=== PATIENT | male | born 1960 | race Caucasian/White ===

== ENCOUNTER → 2018-04-25 13:10 | Outpatient (CLI) | payer OTHER, SELFPAY ==
--- NOTE | 2018-04-25 13:13 | BI_ITS ---
MAMMOGRAPHY - BILATERAL DIAGNOSTIC REASON FOR EXAM: Male, 57 years old. 2 left breast lumps. PERTINENT HISTORY: Non-contributory. TECHNIQUE: Digital bilateral breast delia (3D mammographic acquisition) in the CC and MLO projections. 2-D mediolateral oblique (MLO) and craniocaudad (CC) views of both breasts were obtained. CAD: Full Field Digital Mammography with Computer Added Detection was performed. COMPARISON: None. Baseline examination. FINDINGS: Breast Composition: The breasts are almost entirely fatty. There are no dominant masses or suspicious calcifications. No other significant abnormalities are identified. BI/DIAG MAMM W/CAD, BILAT IMPRESSION: Negative diagnostic mammogram. With the patient's history of left breast lumps, correlation with ultrasound is recommended. ASSESSMENT CATEGORY: BIRADS Category 0: Incomplete. Need additional imaging evaluation. A letter regarding these results will be sent to the patient by the facility within 30 days. Approximately 10% of breast cancers are not detected by mammography. A normal mammogram should not delay biopsy of a clinically suspicious abnormality. Electronically Signed: Nic So MD at 15:41 EDT Tel [phone], Service support ,
--- NOTE | 2018-04-25 13:14 | US_ITS ---
STUDY: ULTRASOUND BREAST - LEFT REASON FOR EXAM: Male, 57 years old. Palpable lump left breast. TECHNIQUE: Axial and longitudinal images of the LEFT breast were performed with a high resolution ultrasound transducer. COMPARISON: Comparison is made with prior mammogram done earlier today. FINDINGS: LEFT Breast: There is a 1.4 cm x 1.8 cm x 0.8 cm slightly echogenic well-defined nodule at the 8:00 position in process of the sinus from the nipple. A similar-appearing nodule measuring 2.4 cm x 4.9 cm x 0.8 cm is seen at the 3:00 position breast at 4 cm from the nipple. These may represent lipomas although tissue diagnosis is recommended. US/Breast Limited Unilateral IMPRESSION: There are 2 slightly echogenic well-defined nodules as described. These may represent lipomas although tissue diagnosis is recommended. ASSESSMENT CATEGORY: BIRADS Category 4: Suspicious - Biopsy Should Be Considered. A letter regarding these results will be sent to the patient by the facility within 30 days. Electronically Signed: Nic So MD at 14:34 EDT Tel [phone], Service support ,
== END ==
PROVIDERS: Family Provider Family Medicine; PCP Family Medicine; Visit Provider Family Medicine
DX: N63.0 Unspecified lump in unspecified breast (principal)
CPT/HCPCS: 76642; 77062; 77066; G0279

== ENCOUNTER → 2018-07-03 12:22 | Outpatient (CLI) | payer OTHER, SELFPAY ==
[2018-05-03 12:56] VITALS: BMI 31.9
--- NOTE | 2018-07-03 12:25 | RAD_ITS ---
HISTORY: low back pain that goes down the back of the legs, some numbness occasionally COMPARISON: None FINDINGS: Lumbar spine 5 views: Mild anterior wedging of the T12 vertebral body and this may be developmental. Lumbar vertebra show normal height and alignment. No fracture or suspicious lesion. Diffuse narrowing of the lumbar disc spaces accompanied by anterolateral endplate spurring. Multilevel degenerative vacuum disc phenomenon. The posterior elements appear intact. No spondylolisthesis. The SI joints are preserved. RAD/L/S Spine Min 4 Views IMPRESSION: 1. No fracture or acute disease. 2. Lumbar spine degenerative disc disease and spondylosis throughout. at 0313 Reported and signed by: Fantasma Israel MD Electronically Signed: Fantasma Israel, at 3:11 EST Tel , Service support ,
[2018-07-03 14:04] LABS: Erythrocyte Sedimentation Rate 26 mm/hr (0-20)
[2018-07-03 14:08] LABS: Absolute Neutrophil Count 6.2 X10^3/uL (2.0-7.7); Basophil# 0.03 X10^3/uL; Basophil% 0.3 % (0-1); Eosinophil# 0.17 X10^3/uL; Eosinophils% 1.7 % (0-5); Hematocrit 47.1 % (40-54); Lymphocyte % 27.5 % (19-41); Mean Corpuscular Volume 88.4 fL (80-94); Mean Platelet Vol. 11.3 fl (6.2-12.0); Monocyte# 0.72 X10^3/uL; Monocyte% 7.3 % (0-10); Neutrophil # 6.19 X10^3/uL (2.7-7.7); Neutrophil % 63.1 % (47-70); POSITIVE COUNT NO; POSITIVE DIFFERENTIAL NO; POSITIVE MORPHOLOGY NO; Platelet Count 242 K/mm3 (150-450); RBC Distribution Width CV 13.6 % (11.6-14.6); RBC Distribution Width SD 44.1 fl (35.1-43.9); Red Blood Count 5.33 M/mm3 (4.6-6.2); White Blood Count 9.8 K/mm3 (4.4-11.0)
[2018-07-03 14:24] LABS: BUN 18 mg/dL (7-18); Creatinine, Serum 1.13 mg/dL (0.70-1.30); Glucose 113 mg/dL (74-106)
[2018-07-03 14:25] LABS: ALB/GLOB Ratio 1.1 RATIO (0.9-2.4); AST(SGOT) 18 U/L (15-37); Alanine Aminotransfer ALT/SGPT 29 U/L (16-61); Alkaline Phosphatase 69 U/L (45-117); Anion Gap 9 (5-15); BUN/Creat Ratio 15.9 RATIO (10-20); CRP < 2.90 mg/L (0.0-3.0); Calcium,Total 8.8 mg/dL (8.5-10.1); Chloride 108 mmol/L (98-107); EST Glomerular Filtration Rate 71 mL/min (>60); Est Glom Filt Rate - Afr Amer 86 mL/min (>60); Globulin 3.8 g/dL (2.2-4.2); PSA,Total - Annual Screen 0.92 ng/mL (0.00-4.00); Potassium 4.3 mmol/L (3.5-5.1); Protein, Total 7.8 g/dL (6.4-8.2); Sodium Level 140 mmol/L (136-145)
[2018-07-04 15:00] LABS: ANTINUCLEAR ANTIBODIES DIRECT Negative (Negative)
--- OUTSIDE RECORDS SUMMARY | 2018-08-28 21:30 | XMS RPT_ITS ---
:1960 Author Organization [employer] Address [address] [place] [phone] Phone Care Team Providers Name Role Phone Cesar Blank MD Reason for Visit Reason For Visit Description Start Date Follow-up by complaint Preliminary reason for visit data, not yet signed by the author as of right shoulder pain Preliminary reason for visit data, not yet signed by the author as of Chief Complaint Chief Complaint Description Start Date right shoulder pain Preliminary chief complaint data, not yet signed by the author as of Instructions Instruction Description Start Date CompletedPatient advised to follow-up with Primary Care Physician for BMI management. Plan of Care Type Date Detail Appointment 11:00 AM Cesar Blank MD, [address] [facility], [place], [address], Patient education \cps-sql1\CPS_PtEducation\qu itting_[id number], \cps-sql1\CPS_PtEducation\qu itting_[id number].pdf Medications Medication Instructions Start Stop Generic Name NDC Provider Date Date B-12 1000 MCG 1 capsule daily / CYANOCOBALAMIN 46062337089 Emely CAPS 20 Rutledge FURNACE LOADER VITAMIN B-6 50 1 tablet daily / PYRIDOXINE HCL 95821689616 Emely MG TABS 20 Rutledge FURNACE LOADER ADVIL 200 MG 2 tablets daily / IBUPROFEN 59863791877 Emely TABS 20 Rutledge FURNACE LOADER BIOFLEX TABS 1 tablet daily / BIOFLAVONOID 88828395758 Emely 20 PRODUCTS Rutledge FURNACE LOADER MULTIVITAMIN 1 tablet daily / MULTIPLE 22156543852 Emely MEN TABS 20 VITAMINS-MINERALS Rutledge FURNACE LOADER CIALIS 5 MG 1 tablet daily / TADALAFIL 70569077353 Emely TABS 20 Rutledge FURNACE LOADER PRILOSEC OTC 20 1 tablet daily / OMEPRAZOLE 06717935076 Emely MG TBEC 20 MAGNESIUM Rutledge FURNACE LOADER Conditions or Problems Problem Name Problem Onset Status Entry Provider Comment Standard Annotate Code Date Date Description Complete tear 821272313 Active Cesar Rogers Full TRAUMATIC of right (SNOMED CT) / Abhay LEO thickness rotator cuff rotator cuff tear Impingement 922063862 Active Cesar Rogers Impingement syndrome of (SNOMED CT) Abhay LEO syndrome of right shoulder shoulder region Tear of 008904702 Active Cesar S Tear of right biceps tendon (SNOMED CT) / Abhay LEO biceps brachii tendon Allergies, Adverse Reactions, Alerts Allergy Name Reaction Start Date Severity Status Provider Description SULFA Critical Active Emely Rutledge FURNACE LOADER Social History Concept Description Observation Name Observation Value Units Start Date Tobacco use and SMOK ADVICE Yes exposure Preliminary social history data, not yet signed by the author as of Vital Signs Date Name Value Unit Description BMI (Body Mass 31.74 kg/m2 Body Mass Index Index) [Ratio] Preliminary vital sign data, not yet signed by the author as of BP Diastolic 84 mm[Hg] blood pressure, diastolic Preliminary vital sign data, not yet signed by the author as of BP Systolic 137 mm[Hg] blood pressure, systolic Preliminary vital sign data, not yet signed by the author as of Heart Rate 86 /min pulse rate E&M Preliminary vital sign data, not yet signed by the author as of Height 68 [in_us] height E&M Preliminary vital sign data, not yet signed by the author as of Height 173 cm height in centimeters E&M Preliminary vital sign data, not yet signed by the author as of Weight Measured 208 [lb_av] weight E&M Preliminary vital sign data, not yet signed by the author as of Weight Measured 95 kg weight in kilograms E&M Preliminary vital sign data, not yet signed by the author as of Results Date Name Value Unit Range Flag Description Office Visit: Follow-up by complaint, Rm: 14 MEDS REVIEW Done Documentation of current medications (procedure) Preliminary observation data, not yet signed by the author as of SMOK ADVICE Yes Smoking cessation education (procedure) Preliminary observation data, not yet signed by the author as of Preliminary observation data, not yet signed by the author as of Clinical Summary: HMSPatientID OOP account number Procedures Code Procedure Name Date Entry Date G8730 Pain assessment documented as positive - follow-up documented G8427 Current medications documented 4004F Tobacco screening was positive - cessation counseling received G8417 BMI documented as above normal parameters - follow-up documented G8783 Blood pressure within normal parameters - no follow-up required [id number] Patient Encounter Medications Administered No information available. Immunizations No information available. Advance Directives There may be information available, but it has not been provided by the sender. Assessments There may be information available, but it has not been provided by the sender. Review of Systems There may be information available, but it has not been provided by the sender. Family History There may be information available, but it has not been provided by the sender. History of Past Illness There may be information available, but it has not been provided by the sender. History of Present Illness There may be information available, but it has not been provided by the sender.
--- OUTSIDE RECORDS SUMMARY | 2018-08-28 21:31 | XMS RPT_ITS ---
:1960 Author Organization [employer] Address [address] [place] [phone] Phone Care Team Providers Name Role Phone Cesar Blank MD Reason for Visit Reason For Visit Description Start Date New - 1st visit with practice Preliminary reason for visit data, not yet signed by the author as of right shoulder pain Preliminary reason for visit data, not yet signed by the author as of Chief Complaint Chief Complaint Description Start Date right shoulder pain Preliminary chief complaint data, not yet signed by the author as of Instructions Instruction Description Start Date CompletedPlease follow-up with Primary Care Physician or Lead Python Developer for treatment or adjustment of medication regarding elevated blood pressure. Plan of Care Type Date Detail Appointment 02:00 PM Cesar Blank MD, [address] [facility], [place], [address], Pending order XR SHOULDER 2 VWS-RT Pending order MRI right shoulder without contrast Patient education \cps-sql1\CPS_PtEducation\ht n.pdf Medications Medication Instructions Start Stop Generic Name NDC Provider Date Date B-12 1000 MCG 1 capsule daily / CYANOCOBALAMIN 42866560506 Emely CAPS 20 Rutledge CALL OR CONTACT CENTRE OPERATOR VITAMIN B-6 50 1 tablet daily / PYRIDOXINE HCL 59041394375 Emely MG TABS 20 Rutledge CALL OR CONTACT CENTRE OPERATOR ADVIL 200 MG 2 tablets daily / IBUPROFEN 12047311233 Emely TABS 20 Rutledge CALL OR CONTACT CENTRE OPERATOR BIOFLEX TABS 1 tablet daily / BIOFLAVONOID 71882794999 Emely 20 PRODUCTS Rutledge CALL OR CONTACT CENTRE OPERATOR MULTIVITAMIN 1 tablet daily / MULTIPLE 24929680998 Emely MEN TABS 20 VITAMINS-MINERALS Rutledge CALL OR CONTACT CENTRE OPERATOR CIALIS 5 MG 1 tablet daily / TADALAFIL 16257901677 Emely TABS 20 Rutledge CALL OR CONTACT CENTRE OPERATOR PRILOSEC OTC 20 1 tablet daily / OMEPRAZOLE 89621757943 Emely MG TBEC 20 MAGNESIUM Rutledge CALL OR CONTACT CENTRE OPERATOR Conditions or Problems Problem Name Problem Onset Status Entry Provider Comment Standard Annotate Code Date Date Description Complete tear 493824443 Active Cesar Rogers Full TRAUMATIC of right (SNOMED CT) / Abhay LEO thickness rotator cuff rotator cuff tear Impingement 716349739 Active Cesar Rogers Impingement syndrome of (SNOMED CT) / Abhay LEO syndrome of right shoulder shoulder region Tear of 963849637 Active Cesar S Tear of right biceps tendon (SNOMED CT) / Abhay LEO biceps brachii tendon Allergies, Adverse Reactions, Alerts Allergy Name Reaction Start Date Severity Status Provider Description SULFA Critical Active Emely Rutledge CALL OR CONTACT CENTRE OPERATOR Social History No information available. Vital Signs Date Name Value Unit Description BMI (Body Mass 32.81 kg/m2 Body Mass Index Index) [Ratio] Preliminary vital sign data, not yet signed by the author as of BP Diastolic 92 mm[Hg] blood pressure, diastolic Preliminary vital sign data, not yet signed by the author as of BP Diastolic 83 mm[Hg] blood pressure, diastolic, second observation Preliminary vital sign data, not yet signed by the author as of BP Systolic 152 mm[Hg] blood pressure, systolic Preliminary vital sign data, not yet signed by the author as of BP Systolic 150 mm[Hg] blood pressure, systolic, second observation Preliminary vital sign data, not yet signed by the author as of Heart Rate 62 /min pulse rate E&M Preliminary vital sign data, not yet signed by the author as of Height 68 [in_us] height E&M Preliminary vital sign data, not yet signed by the author as of Height 173 cm height in centimeters E&M Preliminary vital sign data, not yet signed by the author as of Weight Measured 215 [lb_av] weight E&M Preliminary vital sign data, not yet signed by the author as of Weight Measured 98 kg weight in kilograms E&M Preliminary vital sign data, not yet signed by the author as of Results Date Name Value Unit Range Flag Description Office Visit: New - 1st visit with practice, Rm: 14 MEDS REVIEW Done Documentation of current medications (procedure) Preliminary observation data, not yet signed by the author as of Preliminary observation data, not yet signed by the author as of Clinical Summary: Scanned ROS Summary ROS: Denies genitourinary review of systems, E&M ROS GI COM Heart Burn Gastrointestional review of systems, comment ROS: GI Complains ROS gastrointestinal E&M ROS ENDO Denies endocrine ROS ROS MSK COMM Muscle ROS Musculoskeletal Cramps,Muscle comments Weakness,Pain,J oint Pain ROS:MUSCSKEL Complains ROS musculoskeletal E&M ROS: PSYCH Denies ROS psychiatric E&M ROS HEME Denies ROS hematologic/lymphatic E&M ROS SKIN Denies ROS skin E&M ROS ENT Denies ROS ENT E&M ROS:GENERAL Denies ROS general E&M ROS: NEURO Denies ROS neurological E&M ROS:PULMON Denies ROS pulmonary E&M ROS: CARDIAC Denies ROS cardiovascular E&M Clinical Summary: HMSPatientID OOP account number Clinical Lists Update: Preload Extended SMOK STATUS current everyday Tobacco smoker smoking status NHIS Clinical Summary: Data Submitted by Patient in Portal Mylaf Exercise vein comment DEPEXER FREQ 3 days per week Data entered by patient exercise frequency DEP EXERTYP sports Data entered by patient exercise type DEP EXERCISE No data entered by patient, exercise history DEP DRUG USE No data entered by patient, drug (of abuse) use PREPRGETOH Occasional beer or alcohol, amount mixed drink used per day prior socially to DEP ETOH USE No data entered by patient, alcohol (ethanol or ETOH) use DEP CIGAR SM greater than 10 Data entered by cigars per week patient cigar smoking TOBUSEWHEN 40 tobacco use, when do you smoke? 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 EMPLOYER employed data entered by patient, Employer Name BROTHERS A/D My brother(s)' brother(s) of health history is patient alive or unknown SISTER A/D My sister(s)' sister of health history is patient(s) alive unknown or DEPFHPATUNKN My father's health data entered by history is unknown patient, paternal family history unknown DEATHCAU DAD Age cause of , father FATHER A/D father of patient is alive or DEP MOM PM Cancer data entered by patient, mother's medical history MOTHER A/D Alive mother of patient is alive or DEP SURGERY Carpal tunnel, Data entered by Trigger finger patient, history of past surgeries DEP [facility] GERD, Obesity data entered by patient, past medical history RLATNSHPINFR Self Relationship of informant to patient MEDICCOMMNTS Men's multivitamin medication Vitamin B12 - comments 1,000mcg DEP ALG LIST Sulfa Drugs,I Data entered by don't have any patient, allergy food allergies.,I list don't have any environmental allergies. DEP MED LIST Prilosec 20 mg Tab Data entered by Dr, 1 times per patient, day,Vitamin B6 50 medication list mg Tab, 1 times per day,Cialis 5 mg Tab, 1 times per day Clinical Lists Update: Preload Extended SMOK STATUS current everyday Tobacco smoker smoking status CTIS Procedures Code Procedure Name Date Entry Date G8730 Pain assessment documented as positive - follow-up documented G8427 Current medications documented [id number] Tobacco screening or cessation counseling not performed - unknown reason G8419 BMI outside of normal parameters - no follow-up plan/reason not given G8950 Blood pressure outside of normal parameters - follow-up documented [id number] Patient Encounter Medications Administered No information available. [...]
--- OUTSIDE RECORDS SUMMARY | 2018-08-28 21:31 | XMS RPT_ITS ---
:1960 Author Organization OHIP Care Team Providers Name Role Phone ELDA GUNDERSON Attending Unavailable CHARLES ARMENDARIZ Referring Unavailable Kimberly Cole Attending Unavailable Marcello Charles Referring Unavailable Alvarado Bowden Attending Unavailable Alvarado Bowden Referring Unavailable Marcello, Charles Primary Care Unavailable Edgar Dan Attending Unavailable Marcello, Charles Referring Unavailable Charles Armendariz Attending Unavailable Armendariz, Charles Referring Unavailable Armendariz, Charles Primary Care Unavailable PROBLEMS PROBLEMS DATE TYPE CONDITION / CODE ATTENDING STATUS SOURCE 05/03/2018 Unknown Z98.890 - Other Edgar Dan Debra specified [facility] / Repository Z98.890(ICD-10) 05/03/2018 Unknown M25.532 - Pain in Edgar Dan Active Debra left wrist / Community M25.532(ICD-10) Hospital Repository PROCEDURES PROCEDURES No Procedure Records FoundRESULTS RESULTS CNOV Observed: 07/15/2018 Status: COMPLETED Source: [place] 2:40 PM [facility] REPOSITORY Office Visit (FAREED) MATHEW PORTILLO ([id number]) 1960 M Date Time Provider Department 07/15/18 2:40 PM ELDA GUNDERSON During your visit today, we recorded the following information about you: Temperature Pulse Respiration Blood pressure 98.4 degrees 76/minute 18/minute 157/98 Weight Height 99.8 kg 1.702 m Elda Gunderson MD 07/15/2018 5:12 PM Signed New Patient Consult REASON FOR VISIT Mathew Portillo is a 57 year old male who is scheduled for a consult at the request of Charles Armendariz for Consult (Anal Pain). My final recommendations will be communicated back to the requesting physician by the way of the shared medical record, fax, or via US Mail History of Present Illness: 57 year old male with a history of a perianal abscess in 2017 that was IANDD'd. He believes over the next few months the fistula healed but he now has intermittent anal pain that occurs when sitting. The pain is worse with bowel movements and has 1-2 bowel movements per day. He reports having the pain when driving or sitting and describes it as a sharp shooting pain at the anus. He has a history of internal hemorrhoids several years ago and has had bleeding per rectum this week, mostly dripping into the toilet bowel. He is not on any blood thinners. His last colonoscopy was 1 year ago, which had 2 polyps (tubular adenomas). Smokes 5-7 cigarettes per day. FUNCTIONAL STATUS: Do heavy work around the house, such as scrubbing floors, lifting or moving heavy furniture (8.00 METs) PAST MEDICAL HISTORY Diagnosis Date - Anal abscess 2017 - Benign neoplasm of rectum and anal canal - Carpal tunnel syndrome - ED (erectile dysfunction) - External hemorrhoids without mention of complication - Former smoker - GERD (gastroesophageal reflux disease) - Headaches, cluster - Hemorrhage of gastrointestinal tract, unspecified - Hiatal hernia - Internal hemorrhoid, bleeding - Kidney stones - Snoring - STD (sexually transmitted disease) - Trigger finger PAST SURGICAL HISTORY Procedure Laterality Date - CARPAL TUNNEL - COLONOSCOP W/ OR W/O BRSH SPEC 09/18/2016 Colonoscopy - COLONOSCOPY W/BX 07/04/11 Repeat in - EGD 2008 normal - KNEE SCOPE,DIAGNOSTIC 1987 FAMILY HISTORY Problem Relation Age of Onset - Cancer Mother - other (nonhodgkins) Mother - None Father - None Sister - None Sister - Cancer Brother - None Maternal Grandmother - None Maternal Grandfather - Diabetes Daughter - Hypertension Son Social History Substance Use Topics - Smoking status: Current Every Day Smoker Types: Cigarettes, Cigars Last attempt to quit: 12/04/2008 - Smokeless tobacco: Never Used Comment: Smokes Cigars - 5 day - Alcohol use Yes Comment: rarely The patient has the following: Problem List Noted Noted By Resolved Resolved By Low libido 03/16/2015 Dixon Kramer No Impotence of organic origin 03/16/2015 Dixon Kramer No MEDICATIONS Current Outpatient Prescriptions: celecoxib (CELEBREX) 200 mg capsule Take 200 mg by mouth twice daily. Disp: Rfl: cyclobenzaprine (FLEXERIL) 10 mg tablet Take 10 mg by mouth daily at bedtime. Disp: Rfl: amoxicillin (AMOXIL) 875 mg tablet Take 875 mg by mouth twice daily. Disp: Rfl: Multivitamin capsule Take 1 capsule by mouth once daily. Disp: Rfl: Tadalafil (CIALIS) 10 mg tablet Take 10 mg by mouth once daily. Disp: Rfl: LACTOBACILLUS ACIDOPHILUS (PROBIOTIC ORAL) Take by mouth once daily. Disp: Rfl: Omeprazole Magnesium (PRILOSEC OTC) 20 mg ORAL tablet Take 1 tablet by mouth once daily. ON AN EMPTY STOMACH Disp: 90 tablet Rfl: 3 ibuprofen (ADVIL) 200 mg ORAL tablet Take 1-2 tablets by mouth every 2 hours as needed. for pain. Disp: Rfl: 0 sildenafil (VIAGRA) 100 mg ORAL tablet Take 1 tablet by mouth as needed. 30-60 minutes before sexual intercourse. 1/2 tablet Disp: Rfl: 0 No current facility-administered medications for this visit. CURRENT ALLERGIES ALLERGIES Allergen Reactions - Lisinopril Cough - Sulfa (Sulfonamide * Rash REVIEW OF SYSTEMS PAIN ASSESSMENT: General: No weight loss, malaise or fevers. Neuro: Neg Respiratory: No history of current cough or dyspnea, or pneumonia in the past 6 weeks. No history of respiratory/pulmonary symptoms or problems Cardiovascular: No history of HTN requiring medication, no history of angina, CHF, AK, cardiac surgery or stents. Denies rest pain, gangrene or revascularization/amputation for PVD. No history of cardiovascular symptoms or problems. GI: Positive for GERD, Heartburn, History of polyps : BPH METAL MINER: N/A : N/A Endocrine: No history of diabetes. Has not taken steroids within the past 30 days. No history of endocrinological symptoms or problems. Hematology: No history of bleeding or clotting disorder. Pt is not taking anti-coagulation or platelet medications. No history of hematological symptoms or problems. Oncology: No history of CA metastasis, chemo within 30 days, or radiotherapy within 90 days. Has not lost 10% of body wt in 6 months. No history of oncological symptoms or problems. Psych: No history of psychiatric symptoms or problems. Musculoskeletal: Back pain, Rt rotator cuff tear Skin: Negative for lesions, rash and itching. Anemia: No PHYSICAL EXAMINATION BP 157/98 Pulse 76 Temp (Src) 98.4 (Oral) Resp 18 Ht 5' 7 (1.70m) Wt 220 lb (99.8kg) SpO2 96% BMI 34.45 kg/(m2). General Appearance: Well appearing, alert, in no acute distress, well-hydrated, well nourished. Skin: Skin color, texture, turgor normal, no suspicious rashes or lesions Head: Normocephalic, no masses, lesions, tenderness or abnormalities Oropharynx: Lips, mucosa, and tongue normal, teeth and gums normal, oropharynx normal Neck: Supple, no adenopathy; thyroid symmetric, normal size, no bruits Lungs: Lungs clear to auscultation. No wheezing, rhonchi, rales Heart: RRR without murmur, gallop, or rubs. No ectopy Extremities: No deformities, edema, skin discoloration, clubbing or cyanosis. Good capillary refill. Neuro: Gait normal. Reflexes normal and symmetric. Sensation grossly intact. Abdomen: Normal abdominal exam, Negative CVA tenderness Anorectal: Normal tone and squeeze; tight sphincters, long canal; on the exterior anoderm anteriolaterally on the left there is irritation and inflammed what looks like a follicle. That are is not tender to the touch. There is no obvious fissure visible. On SAMINA, the point of tenderness is directly posteriorly. He does not tolerate the exam and anoscopy was not tried. Body And Frame Man present: Yes [facility] [place] NOTE OF PERSONAL INVOLVEMENT IN CARE I have reviewed the history and physical examination obtained and documented by the fellow and I personally participated in the fay components. I have discussed the case and management of the patient's care. The following comments revise or confirm relevant fay components of their note. Assessment ASSESSMENT 1. anal pain, suspected chronic fissue 2. prior anal abscess, treated by IANDD 3. obesity RECOMMENDATION 1. increase water and fiber in diet 2. colace 3. lidocaine jelly bid 4. trial of 0.2% NTG ointment 5. 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 OMEPRAZOLE MAGNESIUM 20 MG TA* Take 1 tablet by mouth once d* IBUPROFEN 200 MG TABLET Take 1-2 tablets by mouth mathieu* SILDENAFIL 100 MG TABLET Take 1 tablet by mouth as nee* NITROGLYCERIN 0.2% OINTMENT (* Apply 1 application to affect* LIDOCAINE 2 % MUCOSAL JELLY Apply as directed. Problem List As Of Date 07/15/2018 Noted Resolved Low libido [R68.82] INVALID FOR* Impotence of organic origin [N52.9] INVALID FOR* Prescriptions ordered this encounter Disp Refills Start End NITROGLYCERIN 0.2% OINTMENT ([facility]) 30 g 1 07/15/2018 Class: Print RX Route: TOPICAL Sig: Apply 1 application to affected area twice daily. LIDOCAINE 2 % MUCOSAL JELLY 1 Tu* 07/15/2018 Sig: Apply as directed. Encounter Status:Closed by ELDA GUNDERSON MD on 07/15/18 HISTORY PHYSICAL Observed: 07/15/2018 Status: COMPLETED Source: [place] 2:37 PM [facility] REPOSITORY O ID: [id number] Author: Elda Gunderson Service: (none) Author Type: Physician Type: HANDP Filed: 07/15/2018 5:12 PM Note Text: New Patient Consult REASON FOR VISIT Mathew Portillo is a 57 year old male who is scheduled for a consult at the request of Charles Armendariz for Consult (Anal Pain). My final recommendations will be communicated back to the requesting physician by the way of the shared medical record, fax, or via US Mail History of Present Illness: 57 year old male with a history of a perianal abscess in 2017 that was IANDD'd. He believes over the next few months the fistula healed but he now has intermittent anal pain that occurs when sitting. The pain is worse with bowel movements and has 1-2 bowel movements per day. He reports having the pain when driving or sitting and describes it as a sharp shooting pain at the anus. He has a history of internal hemorrhoids several years ago and has had bleeding per rectum this week, mostly dripping into the toilet bowel. He is not on any blood thinners. His last colonoscopy was 1 year ago, which had 2 polyps (tubular adenomas). Smokes 5-7 cigarettes per day. FUNCTIONAL STATUS: Do heavy work around the house, such as scrubbing floors, lifting or moving heavy furniture (8.00 METs) PAST MEDICAL HISTORY Diagnosis Date - Anal abscess 2016 - Benign neoplasm of rectum and anal canal - Carpal tunnel syndrome - ED (erectile dysfunction) - External hemorrhoids without mention of complication - Former smoker - GERD (gastroesophageal reflux disease) - Headaches, cluster - Hemorrhage of gastrointestinal tract, unspecified - Hiatal hernia - Internal hemorrhoid, bleeding - Kidney stones - Snoring - STD (sexually transmitted disease) - Trigger finger PAST SURGICAL HISTORY Procedure Laterality Date - CARPAL TUNNEL - COLONOSCOP W/ OR W/O BRSH SPEC 09/18/2016 Colonoscopy - COLONOSCOPY W/BX 07/04/11 Repeat in - EGD 2008 normal - KNEE SCOPE,DIAGNOSTIC 1987 FAMILY HISTORY Problem Relation Age of Onset - Cancer Mother - other (nonhodgkins) Mother - None Father - None Sister - None Sister - Cancer Brother - None Maternal Grandmother - None Maternal Grandfather - Diabetes Daughter - Hypertension Son Social History Substance Use Topics - Smoking status: Current Every Day Smoker Types: Cigarettes, Cigars Last attempt to quit: 12/04/2008 - Smokeless tobacco: Never Used Comment: Smokes Cigars - 5 day - Alcohol use Yes Comment: rarely The patient has the following: Problem List Noted Noted By Resolved Resolved By Low libido 03/16/2015 Dixon Kramer No Impotence of organic origin 03/16/2015 Dixon Kramer No MEDICATIONS Current Outpatient Prescriptions: celecoxib (CELEBREX) 200 mg capsule Take 200 mg by mouth twice daily. Disp: Rfl: cyclobenzaprine (FLEXERIL) 10 mg tablet Take 10 mg by mouth daily at bedtime. Disp: Rfl: amoxicillin (AMOXIL) 875 mg tablet Take 875 mg by mouth twice daily. Disp: Rfl: Multivitamin capsule Take 1 capsule by mouth once daily. Disp: Rfl: Tadalafil (CIALIS) 10 mg tablet Take 10 mg by mouth once daily. Disp: Rfl: LACTOBACILLUS ACIDOPHILUS (PROBIOTIC ORAL) Take by mouth once daily. Disp: Rfl: Omeprazole Magnesium (PRILOSEC OTC) 20 mg ORAL tablet Take 1 tablet by mouth once daily. ON AN EMPTY STOMACH Disp: 90 tablet Rfl: 3 ibuprofen (ADVIL) 200 mg ORAL tablet Take 1-2 tablets by mouth every 2 hours as needed. for pain. Disp: Rfl: 0 sildenafil (VIAGRA) 100 mg ORAL tablet Take 1 tablet by mouth as needed. 30-60 minutes before sexual intercourse. 1/2 tablet Disp: Rfl: 0 No current facility-administered medications for this visit. CURRENT ALLERGIES ALLERGIES Allergen Reactions - Lisinopril Cough - Sulfa (Sulfonamide * Rash REVIEW OF SYSTEMS PAIN ASSESSMENT: General: No weight loss, malaise or fevers. Neuro: Neg Respiratory: No history of current cough or dyspnea, or pneumonia in the past 6 weeks. No history of respiratory/pulmonary symptoms or problems Cardiovascular: No history of HTN requiring medication, no history of angina, CHF, AK, cardiac surgery or stents. Denies rest pain, gangrene or revascularization/amputation for PVD. No history of cardiovascular symptoms or problems. GI: Positive for GERD, Heartburn, History of polyps : BPH METAL MINER: N/A : N/A Endocrine: No history of diabetes. Has not taken steroids within the past 30 days. No history of endocrinological symptoms or problems. Hematology: No history of bleeding or clotting disorder. Pt is not taking anti-coagulation or platelet medications. No history of hematological symptoms or problems. Oncology: No history of CA metastasis, chemo within 30 days, or radiotherapy within 90 days. Has not lost 10% of body wt in 6 months. No history of oncological symptoms or problems. Psych: No history of psychiatric symptoms or problems. Musculoskeletal: Back pain, Rt rotator cuff tear Skin: Negative for lesions, rash and itching. Anemia: No PHYSICAL EXAMINATION BP 157/98 Pulse 76 Temp (Src) 98.4 (Oral) Resp 18 Ht 5' 7 (1.70m) Wt 220 lb (99.8kg) SpO2 96% BMI 34.45 kg/(m2). General Appearance: Well appearing, alert, in no acute distress, well-hydrated, well nourished. Skin: Skin color, texture, turgor normal, no suspicious rashes or lesions Head: Normocephalic, no masses, lesions, tenderness or abnormalities Oropharynx: Lips, mucosa, and tongue normal, teeth and gums normal, oropharynx normal Neck: Supple, no adenopathy; thyroid symmetric, normal size, no bruits Lungs: Lungs clear to auscultation. No wheezing, rhonchi, rales Heart: RRR without murmur, gallop, or rubs. No ectopy Extremities: No deformities, edema, skin discoloration, clubbing or cyanosis. Good capillary refill. Neuro: Gait normal. Reflexes normal and symmetric. Sensation grossly intact. Abdomen: Normal abdominal exam, Negative CVA tenderness Anorectal: Normal tone and squeeze; tight sphincters, long canal; on the exterior anoderm anteriolaterally on the left there is irritation and inflammed what looks like a follicle. That are is not tender to the touch. There is no obvious fissure visible. On SAMINA, the point of tenderness is directly posteriorly. He does not tolerate the exam and anoscopy was not tried. Body And Frame Man present: Yes [facility] [place] NOTE OF PERSONAL INVOLVEMENT IN CARE I have reviewed the history and physical examination obtained and documented by the fellow and I personally participated in the fay components. I have discussed the case and management of the patient's care. The following comments revise or confirm relevant fay components of their note. Assessment ASSESSMENT 1. anal pain, suspected chronic fissue 2. prior anal abscess, treated by IANDD 3. obesity RECOMMENDATION 1. increase water and fiber in diet 2. colace 3. lidocaine jelly bid 4. trial of 0.2% NTG ointment 5. if no improvement, EUA to r/o fissure or occult abscess Elda Gunderson MD DATE: 07/15/18 TIME: 2:37 PM ERYTHROCYTE SED RATE Collected: 07/03/2018 Status: F Source: [place] 12:27 PM [facility] REPOSITORY TYPE CODE TESTS RESULT OUT OF RANGE REFERENCE UNITS LAB L102.0000 0-20 mm/hr High SED RATE 26 Performed By: #### L101.9900, L100.0100 #### [facility] [address] [place], [address] CBC W/DIFF, AUTOMATED Collected: 07/03/2018 Status: F Source: [place] 12:27 PM [facility] REPOSITORY TYPE CODE TESTS RESULT OUT OF RANGE REFERENCE UNITS LAB L100.1000 4.4-11.0 K/mm3 Normal WBC 9.8 LAB L100.1200 4.6-6.2 M/mm3 Normal RBC 5.33 LAB L100.1300 13.0-16.5 g/dl Normal HGB 16.0 LAB L100.1400 40-54 % Normal HCT 47.1 LAB L100.1500 80-94 fL Normal MCV 88.4 LAB L100.1600 27.0-32.0 pg Normal MCH 30.0 LAB L100.1700 32-36 g/gl Normal MCHC 34.0 LAB L100.1810 11.6-14.6 % Normal RDW CV 13.6 LAB L100.1820 35.1-43.9 fl High RDW SD 44.1 LAB L100.1900 150-450 K/mm3 Normal PLT 242 LAB L100.2000 6.2-12.0 fl Normal MPV 11.3 LAB L100.2100 47-70 % Normal NEUT% 63.1 LAB L100.2200 19-41 % Normal LY% 27.5 LAB L100.2300 0-10 % Normal MONO% 7.3 LAB L100.2400 0-5 % Normal EO% 1.7 LAB L100.2500 0-1 % Normal BASO% 0.3 LAB L100.2550 0.0-0.9 % Normal IM GRAN % 0.100 Result Comment: IG% - Immature Granulocytes (promyelocytes, myelocytes and metamyelocytes) > 1% indicates that a LEFT SHIFT is Present. LAB L100.2620 2.0-7.7 X10 3/uL Normal Absolute Neut 6.2 LAB L100.2720 0.83-4.51 X10 3/ul Normal Absolute Lymph 2.70 Performed By: #### L101.9900, L100.0100 #### [facility] [address] [place], [place], [address] MICROALB:CREAT Collected: 07/03/2018 Status: F Source: [facility] 12:27 PM [facility] REPOSITORY TYPE CODE TESTS RESULT OUT OF RANGE REFERENCE UNITS LAB L501.1200 NO RANGE EST. mg/dL Normal UR CREAT 116.00 LAB L502.0500 NO RANGE EST. mg/L Normal 7.0 MICROALBUMIN ,UR LAB L502.0600 <30 mg/g CRE mg/g CRE Normal 6.0 MALB:CREAT Performed By: #### L502.0250 #### [facility] [address], [address] COMPREHENSIVE METABOLIC Collected: 07/03/2018 Status: F Source: [place] 12:27 PM [facility] REPOSITORY TYPE CODE TESTS RESULT OUT OF RANGE REFERENCE UNITS LAB L501.0100 74-106 mg/dL High GLU 113 Result Comment: Fasting Glucose result from 100 to 125 mg/dL suggests IMPAIRED HOMEOSTASIS per A.D.A. criteria. Please note revised GLUCOSE reference range effective 2017. LAB L501.1000 7-18 mg/dL Normal BUN 18 LAB L501.1100 0.70-1.30 mg/dL Normal CREAT,SERUM 1.13 Result Comment: The validity of the calculated GFR AND GFRAA in patients over 70 years has not been determined. Clinical correlation is essential. LAB L501.1110 >60 mL/min Normal EST GFR 71 Result Comment: Non- GFR Calc LAB L501.1115 >60 mL/min Normal EST GFR - AA 86 Result Comment: GFR Calc LAB L501.1300 10-20 RATIO Normal BUN/CRE 15.9 LAB L501.1500 6.4-8.2 g/dL T Normal PROT 7.8 LAB L501.1800 3.2-5.0 g/dL Normal ALB 4.0 LAB L501.1950 2.2-4.2 g/dL Normal GLOB 3.8 LAB L501.2000 0.9-2.4 RATIO Normal A/G 1.1 LAB L501.2200 8.5-10.1 mg/dL CA Normal 8.8 LAB L501.4100 15-37 U/L Normal AST 18 LAB L501.4305 45-117 U/L Normal ALK P 69 LAB L501.4405 16-61 U/L Normal ALT 29 LAB L501.4600 0.20-1.00 mg/dL T Normal BILI 0.20 LAB L501.5300 136-145 mmol/L NA Normal 140 LAB L501.5600 3.5-5.1 mmol/L K Normal 4.3 LAB L501.5900 98-107 mmol/L High CL 108 LAB L501.6100 21.0-32.0 mmol/L Normal CO2 23.0 LAB L501.6200 5-15 Normal GAP 9 Performed By: #### L500.4050, L501.6710, L501.9910 #### [facility] [address] [place], [place], [address] CRP Collected: 07/03/2018 Status: F Source: [place] 12:27 PM [facility] REPOSITORY TYPE CODE TESTS RESULT OUT OF RANGE REFERENCE UNITS LAB L501.6710 0.0-3.0 mg/L Normal < 2.90 C-REACTIVE PROT Result Comment: C-Reactive Protein (CRP) provides useful information for the diagnosis, therapy and monitoring of inflammatory processes and associated diseases. For the evaluation of Relative Risk for Cardiovascular Disease, a High Sensitivity CRP (HSCRP) should be ordered. Performed By: #### L500.4050, L501.6710, L501.9910 #### [facility] [address] [place], [place], [address] PSA,TOTAL - ANNUAL Collected: 07/03/2018 Status: F Source: [place] 12:27 PM [facility] REPOSITORY TYPE CODE TESTS RESULT OUT OF RANGE REFERENCE UNITS LAB L501.9910 0.00-4.00 ng/mL Normal PSA,TOT 0.92 SCREEN Result Comment: This test was performed using the TPSA assay method for the [employer] chemistry system. Values obtained with different assay methods cannot be used interchangably. When changing PSA assays in the course of monitoring a patient, additional sequential testing should be carried out to confirm baseline values. Performed By: #### L500.4050, L501.6710, L501.9910 #### [facility] [address] [place], [address] ANTINUCLEAR ANTIBODIES Collected: 07/03/2018 Status: F Source: [place] 12:27 PM [facility] REPOSITORY TYPE CODE TESTS RESULT OUT OF RANGE REFERENCE UNITS LAB L3100.5475 Negative Normal Negative ROLANDA-DIRECT Result Comment: Performed at: - [facility] [id number] Medical Auditor: Nicolas Andrews PhD, Phone: [phone] Performed By: #### L3100.5475 #### [facility] (refer to report for specific site) refer to report for address and phone number L/S SPINE MIN 4 Observed: 07/03/2018 Status: F Source: [place] 12:25 PM [facility] REPOSITORY [facility] Imaging Services [address] [place] [address] L/S Spine Min 4 Views MR#: [id number] Acct: [id number] Name: MATHEW PORTILLO Rep #: [id number] : 1960 M 57 From: Elda Israel MD PCP: Cahrles Armendariz MD Status: REG CLI Study: L/S Spine Min 4 Views Date of Exam: 07/03/18 Exam# [id number] Ordering Dr: Charles Armendariz MD HISTORY: low back pain that goes down the back of the legs, some numbness occasionally COMPARISON: None FINDINGS: Lumbar spine 5 views: Mild anterior wedging of the T12 vertebral body and this may be developmental. Lumbar vertebra show normal height and alignment. No fracture or suspicious lesion. Diffuse narrowing of the lumbar disc spaces accompanied by anterolateral endplate spurring. Multilevel degenerative vacuum disc phenomenon. The posterior elements appear intact. No spondylolisthesis. The SI joints are preserved. RAD/L/S Spine Min 4 Views IMPRESSION: 1. No fracture or acute disease. 2. Lumbar spine degenerative disc disease and spondylosis throughout. at 0313 Reported and signed by: Elda Israel MD Electronically Signed: Elda Israel, at 3:11 EST Tel , Service support , CC: Charles Armendariz MD Enrollment Eligibility Representative: Signed SURGERY VISIT REPORT Observed: 05/03/2018 Status: F Source: [place] 1:19 PM [facility] REPOSITORY [facility] [address] [place] [address] OFFICE VISIT Date of Service: 05/03/18 MR#: [id number] Acct: [id number] Name: MATHEW PORTILLO Rep #: [id number] : 1960 Provider: Edgar Dan MD Age/Sex: 57/M Location: [facility] Status: Signed Intake Vital Signs05/03/18 Height 5 ft 8 in 05/03/18 Weight: 210 lb Intake Visit Reasons: L Breast Lump/US AND Mammo 04/25 [facility] Chief Complaint: Maybe poison Marie [employer] Required: No Is patient in pain?: No (Left breast lump soreness) Allergies Sulfa (Sulfonamide Antibiotics) Allergy (Mild, Verified 05/03/18 12:57) RASH Medications multivitamin,os-dfsu-ukqhchug tablet 1 tab PO QDAY 02/03/18 [History Confirmed 05/03/18] naproxen sodium 220 mg capsule 220 mg PO BID PRN 05/03/18 [History Confirmed 05/03/18] pyridoxine (vitamin B6) 50 mg capsule 50 mg PO DAILY 05/03/18 [History Confirmed 05/03/18] tadalafil 5 mg tablet 5 mg PO DAILY 05/03/18 [History Confirmed 05/03/18] vit W-ubdpkac-fttptifom-rutin-pqei293 500 mg-50 mg-25 mg-40 mg tablet tab PO tab 05/03/18 [History Confirmed 05/03/18] FOR[facility]LY [facility] Medical History Hemorrhoids (Acute) Acid reflux (Acute) Arthritis (Acute) History of stroke (Acute) Surgical History History of incision and drainage (Acute) Hx of arthroscopic knee surgery (Acute) History of carpal tunnel surgery of right wrist (Acute) Family History Mother Non-Hodgkin lymphoma Father Heart disease Social History Smoking Status: Current every day smoker alcohol intake: never substance use type: does not use caffeine: Yes what type of physical activity do you participate in: other details: Golfing frequency: 3-4 times per week seatbelt use: always HPI HPI HPI: MATHEW PORTILLO, is a 57 M who presents to the office today for surgical consultation regarding left breast masses x2 and periumbilical mass and numbness and tingling of his left hand. The patient is referred by Dr. Alvarado Bowden and the patient's primary care physician is Dr. Charles Armendariz. Dr. Alvarado Bowden pursue patient for surgical consultation and a electronic copy will return to him. The patient is noted a rubbery mass medial left breast for 8 months. More recently is detected in outer mid left breast mass because it was tender. He was evaluated and on April 25 a mammogram was obtained. This was unremarkable. The breasts are almost entirely fatty. On April 25 a left breast ultrasound was obtained. At the 8 o'clock position there is a 1.4 x 1.8 x 0.8 cm nodule at the 3 o'clock position there is a 2.4 x 4.9 x 0.8 cm nodule findings were suspicious for lipomas. But the films were graded out as BI-RADS Category 4 The patient also comments that he has had right carpal tunnel surgery and trigger finger release performed by Dr. Alonso Anderson who is since retired. The patient complains of severe numbness of the left hand. 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 If he rests on his elbow he has problems with the left fifth and after the fourth digit. But his primary concern is his first 3 digits. If he keeps pressure off his elbow he has no additional problems with the left fourth and fifth digits ROS General General: No weight change, appetite, fatigue, colon cancer, breast cancer or weakness HEENT HEENT: No difficulty swallowing, eye injury, eye surgery, swollen glands or hoarseness Endo Endocrine: No thyroid disease, diabetes mellitus, thyroid cancer, Hair loss, heat intolerance or cold intolerance Skin Skin: No rash or changing moles Breast Breast: Yes left breast lump, breast pain, abnormal US and abnormal mammogram; no right breast lump, nipple discharge or breast enlargement Musc Musculoskeletal: Yes back problems and arthritis; no rheumatoid arthritis, gout or joint pain Cardio Cardiovascular: No murmur, pacemaker, heart disease, atrial fibrillation, high blood pressure, heart attack, heart stent, palpitations, shortness of breat with exertion or chest pain Psych Psychiatric: No depression, anxiety or hearing voices Resp Respiratory: No shortness of breath, No sleep apnea, No cough, No COPD, No asthma, No emphysema, No wheezing Gastro Gastrointestinal: Yes acid reflux, Yes hemorrhoids, No abdominal pain, No nausea or vomiting, No diarrhea, No constipation, No blood in stool, No ulcers, No gallbladder problem, No black,tarry stools Daniel Hematologic: No blood thinners, No blood disorders, No bleeding, No anemia, No blood clots Neuro Neurologic: No weakness, Yes tingling, Yes numbness Exam Chest Breast Palpation: No nipple discharge Other: Left breast: Medial left breast 8 o'clock position +5 cm rubbery nontender slightly mobile nodule. No distortion. Not fixed. Not firm Left breast: Outer left breast 3 o'clock position a more elongated 4 cm rubbery nodule. Slightly tender. No fixation. No left axillary or clavicular adenopathy. No nipple discharge Cardio Heart Sounds: no murmurs GI Other: To the right of the umbilicus and slightly inferior there is additional rubbery soft tissue mass. Approximately 2 cm in diameter. This is more deeply placed and vague Extrem Other: Left hand: Mild thenar atrophy, positive Tinel's, adequate radial artery pulse Assessment AND Plan Problems 1. Lipoma of breast D17.1 2. Lipoma of torso D17.1 3. Carpal tunnel syndrome of left wrist G56.02 Plan I have reviewed the patient's imaging and believe that the 2 findings in the left breast are consistent with lipomas. This would correlate well with physical exam. I do not believe that this correlates with a BI-RADS Category 4. I do not believe that tissue biopsy is mandatory. The mass at the 3 o'clock position is somewhat tender. I have offered the patient consideration for excision. I believe that this could be accomplished in an office setting under local anesthetic. It of course could also be accomplished in the operating room under monitored anesthesia care with local anesthetic. The patient has signs and symptoms very much consistent with left carpal tunnel syndrome. The patient states that he has had successful treatment of similar problems of the right wrist with good results. I recommend nerve conduction test for his left hand. The rubbery abdominal mass to the right of the umbilicus also was consistent with a lipoma. The patient has had this 1 for an extended period of time. I do not believe that treatment of this is required at this time. The patient has had an opportunity to ask and have questions answered. If the patient has nerve conduction test correlating with carpal tunnel syndrome and if we take him to the operating room to perform a left carpal tunnel release then it would be reasonable under monitored anesthesia care and local anesthetic to remove the tender mass suspected lipoma in the outer mid left breast at that setting as well. The patient will return to the office for follow-up subsequent to his nerve conduction test Very much appreciate opportunity of assisting with his surgical care Cc: Dr. Charles Armendariz and Dr. Alvarado Dan M.D., F.A.C.S. Orders Orders: Coding Level of Care Code Exp prob focused,strt fwd Diagnoses Lipoma of breast D17.1 Lipoma of torso D17.1 Lipoma location: trunk Carpal tunnel syndrome of left wrist G56.02 05/03/18 1319 <Electronically signed by Edgar Dan MD> Date Edgar Dan MD Cosigner Signature: Date (if applicable) CC: Charles Armendariz MD; Alvarado Bowden MD BREAST LIMITED Observed: 04/25/2018 Status: F Source: [place] UNILATERAL 1:14 PM [facility] REPOS[facility] Imaging Services [address] [place] [address] Breast Limited Unilateral MR#: [id number] Acct: [id number] Name: MATHEW PORTILLO Rep #: [id number] : 1960 M 57 From: Nic So MD PCP: Charles Armendariz MD Status: REG CLI Study: Breast Limited Unilateral Date of Exam: 04/25/18 Exam# [id number] Ordering Dr: Alvarado Bowden MD STUDY: ULTRASOUND BREAST - LEFT REASON FOR EXAM: Male, 57 years old. Palpable lump left breast. TECHNIQUE: Axial and longitudinal images of the LEFT breast were performed with a high resolution ultrasound transducer. COMPARISON: Comparison is made with prior mammogram done earlier today. FINDINGS: LEFT Breast: There is a 1.4 cm x 1.8 cm x 0.8 cm slightly echogenic well- defined nodule at the 8:00 position in process of the sinus from the nipple. A similar-appearing nodule measuring 2.4 cm x 4.9 cm x 0.8 cm is seen at the 3:00 position breast at 4 cm from the nipple. These may represent lipomas although tissue diagnosis is recommended. US/Breast Limited Unilateral IMPRESSION: There are 2 slightly echogenic well-defined nodules as described. These may represent lipomas although tissue diagnosis is recommended. ASSESSMENT CATEGORY: BIRADS Category 4: Suspicious - Biopsy Should Be Considered. A letter regarding these results will be sent to the patient by the facility within 30 days. Electronically Signed: Nic So MD at 14:34 EDT Tel [phone], Service support , CC: Charles Armendariz MD; Alvarado Bowden MD Enrollment Eligibility Representative: Signed DIAG MAMM W/CAD, Observed: 04/25/2018 Status: F Source: [place] BIL 1:13 PM [facility]POS[facility]ORY [facility] Imaging Services [address] [place] [address] DIAG MAMM W/CAD, BILAT MR#: [id number] Acct: [id number] Name: MATHEW PORTILLO Rep #: [id number] : 1960 M 57 From: Nic So MD PCP: Charles Armendariz MD Status: REG CLI Study: DIAG MAMM W/CAD, BILAT Date of Exam: 04/25/18 Exam# [id number] Ordering Dr: Alvarado Bowden MD MAMMOGRAPHY - BILATERAL DIAGNOSTIC REASON FOR EXAM: Male, 57 years old. 2 left breast lumps. PERTINENT HISTORY: Non-contributory. TECHNIQUE: Digital bilateral breast delia (3D mammographic acquisition) in the CC and MLO projections. 2-D mediolateral oblique (MLO) and craniocaudad (CC) views of both breasts were obtained. CAD: Full Field Digital Mammography with Computer Added Detection was performed. COMPARISON: None. Baseline examination. FINDINGS: Breast Composition: The breasts are almost entirely fatty. There are no dominant masses or suspicious calcifications. No other significant abnormalities are identified. BI/DIAG MAMM W/CAD, BILAT IMPRESSION: Negative diagnostic mammogram. With the patient's history of left breast lumps, correlation with ultrasound is recommended. ASSESSMENT CATEGORY: BIRADS Category 0: Incomplete. Need additional imaging evaluation. A letter regarding these results will be sent to the patient by the facility within 30 days. Approximately 10% of breast cancers are not detected by mammography. A normal mammogram should not delay biopsy of a clinically suspicious abnormality. Electronically Signed: Nic So MD at 15:41 EDT Tel [phone], Service support , CC: Charles Armendariz MD; Alvarado Bowden MD Enrollment Eligibility Representative: Signed URGENT CARE VISIT Observed: 02/03/2018 Status: F Source: [place] REPORT 2:08 PM [facility] [address] [place] [address] OFFICE VISIT Date of Service: 02/03/18 MR#: [id number] Acct: [id number] Name: MATHEW PORTILLO Rep #: [id number] : 1960 Provider: ANDERS Cole Age/Sex: 57/M Location: [facility] [place] Status: Signed Intake Vital Signs02/03/18 Height 5 ft 8 in 02/03/18 Weight: 220 lb 02/03/18 Body Mass Index (BMI) 33.4 02/03/18 Blood Pressure 130/82 Intake Visit Reasons: POISON MARIE Chief Complaint: Maybe poison Marie [employer] Required: No Is patient in pain?: No Allergies Sulfa (Sulfonamide Antibiotics) Allergy (Mild, Verified 02/03/18 11:34) RASH Medications multivitamin,wi-isur-eiooujzw tablet 1 tab PO QDAY 02/03/18 [History Confirmed 02/03/18] omeprazole magnesium 2.5 mg oral suspension,delayed release 40 mg PO QDAY 02/03/18 [History Confirmed 02/03/18] FOR[facility]LY [facility] Medical History History of stroke (Acute) Family History Mother Cancer Father Heart disease Social History alcohol intake: never HPI HPI Chief Complaint: Maybe poison Marie Details: MATHEW PORTILLO, is a 57 M who presents to the office today for 2 day history of bilateral upper eyelids itchy and a little swollen, and an itchy rash both testicles. He was golfing and there was alot of poison marie on the course which states he is very allergic to it so he thought it might be that. No fever, chills, or other areas of rash. There is not itching in the actual eyes, just the upper eyelids. ROS Const Constitutional: No body ache, chills, fever(s), night sweats, weakness, frequent falls or headache(s) Eyes Eyes: No visual disturbances, light sensitivity, eye pain or change in vision ENT ENT: No ear pain, ear discharge, hearing loss, dizziness/vertigo, nasal discharge, difficulty swallowing, sore throat, neck pain or headache(s) Resp Respiratory: No cough, chest congestion, hemoptysis, shortness of breath or wheezing Cardio Cardiology: No shortness of breath, irregular heart rhythm, lightheadedness, chest pain at rest, chest pain with exertion, generalized swelling, orthopnea or palpitations Gastro GI: No difficulty swallowing, abdominal pain, bloating, change in bowel habits, diarrhea, nausea/dyspepsia or vomiting Genitourinary Male: No painful urination, urinary frequency, difficulty urinating or blood in urine Musc Musculoskeletal: No joint pain, back pain, numbness, tingling or neck pain Skin Skin: Positive for lesions, itching (jsut eyelids) and rash (talat HPI) Neuro Neurology: No visual disturbances, numbness, tingling, abnormal speech, unsteady gait/balance, dizziness, weakness, frequent falls, loss of vision or headache(s) Aller/Imm Allergy/Immunologic: Positive for itchy eyes (jsut eyelids); no wheezing, food intolerance, seasonal allergy symptoms or hives Daniel/Lymp Hematologic/Lymphatic: No easy bruising Exam Const General: cooperative, no acute distress Orientation: alert, oriented x3 [facility] Head: normal to inspection, normocephalic Ears: hearing grossly normal bilaterally Face and sinus: normal facial exam, sinuses nontender Mouth: oral mucosae normal, oropharynx normal, tongue normal Eyes Visual Ivey: normal visual ivey by confrontation Eyelids: eyelid abnormality (bilateral upper eyelids are mildly eryth with some tiny papules near ridge ) right upper eyelid and left upper eyelid Conjunctivae: conjunctivae normal Sclera: sclerae normal Pupils: PERRL, normal by confrontation, accommodation normal EOM: EOM intact bilaterally Direct ophthalmoscopy: normal light reflex, no papilledema, no photophobia, fundi normal bilaterally Neck Neck: normal visual inspection, full ROM, supple, no lymphadenopathy Lymphatic: no lymphadenopathy noted Chest Chest palpation AND inspection: normal inspection of the chest Resp Effort AND Inspection: normal respiratory effort, able to speak in complete sentences, symmetric chest movement, no audible wheezes, no cough, not labored, no respiratory distress Auscultation: Bilateral: Clear to Auscultation Cardio Rate: regular rate Rhythm: regular rhythm Heart Sounds: S1 normal, S2 normal External: other (Bilateral scrotal erythem rash, itchy, papular) Penis: normal penis Scrotum: other (rash- erythematous, papular), erythematous Skin Rashes: rashes noted (upper eyelids and bilateral genitalia as described below) Other: erythematous rash bilateral eyelids (blepharitis) and bilateral genitalia (scrotal). Small papules on erythematous bas, pruritic. Recent exposure to poison marie. Neuro General: alert, oriented x3, moves all extremities Speech: speech normal Gait: normal gait Motor: muscle tone normal throughout Extrem General: normal to inspection Psych Appearance: grossly normal, well kempt Mental Status: mental status grossly normal Affect: normal affect Speech and Movement: speech and movement normal Attitude: cooperative Thought Process: normal Thought Content: normal Judgment: judgment good Assessment AND Plan Problems 1. Contact dermatitis and eczema due to plant L24.7 2. Blepharitis of upper and lower eyelids of both eyes, unspecified type H01.001; H01.002; H01.004; H01.005 Plan Medrol dose pack Lamisil AT OTC (ordered Lotrisone, then cancelled it-prefer Lamisil AT, OTC)to apply to genitalia Lid scrubs with Johnsons No more Tears for Blepharitis. F/u with PCP 3-4 days if symptoms persist. Coding Level of Care Code Off vis,new,level 3 Diagnoses Contact dermatitis and eczema due to plant L24.7 Blepharitis of upper and lower eyelids of both eyes, unspecified type H01.001; H01.002; H01.004; H01.005 Blepharitis type: unspecified type Eyelid: both upper and lower 02/03/18 1408 <Electronically signed by Kimberly MCNAMARA> Date Kimberly MCNAMARA Cosigner Signature: Date (if applicable) CC: ALLERGIES ALLERGIES DATE TYPE / CODE NAME / CODE REACTION SEVERITY SOURCE 05/03/2018 Drug Sulfa Rash [place] Allergy/416 (Sulfonamide [facility] 707898(SNOM Antibiotics)/F001 [facility] ED CT) 893621(RXNORM) Repository 07/24/2011 DRUG LISINOPRIL COUGH [facility] INGREDI/[address] 652247(SNOM Repository ED CT) 04/11/2011 Drug SULFA RASH [facility] Class/25234 (SULFONAMIDE [address] [place] [address]3(SNOMED ANTIBIOTICS) Repository CT) ENCOUNTERS ENCOUNTERS ADMIT/DISCHARGE ACCOUNT ADMITTING ENCOUNTER LOCATION SOURCE NUMBER CLASS 07/15/2018/07/16/20 [id number] Ambulatory [address] Repository 07/03/2018 [id number] [facility] ing:MTLAB Repository 05/03/2018/05/03/20 [id number] Ambulatory BMSBuilding:Lynda Richardson [address] [place] Repository 04/25/2018 [id number] [place] [facility] ing:OPUS Repository 02/03/2018/02/04/20 [id number] Ambulatory BMSBuilding:Lynda Richardson [address] [place] Repository PAYERS PAYERS ENCOUNTER GUARANTOR PAYER SUBSCRIBER SOURCE 07/03/2018 MATHEW D [id number] Primary MATHEW D Debra ROYCE Insurance:MEDICAL DUTTONDOB: [facility] [id number] [address]Phj: [phone]) Number: Repository [phone] () [id number] Date:2567-26-15NL [address] [place], [place] [address]WP: 07/03/2018 Secondary NOT GIVENUNK [place] Insurance:SELF PAY [facility] Number: Effective Repository Date:2018-07-03 05/03/2018 MATHEW D [id number] Primary MATHEW D Debra ROYCE Insurance:MEDICAL DUTTONDOB: [facility] [id number] [id number]: [phone]) Number: Repository [phone] () [id number] Date:5829-71-89[place] [id number]: 05/03/2018 Secondary NOT GIVENUNK [place] Insurance:SELF PAY [facility] Number: Effective Repository Date:2018-04-26 04/25/2018 MATHEW D [id number] Primary MATHEW D [place] ROYEC Insurance:MEDICAL DUTTONDOB: [facility] [id number] Hospital [address]Fvf: [phone]) Number: Repository [phone] () [id number] Date:[id number] [place] [id number]: 04/25/2018 Secondary NOT GIVENUNK [place] Insurance:SELF PAY [facility] Number: Effective Repository Date:2018-04-24 02/03/2018 MATHEW [id number] Primary MATHEW DUTTONDOB: Debra ROYCE Insurance:MEDICAL [id number] [facility] [address]Nrv: (330) Number: Repository [phone] (HP) [id number] Date:4482-07-45[address] [address]PE: 02/03/2018 Secondary NOT GIVENUNK [place] Insurance:SELF PAY [facility] Number: Effective Repository Date:2018-02-03
--- OUTSIDE RECORDS SUMMARY | 2018-08-28 21:31 | XMS RPT_ITS ---
:1960 Author Organization [facility] Address [address] [place] [address] Phone Care Team Providers Name Role Phone Cesar Blank MD Reason for Visit Reason For Visit Description Start Date Test Result Preliminary reason for visit data, not yet [...] Plan of Care Type Date Detail Appointment 09:20 AM Cesar Blank MD, [address] [facility], [address], [place], [address], Appointment 11:00 AM Cesar Blank MD, [address] [facility], [address], [place], [address], Patient education \cps-[email or web address]\CPS_PtEducation\ht n.pdf Medications Medication Instructions Start Stop Generic Name NDC Provider Date Date MEDROL 4 MG Take by mouth METHYLPREDNISOLONE 19010505241 Cesar Rogers TBPK daily Abhay LEO directed B-12 1000 MCG 1 capsule CYANOCOBALAMIN 36938891102 Emely CAPS daily /20 [employer] 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 VITAMIN B-6 50 1 tablet daily PYRIDOXINE HCL 62148053485 Emely MG TABS /20 [employer] 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 ADVIL 200 MG 2 tablets IBUPROFEN 26850745287 Emely TABS daily /20 [employer] 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 BIOFLEX TABS 1 tablet daily BIOFLAVONOID 62991384856 Emely /20 PRODUCTS Rut[employer] 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 MULTIVITAMIN 1 tablet daily MULTIPLE 36944519724 Emely MEN TABS /20 VITAMINS-MINERALS [employer] 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 CIALIS 5 MG 1 tablet daily TADALAFIL 82860375544 Emely TABS /20 [employer] 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 PRILOSEC OTC 20 1 tablet daily OMEPRAZOLE MAGNESIUM 85425055670 Emely MG TBEC /20 [employer] 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 Conditions or Problems Problem Name Problem Onset Status Entry Provider Comment Standard Annotate Code Date Date Description Complete tear 992910227 Active Cesar Rogers Full TRAUMATIC of right (SNOMED CT) / Abhay LEO thickness rotator cuff rotator cuff tear Impingement 374669724 Active Cesar Rogers Impingement syndrome of (SNOMED CT) Abhay LEO syndrome of right shoulder shoulder region Tear of 716892134 Active Cesar S Tear of right biceps tendon (SNOMED CT) Abhay LEO biceps brachii tendon Allergies, Adverse Reactions, Alerts Allergy Name Reaction Start Date Severity Status Provider Description SULFA Critical Active Emely Rutledge 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 Social History No information available. Vital Signs Date Name Value Unit Description BMI (Body Mass 32.81 kg/m2 Body Mass Index Index) [Ratio] Preliminary vital sign data, not yet signed by the author as of BP Diastolic 91 mm[Hg] blood pressure, diastolic Preliminary vital sign data, not yet signed by the author as of BP Diastolic 91 mm[Hg] blood pressure, diastolic, second observation Preliminary vital sign data, not yet signed by the author as of BP Systolic 136 mm[Hg] blood pressure, systolic Preliminary vital sign data, not yet signed by the author as of BP Systolic 131 mm[Hg] blood pressure, systolic, second observation Preliminary vital sign data, not yet signed by the author as of Heart Rate 81 /min pulse rate E&M Preliminary vital sign [...] Value Unit Range Flag Description Office Visit: Test Result, Rm: 14 MEDS REVIEW Done Documentation of current medications (procedure) Preliminary observation data, not yet signed by the author as of MRI HX of the shoulder on MRI (magnetic 03/26/2018 at [facility] imaging) history Joycelyn, Preliminary observation data, not yet signed by the author as of Preliminary observation data, not yet signed by the author as of Clinical Summary: HMSPatientID OOP account number Procedures Code Procedure Name Date Entry Date G8730 Pain assessment documented as positive - follow-up documented G8427 Current medications documented 4004F-8P Tobacco screening or cessation counseling not performed - unknown reason G8417 BMI documented as above normal parameters - follow-up documented G8952 Blood pressure outside of normal parameters - follow-up not documented [facility]-[id number] Patient Encounter Medications Administered No information available. [...]
== END ==
PROVIDERS: Family Provider Family Medicine; PCP Family Medicine; Referring Provider Family Medicine; Visit Provider Family Medicine
DX: M54.10 Radiculopathy, site unspecified (principal)
CPT/HCPCS: 36415; 72110; 80053; 82043; 82570; 84153; 85025; 85652; 86038; 86140; G0103

== ENCOUNTER → 2018-08-07 13:13 | Outpatient (CLI) | payer OTHER, SELFPAY ==
[2018-05-03 12:56] VITALS: BMI 31.9
--- NOTE | 2018-08-07 14:20 | NEURO ---
NCS and/or EMG Patient Report Ordering Doctor: Rasheed Dan Jr. DATE OF SERVICE: 08/07/18 Mathew Ambriz is a 57-year-old male presents for electrodiagnostic testing of the left upper limb. He has complaints of numbness and tingling in the left hand, which has been progressively worsening. Electrodiagnostic findings: The left median motor nerve demonstrates prolonged distal latency with normal amplitude and reduced conduction velocity. Normal left ulnar motor response, including conduction across the elbow. Borderline prolonged left median F wave. Prolonged left median sensory latency with reduced conduction velocity. Prolonged left palmar latency. Normal left ulnar and radial sensory responses. Needle EMG testing demonstrates fibrillations in the left first dorsal interosseus. Electrodiagnostic impression: This is an abnormal study in the left upper limb 1. Electrodiagnostic findings demonstrate left-sided median mononeuropathy. This is consistent with an advanced left carpal tunnel syndrome. If there are any further questions, please do not hesitate to contact me.
== END ==
PROVIDERS: Family Provider Family Medicine; PCP Family Medicine; Referring Provider Surgery; Visit Provider Surgery
DX: M25.532 Pain in left wrist (principal); Z98.890 Other specified postprocedural states
CPT/HCPCS: 95886; 95909; 95910

== ENCOUNTER → 2018-08-10 09:44 | Outpatient (CLI) | payer OTHER, SELFPAY ==
[2018-08-10 09:14] VITALS: BMI 32.7
--- NOTE | 2018-08-10 09:47 | RAD_ITS ---
STUDY: X-RAY - LEFT HAND REASON FOR EXAM: Male, 57 years old. Unable to bend fifth digit TECHNIQUE: 3 view(s) of the hand. COMPARISON: None. FINDINGS: Normal radiocarpal articulation. 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 Normal visualized carpal bones. Widening of the scapholunate articulation but normal position of the capitate. There is degenerative arthrosis of the carpometacarpal articulation of the thumb with lateral subluxation of the first metacarpus. Normal second through fifth carpometacarpal joints. Normal metacarpi. Normal metacarpophalangeal joint of the thumb. Normal interphalangeal joint of the thumb. Normal proximal and distal phalanges of the thumb. Normal metacarpophalangeal joints of the second through fifth fingers. Normal proximal and distal interphalangeal joints of the second through fifth fingers. Normal phalanges of the second through fifth fingers. The soft tissue structures are unremarkable. RAD/Hand Min 3 Views IMPRESSION: 1. No fracture, dislocation or erosive process. Degenerative changes, as above. 2. Widening of the scapholunate articulation suggestive of ligamental insufficiency/injury. Electronically Signed: Ad Cooper MD at 20:22 EST , Service support ,
== END ==
PROVIDERS: Family Provider Family Medicine; PCP Family Medicine; Referring Provider Surgery; Visit Provider Surgery
DX: M21.949 Unspecified acquired deformity of hand, unspecified hand (principal)
CPT/HCPCS: 73130

== ENCOUNTER 2018-09-17 05:57 | Day surgery (SDC) | payer OTHER, SELFPAY ==
[2018-08-10 09:14] VITALS: BMI 32.7
--- NOTE | 2018-09-17 06:45 | PCM.HP.STD ---
Problem List (1) Trigger finger of left hand Status: Acute Qualifiers: (2) Carpal tunnel syndrome of left wrist Status: Acute History of Present Illness Date of Admission: 09/17/18 Chief Complaint: Left carpal tunnel syndrome and left fifth digit trigger finger The patient is a 57 year old M who presents for an update history and physical. Patient denies recent hospitalizations or illnesses. Patient denies changes in his health and medications. Patient denies previous complications with anesthesia. Patient has had right carpal tunnel release several years ago. Patient does not take any blood thinners. Patient's previous history per Dr. Dan: CEE AMBRIZ, is a 57 M who presents to the office today for surgical consultation regarding left breast masses x2 and periumbilical mass and numbness and tingling of his left hand. The patient is referred by Dr. Alvarado Bowden and the patient's primary care physician is Dr. Bruce Armendariz. Dr. Alvarado Bowden pursue patient for surgical consultation and a electronic copy will return to him. The patient is noted a rubbery mass medial left breast for 8 months. More recently is detected in outer mid left breast mass because it was tender. He was evaluated and on April 25 a mammogram was obtained. This was unremarkable. The breasts are almost entirely fatty. On April 25 a left breast ultrasound was obtained. At the 8 o'clock position there is a 1.4 x 1.8 x 0.8 cm nodule at the 3 o'clock position there is a 2.4 x 4.9 x 0.8 cm nodule findings were suspicious for lipomas. But the films were graded out as BI-RADS Category 4 The patient also comments that he has had right carpal tunnel surgery and trigger finger release performed by Dr. Alonso Anderson who is since retired. The patient complains of severe numbness of the left hand. 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 If he rests on his elbow he has problems with the left fifth and after the fourth digit. But his primary concern is his first 3 digits. If he keeps pressure off his elbow he has no additional problems with the left fourth and fifth digit. CEE AMBRIZ, is a 57 M who presents to the office today for discussion of left CTS and lipoma. My previous notes reflect the bellow and he had NCTs. The patient does not want to address the lipoma. He does want to address the symptoms of left carpal tunnel syndrome. He also has had new onset problems with lack of full flexion of his left hand fifth digit. He notes that remotely he had had a previous right carpal tunnel release with release simultaneously of a right third digit trigger finger. His left fifth digit has not been snapping so he is not correlated that with a trigger finger [facility] Pulmonary Services/Neurology [address] [place] [address] MR#: [id number] Name: CEE AMBRIZ [facility] #:[id number] : 1960 57From: Rosalinda Rojas MD Referring Dr: Sy LEO,Brigidtus: REG CLI Ordering Dr: Date: Location:PSNSex: NCS and/or EMG Patient Report Ordering Doctor: Rasheed Dan Jr. DATE OF SERVICE: 08/07/18 Cee Ambriz is a 57-year-old male presents for electrodiagnostic testing of the left upper limb. He has complaints of numbness and tingling in the left hand, which has been progressively worsening. Electrodiagnostic findings: The left median motor nerve demonstrates prolonged distal latency with normal amplitude and reduced conduction velocity. Normal left ulnar motor response, including conduction across the elbow. Borderline prolonged left median F wave. Prolonged left median sensory latency with reduced conduction velocity. Prolonged left palmar latency. Normal left ulnar and radial sensory responses. Needle EMG testing demonstrates fibrillations in the left first dorsal interosseus. Electrodiagnostic impression: This is an abnormal study in the left upper limb 1. Electrodiagnostic findings demonstrate left-sided median mononeuropathy. This is consistent with an advanced left carpal tunnel syndrome. If there are any further questions, please do not hesitate to contact me. 08/07/18 1424<Electronically signed by Rosalinda Rojas MD> Date Rosalinda Rojas MD CC: Rosalinda Rojas MD; Bruce Armendariz MD; Edgar Dan MD ~ Date Dictated:08/07/18 142 Date Transcribed: 08/07/181419 Fish Inspector:DRAGAN MR#:[id number] Name: CEE AMBRIZ [facility] #:[id number] : 1960 Provider:Edgar Dan MD Age/Sex: 57/M Location:[facility] Status:Signed Past Medical History Medical History: Medical History (Last Reviewed 09/17/18 @ 06:50 by Cecile Oseguera PA-C) Trigger finger of left hand (Acute) M65.30 Carpal tunnel syndrome of left wrist (Acute) G56.02 Lipoma (Acute) D17.9 Lipoma of breast (Acute) D17.1 Hemorrhoids (Acute) K64.9 Acid reflux (Acute) K21.9 Arthritis (Acute) M19.90 History of stroke (Acute) Z86.73 Allergies Sulfa (Sulfonamide Antibiotics) Allergy (Mild, Verified 09/03/18 10:04) RASH lisinopril Adverse Reaction (Verified 09/03/18 10:04) COUGH Home Medications: Ambulatory Orders Medication Instructions Recorded multivitamin,qo-vcij-oalpiynp 1 tab PO QDAY 02/03/18 tablet naproxen sodium 220 mg capsule 220 mg PO BID PRN 05/03/18 pyridoxine (vitamin B6) 50 mg 50 mg PO DAILY 05/03/18 capsule tadalafil 5 mg tablet 5 mg PO DAILY 05/03/18 vit 1 tab PO DAILY tab 05/03/18 T-wwmatnm-pjxknwopn-rutin-mnrc320 500 mg-50 mg-25 mg-40 mg tablet Celecoxib [Celebrex] 200 mg PO BID 09/03/18 Cyanocobalamin [Vitamin B12] 500 mcg PO DAILY@0800 09/03/18 Omeprazole Magnesium [Prilosec Otc] 20 mg PO DAILY 09/03/18 Surgical History: Surgical History (Last Reviewed 09/17/18 @ 06:51 by Cecile Oseguera PA-C) History of incision and drainage (Acute) Z98.890 Anal Abscess Hx of arthroscopic knee surgery (Acute) Z98.890 Right History of carpal tunnel surgery of right wrist (Acute) Z98.890 Smoking Status: Current every day smoker Tobacco Use: Cigars - *Family History Maternal Family History: Family History (Last Reviewed 09/17/18 @ 06:51 by Cecile Oseguera, PA-C) Mother Non-Hodgkin lymphoma Father Heart disease Paternal Family History: Family History (Last Reviewed 09/17/18 @ 06:51 by Cecile Oseguera PA-C) Mother Non-Hodgkin lymphoma Father Heart disease Review of Systems Constitutional: Denies: Chills, Fever, Weight Change HEENT: Denies: Head Aches, Sinus Congestion, Sinus Drainage Cardiovascular: Denies: Chest Pain, Palpitations Respiratory: Denies: Cough, Shortness of breath at rest, Sputum production Gastrointestinal: Reports: Dyspepsia, Hematochezia - occasional with hemorrhoids. Denies: Abdominal Pain, Nausea, Vomiting Genitourinary: Denies: Dysuria Musculoskeletal: Reports: Back Pain Skin: Denies: Rash, Wounds Neurological: Denies: Numbness, Tingling, Focal weakness Psychiatric: Denies: Anxiety, Depression, Homicidal Ideations, Suicidal Ideations Hematologic/ Lymphatic: Denies: Easy Bruising, Easy Bleeding VTE Information - Inpt Only VTE Present on Admission: Yes VTE Mechan Device Prophylaxis: SCD's - Physical Exam General: Alert, Oriented x3, Cooperative HEENT: Atraumatic, PERRLA, EOMI, Normocephalic Neck: Supple, No JVD, Negative Carotid Bruits Lungs: Clear to auscultation, Normal air movement Cardiovascular: Regular rate, No murmurs Abdomen: Bowel Sounds Present, Soft, Non Tender Extremities: - - Positive tinel's sign left upper extremity. Diminished performance improvement analyst strength. Forced snapping of the fifth digit. Skin: No rashes, No breakdown Musculoskeletal: No Tenderness to Palpation of Joints or Extremities Neurological: Neuro grossly intact Psych/Mental Status: Normal Affect, Appropriate Body Mass Index (BMI) 32.7 Assessment/Plan All Active Problems (Last Reviewed 08/10/18 @ 09:15 by Summer Tavares) Trigger finger of left hand (Acute) Carpal tunnel syndrome of left wrist (Acute) Lipoma (Acute) Lipoma of breast (Acute) History of incision and drainage (Acute) Hx of arthroscopic knee surgery (Acute) History of carpal tunnel surgery of right wrist (Acute) Hemorrhoids (Acute) Acid reflux (Acute) Arthritis (Acute) History of stroke (Acute) Impression: Carpal tunnel syndrome of the left wrist. Trigger finger of left fifth digit. Plan: Dr. Dan will plan to perform a left carpal tunnel release with left fifth digit trigger finger release. Procedure details, risks and benefits have been reviewed with the patient and his spouse. Patient has had the opportunity to ask and have questions answered. Patient verbally understands and agrees with the plan. Patient desires to proceed with the proposed procedure. Code Visit Inpatient E&M: 44398 Subs Hosp L1 - Update H&P; NO CHARGE
--- NOTE | 2018-09-17 06:50 | HP.PCM_ITS ---
Problem List (1) Trigger finger of left hand Status: Acute Qualifiers: (2) Carpal tunnel syndrome of left wrist Status: Acute History of Present Illness Date of Admission: 09/17/18 Chief Complaint: Left carpal tunnel syndrome and left fifth digit trigger finger The patient is a 57 year old M who presents for an update history and physical. Patient denies recent hospitalizations or illnesses. Patient denies changes in his health and medications. Patient denies previous complications with anesthesia. Patient has had right carpal tunnel release several years ago. Patient does not take any blood thinners. Patient's previous history per Dr. Dan: CEE AMBRIZ, is a 57 M who presents to the office today for surgical consultation regarding left breast masses x2 and periumbilical mass and numbness and tingling of his left hand. The patient is referred by Dr. Alvarado Bowden and the patient's primary care physician is Dr. Bruce Armendariz. Dr. Alvarado Bowden pursue patient for surgical consultation and a electronic copy will return to him. The patient is noted a rubbery mass medial left breast for 8 months. More recently is detected in outer mid left breast mass because it was tender. He was evaluated and on April 25 a mammogram was obtained. This was unremarkable. The breasts are almost entirely fatty. On April 25 a left breast ultrasound was obtained. At the 8 o'clock position there is a 1.4 x 1.8 x 0.8 cm nodule at the 3 o'clock position there is a 2.4 x 4.9 x 0.8 cm nodule findings were suspicious for lipomas. But the films were graded out as BI-RADS Category 4 The patient also comments that he has had right carpal tunnel surgery and trigger finger release performed by Dr. Alonso Anderson who is since retired. The patient complains of severe numbness of the left hand. 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 If he rests on his elbow he has problems with the left fifth and after the fourth digit. But his primary concern is his first 3 digits. If he keeps pressure off his elbow he has no additional problems with the left fourth and fifth digit. CEE AMBRIZ, is a 57 M who presents to the office today for discussion of left CTS and lipoma. My previous notes reflect the bellow and he had NCTs. The patient does not want to address the lipoma. He does want to address the symptoms of left carpal tunnel syndrome. He also has had new onset problems with lack of full flexion of his left hand fifth digit. He notes that remotely he had had a previous right carpal tunnel release with release simultaneously of a right third digit trigger finger. His left fifth digit has not been snapping so he is not correlated that with a trigger finger [facility] Pulmonary Services/Neurology [address] [place] [address] MR#: [id number] Name: CEE AMBRIZ [facility] #:[id number] : 1960 57From: Rosalinda Rojas MD Referring Dr: Sy LEO,Brigidtus: REG CLI Ordering Dr: Date: Location:PSNSex: NCS and/or EMG Patient Report Ordering Doctor: Rasheed Dan Jr. DATE OF SERVICE: 08/07/18 Cee Ambriz is a 57-year-old male presents for electrodiagnostic testing of the left upper limb. He has complaints of numbness and tingling in the left hand, which has been progressively worsening. Electrodiagnostic findings: The left median motor nerve demonstrates prolonged distal latency with normal amplitude and reduced conduction velocity. Normal left ulnar motor response, including conduction across the elbow. Borderline prolonged left median F wave. Prolonged left median sensory latency with reduced conduction velocity. Prolonged left palmar latency. Normal left ulnar and radial sensory responses. Needle EMG testing demonstrates fibrillations in the left first dorsal interosseus. Electrodiagnostic impression: This is an abnormal study in the left upper limb 1. Electrodiagnostic findings demonstrate left-sided median mononeuropathy. This is consistent with an advanced left carpal tunnel syndrome. If there are any further questions, please do not hesitate to contact me. 08/07/18 1424<Electronically signed by Rosalinda Rojas MD> Date Rosalinda Rojas MD CC: Rosalinda Rojas MD; Bruce Armendariz MD; Edgar Dan MD ~ Date Dictated:08/07/18 142 Date Transcribed: 08/07/181419 Project Coach:DRAGAN MR#:[id number] Name: CEE AMBRIZ [facility] #:[id number] : 1960 Provider:Edgar Dan MD Age/Sex: 57/M Location:[facility] Status:Signed Past Medical History Medical History: Medical History (Last Reviewed 09/17/18 @ 06:50 by Cecile Oseguera PA-C) Trigger finger of left hand (Acute) M65.30 Carpal tunnel syndrome of left wrist (Acute) G56.02 Lipoma (Acute) D17.9 Lipoma of breast (Acute) D17.1 Hemorrhoids (Acute) K64.9 Acid reflux (Acute) K21.9 Arthritis (Acute) M19.90 History of stroke (Acute) Z86.73 Allergies Sulfa (Sulfonamide Antibiotics) Allergy (Mild, Verified 09/03/18 10:04) RASH lisinopril Adverse Reaction (Verified 09/03/18 10:04) COUGH Home Medications: Ambulatory Orders Medication Instructions Recorded multivitamin,ds-mqxq-xdlylilz 1 tab PO QDAY 02/03/18 tablet naproxen sodium 220 mg capsule 220 mg PO BID PRN 05/03/18 pyridoxine (vitamin B6) 50 mg 50 mg PO DAILY 05/03/18 capsule tadalafil 5 mg tablet 5 mg PO DAILY 05/03/18 vit 1 tab PO DAILY tab 05/03/18 O-auxtwor-zajgroywx-rutin-kbmo808 500 mg-50 mg-25 mg-40 mg tablet Celecoxib [Celebrex] 200 mg PO BID 09/03/18 Cyanocobalamin [Vitamin B12] 500 mcg PO DAILY@0800 09/03/18 Omeprazole Magnesium [Prilosec Otc] 20 mg PO DAILY 09/03/18 Surgical History: Surgical History (Last Reviewed 09/17/18 @ 06:51 by Cecile Oseguera PA-C) History of incision and drainage (Acute) Z98.890 Anal Abscess Hx of arthroscopic knee surgery (Acute) Z98.890 Right History of carpal tunnel surgery of right wrist (Acute) Z98.890 Smoking Status: Current every day smoker Tobacco Use: Cigars - *Family History Maternal Family History: Family History (Last Reviewed 09/17/18 @ 06:51 by Cecile Oseguera, PA-C) Mother Non-Hodgkin lymphoma Father Heart disease Paternal Family History: Family History (Last Reviewed 09/17/18 @ 06:51 by Cecile Oseguera PA-C) Mother Non-Hodgkin lymphoma Father Heart disease Review of Systems Constitutional: Denies: Chills, Fever, Weight Change HEENT: Denies: Head Aches, Sinus Congestion, Sinus Drainage Cardiovascular: Denies: Chest Pain, Palpitations Respiratory: Denies: Cough, Shortness of breath at rest, Sputum production Gastrointestinal: Reports: Dyspepsia, Hematochezia - occasional with hemorrhoids. Denies: Abdominal Pain, Nausea, Vomiting Genitourinary: Denies: Dysuria Musculoskeletal: Reports: Back Pain Skin: Denies: Rash, Wounds Neurological: Denies: Numbness, Tingling, Focal weakness Psychiatric: Denies: Anxiety, Depression, Homicidal Ideations, Suicidal Ideations Hematologic/ Lymphatic: Denies: Easy Bruising, Easy Bleeding VTE Information - Inpt Only VTE Present on Admission: Yes VTE Mechan Device Prophylaxis: SCD's - Physical Exam General: Alert, Oriented x3, Cooperative HEENT: Atraumatic, PERRLA, EOMI, Normocephalic Neck: Supple, No JVD, Negative Carotid Bruits Lungs: Clear to auscultation, Normal air movement Cardiovascular: Regular rate, No murmurs Abdomen: Bowel Sounds Present, Soft, Non Tender Extremities: - - Positive tinel's sign left upper extremity. 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 Forced snapping of the fifth digit. Skin: No rashes, No breakdown Musculoskeletal: No Tenderness to Palpation of Joints or Extremities Neurological: Neuro grossly intact Psych/Mental Status: Normal Affect, Appropriate Body Mass Index (BMI) 32.7 Assessment/Plan All Active Problems (Last Reviewed 08/10/18 @ 09:15 by Summer Tavares) Trigger finger of left hand (Acute) Carpal tunnel syndrome of left wrist (Acute) Lipoma (Acute) Lipoma of breast (Acute) History of incision and drainage (Acute) Hx of arthroscopic knee surgery (Acute) History of carpal tunnel surgery of right wrist (Acute) Hemorrhoids (Acute) Acid reflux (Acute) Arthritis (Acute) History of stroke (Acute) Impression: Carpal tunnel syndrome of the left wrist. Trigger finger of left fifth digit. Plan: Dr. Dan will plan to perform a left carpal tunnel release with left fifth digit trigger finger release. Procedure details, risks and benefits have been reviewed with the patient and his spouse. Patient has had the opportunity to ask and have questions answered. Patient verbally understands and agrees with the plan. Patient desires to proceed with the proposed procedure. Code Visit Inpatient E&M: 41960 Subs Hosp L1 - Update H&P; NO CHARGE
[2018-09-17 07:11] VITALS: BP 125/74; PULSE 82; RESP 18; TEMP 36.4; O2SAT 95; BMI 35.6
--- NOTE | 2018-09-17 08:00 | SYN_PTH ---
PATIENT: CEE PORTILLO [place] [facility] U#:[id number] AGE/SX: 57/M ROOM: RE09/17/[address]: Dr. Edgar Dan MD : 1960 BED: DIS: 09/17/2018 SPEC #: [id number] RECD: 09/17/18 09:44 STATUS: MAN ASIA #: [id number] ELIAS: 09/17/18 08:[address]: Edgar Dan DEPT: SURGICAL PATHOLOGY RECD BY: Ector Copeland ENTERED: 09/17/18 10:29 SP TYPE: SYNOVIUM OTHR DR: Dr. Bruce Armendariz MD Tissues: Synovial tissue of joint, NOS Procedures: Surgery Specimen Level III HEADER OPERATION: Left carpal tunnel release; left fifth digit trigger finger PRE-OP DIAGNOSIS: Carpal tunnel syndrome of left wrist; trigger finger of left fifth digit TISSUE SUBMITTED: Tenosynovium MICROSCOPIC DIAGNOSIS Tenosynovium: A piece of dense fibroconnective tissue with reactive changes, clinically carpal tunnel syndrome. CON:pablo 09/18/18 MICROSCOPIC DESCRIPTION Slides are reviewed. GROSS DESCRIPTION Received in fixative is one container labeled with the patient's name and designated tenosynovium. The specimen consists of a fragment of vazquez soft tissue measuring 0.5 x 0.1 x 0.1 cm. The specimen is totally submitted in one cassette. / CON:pablo 09/17/18 TC:5 CPT: 00425
--- NOTE | 2018-09-17 08:19 | DCINST_ITS ---
Discharge Diet: Light diet - advance as tolerated - if you have questions about your diet instructions, please talk to you doctor. Discharge Activity: May Not Drive - for 1 week or while taking narcotic pain medicine. May shower in (days): 1 - Placed your hand and dressing in a plastic bag Lifting Restrictions: 10 pounds Call your doctor if your incision/area has: Continuous Slow Oozing, Sudden Increased Bleeding, Increased Pain/ Swelling, Increased Redness, Foul Smelling Discharge Call your doctor if you observe: Fever of 101 or Higher Suture Line Care: Avoid Pulling/Pushing, Avoid Pinching/Bending Additional Dressing/Incision Instructions:: Change or remove dressing in 4 days. Leave steri-strips in place for 1 week. Allergies/Adverse Reactions: Allergies Sulfa (Sulfonamide Antibiotics) Allergy (Mild, Verified 09/17/18 07:22) RASH lisinopril Adverse Reaction (Verified 09/17/18 07:22) COUGH Medications to take at Discharge multivitamin,sc-jlmc-neozvokm tablet 1 tab PO QDAY 02/03/18 naproxen sodium 220 mg capsule 220 mg PO BID PRN 05/03/18 pyridoxine (vitamin B6) 50 mg capsule 50 mg PO DAILY 05/03/18 tadalafil 5 mg tablet 5 mg PO DAILY 05/03/18 vit E-rblwvxp-aupmlfhhg-rutin-potj053 500 mg-50 mg-25 mg-40 mg tablet 1 tab PO DAILY tab 05/03/18 Celecoxib [Celebrex] 200 mg PO BID 09/03/18 Cyanocobalamin [Vitamin B12] 500 mcg PO DAILY@0800 09/03/18 Omeprazole Magnesium [Prilosec Otc] 20 mg PO DAILY 09/03/18 Hydrocodone Bitart/Apap 5-325 [[place] 5MG-325MG] 1 tablet PO Q4H PRN PRN 3 Days #8 tablet 09/17/18 The following prescriptions were given: Hydrocodone Bitart/Apap 5-325 [[place] 5MG-325MG] 1 tablet PO Q4H PRN PRN 3 Days #8 tablet PRN Reason: Pain Primary Care Physician: Bruce Armendariz MD [Primary Care Provider] - Test Results: Test results from this visit will be discussed in further detail at your follow- up appointment, if applicable. Please Follow Up With: Edgar Dan MD - [phone] When: Call to make an appointment to be seen in about 6 days. 09/23/18
[2018-09-17] MEDS: Bupivacaine Mpf 0.5% 30 ML VIAL (08:40)
[2018-09-17] MEDS: Bacitracin 500 UNITS/GM PACKET (08:45)
--- NOTE | 2018-09-17 09:00 | PCM.OPRPT ---
Problem List (1) Trigger finger of left hand Status: Acute Qualifiers: (2) Carpal tunnel syndrome of left wrist Status: Acute Report of Operation Date of Procedure: 09/17/18 Pre-Operative Diagnosis: Left carpal tunnel syndrome, left fifth digit trigger finger Post-Operative Diagnosis: Same Surgery/Procedure Performed:: Left carpal tunnel release. Left fifth digit tenosynovectomy Description of Surgical Findings:: Timeout and informed consent was obtained. 57-year-old gent was taken the operating room. He was placed on the table. Karina block was performed. 250 mmHg pressure for 37 minutes. An additional 0.5% Marcaine 5.5 cc was used locally in the tissue. A curvilinear incision made in the base of the left palm. Sharp dissection carried down through the substance tissue. The palmar fascia was identified and incised. It was then incised to the palmar crease along the fourth ray. Good release was achieved. The median nerve completely intact. This subdermal tissues proximal interrupted 4-0 chromic. Skin edges proximal and simple sutures of 4-0 nylon. Transverse incision was made at the base of the left MCP joint. Sharp dissection carried down through the substance tissue. The hypertrophic tenosynovium was identified. It was carried carefully longitudinally incised. There was excellent movement of the flexor mechanism. Good release was achieved. The wound was similarly closed with a dermal 4-0 chromic and the skin simple sutures of 4-0 nylon. A tiny bit of antibiotic ointment Telfa soft roll Cricket wrap applied. Sponge and instrument and needle counts reported the surgeon be correct. Specimen includes a small amount of tenosynovium from the trigger finger. Drains none. Blood loss minimal. Edgar Dan M.D., F.A.C.S. Type of Anesthesia:: Karina Ferris Anesthesiologist: Jerod Abraham
[2018-09-17 09:07] VITALS: BP 120/86; BP 125/74; PULSE 73; RESP 16; TEMP 36.2; O2SAT 93
[2018-09-17 09:15] VITALS: BP 122/84; BP 125/74; PULSE 71; RESP 16; O2SAT 92
[2018-09-17 09:20] VITALS: BP 118/89; BP 125/74; PULSE 63; RESP 16; O2SAT 92
[2018-09-17 09:25] VITALS: BP 119/77; BP 125/74; PULSE 65; RESP 16; TEMP 36.2; O2SAT 92
[2018-09-17 10:19] VITALS: BP 125/74
== END 2018-09-17 10:25 | disposition home or self-care (01) ==
LOC: SDC 05:57 → AC 05:58
PROVIDERS: Family Provider Family Medicine; PCP Family Medicine; Referring Provider Surgery; Visit Provider Surgery
PROC: (CPT 26055; principal; 2018-09-17 07:45)
DX: G56.02 Carpal tunnel syndrome, left upper limb (principal); M65.352 Trigger finger, left little finger; K21.9 Gastro-esophageal reflux disease without esophagitis; M19.90 Unspecified osteoarthritis, unspecified site; F17.290 Nicotine dependence, other tobacco product, uncomplicated; Z86.73 Personal history of transient ischemic attack (TIA), and cerebral infarction without residual deficits; Z79.899 Other long term (current) drug therapy
CPT/HCPCS: 26145; 64721; 88304; 88305; J7120; J2405

== ENCOUNTER → 2018-12-17 13:38 | Outpatient (CLI) | payer OTHER, SELFPAY ==
--- NOTE | 2018-12-17 13:41 | RAD_ITS ---
STUDY: X-RAY CHEST REASON FOR EXAM: Male, 58 years old. Acute bronchitis TECHNIQUE: PA and lateral views of the chest COMPARISON: X-ray chest March 31, 2016 FINDINGS: The lungs are clear. There are no pleural effusions. There is no pneumothorax. The heart is normal in size. The visualized osseous structures are within normal limits. RAD/Chest PA and Lateral IMPRESSION: No acute thoracic pathology. Electronically Signed: Cesar Lloyd, at 18:24 EDT Tel , Service support ,
== END ==
PROVIDERS: Family Provider Family Medicine; PCP Family Medicine; Referring Provider Family Medicine; Visit Provider Family Medicine
DX: J20.9 Acute bronchitis, unspecified (principal)
CPT/HCPCS: 71046

== ENCOUNTER → 2019-07-29 10:13 | Outpatient (CLI) | payer OTHER, SELFPAY ==
[2019-01-27 13:32] VITALS: BMI 35.6
--- NOTE | 2019-07-29 10:16 | US_ITS ---
STUDY: ABDOMINAL ULTRASOUND - RIGHT UPPER QUADRANT REASON FOR VISIT: Male, 58 years old RUQ PAIN TECHNIQUE: Ultrasound evaluation of the right upper quadrant was performed with real-time and static sanderson-scale imaging. TECHNICAL QUALITY: Adequate. COMPARISON: None. FINDINGS: Liver: The liver measures 13.3 cm. There is increased echogenicity consistent with fatty infiltration. The bile ducts are within normal limits. There is hepatic color flow. The direction of portal flow is hepatopetal. There is no demonstrated mass lesion. Probable cyst in the right lobe inferiorly measuring 9 x 7 x 6 mm. Gallbladder: Normal distended gallbladder. The gallbladder wall measures less than 3 mm. There is a positive sonographic Stroud''s sign. There is no pericholecystic fluid. There are no gallstones. Common Bile Duct (C.B.D.): The common bile duct measures 2.8 mm. Pancreas: There is nonvisualization of the pancreas, due to overlying bowel gas Right Kidney: Normal size of the right kidney. The right kidney measures 11.3 x 7.4 x 4.2 cm. Normal renal cortex. The right cortex measures 1.2 cm. There is no demonstrated renal mass or cyst. There is no right hydronephrosis. US/Abdomen Limited IMPRESSION: Probable benign cyst in the right lobe of liver inferiorly measuring 9 x 7 x 6 mm. Suboptimal assessment of the pancreas due to overlying bowel gas. Normal sonogram of the right kidney, and normal caliber of the CBD. Patient demonstrates positive sonographic Stroud''s sign, with no definite sonographic evidence of acute cholecystitis. Correlation with patient''s symptoms and history is recommended. Electronically Signed: Tim Pineda MD at 16:15 EST Tel [phone], Service support ,
== END ==
PROVIDERS: Family Provider Family Medicine; PCP Family Medicine; Referring Provider Family Medicine; Visit Provider Family Medicine
DX: R10.11 Right upper quadrant pain (principal)
CPT/HCPCS: 76705

== ENCOUNTER 2019-08-05 14:07 | Inpatient (IN) | payer OTHER, SELFPAY ==
[2019-01-27 13:32] VITALS: BMI 35.6
[2019-08-05 14:08] VITALS: BP 125/75; PULSE 99; RESP 14; TEMP 36.7; O2SAT 97; BMI 36.8
--- NOTE | 2019-08-05 15:07 | CT_ITS ---
STUDY: CT ABDOMEN AND PELVIS WITH CONTRAST REASON FOR EXAM: Male, 58 years old. ACUTE ABDOM PAIN POST LUMBAR SURGERY X 5 DAYS AGO RADIATION DOSAGE (If Supplied By Facility): CTDIvol = ( 18.35 ) mGy, DLP = ( 1222.66 ) mGycm TECHNIQUE: Transaxial images were obtained from the dome of the diaphragm to the symphysis pubis without oral contrast. Oral and amp; IV Gastrografin and amp; 100mL Isovue-300 was administered. Sagittal and coronal images were reconstructed. Individualized dose optimization techniques were used for this CT. COMPARISON: None. FINDINGS: The visualized lung bases are unremarkable. The visualized portions of the heart are within normal limits. Normal liver. Normal gallbladder and extrahepatic biliary system. Normal spleen. 15 mm splenic cyst. Normal pancreas. Normal bilateral adrenal glands. Normal right kidney. Normal left kidney. Normal visualized stomach. Oral contrast noted within the small bowel. The colon is somewhat distended with gas. Multiple air-fluid levels are noted. Cecum measures 10 cm in diameter and is filled with stool. Appendix normal. Normal abdominal aorta. Normal inferior vena cava. Normal retroperitoneum. Normal urinary bladder. Bilateral fat-containing inguinal hernias. There is a small umbilical hernia containing fat. Laminectomies L3-S1. Subcutaneous gas and skin azael noted. IMPRESSION: Colonic ileus. Recent laminectomies. L3-S1. Electronically Signed: Jt Anthony MD at 17:32 EST , Service support , CT/Abdomen/Pelvis WITH Contrast
--- NOTE | 2019-08-05 15:10 | ED.DCSUM_ITS ---
- ER Visit Summary Date of Service: 08/05/19 Chief Complaint: Abdominal pain and constipation History of Present Illness: The patient is a 58 M who presents with abdominal pain and constipation that is been getting worse over the past 5 days. Patient states he had back surgery at the [facility] by Dr. Raymond Fountian 5 days ago. Patient states his last good bowel movement was prior to surgery. Patient states that yesterday he had a very small and hard bowel movement. Patient states he has diffuse pain across his abdomen. Patient states his abdomen feels bloated. Patient describes his pain as sharp. Patient admits to some nausea and vomiting. Patient denies any hematemesis or coffee-ground emesis. Patient admits to a fever of 101.1 yesterday. Physical Examination: Vital signs are stable. Patient is afebrile. Patient is in no acute distress. Oral mucosa is pink and moist. Neck is supple. Trachea is midline. There is no JVD. Heart was regular rate and rhythm. Lungs are clear and equal bilaterally. Abdomen is soft but distended. Bowel sounds are hypoactive. There is diffuse tenderness. There is no rebound or guarding noted. Cranial nerves II through XII are intact. There are no focal motor or sensory deficits noted. Skin is warm and dry. There is some urticaria around the incision over the lumbar spine where the tape was from his dressing. The incision is clean and dry. There is no erythema along the incision. There is no discharge or drainage. Test Results: CBC shows a leukocytosis of 15.6. Comprehensive metabolic profile was essentially within normal limits. Urinalysis was ordered and is pending. CT scan of the abdomen and pelvis was obtained. There is a colonic ileus. There is no obstruction. Emergency Department Course and Treatment: Patient was given IV fluids, morphine, and Zofran here. Patient was given a repeat dose of morphine. Case was discussed with the hospitalist. Patient will be given a soapsuds enema here. Patient will be admitted for observation. Patient and family understood and were agreeable with the plan. All questions were answered. Disposition: Admit for observation Impression: Colonic ileus This note was generated with Zollo dictation software. It may contain incorrect words, spelling, and punctuation that were not noted in review of the chart prior to signing ED Disposition - Plan for ED Patient: Disposition: Acute Care [facility] Diagnosis: Ileus Referrals: Bruce Armendariz MD [Primary Care Provider] -
[2019-08-05] MEDS: Ondansetron 4 MG/2 ML Vial IV ×2 (15:20→20:18)
[2019-08-05] MEDS: Morphine 4 MG/ML Syringe IV ×2 (15:21→18:06)
[2019-08-05] MEDS: 0.9% Normal Saline 1,000 ML 1000 ML IV (15:21)
[2019-08-05 15:23] LABS: Absolute Lymphocyte Count 1.13 X10^3/uL (0.83-4.51); Absolute Neutrophil Count 13.5 X10^3/uL (2.0-7.7); Basophil# 0.03 X10^3/uL; Basophil% 0.2 % (0-1); Eosinophil# 0.02 X10^3/uL; Eosinophils% 0.1 % (0-5); Hematocrit 42.5 % (40-54); Hemoglobin 14.3 g/dL (13.0-16.5); Lymphocyte # 1.13 X10^3/ul (4.0); Lymphocyte % 7.3 % (19-41); Mean Corp Hgb Conc 33.6 g/dL (32-36); Mean Corpuscular Hgb 29.3 pg (27.0-32.0); Mean Corpuscular Volume 87.1 fL (80-94); Mean Platelet Vol. 10.6 fl (6.2-12.0); Monocyte# 0.85 X10^3/uL; Monocyte% 5.5 % (0-10); NRBC Flagged by Analyzer 0 % (0-5); Neutrophil # 13.45 X10^3/uL (2.7-7.7); Neutrophil % 86.4 % (47-70); Platelet Count 257 K/mm3 (150-450); RBC Distribution Width CV 12.3 % (11.6-14.6); RBC Distribution Width SD 39.2 fl (35.1-43.9); Red Blood Count 4.88 M/mm3 (4.6-6.2); White Blood Count 15.6 K/mm3 (4.4-11.0)
[2019-08-05 15:40] LABS: ALB/GLOB Ratio 0.6 RATIO (0.9-2.4); AST(SGOT) 16 U/L (15-37); Alanine Aminotransfer ALT/SGPT 26 U/L (16-61); Albumin, Serum 3.3 g/dL (3.2-5.0); Alkaline Phosphatase 87 U/L (45-117); Anion Gap 8 (5-15); BUN 19 mg/dL (7-18); BUN/Creat Ratio 16.2 RATIO (10-20); Calcium,Total 8.9 mg/dL (8.5-10.1); Chloride 98 mmol/L (98-107); Creatinine, Serum 1.17 mg/dL (0.70-1.30); EST Glomerular Filtration Rate 68 mL/min (>60); Est Glom Filt Rate - Afr Amer 82 mL/min (>60); Estimated Creatinine Clearance 63.56 ml/min; Globulin 5.1 g/dL (2.2-4.2); Glucose 155 mg/dL (74-106); Lipase 113 U/L (73-393); Potassium 3.8 mmol/L (3.5-5.1); Protein, Total 8.4 g/dL (6.4-8.2); Sodium Level 134 mmol/L (136-145)
[2019-08-05 16:33] VITALS: BP 139/91; PULSE 87; RESP 17; O2SAT 95
[2019-08-05 17:53] LABS: Bacteria 0 SEEN /hpf (None Seen); Mucous, Urine 0 SEEN /hpf (<or=2+); White Blood Cells 0 SEEN /hpf (0-5)
[2019-08-05 17:58] LABS: Color, Urine Yellow (Yellow); Glucose, Dipstick Normal (Normal); Ketone-Dipstick Negative (Negative); Leukocyte Esterase-Dipstick Negative /ul (Negative); Nitrite-Dipstick Negative (Negative); Occult Blood-Urine 10 /ul (Negative); Protein-Dipstick 15 mg/dl (Negative); Urine Bilirubin Dipstick Negative (Negative); Urine Clarity Clear (Clear); Urine Urobilinogen Normal (Normal)
--- NOTE | 2019-08-05 18:21 | HP.PCM_ITS ---
Problem List (1) Ileus Status: Acute (2) Constipation Status: Acute Qualifiers: Constipation type: unspecified constipation type Qualified Code(s): K59.00 - Constipation, unspecified (3) RLS (restless legs syndrome) Status: Chronic (4) Chronic back pain Status: Chronic Qualifiers: Back pain location: low back pain Back pain laterality: unspecified Sciatica presence: with sciatica Sciatica laterality: sciatica laterality unspecified Qualified Code(s): M54.40 - Lumbago with sciatica, unspecified side; G89.29 - Other chronic pain (5) Tobacco use Status: Chronic (6) BPH (benign prostatic hyperplasia) Status: Chronic Qualifiers: Lower urinary tract symptom presence: unspecified whether lower urinary tract symptoms present Qualified Code(s): N40.0 - Benign prostatic hyperplasia without lower urinary tract symptoms (7) Acid reflux Status: Chronic Qualifiers: Esophagitis presence: esophagitis presence not specified Qualified Code(s): K21.9 - Gastro-esophageal reflux disease without esophagitis History of Present Illness Date of Admission: 08/05/19 Chief Complaint: Severe constipation The patient is a 58 y/o M w/ PMHx: Obesity, OA, Chronic back pain w/ hx Lumbar spinal stenosis s/p recent [facility] laminectomies L3-S1 who presents to the [facility] ED on 08/05/19 with history of recent surgery by Raymond Fountain 5 days prior with last BM the AM of surgery, small firm BM the day prior with severe cramping abdominal pain, abdominal distention with nausea with emesis with well appearing incision but noted elevated T at home the day prior. He denies any recent drainage from the incision. Notes some irritation from the tape only. He has tried mag citrate and miralax at home without BM onset at home. Work-up in the ED included T 98, heart rate 99, BP 125/75, respiratory rate 14, 97% on room air, CBC with WBC 15.6, hemoglobin 14.3, platelet 257 with left shift, CMP with sodium 134, BUN/creatinine 19/1.17, glucose 155, hepatic profile not marked appearing, lipase 113, urinalysis with specific gravity 1.010, protein 15, occult blood 10, nitrite negative, leukocyte esterase negative, pending RBC, WBC, squamous epithelial cells, urine bacteria upon requested evaluation of patient, CT of the abdomen pelvis with evidence of colonic ileus and evidence of recent laminectomies of the L3-S1 region no obvious evidence of infection. In the ED patient ministered normal saline, morphine 4mg x 2, Zofran. Past Medical History Past Medical History (Chronic Problems): Chronic Problems (Last Reviewed 01/27/19 @ 11:51 by Jyoti Noriega) RLS (restless legs syndrome) (Chronic) Chronic back pain (Chronic) Tobacco use (Chronic) BPH (benign prostatic hyperplasia) (Chronic) Acid reflux (Chronic) Medical History: Medical History (Last Reviewed 01/27/19 @ 11:51 by Jyoti Noriega) Trigger finger of left hand (Acute) M65.30 Carpal tunnel syndrome of left wrist (Acute) G56.02 Lipoma (Acute) D17.9 Lipoma of breast (Acute) D17.1 Hemorrhoids (Acute) K64.9 Acid reflux (Acute) K21.9 Arthritis (Acute) M19.90 History of stroke (Acute) Z86.73 Allergies Sulfa (Sulfonamide Antibiotics) Allergy (Mild, Verified 08/05/19 14:11) RASH lisinopril Adverse Reaction (Verified 08/05/19 14:11) COUGH Home Medications: Ambulatory Orders Medication Instructions Recorded tadalafil 5 mg tablet 5 mg PO DAILY 05/03/18 Calcium Carbonate [Calcium] 1,500 mg PO DAILY 08/05/19 Docusate Sodium [Colace] 100 mg PO BID 08/05/19 Esomeprazole Mag Trihydrate 40 mg PO DAILY 08/05/19 [Nexium] Oxycodone HCl/Acetaminophen 0.5 tab PO Q6H PRN PRN 08/05/19 [Percocet 10-325 mg Tablet] Ropinirole HCl [Requip] 1 mg PO DAILY 08/05/19 Varenicline [Chantix] 1 mg PO BID 08/05/19 cycloBENZAPRine HCl [Flexeril] 10 mg PO DAILY 08/05/19 Surgical History: Surgical History (Last Reviewed 01/27/19 @ 11:51 by Jyoti Noriega) History of incision and drainage (Acute) Z98.890 Anal Abscess Hx of arthroscopic knee surgery (Acute) Z98.890 Right History of carpal tunnel surgery of right wrist (Acute) Z98.890 S/P carpal tunnel release Z98.890 left Surgical History: - - Recent lumbar back surgery as noted, bilateral carpal tunnel surgery, bilateral hand trigger finger intervention, rectal fissure intervention. Psychiatric History: No pertinent psych hx Lives: Spouse/ Significant Other Smoking Status: Former smoker - Patient is quitting cigarette tobacco usage this most recent Sunday prior to current presentation, prior to this was smoking 4-5 cigarillos a day since he was a teenager. Tobacco Use: Cigars Alcohol: Occasional Drugs: None - *Family History Maternal Family History: Family History (Last Reviewed 01/27/19 @ 11:51 by Jyoti Noriega) Mother Non-Hodgkin lymphoma Father Heart disease History Items: Cancer - Mother with history of non-Hodgkin's lymphoma. Paternal Family History: Family History (Last Reviewed 01/27/19 @ 11:51 by Jyoti Noriega) Mother Non-Hodgkin lymphoma Father Heart disease History Items: Heart Disease Review of Systems Constitutional: Reports: Anorexia, Fever, Malaise, Weakness, Fatigue. Denies: Chills, Weight Change HEENT: Denies: Head Aches, Sinus Congestion, Sinus Drainage Cardiovascular: Denies: Chest Pain, Palpitations Respiratory: Denies: Cough, Shortness of breath at rest, Sputum production Gastrointestinal: Reports: Abdominal Pain, Constipation, Dyspepsia, Nausea, Vomiting Genitourinary: Denies: Dysuria Musculoskeletal: Reports: Back Pain, Joint Pain. Denies: Joint Tenderness Skin: Reports: Skin Changes. Denies: Rash, Wounds Neurological: Denies: Numbness, Tingling, Focal weakness Psychiatric: Denies: Anxiety, Depression, Homicidal Ideations, Suicidal Ideations Hematologic/ Lymphatic: Denies: Easy Bruising, Easy Bleeding VTE Information - Inpt Only VTE Present on Admission: No VTE Mechan Device Prophylaxis: SCD's VTE Pharm Prophylaxis ordered?: No Reason prophylaxis not ordered:: Medical Contraindication Patient Problems: Active and Suspected Problems (Last Reviewed 01/27/19 @ 11:51 by Jyoti Noriega) Ileus (Acute) Constipation (Acute) Subjective: Seated upright, uncomfortable appearing, recent enema. Objective: Physical Examination: General: awake, alert, oriented x 3 and cooperative, seated upright on the bedside commode in the ED, uncomfortable appearing. Skin: normal color, turgor, no icterus, cyanosis, posterior lumbar incision status post recent back surgery well-appearing, azael in place, no erythema, no drainage. HEENT: AT/NC, EOMI, PERRLA, audibly dry MM, no carotid bruits or JVD noted. Lungs: CTA bilaterally, moderate effort, moderate decrease BL bases, no rales, ronchi or wheezing. Heart: Regular rate and rhythm; no gallop, rub audible. Abdomen: Abdomen tense, generalized discomfort with palpation, notably decreased bowel sounds, distended, difficult assessment of HSM given current acute habitus Tatian. Extremities: no cyanosis, clubbing, or edema. Neurological: patient awake, alert, oriented x 3; cognitive function intact; pupils equally reactive to light and accomodation; cranial nerves II-XII grossly normal, moving all 4 extremities, no focal deficits, strength severely global decrease secondary to recent intervention and acute presentation. Psychiatric: affect appears uncomfortable, no acute evidence of depressive or anxiety feelings. - Physical Exam Vitals/I&O's: Vital Signs Temp Pulse Resp BP Pulse Ox 98.0 F 87 17 139/91 H 95 08/05/19 14:08 08/05/19 16:33 08/05/19 16:33 08/05/19 16:33 08/05/19 16:33 Oxygen Delivery Method Room Air Weight: 235 lb Body Mass Index (BMI) 36.8 Intake and Output for Last 24 Hours 08/03/19 08/04/19 08/05/19 23:59 23:59 23:59 Intake Total 1000 / 1000 Balance 1000 / 1000 Laboratory Results 08/05/19 15:00: WBC 15.6 H, RBC 4.88, Hgb 14.3, Hct 42.5, MCV 87.1, MCH 29.3, MCHC 33.6, RDW Std Deviation 39.2, RDW Coeff of Bere 12.3, Plt Count 257, MPV 10.6, Immature Gran % (Auto) 0.500, Neut % (Auto) 86.4 H, Lymph % (Auto) 7.3 L, Gillespie % (Auto) 5.5, Eos % (Auto) 0.1, Baso % (Auto) 0.2, Absolute Neuts (auto) 13.5 H, Absolute Lymphs (auto) 1.13, Nucleated RBC % 0 08/05/19 15:00: Sodium 134 L, Potassium 3.8, Chloride 98, Carbon Dioxide 28.0, Anion Gap 8, BUN 19 H, Creatinine 1.17, Estim Creat Clear Calc 63.56, Est GFR (MDRD) Af Amer 82, Est GFR (MDRD) Non-Af 68, BUN/Creatinine Ratio 16.2, Glucose 155 H, Calcium 8.9, Total Bilirubin 0.60, AST 16, ALT 26, Alkaline Phosphatase 87, Total Protein 8.4 H, Albumin 3.3, Globulin 5.1 H, Albumin/Globulin Ratio 0.6 L, Lipase 113 08/05/19 17:48: Urine Color Yellow, Urine Clarity Clear, Urine pH 7.0, Ur Specific Hennessey 1.010, Urine Protein 15 H, Urine Glucose (UA) Normal, Urine Ketones Negative, Urine Occult Blood 10 H, Urine Nitrite Negative, Urine Bilirubin Negative, Urine Urobilinogen Normal, Ur Leukocyte Esterase Negative, Urine RBC Pending, Urine WBC Pending, Ur Squamous Epith Cells Pending, Urine Bacteria Pending, Urine Mucus Pending Assessment/Plan All Active Problems (Last Reviewed 01/27/19 @ 11:51 by Jyoti Noriega) Ileus (Acute) Constipation (Acute) Bronchitis (Acute) Laceration of right index finger (Acute) Trigger finger of left hand (Acute) Carpal tunnel syndrome of left wrist (Acute) Lipoma (Acute) Lipoma of breast (Acute) History of incision and drainage (Acute) Hx of arthroscopic knee surgery (Acute) History of carpal tunnel surgery of right wrist (Acute) Hemorrhoids (Acute) Arthritis (Acute) History of stroke (Acute) The patient is a 58 y/o M w/ PMHx: Obesity, OA, Chronic back pain w/ hx Lumbar spinal stenosis s/p recent [facility] laminectomies L3-S1 who presents to the [facility] ED on 08/05/19 with history of recent surgery by Raymond Fountain 5 days prior with last BM the AM of surgery, small firm BM the day prior with severe cramping abdominal pain, abdominal distention with nausea with emesis with well appearing incision but noted elevated T at home the day prior. 1. Acute intractable abdominal pain secondary to severe constipation with colonic ileus: We will admit to the medical surgical floor, n.p.o. status except sips water with medications given nausea and emesis with abdominal discomfort, PRN IV and oral pain regimen, aggressive bowel regimen initiation with enema given in the ED with now planned attempt for GoLYTELY administration, PRN antiemetics. Nutrition consultation for education regarding high-fiber diet. 2. Recent lumbar back surgery secondary to history of spinal stenosis with c hronic pain: We will continue patient home Flexeril Percocet regimen. Encourage following resolution of acute constipation aggressive bowel regimen if ongoing narcotic usage. We will continue routine incisional dressing care. PT/OT consultations to assure no postoperative de-escalation. 3. Hyperglycemia: Admission glucose 155, hemoglobin A1c requested, likely stress response and recent operative intervention. 4. Tobacco use: We will continue patient home Chantix regimen, encourage continued tobacco cessation. 5. GERD: Continue patient home PPI. 6. Obesity: Weight loss and lifestyle changes encouraged, nutrition consulted. 7. DVT prophylaxis: SCDs, defer chemoprophylaxis given recent spinal surgery. Code Visit OBSV E&M: [id number] Initial observation care L3
[2019-08-05 18:30] LABS: Squamous Epithelial Cells - UA 0-5 SEEN /hpf (0-5)
[2019-08-05 18:32] LABS: Red Blood Cells-Urine 0-5 SEEN /hpf (0-5)
[2019-08-05 19:25] VITALS: BP 151/91; PULSE 84; RESP 20; TEMP 36.9; O2SAT 95; BMI 36.1
[2019-08-05 19:29] VITALS: BMI 36.2
[2019-08-05] MEDS: 0.9% Normal Saline 1,000 ML 125 ML IV (19:47)
[2019-08-05] MEDS: Electrolyte Solution/Peg's 4000 ML 2000 ML PO (20:30)
[2019-08-05 20:59] LABS: Hemoglobin A1c 5.9 % (4.2-6.3)
[2019-08-05] MEDS: CLARIFY ORDER NOTE (21:31)
[2019-08-05] MEDS: Varenicline 1 MG Tablet PO (22:09)
[2019-08-05] MEDS: Morphine 2 MG/ML Syringe IV (22:10)
[2019-08-05] MEDS: proCHLORPERazine 10 MG/2 ML Vial 5 MG IV (22:10)
[2019-08-05 23:24] VITALS: O2SAT 91
[2019-08-06] VITALS (7 sets, daily range): BP systolic 133–162; BP diastolic 82–92; PULSE 77–88; RESP 18–20; TEMP 36.5–37; O2SAT 92–97
[2019-08-06] MEDS: Morphine 2 MG/ML Syringe IV (01:42)
[2019-08-06] MEDS: 0.9% Normal Saline 1,000 ML 125 ML IV ×3 (03:47→21:07)
[2019-08-06] MEDS: oxyCODONE 5 MG Tablet PO ×4 (04:08→18:58)
[2019-08-06] MEDS: 0.9% Saline Lock 10 ML Syringe IV ×2 (04:44→09:48)
[2019-08-06] MEDS: Ondansetron 4 MG/2 ML Vial IV (04:44)
[2019-08-06 05:29] LABS: Absolute Lymphocyte Count 1.94 X10^3/uL (0.83-4.51); Absolute Neutrophil Count 12.2 X10^3/uL (2.0-7.7); Basophil# 0.04 X10^3/uL; Basophil% 0.3 % (0-1); Eosinophil# 0.12 X10^3/uL; Eosinophils% 0.8 % (0-5); Hematocrit 41.1 % (40-54); Hemoglobin 13.5 g/dL (13.0-16.5); Lymphocyte # 1.94 X10^3/ul (4.0); Lymphocyte % 12.4 % (19-41); Mean Corp Hgb Conc 32.8 g/dL (32-36); Mean Corpuscular Hgb 29.1 pg (27.0-32.0); Mean Corpuscular Volume 88.6 fL (80-94); Mean Platelet Vol. 10.4 fl (6.2-12.0); Monocyte% 7.7 % (0-10); NRBC Flagged by Analyzer 0 % (0-5); Neutrophil # 12.22 X10^3/uL (2.7-7.7); Neutrophil % 78.3 % (47-70); Platelet Count 274 K/mm3 (150-450); RBC Distribution Width CV 12.3 % (11.6-14.6); RBC Distribution Width SD 39.6 fl (35.1-43.9); Red Blood Count 4.64 M/mm3 (4.6-6.2); White Blood Count 15.6 K/mm3 (4.4-11.0)
[2019-08-06 05:44] LABS: Anion Gap 8 (5-15); BUN 16 mg/dL (7-18); BUN/Creat Ratio 16.7 RATIO (10-20); Calcium,Total 7.5 mg/dL (8.5-10.1); Chloride 105 mmol/L (98-107); Creatinine, Serum 0.96 mg/dL (0.70-1.30); EST Glomerular Filtration Rate 85 mL/min (>60); Est Glom Filt Rate - Afr Amer 103 mL/min (>60); Estimated Creatinine Clearance 77.46 ml/min; Glucose 126 mg/dL (74-106); Potassium 3.6 mmol/L (3.5-5.1); Sodium Level 138 mmol/L (136-145)
--- NOTE | 2019-08-06 09:14 | NURSING ---
TEXT TO DR WIN REGARDING PT CONTINUED C/O ABD PAIN, NO BM, UNABLE TO TOLERATE ANYMORE GOLYTELY. AWAITING RESPONSE FROM .
[2019-08-06] MEDS: hydrALAZINE 20 MG/ML Vial 10 MG IV (09:48)
[2019-08-06] MEDS: proCHLORPERazine 10 MG/2 ML Vial 5 MG IV (09:48)
[2019-08-06] MEDS: cycloBENZAPRine HCl 10 MG Tablet PO (09:55)
[2019-08-06] MEDS: Pantoprazole Sodium 40 MG Tablet PO (09:55)
[2019-08-06] MEDS: Varenicline 1 MG Tablet PO ×2 (09:55→21:10)
[2019-08-06] MEDS: Pramipexole Di-HCl 0.5 MG Tablet PO (09:55)
[2019-08-06] MEDS: Magnesium Citrate 300 ML PO (10:31)
--- NOTE | 2019-08-06 10:35 | PCM.PN.HOSP ---
Patient Problems: Active and Suspected Problems (Last Reviewed 01/27/19 @ 11:51 by Jyoti Noriega) Ileus (Acute) Constipation (Acute) Reason for Visit: ABD PAIN Subjective: Pt with minimal improvement overnight in abd pain. remains diffuse -03/15. Ongoing nausea vomiting and abd distention. No fever/chills. Pt is ambulating in ace. No dizziness/LH. Watery BM this AM. Vitals/I&O's: Vital Signs Temp Pulse Resp BP Pulse Ox 97.8 F 84 20 H 162/92 H 94 08/06/19 08:54 08/06/19 09:48 08/06/19 08:54 08/06/19 09:48 08/06/19 08:54 Oxygen Delivery Method Room Air Weight: 231 lb 1.6 oz Body Mass Index (BMI) 36.1 Intake and Output for Last 24 Hours 08/04/19 08/05/19 08/06/19 23:59 23:59 23:59 Intake Total 1522.92 / 1722.92 877.08 / 877.08 Balance 1522.92 / 1722.92 877.08 / 877.08 General: Alert, Oriented x3, Cooperative HEENT: Atraumatic, PERRLA, EOMI, Normocephalic Neck: Supple, No JVD, Negative Carotid Bruits Lungs: Clear to auscultation, Normal air movement Cardiovascular: Regular rate, No murmurs Abdomen: Bowel Sounds Present - high pitched BS RUQ, Hypoactive Bowel Sounds, Distended, Tender Extremities: No edema, Capillary Refill Less than 3 Seconds Skin: No rashes, No breakdown Musculoskeletal: No Tenderness to Palpation of Joints or Extremities Neurological: Cranial nerves II-XII grossly intact Psych/Mental Status: Normal Affect, Appropriate, Alert and oriented to time, place, person, mood and affect Laboratory Results 08/05/19 15:00: WBC 15.6 H, RBC 4.88, Hgb 14.3, Hct 42.5, MCV 87.1, MCH 29.3, MCHC 33.6, RDW Std Deviation 39.2, RDW Coeff of Bere 12.3, Plt Count 257, MPV 10.6, Immature Gran % (Auto) 0.500, Neut % (Auto) 86.4 H, Lymph % (Auto) 7.3 L, [place] % (Auto) 5.5, Eos % (Auto) 0.1, Baso % (Auto) 0.2, Absolute Neuts (auto) 13.5 H, Absolute Lymphs (auto) 1.13, Nucleated RBC % 0 08/05/19 15:00: Sodium 134 L, Potassium 3.8, Chloride 98, Carbon Dioxide 28.0, Anion Gap 8, BUN 19 H, Creatinine 1.17, Estim Creat Clear Calc 63.56, Est GFR (MDRD) Af Amer 82, Est GFR (MDRD) Non-Af 68, BUN/Creatinine Ratio 16.2, Glucose 155 H, Calcium 8.9, Total Bilirubin 0.60, AST 16, ALT 26, Alkaline Phosphatase 87, Total Protein 8.4 H, Albumin 3.3, Globulin 5.1 H, Albumin/Globulin Ratio 0.6 L, Lipase 113 08/05/19 15:00: Hemoglobin A1c 5.9 08/05/19 17:48: Urine Color Yellow, Urine Clarity Clear, Urine pH 7.0, Ur Specific [place] 1.010, Urine Protein 15 H, Urine Glucose (UA) Normal, Urine Ketones Negative, Urine Occult Blood 10 H, Urine Nitrite Negative, Urine Bilirubin Negative, Urine Urobilinogen Normal, Ur Leukocyte Esterase Negative, Urine RBC 0-5 SEEN, Urine WBC 0 SEEN, Ur Squamous Epith Cells 0-5 SEEN, Urine Bacteria 0 SEEN, Urine Mucus 0 SEEN 08/06/19 04:50: Sodium 138, Potassium 3.6, Chloride 105, Carbon Dioxide 25.0, Anion Gap 8, BUN 16, Creatinine 0.96, Estim Creat Clear Calc 77.46, Est GFR (MDRD) Af Amer 103, Est GFR (MDRD) Non-Af 85, BUN/Creatinine Ratio 16.7, Glucose 126 H, Calcium 7.5 L 08/06/19 04:50: WBC 15.6 H, RBC 4.64, Hgb 13.5, Hct 41.1, MCV 88.6, MCH 29.1, MCHC 32.8, RDW Std Deviation 39.6, RDW Coeff of Bere 12.3, Plt Count 274, MPV 10.4, Immature Gran % (Auto) 0.500, Neut % (Auto) 78.3 H, Lymph % (Auto) 12.4 L, [place] % (Auto) 7.7, Eos % (Auto) 0.8, Baso % (Auto) 0.3, Absolute Neuts (auto) 12.2 H, Absolute Lymphs (auto) 1.94, Nucleated RBC % 0 Current Medications Acetaminophen (Tylenol) 650 mg PO Q6H PRN PRN PRN Reason: Non-cardiac pain (4-1010) Al Hydroxide/Mg Hydroxide (Mylanta Ii) 15 - 30 ml PO Q4H PRN PRN PRN Reason: INDIGESTION Albuterol Sulfate (Ventolin Aerosols) 2.5 mg INHALATION Q2H PRN PRN PRN Reason: dyspnea, wheezing Cyclobenzaprine HCl (Flexeril) 10 mg PO DAILY [facility] Last Admin: 08/06/19 09:55 Dose: 10 mg Documented by: Glucagon () 1 mg IM .X1 PRN PRN Reason: Hypoglycemia Guaifenesin (Robitussin) 20 ml PO Q4H PRN PRN PRN Reason: COUGH Hydralazine HCl (Apresoline Iv) 10 mg IV Q4H PRN PRN PRN Reason: SBP > 160 Last Admin: 08/06/19 09:48 Dose: 10 mg Documented by: Sodium Chloride () 1,000 mls @ 125 mls/hr IV .Q8H [facility] Last Admin: 08/06/19 03:47 Dose: 125 mls/hr Documented by: Dextrose (Dextrose 10%-Water) 250 mls @ 999 mls/hr IV .Q16M PRN; Protocol PRN Reason: HYPOGLYCEMIA Magnesium Hydroxide (Milk Of Magnesia) 30 ml PO DAILY PRN PRN Reason: Constipation Morphine Sulfate () 1 - 2 mg IV Q4H PRN PRN PRN Reason: Pain Score 1-1010 Last Admin: 08/06/19 01:42 Dose: 1 mg Documented by: Non-Formulary Medication (Tadalafil [Cialis]) 5 mg PO DAILY [facility] Nutritional Formula (Lactose Free) (Ensure Enlive) 120 ml PO 4X/DAY [facility] Last Admin: 08/06/19 09:13 Dose: Not Given Documented by: Ondansetron HCl (Zofran) 4 mg IV Q6H PRN PRN PRN Reason: NAUSEA/VOMITING Last Admin: 08/06/19 04:44 Dose: 4 mg Documented by: Oxycodone HCl (Oxyir) 5 mg PO Q4H PRN PRN PRN Reason: Pain Score 1-10/10 Last Admin: 08/06/19 08:50 Dose: 5 mg Documented by: Pantoprazole Sodium (Protonix) 40 mg PO DAILY [facility] Last Admin: 08/06/19 09:55 Dose: 40 mg Documented by: Pramipexole Dihydrochloride (Mirapex) 0.5 mg PO DAILY [facility] Last Admin: 08/06/19 09:55 Dose: 0.5 mg Documented by: Prochlorperazine Edisylate (Compazine Iv) 5 mg IV Q6H PRN PRN PRN Reason: NAUSEA/VOMITING Last Admin: 08/06/19 09:48 Dose: 5 mg Documented by: Sodium Chloride () 10 - 40 ml IV UD PRN PRN Reason: SALINE FLUSH Last Admin: 08/06/19 09:48 Dose: 10 ml Documented by: Temazepam (Restoril) 15 mg PO QHS PRN PRN PRN Reason: INSOMNIA Throat Lozenges (Cepacol Sore Throat Lozenge) 1 lozenge MUCOUS MEM Q2H PRN PRN PRN Reason: Sore throat or cough Varenicline (Chantix) 1 mg PO BID [facility] Last Admin: 08/06/19 09:55 Dose: 1 mg Documented by: STROKE Vital Signs/Narrative: Vital Signs Temp Pulse Resp BP Pulse Ox 08/06/19 09:48 84 162/92 H 08/06/19 08:54 97.8 F 84 20 H 162/92 H 94 08/06/19 06:41 92 Medical Necessity - Tobacco Use Smoking Status: Former smoker Tobacco Use: Cigars Assessment/Plan All Active Problems (Last Reviewed 01/27/19 @ 11:51 by Jyoti Noriega) Ileus (Acute) Constipation (Acute) Bronchitis (Acute) Laceration of right index finger (Acute) Trigger finger of left hand (Acute) Carpal tunnel syndrome of left wrist (Acute) Lipoma (Acute) Lipoma of breast (Acute) History of incision and drainage (Acute) Hx of arthroscopic knee surgery (Acute) History of carpal tunnel surgery of right wrist (Acute) Hemorrhoids (Acute) Arthritis (Acute) History of stroke (Acute) 1. Ileus - minimal improvement. continue aggressive bowel regimen, if no further improvement consider NG tube and surgical consult. 2. Spinal stenosis s/p laminectomy L3-S1 08/01/2019 ([facility]) - back pain controlled. has been on PO percocet post op likely leading to #1 3. Nicotine abuse - patch if desired. 4. GERD - ppi 5. Obesity - nutrition consult when appropriate DVT ppx: SCDs This patient was seen by Tim Clayton PA-C under the supervision of Dr. Nowak.
--- NOTE | 2019-08-06 12:34 | NURSING ---
PT RESTING QUIETLY IN CHAIR @ BS, EYES CLOSED, RESP EASY
[2019-08-06] MEDS: Acetaminophen 325 MG Tablet 650 MG PO (13:46)
[2019-08-06] MEDS: Magnesium Hydroxide 30 ML UDC PO (21:14)
[2019-08-07] VITALS (9 sets, daily range): BP systolic 134–171; BP diastolic 79–100; PULSE 80–83; RESP 16–20; TEMP 36.1–37.1; O2SAT 94–97
[2019-08-07] MEDS: oxyCODONE 5 MG Tablet PO (01:00)
[2019-08-07] MEDS: Ondansetron 4 MG/2 ML Vial IV ×2 (04:19→10:07)
[2019-08-07] MEDS: 0.9% Normal Saline 1,000 ML 125 ML IV ×3 (04:22→21:16)
[2019-08-07 05:39] LABS: Absolute Lymphocyte Count 2.17 X10^3/uL (0.83-4.51); Absolute Neutrophil Count 7.5 X10^3/uL (2.0-7.7); Basophil# 0.05 X10^3/uL; Basophil% 0.5 % (0-1); Eosinophil# 0.32 X10^3/uL; Eosinophils% 2.9 % (0-5); Hemoglobin 11.7 g/dL (13.0-16.5); Lymphocyte # 2.17 X10^3/ul (4.0); Lymphocyte % 19.7 % (19-41); Mean Corp Hgb Conc 32.5 g/dL (32-36); Mean Corpuscular Volume 89.3 fL (80-94); Mean Platelet Vol. 10.6 fl (6.2-12.0); Monocyte# 0.92 X10^3/uL; Monocyte% 8.3 % (0-10); NRBC Flagged by Analyzer 0 % (0-5); Neutrophil # 7.54 X10^3/uL (2.7-7.7); Neutrophil % 68.2 % (47-70); Platelet Count 246 K/mm3 (150-450); RBC Distribution Width CV 12.6 % (11.6-14.6); RBC Distribution Width SD 41.3 fl (35.1-43.9); Red Blood Count 4.03 M/mm3 (4.6-6.2)
[2019-08-07 05:54] LABS: Anion Gap 7 (5-15); BUN 13 mg/dL (7-18); BUN/Creat Ratio 14.2 RATIO (10-20); Calcium,Total 7.5 mg/dL (8.5-10.1); Chloride 107 mmol/L (98-107); Creatinine, Serum 0.92 mg/dL (0.70-1.30); EST Glomerular Filtration Rate 90 mL/min (>60); Est Glom Filt Rate - Afr Amer 108 mL/min (>60); Estimated Creatinine Clearance 80.83 ml/min; Glucose 105 mg/dL (74-106); Potassium 3.5 mmol/L (3.5-5.1); Sodium Level 139 mmol/L (136-145)
--- NOTE | 2019-08-07 08:46 | RAD_ITS ---
STUDY: X-RAY - ABDOMEN/PELVIS REASON FOR EXAM: Male, 58 years old. COLONIC DISTENTION, PLEASE COMMENT ON NG PLACEMENT TECHNIQUE: AP supine and upright views of the abdomen and pelvis. COMPARISON: None. FINDINGS: Nasogastric tube with the tip in the midline likely in the antrum of the stomach. Skin azael midline consistent with recent abdominal surgery. Moderate colonic distention. There is no demonstrated free abdominal air. The visualized liver, spleen and kidneys are grossly normal in size and morphology. Normal soft tissue structures. Normal visualized osseous structures. RAD/Abd Decub and/or Erect(Portabl IMPRESSION: 1. Nasogastric tube with the tip in the midline likely in the antrum the stomach. 2. Recent abdominal surgery. 3. Colonic dilatation worrisome for obstruction or ileus. Electronically Signed: Neil Rivera MD at 11:53 EST Tel , Service support ,
--- NOTE | 2019-08-07 08:49 | PCM.CONS.GEN ---
Problem List (1) Ileus Status: Acute Reason for Consult Date of Consultation: 08/07/19 History of Present Illness: The patient is a 58 year old M been asked to see subsequent to abdominal distention. I been asked to see this patient with Dr. Dashawn Cabrera and a written copy of my surgical consult will be done in the chart. The patient had L3-S1 lumbar back surgery performed by Dr. Raymond Fountain at [facility]. Subsequent to that he developed significant abdominal distention nausea dry heaves lack of passing stool. He was admitted to the [facility] late on August 05, [address] scan demonstrated colonic ileus. No signs of any small bowel obstruction. The patient has not had any abdominal surgery. Because he remains distended today with nausea and dry heaves surgical consult is being requested. The patient's primary surgeon has not yet been contacted. Patient has been receiving both morphine and oxycodone. Past Medical History Past Medical History (Chronic Problems): Chronic Problems (Last Reviewed 01/27/19 @ 11:51 by Jyoti Noriega) RLS (restless legs syndrome) (Chronic) Chronic back pain (Chronic) Tobacco use (Chronic) BPH (benign prostatic hyperplasia) (Chronic) Acid reflux (Chronic) Medical History: Medical History (Last Reviewed 01/27/19 @ 11:51 by Jyoti Noriega) Trigger finger of left hand (Acute) M65.30 Carpal tunnel syndrome of left wrist (Acute) G56.02 Lipoma (Acute) D17.9 Lipoma of breast (Acute) D17.1 Hemorrhoids (Acute) K64.9 Acid reflux (Chronic) K21.9 Arthritis (Acute) M19.90 History of stroke (Acute) Z86.73 Allergies Sulfa (Sulfonamide Antibiotics) Allergy (Mild, Verified 08/05/19 14:11) RASH lisinopril Adverse Reaction (Verified 08/05/19 14:11) COUGH Home Medications: Ambulatory Orders Medication Instructions Recorded tadalafil 5 mg tablet 5 mg PO DAILY 05/03/18 Calcium Carbonate [Calcium] 1,500 mg PO DAILY 08/05/19 Docusate Sodium [Colace] 100 mg PO BID 08/05/19 Esomeprazole Mag Trihydrate 40 mg PO DAILY 08/05/19 [Nexium] Oxycodone HCl/Acetaminophen 0.5 tab PO Q6H PRN PRN 08/05/19 [Percocet 10-325 mg Tablet] Ropinirole HCl [Requip] 1 mg PO DAILY 08/05/19 Varenicline [Chantix] 1 mg PO BID 08/05/19 cycloBENZAPRine HCl [Flexeril] 10 mg PO DAILY 08/05/19 Surgical History: Surgical History (Last Reviewed 01/27/19 @ 11:51 by Jyoti Noriega) History of incision and drainage (Acute) Z98.890 Anal Abscess Hx of arthroscopic knee surgery (Acute) Z98.890 Right History of carpal tunnel surgery of right wrist (Acute) Z98.890 S/P carpal tunnel release Z98.890 left Surgical History: - - Recent lumbar back surgery as noted, bilateral carpal tunnel surgery, bilateral hand trigger finger intervention, rectal fissure intervention. Psychiatric History: No pertinent psych hx Lives: Spouse/ Significant Other Smoking Status: Former smoker Tobacco Use: Cigars Alcohol: Occasional Drugs: None - *Family History Maternal Family History: Family History (Last Reviewed 01/27/19 @ 11:51 by Jyoti Noriega) Mother Non-Hodgkin lymphoma Father Heart disease History Items: Cancer - Mother with history of non-Hodgkin's lymphoma. Paternal Family History: Family History (Last Reviewed 01/27/19 @ 11:51 by Jyoti Noriega) Mother Non-Hodgkin lymphoma Father Heart disease History Items: Heart Disease Review of Systems Constitutional: Denies: Chills, Fever HEENT: Denies: Difficulty Swallowing Cardiovascular: Denies: Chest Pain Gastrointestinal: Reports: Abdominal Pain, Vomiting Patient Problems: Active and Suspected Problems (Last Reviewed 01/27/19 @ 11:51 by Jyoti Noriega) Ileus (Acute) Constipation (Acute) - Physical Exam Vitals/I&O's: Vital Signs Temp Pulse Resp BP Pulse Ox 98.2 F 80 18 145/80 H 96 08/07/19 04:25 08/07/19 04:25 08/07/19 04:25 08/07/19 04:25 08/07/19 08:00 Oxygen Delivery Method Room Air Weight: 231 lb 1.593 oz Body Mass Index (BMI) 36.1 Intake and Output for Last 24 Hours 08/05/19 08/06/19 08/07/19 23:59 23:59 23:59 Intake Total 1522.92 / 1722.92 3537.08 / 3537.08 1006.25 / 1006.25 Balance 1522.92 / 1722.92 3537.08 / 3537.08 1006.25 / 1006.25 General: Alert, Oriented x3, Cooperative, No apparent distress Oral: Moist Mucosa Neck: Supple Lungs: Clear to auscultation, - - Diminished respiratory excursion Cardiovascular: Regular rate, Regular Rhythm Abdomen: Hypoactive Bowel Sounds, Distended, - - Minimal tenderness right mid abdomen no mass rebound or guarding Psych/Mental Status: Appropriate Laboratory Results 08/07/19 04:46: WBC 11.0, RBC 4.03 L, Hgb 11.7 L, Hct 36.0 L, MCV 89.3, MCH 29.0, MCHC 32.5, RDW Std Deviation 41.3, RDW Coeff of Bere 12.6, Plt Count 246, MPV 10.6, Immature Gran % (Auto) 0.400, Neut % (Auto) 68.2, Lymph % (Auto) 19.7, [place] % (Auto) 8.3, Eos % (Auto) 2.9, Baso % (Auto) 0.5, Absolute Neuts (auto) 7.5, Absolute Lymphs (auto) 2.17, Nucleated RBC % 0 08/07/19 04:46: Sodium 139, Potassium 3.5, Chloride 107, Carbon Dioxide 25.0, Anion Gap 7, BUN 13, Creatinine 0.92, Estim Creat Clear Calc 80.83, Est GFR (MDRD) Af Amer 108, Est GFR (MDRD) Non-Af 90, BUN/Creatinine Ratio 14.2, Glucose 105, Calcium 7.5 L Current Medications Acetaminophen (Tylenol) 650 mg PO Q6H PRN PRN PRN Reason: Non-cardiac pain (-05/15) Last Admin: 08/06/19 13:46 Dose: 650 mg Documented by: Albuterol Sulfate (Ventolin Aerosols) 2.5 mg INHALATION Q2H PRN PRN PRN Reason: dyspnea, wheezing Cyclobenzaprine HCl (Flexeril) 10 mg PO DAILY [facility] Last Admin: 08/06/19 09:55 Dose: 10 mg Documented by: Sodium Chloride () 1,000 mls @ 125 mls/hr IV .Q8H [facility] Last Admin: 08/07/19 04:22 Dose: 125 mls/hr Documented by: Ondansetron HCl (Zofran) 4 mg IV Q6H PRN PRN PRN Reason: NAUSEA/VOMITING Last Admin: 08/07/19 04:19 Dose: 4 mg Documented by: Pantoprazole Sodium (Protonix) 40 mg PO DAILY [facility] Last Admin: 08/06/19 09:55 Dose: 40 mg Documented by: Pramipexole Dihydrochloride (Mirapex) 0.5 mg PO DAILY [facility] Last Admin: 08/06/19 09:55 Dose: 0.5 mg Documented by: Sodium Chloride () 10 - 40 ml IV UD PRN PRN Reason: SALINE FLUSH Last Admin: 08/06/19 09:48 Dose: 10 ml Documented by: Temazepam (Restoril) 15 mg PO QHS PRN PRN PRN Reason: INSOMNIA Throat Lozenges (Cepacol Sore Throat Lozenge) 1 lozenge MUCOUS MEM Q2H PRN PRN PRN Reason: Sore throat or cough Varenicline (Chantix) 1 mg PO BID [facility] Last Admin: 08/06/19 21:10 Dose: 1 mg Documented by: Assessment/Plan All Active Problems (Last Reviewed 01/27/19 @ 11:51 by Jyoti Noriega) Ileus (Acute) Constipation (Acute) Bronchitis (Acute) Laceration of right index finger (Acute) Trigger finger of left hand (Acute) Carpal tunnel syndrome of left wrist (Acute) Lipoma (Acute) Lipoma of breast (Acute) History of incision and drainage (Acute) Hx of arthroscopic knee surgery (Acute) History of carpal tunnel surgery of right wrist (Acute) Hemorrhoids (Acute) Arthritis (Acute) History of stroke (Acute) 58-year-old gentleman with post operative abdominal complications. 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 There are no signs for small bowel obstruction. Patient does not at the moment appear to have an acute surgical abdomen. First off I recommend notifying the patient's responsible surgeon for notification of the complication and advised whether he wants the patient to continue to be treated locally or whether he wants to assume control of his postoperative complication Place an NG tube to limit aerophagia Stop all narcotics Obtain abdominal x-rays to assess the degree of cecal distention The patient might be a candidate for decompressive colonoscopy but I have asked tried to the patient and that this becomes a much higher risk endoscopic procedure if the colon is already over-distended. I have encouraged the patient to ambulate. We will allow him to use a heating pad. He has been passing some liquidy stool. I do not propose a rectal tube at this time. His CT on admission showed abundant stool within the cecum and did not suggest a sigmoid/rectal fecal impaction. Patient is so distended this time that I would not propose oral laxatives. He has had an opportunity to ask and have questions answered. Edgar Dan M.D., F.A.C.S.
[2019-08-07] MEDS: 0.9% Saline Lock 10 ML Syringe IV ×3 (10:06→21:16)
[2019-08-07] MEDS: BENZOCAINE/MENTHOL 1 LOZENGE MUCOUS MEM ×3 (11:01→20:11)
[2019-08-07 11:40] LABS: Bedside Glucose 114 mg/dL (70-110)
--- NOTE | 2019-08-07 12:25 | NURSING ---
ng clamped, pt will walk in ace.
--- NOTE | 2019-08-07 15:20 | CASEMGMT ---
RN AMARI LOAN CONSULTANT CM to room to meet with patient for initial transition planning/care coordination assessment. RN AMARI introduced self and role at [facility]. Pt voices understanding and consents to assessment at this time. Pt sitting up in recliner chair, sleeping. , Swati @ bedside and answered the following questions. Care providers, pharmacy, and demographics verified at this time. PCP: Dr Bruce Armendariz Specialists: Dr aRymond Fountain @ [facility] in [place]. Surgeon who did laminectomy. Has a f/u appt with himi on 08/12/19. Preferred Pharmacy: [facility] Insurance: [facility] Prescription Benefit: Yes Living Will/HPOA: states pt does not have LW or HCPOA . She is interested in more information and would like for SW to provide further information and assist w/completing paperwork if he would like to. ARSENIO Milton, made aware. Living Arrangements: Lives with in 2-story home. Was independent with all ADL's prior to laminectomy on 08/01. states she has been assisting w/ADL's, bathing/dressing lower extremities and household mgmt tasks since the surgery. Transportation: No transportation concerns. DME: Has the following DME: Has hand held shower, walk-in shower w/bench to use if he needs, walker, back brace. Does not wear home O2 . states no need for further DME at this time. HHC/SNF: No history of either. denies needs. No needs identified. states that plan is for pt to do OP therapy once his surgeon clears him and plans to get the script from him once he has been cleared. states pt wishes to return home and states has no concerns with going home at time of discharge. CM to follow for any discharge planning/needs. voices no concerns/needs at this time. Advised her to ask for CM if any questions/concerns/needs arise. She voices understanding. PLAN: Home w/spousal support and discharge plans in place. Uri DELUCA RN, CM
[2019-08-07] MEDS: Bisacodyl 10 MG Suppository RECTAL ×2 (16:18→20:07)
--- NOTE | 2019-08-07 17:35 | NURSING ---
Dr. Dan, called and wanted nurse to inform pt of the possibility of a colonscopy on the morning. and pt informed.
--- NOTE | 2019-08-07 18:50 | PN_ITS ---
Patient Problems: Active and Suspected Problems (Last Reviewed 01/27/19 @ 11:51 by Jyoti Noriega) Ileus (Acute) Constipation (Acute) Subjective: Patient was seen and examined today, he still he is having abdominal distention, he has had a few liquid stools. I had general surgery see him today, they recommended placement of an NG tube, at the time of this dictation, very little drainage is coming out of the NG tube. - Physical Exam Vitals/I&O's: Vital Signs Temp Pulse Resp BP Pulse Ox 98.7 F 83 18 134/90 H 96 08/07/19 17:31 08/07/19 17:31 08/07/19 17:31 08/07/19 17:31 08/07/19 17:31 Oxygen Delivery Method Room Air Weight: 104.825 kg Body Mass Index (BMI) 36.1 Intake and Output for Last 24 Hours 08/05/19 08/06/19 08/07/19 23:59 23:59 23:59 Intake Total 1522.92 / 1722.92 3537.08 / 3537.08 2086.25 / 2086.25 Output Total 150 / 150 Balance 1522.92 / 1722.92 3537.08 / 3537.08 1936.25 / 1936.25 General: Alert, Oriented x3, Cooperative, No apparent distress, Well nourished HEENT: Atraumatic, PERRLA, EOMI, Normocephalic Oral: Moist Mucosa Neck: Supple, Trachea Midline, Thyroid Normal Size and Texture Lungs: Clear to auscultation, Normal air movement, No rhonchi, No wheeze Cardiovascular: Regular rate, Regular Rhythm, Normal S1, Normal S2, No murmurs, PMI Normal Abdomen: Bowel Sounds Present, Soft, Non Tender, Tender Extremities: No clubbing, No cyanosis, No edema, Capillary Refill Less than 3 Seconds Skin: No rashes, No breakdown Musculoskeletal: No Tenderness to Palpation of Joints or Extremities Neurological: Cranial nerves II-XII grossly intact, Neuro grossly intact, Sensor y exam intact to light touch and pain, Coordination normal Psych/Mental Status: Normal Affect, Appropriate, Alert and oriented to time, place, person, mood and affect Laboratory Results 08/07/19 04:46: WBC 11.0, RBC 4.03 L, Hgb 11.7 L, Hct 36.0 L, MCV 89.3, MCH 29.0, MCHC 32.5, RDW Std Deviation 41.3, RDW Coeff of Bere 12.6, Plt Count 246, MPV 10.6, Immature Gran % (Auto) 0.400, Neut % (Auto) 68.2, Lymph % (Auto) 19.7, [place] % (Auto) 8.3, Eos % (Auto) 2.9, Baso % (Auto) 0.5, Absolute Neuts (auto) 7.5, Absolute Lymphs (auto) 2.17, Nucleated RBC % 0 08/07/19 04:46: Sodium 139, Potassium 3.5, Chloride 107, Carbon Dioxide 25.0, Anion Gap 7, BUN 13, Creatinine 0.92, Estim Creat Clear Calc 80.83, Est GFR (MDRD) Af Amer 108, Est GFR (MDRD) Non-Af 90, BUN/Creatinine Ratio 14.2, Glucose 105, Calcium 7.5 L 08/07/19 11:32: POC Glucose 114 H Current Medications Bisacodyl (Dulcolax) 10 mg RECTAL X1 ONE Stop: 08/07/19 20:01 Sodium Chloride () 1,000 mls @ 125 mls/hr IV .Q8H [facility] Last Admin: 08/07/19 13:55 Dose: 125 mls/hr Documented by: Famotidine 20 mg/ Sodium (Chloride) 10 mls @ 300 mls/hr IV Q12 [facility] Ketorolac Tromethamine (Toradol) 15 mg IV Q6H PRN PRN PRN Reason: Pain Score 1-10/10 Stop: 08/12/19 14:36 Ondansetron HCl (Zofran) 4 mg IV Q6H PRN PRN PRN Reason: NAUSEA/VOMITING Last Admin: 08/07/19 10:07 Dose: 4 mg Documented by: Sodium Chloride () 10 - 40 ml IV UD PRN PRN Reason: SALINE FLUSH Last Admin: 08/07/19 10:06 Dose: 10 ml Documented by: Throat Lozenges (Cepacol Sore Throat Lozenge) 1 lozenge MUCOUS MEM Q2H PRN PRN PRN Reason: Sore throat or cough Last Admin: 08/07/19 14:09 Dose: 1 lozenge Documented by: Medical Necessity - Tobacco Use Smoking Status: Former smoker Tobacco Use: Cigars Assessment/Plan All Active Problems (Last Reviewed 01/27/19 @ 11:51 by Jyoti Noriega) Ileus (Acute) Constipation (Acute) Bronchitis (Acute) Laceration of right index finger (Acute) Trigger finger of left hand (Acute) Carpal tunnel syndrome of left wrist (Acute) Lipoma (Acute) Lipoma of breast (Acute) History of incision and drainage (Acute) Hx of arthroscopic knee surgery (Acute) History of carpal tunnel surgery of right wrist (Acute) Hemorrhoids (Acute) Arthritis (Acute) History of stroke (Acute) #1 ileus-continue NG tube drainage, IV fluid #2 degenerative disc disease lumbar spine #3 GERD Code Visit Inpatient E&M: 84843 Init Hosp L3
[2019-08-07] MEDS: Ketorolac 15 MG/ML Vial IV (20:11)
[2019-08-07] MEDS: Famotidine 200 MG/20 ML MDV 20 MG in 0.9% Normal Saline (Pres. free 8 ML 300 MG IV (21:16)
--- NOTE | 2019-08-07 23:25 | NURSING ---
ambulated 4 complete laps around the unit with his walker after having xlarge liquid bm
[2019-08-08] VITALS (9 sets, daily range): BP systolic 102–181; BP diastolic 60–101; PULSE 73–100; RESP 15–19; TEMP 36.7–37; O2SAT 92–96
[2019-08-08] MEDS: BENZOCAINE/MENTHOL 1 LOZENGE MUCOUS MEM ×4 (04:18→22:45)
[2019-08-08] MEDS: 0.9% Saline Lock 10 ML Syringe IV ×4 (04:40→16:10)
[2019-08-08] MEDS: Ketorolac 15 MG/ML Vial IV ×2 (04:44→16:09)
--- NOTE | 2019-08-08 04:45 | RAD_ITS ---
STUDY: X-RAY - ABDOMEN/PELVIS REASON FOR EXAM: Male, 58 years old. abd distention -- lumbar spine surgery one week ago TECHNIQUE: AP supine and upright views of the abdomen and pelvis. COMPARISON: 08/07/2019 FINDINGS: Normal visualized lung bases. Nasogastric tube in the midline likely in the stomach. Skin azael in the midline consistent with recent lumbar spine surgery. Moderate dilatation of the colon but improved when compared with the prior study consistent with improved adynamic ileus. There is no demonstrated free abdominal air. The visualized liver, spleen and kidneys are grossly normal in size and morphology. Normal soft tissue structures. Normal visualized osseous structures. RAD/Abd Inc Decub and/or Erect IMPRESSION: Improved adynamic ileus. Electronically Signed: Neil Rivera MD at 13:41 EST Tel , Service support ,
--- NOTE | 2019-08-08 04:59 | NURSING ---
walking in ace gait steady
[2019-08-08] MEDS: 0.9% Normal Saline 1,000 ML 125 ML IV ×2 (05:31→15:19)
--- NOTE | 2019-08-08 05:56 | PCM.PN.SRG ---
Patient Problems: Active and Suspected Problems (Last Reviewed 01/27/19 @ 11:51 by Jyoti Noriega) Ileus (Acute) Constipation (Acute) Subjective: Patient has had some further liquid stool and has had some flatus. He is more comfortable and thinks he is less tightly distended. He recognizes that he remains distended. Has been able to ambulate. - Physical Exam Vitals/I&O's: Vital Signs Temp Pulse Resp BP Pulse Ox 98.2 F 75 16 156/91 H 95 08/08/19 02:28 08/08/19 02:28 08/08/19 02:28 08/08/19 02:28 08/08/19 02:28 Oxygen Delivery Method Room Air Weight: 231 lb 1.593 oz Body Mass Index (BMI) 36.1 Intake and Output for Last 24 Hours 08/06/19 08/07/19 08/08/19 23:59 23:59 23:59 Intake Total 3537.08 / 3537.08 3045.00 / 3045.00 1003.75 / 1003.75 Output Total 450 / 450 200 / 200 Balance 3537.08 / 3537.08 2595.00 / 2595.00 803.75 / 803.75 Abdomen: Non Tender, Distended, - - Occasional tinkles Laboratory Results 08/07/19 11:32: POC Glucose 114 H Current Medications Sodium Chloride () 1,000 mls @ 125 mls/hr IV .Q8H [facility] Last Admin: 08/08/19 05:31 Dose: 125 mls/hr Documented by: Famotidine 20 mg/ Sodium (Chloride) 10 mls @ 300 mls/hr IV Q12 [facility] Last Infusion: 08/07/19 21:18 Dose: Infused Documented by: Ketorolac Tromethamine (Toradol) 15 mg IV Q6H PRN PRN PRN Reason: Pain Score 1-10/10 Stop: 08/12/19 14:36 Last Admin: 08/08/19 04:44 Dose: 15 mg Documented by: Ondansetron HCl (Zofran) 4 mg IV Q6H PRN PRN PRN Reason: NAUSEA/VOMITING Last Admin: 08/07/19 10:07 Dose: 4 mg Documented by: Sodium Chloride () 10 - 40 ml IV UD PRN PRN Reason: SALINE FLUSH Last Admin: 08/08/19 04:40 Dose: 10 ml Documented by: Throat Lozenges (Cepacol Sore Throat Lozenge) 1 lozenge MUCOUS MEM Q2H PRN PRN PRN Reason: Sore throat or cough Last Admin: 08/08/19 04:18 Dose: 1 lozenge Documented by: Medical Necessity - Tobacco Use Smoking Status: Former smoker Tobacco Use: Cigars Assessment/Plan All Active Problems (Last Reviewed 01/27/19 @ 11:51 by Jyoti Noriega) Ileus (Acute) Constipation (Acute) Bronchitis (Acute) Laceration of right index finger (Acute) Trigger finger of left hand (Acute) Carpal tunnel syndrome of left wrist (Acute) Lipoma (Acute) Lipoma of breast (Acute) History of incision and drainage (Acute) Hx of arthroscopic knee surgery (Acute) History of carpal tunnel surgery of right wrist (Acute) Hemorrhoids (Acute) Arthritis (Acute) History of stroke (Acute) Abdominal x-ray remains with significant right-sided and transverse colonic distention Patient notes some diminished tightness in his abdomen and the ability to pass some flatus in addition to liquid stool We will hold off on current thoughts of decompressive colonoscopy. While the NG tube is in place I will initiate some GoLYTELY per the tube. We will continue to reassess for the resolution of his post orthopedic surgical complication of ileus Edgar Dan M.D., F.A.C.S.
[2019-08-08] MEDS: Ondansetron 4 MG/2 ML Vial IV (06:18)
[2019-08-08] MEDS: Electrolyte Solution/Peg's 4000 ML 2000 ML PO (06:19)
[2019-08-08] MEDS: Famotidine 200 MG/20 ML MDV 20 MG in 0.9% Normal Saline (Pres. free 8 ML 300 MG IV ×2 (10:38→22:42)
--- NOTE | 2019-08-08 10:51 | CASEMGMT ---
Per RN CM patient would like to do Healthcare POA and Healthcare LW. SW spoke with patient and his and he does not want to complete documents, but he will take copies of them. Marisela FLOOD MSW
--- NOTE | 2019-08-08 12:33 | PCM.PN.BLA ---
Progress Note Whereas earlier today the patient did pass some stool and flatus that has stopped. He is not tolerating GoLYTELY for his NG tube. He has increased abdominal distention and pain. At this point I am recommending an attempt at a colonoscopic decompression of his colon. With the patient's present I have discussed the technique, benefit, risks, alternatives. The degree of his colonic pseudoobstruction is impressive. We will try to decompress the bowel in hopes of resolution. Edgar Dan M.D., F.A.C.S.
--- NOTE | 2019-08-08 12:53 | NURSING ---
pt off unit to AC
--- NOTE | 2019-08-08 14:21 | OP.COLON_ITS ---
Patient Name: Mathew Ambriz Procedure Date: 08/08/2019 1:40 PM Date of : 1960 Age: 58 Procedure: Colonoscopy Indications: Suspected [place]'s syndrome Providers: Edgar Dan MD Medicines: See the Anesthesia note for documentation of the administered medications Patient Profile: Last Colonoscopy: within the past 3 years. Complications: No immediate complications. Procedure: Pre-Anesthesia Assessment: - Prior to the procedure, a History and Physical was performed, and patient medications and allergies were reviewed. The patient's tolerance of previous anesthesia was also reviewed. The risks and benefits of the procedure and the sedation options and risks were discussed with the patient. All questions were answered, and informed consent was obtained. Prior Anticoagulants: The patient has taken no previous anticoagulant or antiplatelet agents. ASA Grade Assessment: III - A patient with severe systemic disease. After reviewing the risks and benefits, the patient was deemed in satisfactory condition to undergo the procedure. After I obtained informed consent, the scope was passed under direct vision. Throughout the procedure, the patient's blood pressure, pulse, and oxygen saturations were monitored continuously. The adult colonoscope was introduced through the anus and advanced to the hepatic flexure for evaluation. This was the intended extent. The colonoscopy was performed without difficulty. The patient tolerated the procedure well. The quality of the bowel preparation was inadequate. Scope In: 1:54:02 PM Scope Out: 2:05:13 PM Total Procedure Duration Time 0 hours 11 minutes 11 seconds Findings: Hemorrhoids were found on perianal exam. A large amount of stool was found in the entire colon, precluding visualization. Fluid aspiration was performed. The procedure was performed to provide decompression from pseudo- obstruction. Bowel prepping was not possible. Impression: - Preparation of the colon was inadequate. - Hemorrhoids found on perianal exam. - Stool in the entire examined colon. Fluid and air aspiration performed. Recommendation: - Return [facility] to [facility] for [facility] care. - NPO. - Continue present medications. - Repeat colonoscopy in 10 years for screening purposes. Procedure Code(s): --- Professional --- 06497, 53, Colonoscopy, flexible; diagnostic, including collection of specimen(s) by brushing or washing, when performed (separate procedure) Diagnosis Code(s): --- Professional --- K64.9, Unspecified hemorrhoids CPT copyright 2017 [employer]. All rights reserved. The codes documented in this report are preliminary and upon certified coder review may be revised to meet current compliance requirements. Edgar Dan MD 08/08/2019 2:21:12 PM This report has been signed electronically. Number of Addenda: 0 Note Initiated On: 08/08/2019 1:40 PM
[2019-08-08] MEDS: Bisacodyl 10 MG Suppository RECTAL ×2 (15:19→21:22)
--- NOTE | 2019-08-08 16:26 | PN_ITS ---
Patient Problems: Active and Suspected Problems (Last Reviewed 01/27/19 @ 11:51 by Jyoti Noriega) Ileus (Acute) Constipation (Acute) Subjective: Patient was seen and examined today, I saw him earlier today before he underwent a colonic decompression via colonoscope late today. At this time, patient's abdomen appears to be less distended, I talked with the patient and his both-his is in the room today. Patient still has an NG tube in. - Physical Exam Vitals/I&O's: Vital Signs Temp Pulse Resp BP Pulse Ox 98.6 F 89 18 145/73 H 96 08/08/19 15:23 08/08/19 15:23 08/08/19 15:23 08/08/19 15:23 08/08/19 15:23 Oxygen Delivery Method Room Air Weight: 104.825 kg Body Mass Index (BMI) 36.1 Intake and Output for Last 24 Hours 08/06/19 08/07/19 08/08/19 23:59 23:59 23:59 Intake Total 3537.08 / 3537.08 3045.00 / 3045.00 3093.75 / 3093.75 Output Total 450 / 450 1000 / 1000 Balance 3537.08 / 3537.08 2595.00 / 2595.00 2093.75 / 2093.75 General: Alert, Oriented x3, Cooperative, No apparent distress, Well developed, Well nourished HEENT: Atraumatic, PERRLA, EOMI, Normocephalic Oral: Moist Mucosa Neck: Supple, Trachea Midline, Thyroid Normal Size and Texture Lungs: Clear to auscultation, Normal air movement, No rhonchi, No wheeze, No rales Cardiovascular: Regular rate, Regular Rhythm, Normal S1, Normal S2, No murmurs, PMI Normal, No rub noted Abdomen: Bowel Sounds Present, Soft, Non Tender, Hypoactive Bowel Sounds, Distended - There is mild abdominal distention noted Extremities: No clubbing, No cyanosis, No edema, Capillary Refill Less than 3 Seconds Skin: No rashes, No breakdown Musculoskeletal: No Tenderness to Palpation of Joints or Extremities Neurological: Cranial nerves II-XII grossly intact, Neuro grossly intact, Sensory exam intact to light touch and pain Psych/Mental Status: Normal Affect, Appropriate, Alert and oriented to time, place, person, mood and affect Current Medications Bisacodyl (Dulcolax) 10 mg RECTAL Q6H [facility] Last Admin: 08/08/19 15:19 Dose: 10 mg Documented by: Sodium Chloride () 1,000 mls @ 125 mls/hr IV .Q8H [facility] Last Admin: 08/08/19 15:19 Dose: 125 mls/hr Documented by: Famotidine 20 mg/ Sodium (Chloride) 10 mls @ 300 mls/hr IV Q12 [facility] Last Infusion: 08/08/19 10:40 Dose: Infused Documented by: Ketorolac Tromethamine (Toradol) 15 mg IV Q6H PRN PRN PRN Reason: Pain Score 1-10/10 Stop: 08/12/19 14:36 Last Admin: 08/08/19 16:09 Dose: 15 mg Documented by: Ondansetron HCl (Zofran) 4 mg IV Q6H PRN PRN PRN Reason: NAUSEA/VOMITING Last Admin: 08/08/19 06:18 Dose: 4 mg Documented by: Sodium Chloride () 10 - 40 ml IV UD PRN PRN Reason: SALINE FLUSH Last Admin: 08/08/19 16:10 Dose: 10 ml Documented by: Throat Lozenges (Cepacol Sore Throat Lozenge) 1 lozenge MUCOUS MEM Q2H PRN PRN PRN Reason: Sore throat or cough Last Admin: 08/08/19 15:19 Dose: 1 lozenge Documented by: Medical Necessity - Tobacco Use Smoking Status: Former smoker Tobacco Use: Cigars Assessment/Plan All Active Problems (Last Reviewed 01/27/19 @ 11:51 by Jyoti Noriega) Ileus (Acute) Constipation (Acute) Bronchitis (Acute) Laceration of right index finger (Acute) Trigger finger of left hand (Acute) Carpal tunnel syndrome of left wrist (Acute) Lipoma (Acute) Lipoma of breast (Acute) History of incision and drainage (Acute) Hx of arthroscopic knee surgery (Acute) History of carpal tunnel surgery of right wrist (Acute) Hemorrhoids (Acute) Arthritis (Acute) History of stroke (Acute) #1 ileus-General surgery continues to participate in his care, further orders per general surgery #2 degenerative disc disease lumbar spine #3 GERD Code Visit Inpatient E&M: 16365 Subs Hosp L2
[2019-08-09] MEDS: 0.9% Normal Saline 1,000 ML 125 ML IV ×4 (00:05→21:18)
[2019-08-09] MEDS: Bisacodyl 10 MG Suppository RECTAL ×4 (02:51→21:19)
[2019-08-09 02:54] VITALS: BP 138/73; PULSE 74; RESP 15; TEMP 36.3; O2SAT 95
[2019-08-09] MEDS: Ketorolac 15 MG/ML Vial IV ×3 (03:05→18:15)
[2019-08-09 03:45] VITALS: RESP 15
[2019-08-09 05:34] VITALS: BP 144/86; PULSE 81; RESP 15; TEMP 36.8; O2SAT 94
--- NOTE | 2019-08-09 07:14 | PCM.PN.SRG ---
Patient Problems: Active and Suspected Problems (Last Reviewed 01/27/19 @ 11:51 by Jyoti Noriega) Ileus (Acute) Constipation (Acute) Subjective: Feels bloated but not as tight as his worst No flatus or stool except with first post colonoscopy suppository Large volume 1200cc NGT outpt.. Pt on famotidine but also prescribed ketorolac--will need to be cautious here--ngt output is light brown Ambulating well - Physical Exam Vitals/I&O's: Vital Signs Temp Pulse Resp BP Pulse Ox 98.3 F 81 15 144/86 H 94 08/09/19 05:34 08/09/19 05:34 08/09/19 05:34 08/09/19 05:34 08/09/19 05:34 Oxygen Delivery Method Room Air Weight: 231 lb 1.593 oz Body Mass Index (BMI) 36.1 Intake and Output for Last 24 Hours 08/07/19 08/08/19 08/09/19 23:59 23:59 23:59 Intake Total 3045.00 / 3045.00 3153.75 / 4213.75 2090 / 2090 Output Total 450 / 450 1600 / 2000 1400 / 1400 Balance 2595.00 / 2595.00 1553.75 / 2213.75 690 / 690 Abdomen: Non Tender, Bowel Sounds Not Present, Distended Current Medications Bisacodyl (Dulcolax) 10 mg RECTAL Q6H [facility] Last Admin: 08/09/19 02:51 Dose: 10 mg Documented by: Sodium Chloride () 1,000 mls @ 125 mls/hr IV .Q8H [facility] Last Admin: 08/09/19 07:02 Dose: 125 mls/hr Documented by: Famotidine 20 mg/ Sodium (Chloride) 10 mls @ 300 mls/hr IV Q12 [facility] Last Infusion: 08/08/19 23:00 Dose: Infused Documented by: Ketorolac Tromethamine (Toradol) 15 mg IV Q6H PRN PRN PRN Reason: Pain Score 1-10/10 Stop: 08/12/19 14:36 Last Admin: 08/09/19 03:05 Dose: 15 mg Documented by: Ondansetron HCl (Zofran) 4 mg IV Q6H PRN PRN PRN Reason: NAUSEA/VOMITING Last Admin: 08/08/19 06:18 Dose: 4 mg Documented by: Sodium Chloride () 10 - 40 ml IV UD PRN PRN Reason: SALINE FLUSH Last Admin: 08/08/19 16:10 Dose: 10 ml Documented by: Throat Lozenges (Cepacol Sore Throat Lozenge) 1 lozenge MUCOUS MEM Q2H PRN PRN PRN Reason: Sore throat or cough Last Admin: 08/08/19 22:45 Dose: 1 lozenge Documented by: Medical Necessity - Tobacco Use Smoking Status: Former smoker Tobacco Use: Cigars Assessment/Plan All Active Problems (Last Reviewed 01/27/19 @ 11:51 by Jyoti Noriega) Ileus (Acute) Constipation (Acute) Bronchitis (Acute) Laceration of right index finger (Acute) Trigger finger of left hand (Acute) Carpal tunnel syndrome of left wrist (Acute) Lipoma (Acute) Lipoma of breast (Acute) History of incision and drainage (Acute) Hx of arthroscopic knee surgery (Acute) History of carpal tunnel surgery of right wrist (Acute) Hemorrhoids (Acute) Arthritis (Acute) History of stroke (Acute) Dense ileus Continue ngt and ambulation and suppositories for now If does not resolve by next week then consider contacting back surgeon re: possible autonomic injury
[2019-08-09 08:28] VITALS: BP 154/79; PULSE 85; RESP 18; TEMP 36.8; O2SAT 96
[2019-08-09] MEDS: BENZOCAINE/MENTHOL 1 LOZENGE MUCOUS MEM ×4 (08:48→23:53)
[2019-08-09] MEDS: Famotidine 200 MG/20 ML MDV 20 MG in 0.9% Normal Saline (Pres. free 8 ML 300 MG IV ×2 (09:01→21:17)
[2019-08-09 14:02] VITALS: BP 146/85; PULSE 83; RESP 16; TEMP 36.8; O2SAT 96
[2019-08-09] MEDS: Phenol/Sodium Phenolate 180ML 3 SPRAY MM ×2 (16:41→21:24)
--- NOTE | 2019-08-09 18:38 | PCM.PROGNOTE ---
Patient Problems: Active and Suspected Problems (Last Reviewed 01/27/19 @ 11:51 by Jyoti Noriega) Ileus (Acute) Constipation (Acute) Subjective: Patient was seen and examined today, his abdomen is less distended today. Patient still has an NG tube in place. Patient has no complaints of any abdominal pain at this time - Physical Exam Vitals/I&O's: Vital Signs Temp Pulse Resp BP Pulse Ox 98.3 F 83 16 146/85 H 96 08/09/19 14:02 08/09/19 14:02 08/09/19 14:02 08/09/19 14:02 08/09/19 14:02 Oxygen Delivery Method Room Air Weight: 104.825 kg Body Mass Index (BMI) 36.1 Intake and Output for Last 24 Hours 08/07/19 08/08/19 08/09/19 23:59 23:59 23:59 Intake Total 3045.00 / 3045.00 3153.75 / 4213.75 3144.58 / 3144.58 Output Total 450 / 450 1600 / 2000 2600 / 2600 Balance 2595.00 / 2595.00 1553.75 / 2213.75 544.58 / 544.58 General: Alert, Oriented x3, Cooperative, No apparent distress, Well developed HEENT: Atraumatic, PERRLA, EOMI, Normocephalic Oral: Moist Mucosa Neck: Supple, No JVD, Trachea Midline Lungs: Clear to auscultation, Normal air movement, No rhonchi, No wheeze, No rales Cardiovascular: Regular rate, Regular Rhythm, Normal S1, Normal S2, No murmurs, PMI Normal, No rub noted Abdomen: Bowel Sounds Present, Soft, Non Tender, Distended - Mild abdominal distention is noted Extremities: No clubbing, No cyanosis, No edema, Capillary Refill Less than 3 Seconds Skin: No rashes, No breakdown Musculoskeletal: No Tenderness to Palpation of Joints or Extremities Neurological: Cranial nerves II-XII grossly intact, Neuro grossly intact, Sensory exam intact to light touch and pain, Coordination normal Psych/Mental Status: Normal Affect, Appropriate, Alert and oriented to time, place, person, mood and affect Current Medications Bisacodyl (Dulcolax) 10 mg RECTAL Q6H [facility] Last Admin: 08/09/19 13:58 Dose: 10 mg Documented by: Sodium Chloride () 1,000 mls @ 125 mls/hr IV .Q8H [facility] Last Admin: 08/09/19 13:57 Dose: 125 mls/hr Documented by: Famotidine 20 mg/ Sodium (Chloride) 10 mls @ 300 mls/hr IV Q12 [facility] Last Infusion: 08/09/19 09:10 Dose: Infused Documented by: Ketorolac Tromethamine (Toradol) 15 mg IV Q6H PRN PRN PRN Reason: Pain Score 1-10/10 Stop: 08/12/19 14:36 Last Admin: 08/09/19 18:15 Dose: 15 mg Documented by: Ondansetron HCl (Zofran) 4 mg IV Q6H PRN PRN PRN Reason: NAUSEA/VOMITING Last Admin: 08/08/19 06:18 Dose: 4 mg Documented by: Phenol/Menthol (Chloraseptic (Bkc)) 3 spray MM Q2H PRN PRN PRN Reason: SORE THROAT Last Admin: 08/09/19 16:41 Dose: 3 spray Documented by: Sodium Chloride () 10 - 40 ml IV UD PRN PRN Reason: SALINE FLUSH Last Admin: 08/08/19 16:10 Dose: 10 ml Documented by: Throat Lozenges (Cepacol Sore Throat Lozenge) 1 lozenge MUCOUS MEM Q2H PRN PRN PRN Reason: Sore throat or cough Last Admin: 08/09/19 13:02 Dose: 1 lozenge Documented by: Medical Necessity - Tobacco Use Smoking Status: Former smoker Tobacco Use: Cigars Assessment/Plan All Active Problems (Last Reviewed 01/27/19 @ 11:51 by Jyoti Noriega) Ileus (Acute) Constipation (Acute) Bronchitis (Acute) Laceration of right index finger (Acute) Trigger finger of left hand (Acute) Carpal tunnel syndrome of left wrist (Acute) Lipoma (Acute) Lipoma of breast (Acute) History of incision and drainage (Acute) Hx of arthroscopic knee surgery (Acute) History of carpal tunnel surgery of right wrist (Acute) Hemorrhoids (Acute) Arthritis (Acute) History of stroke (Acute) #1 ileus-continue care per general surgery #2 degenerative disc disease lumbar spine #3 GERD Code Visit Inpatient E&M: 31347 Subs Hosp L2
[2019-08-09 20:45] VITALS: BP 167/92; PULSE 75; RESP 18; TEMP 36.6; O2SAT 97
[2019-08-09] MEDS: 0.9% Saline Lock 10 ML Syringe IV (23:54)
[2019-08-09] MEDS: LORazepam 2 MG/ML Syringe 0.5 MG IV (23:54)
[2019-08-10] VITALS (9 sets, daily range): BP systolic 156–167; BP diastolic 75–89; PULSE 74–99; RESP 16–20; TEMP 36.6–36.8; O2SAT 94–100
[2019-08-10] MEDS: Bisacodyl 10 MG Suppository RECTAL ×2 (02:05→08:14)
[2019-08-10] MEDS: Phenol/Sodium Phenolate 180ML 3 SPRAY MM (02:08)
--- NOTE | 2019-08-10 02:56 | PN_ITS ---
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 Patient was examined at bedside on 2 different occasions. Patient with no stridor. Lungs are clear to auscultate. Uvula is slightly deviated to the le ft. Patient has been receiving Cepacol spray and throat lozenges. Ativan IV 0.5 mg x 1 was given to decrease anxiety and for sleep. However because symptoms persisted it was discussed with patient that we will try Flonase nasal route to see whether it would give him any benefit.
--- NOTE | 2019-08-10 03:00 | NURSING ---
Pt walked in hallway for approx 15 minutes then c/o feeling like he couldn't breathe again. Assisted pt back to room, pulse ox 96% on RA, lungs CTA. Made comfortably in recliner and administered nasal spray. Unclamped ng tube and re-attached to LIS. Pt symptoms improving.
[2019-08-10] MEDS: Fluticasone 0.05% 1 SPRAY NASAL.SRY NASAL ×3 (03:46→22:39)
[2019-08-10] MEDS: BENZOCAINE/MENTHOL 1 LOZENGE MUCOUS MEM (05:05)
[2019-08-10] MEDS: 0.9% Normal Saline 1,000 ML 125 ML IV ×3 (05:06→22:41)
--- NOTE | 2019-08-10 07:54 | PN.SURG_ITS ---
Patient Problems: Active and Suspected Problems (Last Reviewed 01/27/19 @ 11:51 by Jyoti Noriega) Ileus (Acute) Constipation (Acute) Subjective: Patient complaining of shortness of breath overnight - Physical Exam Vitals/I&O's: Vital Signs Temp Pulse Resp BP Pulse Ox 98.3 F 78 18 156/84 H 96 08/10/19 02:45 08/10/19 02:45 08/10/19 02:45 08/10/19 02:45 08/10/19 02:45 Oxygen Delivery Method Room Air Weight: 231 lb 1.593 oz Body Mass Index (BMI) 36.1 Intake and Output for Last 24 Hours 08/08/19 08/09/19 08/10/19 23:59 23:59 23:59 Intake Total 3153.75 / 4213.75 4133.33 / 4133.33 1005 / 1005 Output Total 1600 / 1999 3400 / 3400 750 / 750 Balance 1553.75 / 2213.75 733.33 / 733.33 255 / 255 General: Alert, Oriented x3, Cooperative Lungs: Wheezes - Audible Abdomen: Soft, Non Tender, Distended - Mild Current Medications Albuterol/Ipratropium (Duoneb) 3 ml INHALATION X1 ONE Stop: 08/10/19 07:46 Bisacodyl (Dulcolax) 10 mg RECTAL [facility]H [facility] Last Admin: 08/10/19 02:05 Dose: 10 mg Documented by: Fluticasone Propionate (Flonase Nasal [place]) 1 spray NASAL BID [facility] Last Admin: 08/10/19 03:46 Dose: 1 spray Documented by: Sodium Chloride () 1,000 mls @ 125 mls/hr IV .Q8H [facility] Last Admin: 08/10/19 05:06 Dose: 125 mls/hr Documented by: Famotidine 20 mg/ Sodium (Chloride) 10 mls @ 300 mls/hr IV Q12 [facility] Last Infusion: 08/09/19 21:19 Dose: Infused Documented by: Ketorolac Tromethamine (Toradol) 15 mg IV Q6H PRN PRN PRN Reason: Pain Score 1-10/10 Stop: 08/12/19 14:36 Last Admin: 08/09/19 18:15 Dose: 15 mg Documented by: Ondansetron HCl (Zofran) 4 mg IV Q6H PRN PRN PRN Reason: NAUSEA/VOMITING Last Admin: 08/08/19 06:18 Dose: 4 mg Documented by: Phenol/Menthol (Chloraseptic (Bkc)) 3 spray MM Q2H PRN PRN PRN Reason: SORE THROAT Last Admin: 08/10/19 02:08 Dose: 3 spray Documented by: Sodium Chloride () 10 - 40 ml IV UD PRN PRN Reason: SALINE FLUSH Last Admin: 08/09/19 23:54 Dose: 10 ml Documented by: Throat Lozenges (Cepacol Sore Throat Lozenge) 1 lozenge MUCOUS MEM Q2H PRN PRN PRN Reason: Sore throat or cough Last Admin: 08/10/19 05:05 Dose: 1 lozenge Documented by: Medical Necessity - Tobacco Use Smoking Status: Former smoker Tobacco Use: Cigars Assessment/Plan All Active Problems (Last Reviewed 01/27/19 @ 11:51 by Jyoti Noriega) Ileus (Acute) Constipation (Acute) Bronchitis (Acute) Laceration of right index finger (Acute) Trigger finger of left hand (Acute) Carpal tunnel syndrome of left wrist (Acute) Lipoma (Acute) Lipoma of breast (Acute) History of incision and drainage (Acute) Hx of arthroscopic knee surgery (Acute) History of carpal tunnel surgery of right wrist (Acute) Hemorrhoids (Acute) Arthritis (Acute) History of stroke (Acute) Did order patient a DuoNeb treatment as he was having audible wheezing. Patient's NG put out 750 overnight--addendum since 6 AM patient's NG put on additional 350. Patient is having some liquid bowel movements with the suppositories as well as flatus yesterday. We will plan to try enemas to see if her more results. Ginny Jordan M.D. Pager: [phone] [facility] [address] [place] [address], Outpatient [facility] [place], [address] [place] [address] Office: [phone] Code Visit Inpatient E&M: 28726 [facility] Hosp L1
[2019-08-10] MEDS: Ipratropium/Albuterol Sulfate 3 ML AMPUL.NEB INHALATION ×3 (08:06→19:05)
[2019-08-10] MEDS: Ketorolac 15 MG/ML Vial IV (08:13)
[2019-08-10] MEDS: 0.9% Saline Lock 10 ML Syringe IV (08:13)
[2019-08-10] MEDS: Famotidine 200 MG/20 ML MDV 20 MG in 0.9% Normal Saline (Pres. free 8 ML 300 MG IV ×2 (10:47→22:49)
[2019-08-10] MEDS: Albuterol 2.5 MG/3 ML VIAL.NEB. INHALATION (10:54)
--- NOTE | 2019-08-10 11:54 | PN_ITS ---
Patient Problems: Active and Suspected Problems (Last Reviewed 01/27/19 @ 11:51 by Jyoti Noriega) Ileus (Acute) Constipation (Acute) Subjective: Patient was seen and examined today, he is still having quite a bit of output from his NG tube, patient had some complaints of shortness of breath earlier this morning, general surgery saw the patient and ordered an aerosol treatment which she stated helped. Patient has no diagnosis of COPD but he is smoked for 40 years. On examination today, there is scattered expiratory wheezes b ilaterally. - Physical Exam Vitals/I&O's: Vital Signs Temp Pulse Resp BP Pulse Ox 98.3 F 96 20 H 158/88 H 95 08/10/19 08:25 08/10/19 10:54 08/10/19 10:54 08/10/19 08:25 08/10/19 08:25 Oxygen Delivery Method Room Air Weight: 104.825 kg Body Mass Index (BMI) 36.1 Intake and Output for Last 24 Hours 08/08/19 08/09/19 08/10/19 23:59 23:59 23:59 Intake Total 3153.75 / 4213.75 4133.33 / 4133.33 1045 / 1045 Output Total 1600 / 2000 3400 / 3400 750 / 750 Balance 1553.75 / 2213.75 733.33 / 733.33 295 / 295 General: Alert, Oriented x3, Cooperative, No apparent distress, Well developed HEENT: Atraumatic, PERRLA, EOMI, Normocephalic Oral: Dry Mucosa Neck: Supple, No JVD, Negative Carotid Bruits Lungs: Normal air movement, Wheezes - Scattered expiratory wheezes were noted bilaterally Cardiovascular: Regular rate, Regular Rhythm, Normal S1, Normal S2, No murmurs, PMI Normal, No rub noted Abdomen: Bowel Sounds Present, Soft, Non Tender, Distended - Mild abdominal dis tention is noted Extremities: No clubbing, No cyanosis, No edema, Capillary Refill Less than 3 Seconds Skin: No rashes, No breakdown Musculoskeletal: No Tenderness to Palpation of Joints or Extremities, No Muscle Wasting Neurological: Cranial nerves II-XII grossly intact, Motor Exam 5/5 strength thr oughout, Sensory exam intact to light touch and pain Psych/Mental Status: Normal Affect, Appropriate, Alert and oriented to time, place, person, mood and affect Current Medications Albuterol Sulfate (Ventolin Aerosols) 2.5 mg INHALATION Q2H PRN PRN PRN Reason: SOB &/OR WHEEZING Last Admin: 08/10/19 10:54 Dose: 2.5 mg Documented by: Albuterol/Ipratropium (Duoneb) 3 ml INHALATION Q6H.RT [facility] Bisacodyl (Dulcolax) 10 mg RECTAL Q6H [facility] Last Admin: 08/10/19 08:14 Dose: 10 mg Documented by: Fluticasone Propionate (Flonase Nasal [place]) 1 spray NASAL BID [facility] Last Admin: 08/10/19 10:48 Dose: 1 spray Documented by: Sodium Chloride () 1,000 mls @ 125 mls/hr IV .Q8H [facility] Last Admin: 08/10/19 05:06 Dose: 125 mls/hr Documented by: Famotidine 20 mg/ Sodium (Chloride) 10 mls @ 300 mls/hr IV Q12 [facility] Last Infusion: 08/10/19 10:51 Dose: Infused Documented by: Ketorolac Tromethamine (Toradol) 15 mg IV Q6H PRN PRN PRN Reason: Pain Score 1-10/10 Stop: 08/12/19 14:36 Last Admin: 08/10/19 08:13 Dose: 15 mg Documented by: Ondansetron HCl (Zofran) 4 mg IV Q6H PRN PRN PRN Reason: NAUSEA/VOMITING Last Admin: 08/08/19 06:18 Dose: 4 mg Documented by: Phenol/Menthol (Chloraseptic (Bkc)) 3 spray MM Q2H PRN PRN PRN Reason: SORE THROAT Last Admin: 08/10/19 02:08 Dose: 3 spray Documented by: Sodium Chloride () 10 - 40 ml IV UD PRN PRN Reason: SALINE FLUSH Last Admin: 08/10/19 08:13 Dose: 10 ml Documented by: Throat Lozenges (Cepacol Sore Throat Lozenge) 1 lozenge MUCOUS MEM Q2H PRN PRN PRN Reason: Sore throat or cough Last Admin: 08/10/19 05:05 Dose: 1 lozenge Documented by: Medical Necessity - Tobacco Use Smoking Status: Former smoker Tobacco Use: Cigars Assessment/Plan All Active Problems (Last Reviewed 01/27/19 @ 11:51 by Jyoti Noriega) Ileus (Acute) Constipation (Acute) Bronchitis (Acute) Laceration of right index finger (Acute) Trigger finger of left hand (Acute) Carpal tunnel syndrome of left wrist (Acute) Lipoma (Acute) Lipoma of breast (Acute) History of incision and drainage (Acute) Hx of arthroscopic knee surgery (Acute) History of carpal tunnel surgery of right wrist (Acute) Hemorrhoids (Acute) Arthritis (Acute) History of stroke (Acute) #1 ileus-continue care per general surgery, patient is still having quite a bit of NG tube drainage, he is passing liquid stool #2 degenerative disc disease lumbar spine #3 GERD #4 expiratory wheezing-probably secondary to bronchospasm, patient will be placed on DuoNeb aerosols and albuterol as needed Code Visit Inpatient E&M: 04013 Subs Hosp L2
[2019-08-10] MEDS: BMX LIQUID 180 ML 15 ML PO ×3 (15:37→22:44)
[2019-08-10] MEDS: DiphenhydrAMINE 50 MG/ML Syringe 25 MG IV (23:15)
[2019-08-11 01:28] VITALS: PULSE 96; RESP 18
[2019-08-11] MEDS: Ipratropium/Albuterol Sulfate 3 ML AMPUL.NEB INHALATION ×2 (01:28→06:52)
[2019-08-11] MEDS: Ketorolac 15 MG/ML Vial IV ×2 (01:46→07:30)
[2019-08-11 02:36] VITALS: BP 157/87; PULSE 95; RESP 16; TEMP 36.9; O2SAT 96
--- NOTE | 2019-08-11 02:58 | NURSING ---
SOAP SUDS ENEMA PERFORMED; PT ABLE TO HOLD FOR 7 MINUTES; PASSING FLATUS, NO BM RESULTS
--- NOTE | 2019-08-11 06:09 | PN.SURG_ITS ---
Patient Problems: Active and Suspected Problems (Last Reviewed 01/27/19 @ 11:51 by Jyoti Noriega) Ileus (Acute) Constipation (Acute) Subjective: No abdominal pain Pt senses some gurgling No particular results with soap suds Still large volume ngt output No nausea Pt states SOB still not completely resolved from Sunday - Physical Exam Vitals/I&O's: Vital Signs Temp Pulse Resp BP Pulse Ox 98.4 F 95 16 157/87 H 96 08/11/19 02:36 08/11/19 02:36 08/11/19 02:36 08/11/19 02:36 08/11/19 02:36 Oxygen Delivery Method Room Air Weight: 231 lb 1.593 oz Body Mass Index (BMI) 36.1 Intake and Output for Last 24 Hours 08/09/19 08/10/19 08/11/19 23:59 23:59 23:59 Intake Total 4133.33 / 4133.33 3295 / 3295 180 / 180 Output Total 3400 / 3400 1680 / 1680 250 / 250 Balance 733.33 / 733.33 1615 / 1615 -70 / -70 Abdomen: Soft, Non Tender, Hypoactive Bowel Sounds, Distended Current Medications Albuterol Sulfate (Ventolin Aerosols) 2.5 mg INHALATION Q2H PRN PRN PRN Reason: SOB &/OR WHEEZING Last Admin: 08/10/19 10:54 Dose: 2.5 mg Documented by: Albuterol/Ipratropium (Duoneb) 3 ml INHALATION Q6H.RT [facility] Last Admin: 08/11/19 01:28 Dose: 3 ml Documented by: Bisacodyl (Dulcolax) 10 mg RECTAL Q6H [facility] Last Admin: 08/11/19 03:01 Dose: Not Given Documented by: Diphenhydramine HCl (Benadryl) 25 mg IV Q8H PRN PRN PRN Reason: ITCHING Last Admin: 08/10/19 23:15 Dose: 25 mg Documented by: Fluticasone Propionate (Flonase Nasal [place]) 1 spray NASAL BID [facility] Last Admin: 08/10/19 22:39 Dose: 1 spray Documented by: Sodium Chloride () 1,000 mls @ 125 mls/hr IV .Q8H [facility] Last Admin: 08/10/19 22:41 Dose: 125 mls/hr Documented by: Famotidine 20 mg/ Sodium (Chloride) 10 mls @ 300 mls/hr IV Q12 [facility] Last Infusion: 08/10/19 23:15 Dose: Infused Documented by: Ketorolac Tromethamine (Toradol) 15 mg IV Q6H PRN PRN PRN Reason: Pain Score 1-10/10 Stop: 08/12/19 14:36 Last Admin: 08/11/19 01:46 Dose: 15 mg Documented by: Lidocaine/Diphenhydr/Alum/Mg/Simeth () 15 ml PO Q3H PRN PRN PRN Reason: pain Last Admin: 08/10/19 22:44 Dose: 15 ml Documented by: Ondansetron HCl (Zofran) 4 mg IV Q6H PRN PRN PRN Reason: NAUSEA/VOMITING Last Admin: 08/08/19 06:18 Dose: 4 mg Documented by: Phenol/Menthol (Chloraseptic (Bkc)) 3 spray MM Q2H PRN PRN PRN Reason: SORE THROAT Last Admin: 08/10/19 02:08 Dose: 3 spray Documented by: Sodium Chloride () 10 - 40 ml IV UD PRN PRN Reason: SALINE FLUSH Last Admin: 08/10/19 08:13 Dose: 10 ml Documented by: Throat Lozenges (Cepacol Sore Throat Lozenge) 1 lozenge MUCOUS MEM Q2H PRN PRN PRN Reason: Sore throat or cough Last Admin: 08/10/19 05:05 Dose: 1 lozenge Documented by: Medical Necessity - Tobacco Use Smoking Status: Former smoker Tobacco Use: Cigars Assessment/Plan All Active Problems (Last Reviewed 01/27/19 @ 11:51 by Jyoti Noriega) Ileus (Acute) Constipation (Acute) Bronchitis (Acute) Laceration of right index finger (Acute) Trigger finger of left hand (Acute) Carpal tunnel syndrome of left wrist (Acute) Lipoma (Acute) Lipoma of breast (Acute) History of incision and drainage (Acute) Hx of arthroscopic knee surgery (Acute) History of carpal tunnel surgery of right wrist (Acute) Hemorrhoids (Acute) Arthritis (Acute) History of stroke (Acute) Will DC ngt as trial and to improve respiratory status Start clears pending progress after ngt out [facility] as he is Pulmonary as per hospitalist
[2019-08-11] MEDS: 0.9% Normal Saline 1,000 ML 125 ML IV (06:47)
[2019-08-11 06:52] VITALS: PULSE 80; RESP 20
[2019-08-11] MEDS: Fluticasone 0.05% 1 SPRAY NASAL.SRY NASAL (08:33)
[2019-08-11 08:35] VITALS: BP 156/90; PULSE 85; RESP 16; TEMP 36.9; O2SAT 96
[2019-08-11] MEDS: Famotidine 200 MG/20 ML MDV 20 MG in 0.9% Normal Saline (Pres. free 8 ML 300 MG IV (08:39)
--- NOTE | 2019-08-11 13:25 | DCINST_ITS ---
- Discharge Diagnoses Current Active Problems: Current Active and Chronic Problems (Last Reviewed 01/27/19 @ 11:51 by Jyoti Noriega) Ileus (Acute) Constipation (Acute) RLS (restless legs syndrome) (Chronic) Chronic back pain (Chronic) Tobacco use (Chronic) BPH (benign prostatic hyperplasia) (Chronic) You will use the following diet at home:: Full liquid, Other - advancve as tolerated. Discharge Activity: Return to Normal Activity Weight Bearing Status: Weight bearing as tolerated Call your doctor if you observe: Fever of 101 or Higher, Shortness of breath, Dizziness, Fainting spells, Increased palpitations (irregular heartbeat), Uncont rolled pain Instructions: Ileus Allergies/Adverse Reactions: Allergies Sulfa (Sulfonamide Antibiotics) Allergy (Mild, Verified 08/05/19 14:11) RASH lisinopril Adverse Reaction (Verified 08/05/19 14:11) COUGH Medications to take at Discharge tadalafil 5 mg tablet 5 mg PO DAILY 05/03/18 Calcium Carbonate [Calcium] 1,500 mg PO DAILY 08/05/19 Docusate Sodium [Colace] 100 mg PO BID 08/05/19 Esomeprazole Mag Trihydrate [Nexium] 40 mg PO DAILY 08/05/19 Oxycodone HCl/Acetaminophen [Percocet 10-325 mg Tablet] 0.5 tab PO Q6H PRN PRN 08/05/19 Ropinirole HCl [Requip] 1 mg PO DAILY 08/05/19 Varenicline [Chantix] 1 mg PO BID 08/05/19 cycloBENZAPRine HCl [Flexeril] 10 mg PO DAILY 08/05/19 Primary Care Physician: Bruce Armendariz MD [Primary Care Provider] - Please follow up with your Primary Care Physician in: 1-2 weeks. Test Results: Test results from this visit will be discussed in further detail at your follow- up appointment, if applicable.
--- NOTE | 2019-08-11 13:25 | PCM.PROGNOTE ---
Patient Problems: Active and Suspected Problems (Last Reviewed 01/27/19 @ 11:51 by Jyoti Noriega) Ileus (Acute) Constipation (Acute) Subjective: Chief complaint: Follow-up after admission for ileus and constipation. Patient seen and examined. No acute events overnight. NG tube was taken out this morning. He denied any more abdominal pain. Denied nausea vomiting. Has been passing flatus, having loose bowel movements which is mainly watery. His vital signs are stable. - Physical Exam Vitals/I&O's: Vital Signs Temp Pulse Resp BP Pulse Ox 98.4 F 85 16 156/90 H 96 08/11/19 08:35 08/11/19 08:35 08/11/19 08:35 08/11/19 08:35 08/11/19 08:35 Oxygen Delivery Method Room Air Weight: 231 lb 1.593 oz Body Mass Index (BMI) 36.1 Intake and Output for Last 24 Hours 08/09/19 08/10/19 08/11/19 23:59 23:59 23:59 Intake Total 4133.33 / 4133.33 3295 / 3295 1190 / 1190 Output Total 3400 / 3400 1680 / 1680 250 / 250 Balance 733.33 / 733.33 1615 / 1615 940 / 940 General: Alert, Oriented x3, Cooperative, No apparent distress HEENT: Atraumatic, PERRLA, EOMI, Normocephalic Oral: Moist Mucosa, No Gingival or Mucosal Lesions/ Ulcerations Neck: Supple, No JVD, Negative Carotid Bruits, Trachea Midline, Thyroid Normal Size and Texture Lungs: Clear to auscultation, Normal air movement, No rhonchi, No wheeze, No rales Cardiovascular: Regular rate, Regular Rhythm, Normal S1, Normal S2, PMI Normal Abdomen: Bowel Sounds Present, Soft, Non Tender, Non-Distended, No Hepato-splenomegaly, Hyperactive Bowel Sounds Extremities: No clubbing, No cyanosis, No edema Skin: No rashes Lymphatic: No Cervical, Supraclavicular, or Inguinal Adenopathy Neurological: Cranial nerves II-XII grossly intact, Neuro grossly intact Psych/Mental Status: Normal Affect, Appropriate, Alert and oriented to time, place, person, mood and affect Clinical Impression(s) from Imaging Studies Abdomen X-Ray 08/08/19 04:45 IMPRESSION: Improved adynamic ileus. Electronically Signed: Neil Rivera MD at 13:41 EST Tel , Service support , Current Medications Albuterol Sulfate (Ventolin Aerosols) 2.5 mg INHALATION Q2H PRN PRN PRN Reason: SOB &/OR WHEEZING Last Admin: 08/10/19 10:54 Dose: 2.5 mg Documented by: Albuterol/Ipratropium (Duoneb) 3 ml INHALATION Q6H.RT [facility] Last Admin: 08/11/19 06:52 Dose: 3 ml Documented by: Bisacodyl (Dulcolax) 10 mg RECTAL Q6H [facility] Last Admin: 08/11/19 08:36 Dose: Not Given Documented by: Diphenhydramine HCl (Benadryl) 25 mg IV Q8H PRN PRN PRN Reason: ITCHING Last Admin: 08/10/19 23:15 Dose: 25 mg Documented by: Fluticasone Propionate (Flonase Nasal [place]) 1 spray NASAL BID [facility] Last Admin: 08/11/19 08:33 Dose: 1 spray Documented by: Sodium Chloride () 1,000 mls @ 125 mls/hr IV .Q8H [facility] Last Admin: 08/11/19 06:47 Dose: 125 mls/hr Documented by: Famotidine 20 mg/ Sodium (Chloride) 10 mls @ 300 mls/hr IV Q12 [facility] Last Infusion: 08/11/19 08:41 Dose: Infused Documented by: Ketorolac Tromethamine (Toradol) 15 mg IV Q6H PRN PRN PRN Reason: Pain Score 1-10/10 Stop: 08/12/19 14:36 Last Admin: 08/11/19 07:30 Dose: 15 mg Documented by: Lidocaine/Diphenhydr/Alum/Mg/Simeth () 15 ml PO Q3H PRN PRN PRN Reason: pain Last Admin: 08/10/19 22:44 Dose: 15 ml Documented by: Ondansetron HCl (Zofran) 4 mg IV Q6H PRN PRN PRN Reason: NAUSEA/VOMITING Last Admin: 08/08/19 06:18 Dose: 4 mg Documented by: Phenol/Menthol (Chloraseptic (Bkc)) 3 spray MM Q2H PRN PRN PRN Reason: SORE THROAT Last Admin: 08/10/19 02:08 Dose: 3 spray Documented by: Sodium Chloride () 10 - 40 ml IV UD PRN PRN Reason: SALINE FLUSH Last Admin: 08/10/19 08:13 Dose: 10 ml Documented by: Throat Lozenges (Cepacol Sore Throat Lozenge) 1 lozenge MUCOUS MEM Q2H PRN PRN PRN Reason: Sore throat or cough Last Admin: 08/10/19 05:05 Dose: 1 lozenge Documented by: Medical Necessity - Tobacco Use Smoking Status: Former smoker Assessment/Plan All Active Problems (Last Reviewed 01/27/19 @ 11:51 by Jyoti Noriega) Ileus (Acute) Constipation (Acute) Bronchitis (Acute) Laceration of right index finger (Acute) Trigger finger of left hand (Acute) Carpal tunnel syndrome of left wrist (Acute) Lipoma (Acute) Lipoma of breast (Acute) History of incision and drainage (Acute) Hx of arthroscopic knee surgery (Acute) History of carpal tunnel surgery of right wrist (Acute) Hemorrhoids (Acute) Arthritis (Acute) History of stroke (Acute)
--- NOTE | 2019-08-11 13:27 | DS.PCM_ITS ---
Discharge Date and Diagnosis Date of Admission: 08/05/19 Date of Discharge: 08/11/19 - Primary Discharge Diagnosis Active and Suspected Problems (Last Reviewed 01/27/19 @ 11:51 by Jyoti Noriega) #1 colonic ileus. #2 severe constipation. #3 recent history of L3 S1 laminectomy for spinal stenosis on August 01, 2019. - Secondary Discharge Diagnosis Chronic Problems (Last Reviewed 01/27/19 @ 11:51 by Jyoti Noriega) RLS (restless legs syndrome) (Chronic) Chronic back pain (Chronic) Tobacco use (Chronic) BPH (benign prostatic hyperplasia) (Chronic) Acid reflux (Chronic) Hospital Course and Treatment Imaging Results: Clinical Impression(s) from Imaging Studies Abdomen/Pelvis CT 08/05/19 15:07 Abdomen X-Ray 08/07/19 08:46 IMPRESSION: 1. Nasogastric tube with the tip in the midline likely in the antrum the stomach. 2. Recent abdominal surgery. 3. Colonic dilatation worrisome for obstruction or ileus. Electronically Signed: Neil Rivera MD at 11:53 EST Tel , Service support , ADDENDUM: 08/07/19 1216 Abdomen X-Ray 08/08/19 04:45 IMPRESSION: Improved adynamic ileus. Electronically Signed: Neil Rivera MD at 13:41 EST Tel , Service support , Dr. Dan, general surgery. Operations: None Procedures: - - Insertion of NG tube. Summary of Care Provided: Patient seen and examined on the day of discharge. NG tube taken out and he was started on clear liquids. Diet advanced to full liquid diet later and patient remained without abdominal pain, nausea or vomiting. He passed gas and he has been having watery bowel movements. His vital signs are stable. The patient is a 58 year old M male presented to the emergency room because of abdominal pain and constipation 3 days after he had back surgery with L3 S1 laminectomy for spinal stenosis and he was found to have findings consistent with colonic ileus on CT scan abdomen. There was no evidence of small bowel obstruction. His routine blood work was unremarkable except for leukocytosis which was attributed to stress and acute illness. Serum electrolytes were normal. Patient was treated conservatively with NG tube insertion and suction, IV fluids, kept on n.p.o. with IV pain medications and IV antiemetics. General surgery consulted and recommended to continue conservative treatment. Serial abdomen x-rays performed and patient condition improved very slowly. Patient continued to be monitored for 6 days with NG tube suction. On the day of discharge, NG tube taken out and patient was started on clear liquids. He had no more abdominal pain and he started passing flatus and bowel movements. Diet advanced to full liquid diet and he did okay and has no more abdominal pain, no nausea or vomiting. General surgery evaluated the patient on the day of discharge and agreed upon discharge home today. Patient discharged home in a stable and good condition, recommended to stay on full liquid diet and go back to regular diet slowly as tolerated, continued on his home previous medications without any changes, recommended follow-up with general surgery as scheduled and follow-up with PCP in 1 to 2 weeks. - Physical Exam Vitals/I&O's: Vital Signs Temp Pulse Resp BP Pulse Ox 98.4 F 85 16 156/90 H 96 08/11/19 08:35 08/11/19 08:35 08/11/19 08:35 08/11/19 08:35 08/11/19 08:35 Oxygen Delivery Method Room Air Weight: 231 lb 1.593 oz Body Mass Index (BMI) 36.1 Intake and Output for Last 24 Hours 08/09/19 08/10/19 08/11/19 23:59 23:59 23:59 Intake Total 4133.33 / 4133.33 3295 / 3295 1190 / 1190 Output Total 3400 / 3400 1680 / 1680 250 / 250 Balance 733.33 / 733.33 1615 / 1615 940 / 940 General: Alert, Oriented x3, Cooperative, No apparent distress HEENT: Atraumatic, PERRLA, EOMI, Normocephalic Oral: Moist Mucosa, No Gingival or Mucosal Lesions/ Ulcerations Neck: Supple, No JVD, Negative Carotid Bruits, Trachea Midline, Thyroid Normal Size and Texture Lungs: Clear to auscultation, Normal air movement, No rhonchi, No wheeze, No rales, Diminished Cardiovascular: Regular rate, Regular Rhythm, Normal S1, Normal S2 Abdomen: Bowel Sounds Present, Soft, Non Tender, No Hepato-splenomegaly, Distended Extremities: No clubbing, No cyanosis, No edema Skin: No rashes, No breakdown Lymphatic: No Cervical, Supraclavicular, or Inguinal Adenopathy Neurological: Cranial nerves II-XII grossly intact, Motor Exam 5/5 strength throughout Psych/Mental Status: Normal Affect, Appropriate, Alert and oriented to time, place, person, mood and affect Current Medications Albuterol Sulfate (Ventolin Aerosols) 2.5 mg INHALATION Q2H PRN PRN PRN Reason: SOB &/OR WHEEZING Last Admin: 08/10/19 10:54 Dose: 2.5 mg Documented by: Albuterol/Ipratropium (Duoneb) 3 ml INHALATION Q6H.RT [facility] Last Admin: 08/11/19 06:52 Dose: 3 ml Documented by: Bisacodyl (Dulcolax) 10 mg RECTAL Q6H [facility] Last Admin: 08/11/19 08:36 Dose: Not Given Documented by: Diphenhydramine HCl (Benadryl) 25 mg IV Q8H PRN PRN PRN Reason: ITCHING Last Admin: 08/10/19 23:15 Dose: 25 mg Documented by: Fluticasone Propionate (Flonase Nasal [place]) 1 spray NASAL BID [facility] Last Admin: 08/11/19 08:33 Dose: 1 spray Documented by: Sodium Chloride () 1,000 mls @ 125 mls/hr IV .Q8H [facility] Last Admin: 08/11/19 06:47 Dose: 125 mls/hr Documented by: Famotidine 20 mg/ Sodium (Chloride) 10 mls @ 300 mls/hr IV Q12 [facility] Last Infusion: 08/11/19 08:41 Dose: Infused Documented by: Ketorolac Tromethamine (Toradol) 15 mg IV Q6H PRN PRN PRN Reason: Pain Score 1-10/10 Stop: 08/12/19 14:36 Last Admin: 08/11/19 07:30 Dose: 15 mg Documented by: Lidocaine/Diphenhydr/Alum/Mg/Simeth () 15 ml PO Q3H PRN PRN PRN Reason: pain Last Admin: 08/10/19 22:44 Dose: 15 ml Documented by: Ondansetron HCl (Zofran) 4 mg IV Q6H PRN PRN PRN Reason: NAUSEA/VOMITING Last Admin: 08/08/19 06:18 Dose: 4 mg Documented by: Phenol/Menthol (Chloraseptic (Bkc)) 3 spray MM Q2H PRN PRN PRN Reason: SORE THROAT Last Admin: 08/10/19 02:08 Dose: 3 spray Documented by: Sodium Chloride () 10 - 40 ml IV UD PRN PRN Reason: SALINE FLUSH Last Admin: 08/10/19 08:13 Dose: 10 ml Documented by: Throat Lozenges (Cepacol Sore Throat Lozenge) 1 lozenge MUCOUS MEM Q2H PRN PRN PRN Reason: Sore throat or cough Last Admin: 08/10/19 05:05 Dose: 1 lozenge Documented by: Discharge Activity: Return to Normal Activity Weight Bearing Status: Weight bearing as tolerated Call your doctor if you observe: Fever of 101 or Higher, Shortness of breath, Dizziness, Fainting spells, Increased palpitations (irregular heartbeat), Uncontrolled pain Home Medications: Medications to take at Discharge tadalafil 5 mg tablet 5 mg PO DAILY 05/03/18 Calcium Carbonate [Calcium] 1,500 mg PO DAILY 08/05/19 Docusate Sodium [Colace] 100 mg PO BID 08/05/19 Esomeprazole Mag Trihydrate [Nexium] 40 mg PO DAILY 08/05/19 Oxycodone HCl/Acetaminophen [Percocet 10-325 mg Tablet] 0.5 tab PO Q6H PRN PRN 08/05/19 Ropinirole HCl [Requip] 1 mg PO DAILY 08/05/19 Varenicline [Chantix] 1 mg PO BID 08/05/19 cycloBENZAPRine HCl [Flexeril] 10 mg PO DAILY 08/05/19 Primary Care Physician: Bruce Armendariz MD [Primary Care Provider] - Please follow up with your Primary Care Physician in: 1-2 weeks. Patient Instructions: Ileus Disposition: Home Minutes spent on discharge:: 32 Patient Condition:: Stable Medical Necessity - Tobacco Use Smoking Status: Former smoker Tobacco Use: Cigars Meaningful Use Info Meaningful Use Diagnoses (Choose all that apply): None applicable Code Visit Inpatient E&M: 26349 Disch Hosp
--- NOTE | 2019-08-11 13:53 | PHA.DC.MR ---
Pharmacy Service has performed discharge medication reconciliation for this patient. Home Medications tadalafil 5 mg tablet 5 mg PO DAILY 05/03/18 Calcium Carbonate [Calcium] 1,500 mg PO DAILY 08/05/19 Docusate Sodium [Colace] 100 mg PO BID 08/05/19 Esomeprazole Mag Trihydrate [Nexium] 40 mg PO DAILY 08/05/19 Oxycodone HCl/Acetaminophen [Percocet 10-325 mg Tablet] 0.5 tab PO Q6H PRN PRN 08/05/19 Ropinirole HCl [Requip] 1 mg PO DAILY 08/05/19 Varenicline [Chantix] 1 mg PO BID 08/05/19 cycloBENZAPRine HCl [Flexeril] 10 mg PO DAILY 08/05/19 The patient's discharge medication list was reviewed for discrepancies and discrepancies were resolved.
[2019-08-11 14:10] VITALS: BP 150/82; PULSE 94; RESP 16; TEMP 36.8; O2SAT 93
--- NOTE | 2019-08-11 17:23 | PCM.PN.BLA ---
Progress Note Excellent progress, passing stool and flatus, tolerating a full liquid diet, denies any abdominal pain Abdomen remains mildly distended but with hypoactive bowel sounds Concur with discharge with [facility] back surgery follow-up scheduled for tomorrow [facility] Vital Signs/Narrative: Vital Signs Temp Pulse Resp BP Pulse Ox 08/11/19 14:10 98.3 F 94 16 150/82 H 93
--- NOTE | 2019-08-12 15:21 | CASEMGMT ---
Case Management DC F/u Call: DC Date: 08/11/19 DC Diagnosis: #1 colonic ileus. #2 severe constipation. #3 recent history of L3 S1 laminectomy for spinal stenosis on August 01, 2019. DC Disposition: Home Lace/Strata: 04/08 Called patient listed cell on demographics, no answer, VM verified [facility] Cell, left a VM with primary RNCM contact number if has any questions, issues or concerns with [facility], medications or f/u. S. VANE Lopez
== END 2019-08-11 17:38 | disposition home or self-care (01) | DRG 345 ==
LOC: ED 18:05 → PCU 18:37
PROVIDERS: Internal Medicine; Physician Assistant; Surgery; Admitting Provider Family Medicine; Emergency Provider Emergency Medicine; Family Provider Family Medicine; PCP Family Medicine; Visit Provider Hospitalist
PROC: 0DJD8ZZ Inspection of Lower Intestinal Tract, Via Natural or Artificial Opening Endoscopic (ICD-10-PCS; CPT 45378; principal; 2019-08-08 13:15)
DX: K91.89 Other postprocedural complications and disorders of digestive system (principal); K56.7 Ileus, unspecified; Y83.8 Other surgical procedures as the cause of abnormal reaction of the patient, or of later complication, without mention of misadventure at the time of the procedure; K64.9 Unspecified hemorrhoids; K59.00 Constipation, unspecified; K21.9 Gastro-esophageal reflux disease without esophagitis; N40.0 Benign prostatic hyperplasia without lower urinary tract symptoms; F17.290 Nicotine dependence, other tobacco product, uncomplicated; E66.9 Obesity, unspecified; G25.81 Restless legs syndrome; Z68.36 Body mass index [BMI] 36.0-36.9, adult
CPT/HCPCS: 36415; 74019; 74177; 80048; 80053; 81001; 82962; 83036; 83690; 85025; 94640; 97161; 97165; 97802; 99251; 99283; 99406; J7030; Q9967; A4216; G0463; J2405; J3490

== ENCOUNTER → 2019-08-15 08:52 | Outpatient (CLI) | payer OTHER, SELFPAY ==
[2019-08-05 19:25] VITALS: BMI 36.1
--- NOTE | 2019-08-15 08:56 | VDLE_ITS ---
Reason For Study: RLE swelling RIGHT LEFT GSV is normal. CFV is compressible, spontaneous, phasic, CFV is compressible, spontaneous, phasic, competent, and demonstrates normal competent and demonstrates normal augmentation. augmentation. FV is compressible, spontaneous, phasic, competent and demonstrates normal augmentation. RT PerV is compressible. RT POP V prox and mid segment are partially compressible and dilated while T/P trunk, PTV are dilated and non-compressible. Procedure Exam performed in department. The exam was diagnostic. A preliminary report was called and/or faxed to [facility] @ Dr. Fleming's office. Office will call patient with instructions. Interpretation Summary Acute deep vein thrombosis is noted in the right popliteal vein. Acute deep vein thrombosis is noted in the right tibio-peroneal trunk. Acute deep vein thrombosis is noted in the right posterior tibial vein. The remainder of the right lower extremity deep venous system is patent and compressible. The right common femoral vein and femoral vein are competent. The right great saphenous vein appears patent and compressible segmentally. Ordering Physician: Tian Fleming Referring Physician: Tian Fleming Performed By: Dorita Catherine, MANUEL, RVT
== END ==
PROVIDERS: Family Provider Family Medicine; PCP Family Medicine; Referring Provider Family Medicine; Visit Provider Family Medicine
DX: M79.89 Other specified soft tissue disorders (principal)
CPT/HCPCS: 93971

== ENCOUNTER → 2019-08-26 16:17 | Outpatient (CLI) | payer OTHER, SELFPAY ==
[2019-08-05 19:25] VITALS: BMI 36.1
[2019-08-26 17:53] LABS: Absolute Lymphocyte Count 2.56 X10^3/uL (0.83-4.51); Absolute Neutrophil Count 7.4 X10^3/uL (2.0-7.7); Basophil# 0.08 X10^3/uL; Basophil% 0.7 % (0-1); Eosinophil# 0.43 X10^3/uL; Eosinophils% 3.7 % (0-5); Hematocrit 42.5 % (40-54); Hemoglobin 13.8 g/dL (13.0-16.5); Lymphocyte # 2.56 X10^3/ul (4.0); Lymphocyte % 22.3 % (19-41); Mean Corp Hgb Conc 32.5 g/dL (32-36); Mean Corpuscular Hgb 28.1 pg (27.0-32.0); Mean Corpuscular Volume 86.6 fL (80-94); Mean Platelet Vol. 10.4 fl (6.2-12.0); Monocyte# 0.97 X10^3/uL; Monocyte% 8.4 % (0-10); NRBC Flagged by Analyzer 0 % (0-5); Neutrophil # 7.41 X10^3/uL (2.7-7.7); Neutrophil % 64.6 % (47-70); Platelet Count 333 K/mm3 (150-450); RBC Distribution Width CV 12.9 % (11.6-14.6); RBC Distribution Width SD 40.4 fl (35.1-43.9); Red Blood Count 4.91 M/mm3 (4.6-6.2); White Blood Count 11.5 K/mm3 (4.4-11.0)
[2019-08-26 18:16] LABS: Vitamin B12 1154 pg/mL (211-911)
[2019-08-26 18:44] LABS: ALB/GLOB Ratio 0.8 RATIO (0.9-2.4); AST(SGOT) 15 U/L (15-37); Alanine Aminotransfer ALT/SGPT 32 U/L (16-61); Albumin, Serum 3.5 g/dL (3.2-5.0); Alkaline Phosphatase 90 U/L (45-117); Anion Gap 5 (5-15); BUN 14 mg/dL (7-18); Calcium,Total 9.1 mg/dL (8.5-10.1); Chloride 105 mmol/L (98-107); Creatinine, Serum 1.27 mg/dL (0.70-1.30); EST Glomerular Filtration Rate 62 mL/min (>60); Est Glom Filt Rate - Afr Amer 75 mL/min (>60); Globulin 4.5 g/dL (2.2-4.2); Glucose 110 mg/dL (74-106); Potassium 4.2 mmol/L (3.5-5.1); Sodium Level 137 mmol/L (136-145)
[2019-08-28 17:07] LABS: ANTINUCLEAR ANTIBODIES DIRECT Negative (Negative)
== END ==
PROVIDERS: PCP Family Medicine; Referring Provider Family Medicine; Visit Provider Family Medicine
DX: R21 Rash and other nonspecific skin eruption (principal)
CPT/HCPCS: 36415; 80053; 82607; 82746; 85025; 86038

== ENCOUNTER → 2019-11-19 13:10 | Outpatient (CLI) | payer OTHER, SELFPAY ==
[2019-11-19 15:26] LABS: Absolute Lymphocyte Count 2.77 X10^3/uL (0.83-4.51); Basophil# 0.07 X10^3/uL; Basophil% 0.6 % (0-1); Eosinophil# 0.07 X10^3/uL; Eosinophils% 0.6 % (0-5); Lymphocyte # 2.77 X10^3/ul (4.0); Lymphocyte % 23.5 % (19-41); Mean Corp Hgb Conc 31.8 g/dL (32-36); Mean Corpuscular Hgb 26.9 pg (27.0-32.0); Mean Corpuscular Volume 84.6 fL (80-94); Mean Platelet Vol. 11.1 fl (6.2-12.0); Monocyte# 0.88 X10^3/uL; Monocyte% 7.5 % (0-10); NRBC Flagged by Analyzer 0 % (0-5); Neutrophil # 7.96 X10^3/uL (2.7-7.7); Neutrophil % 67.4 % (47-70); Platelet Count 292 K/mm3 (150-450); RBC Distribution Width CV 13.8 % (11.6-14.6); RBC Distribution Width SD 42.5 fl (35.1-43.9); White Blood Count 11.8 K/mm3 (4.4-11.0)
[2019-11-19 15:41] LABS: Vitamin D,25 Hydroxy 24.4 ng/mL
[2019-11-19 15:45] LABS: Hemoglobin A1c 6.2 % (4.2-6.3)
[2019-11-19 15:51] LABS: ALB/GLOB Ratio 0.9 RATIO (0.9-2.4); AST(SGOT) 18 U/L (15-37); Alanine Aminotransfer ALT/SGPT 31 U/L (16-61); Albumin, Serum 3.9 g/dL (3.2-5.0); Alkaline Phosphatase 72 U/L (45-117); Anion Gap 10 (5-15); BUN 14 mg/dL (7-18); BUN/Creat Ratio 12.3 RATIO (10-20); Calcium,Total 8.4 mg/dL (8.5-10.1); Chloride 105 mmol/L (98-107); Creatinine, Serum 1.14 mg/dL (0.70-1.30); EST Glomerular Filtration Rate 70 mL/min (>60); Est Glom Filt Rate - Afr Amer 84 mL/min (>60); Globulin 4.3 g/dL (2.2-4.2); Glucose 108 mg/dL (74-106); Potassium 3.9 mmol/L (3.5-5.1); Protein, Total 8.2 g/dL (6.4-8.2); Sodium Level 139 mmol/L (136-145); Thyroid Stim Hormone (TSH) 2.05 uIU/mL (0.358-3.74)
== END ==
PROVIDERS: PCP Family Medicine; Referring Provider Family Medicine; Visit Provider Family Medicine
DX: D75.1 Secondary polycythemia (principal); E88.81 Metabolic syndrome and other insulin resistance; M25.50 Pain in unspecified joint
CPT/HCPCS: 36415; 80053; 82306; 83036; 84443; 85025

== ENCOUNTER → 2020-01-06 | Outpatient (CLI) | payer OTHER, SELFPAY ==
[2020-01-06 17:53] LABS: Absolute Lymphocyte Count 2.36 X10^3/uL (0.83-4.51); Absolute Neutrophil Count 4.6 X10^3/uL (2.0-7.7); Basophil# 0.05 X10^3/uL; Basophil% 0.6 % (0-1); Eosinophil# 0.31 X10^3/uL; Eosinophils% 3.8 % (0-5); Lymphocyte # 2.36 X10^3/ul (4.0); Mean Corp Hgb Conc 31.7 g/dL (32-36); Mean Corpuscular Hgb 26.8 pg (27.0-32.0); Mean Corpuscular Volume 84.5 fL (80-94); Monocyte# 0.79 X10^3/uL; Monocyte% 9.7 % (0-10); NRBC Flagged by Analyzer 0 % (0-5); Neutrophil % 56.5 % (47-70); Platelet Count 292 K/mm3 (150-450); RBC Distribution Width CV 13.7 % (11.6-14.6); RBC Distribution Width SD 42.3 fl (35.1-43.9); Red Blood Count 4.85 M/mm3 (4.6-6.2); White Blood Count 8.1 K/mm3 (4.4-11.0)
[2020-01-06 17:59] LABS: D-Dimer Quantitative (DVT/PE) 0.46 FEU/ug/m (0.27-0.49)
[2020-01-06 18:07] LABS: BNP,B-Type NATRIURETIC PEPTIDE 30.8 pg/mL (0-100)
[2020-01-06 18:25] LABS: Microalbumin,Random Urine 7.3 mg/L (NO RANGE EST.); Microalbumin:Creatinine Ratio 4.7 mg/g CRE (<30 mg/g CRE)
[2020-01-06 18:30] LABS: ALB/GLOB Ratio 0.9 RATIO (0.9-2.4); AST(SGOT) 31 U/L (15-37); Alanine Aminotransfer ALT/SGPT 42 U/L (16-61); Albumin, Serum 3.9 g/dL (3.2-5.0); Alkaline Phosphatase 67 U/L (45-117); Anion Gap 8 (5-15); BUN 14 mg/dL (7-18); BUN/Creat Ratio 12.1 RATIO (10-20); Calcium,Total 9.1 mg/dL (8.5-10.1); Chloride 105 mmol/L (98-107); Creatinine, Serum 1.16 mg/dL (0.70-1.30); EST Glomerular Filtration Rate 68 mL/min (>60); Est Glom Filt Rate - Afr Amer 83 mL/min (>60); Globulin 4.2 g/dL (2.2-4.2); Glucose 102 mg/dL (74-106); Potassium 4.2 mmol/L (3.5-5.1); Protein, Total 8.1 g/dL (6.4-8.2); Sodium Level 140 mmol/L (136-145); Thyroid Stim Hormone (TSH) 2.27 uIU/mL (0.358-3.74)
== END | disposition home or self-care (01) ==
LOC: MTLAB 16:02
PROVIDERS: PCP Family Medicine; Referring Provider Family Medicine; Visit Provider Family Medicine
DX: I50.30 Unspecified diastolic (congestive) heart failure (principal); R60.0 Localized edema
CPT/HCPCS: 36415; 80053; 82043; 82570; 83880; 84443; 85025; 85379

== ENCOUNTER → 2020-01-14 | Outpatient (CLI) | payer OTHER, SELFPAY ==
[2020-01-14 18:03] LABS: Absolute Lymphocyte Count 3.31 X10^3/uL (0.83-4.51); Absolute Neutrophil Count 5.4 X10^3/uL (2.0-7.7); Eosinophil# 0.28 X10^3/uL; Eosinophils% 2.8 % (0-5); Hematocrit 43.3 % (40-54); Hemoglobin 13.8 g/dL (13.0-16.5); Lymphocyte # 3.31 X10^3/ul (4.0); Lymphocyte % 32.9 % (19-41); Mean Corp Hgb Conc 31.9 g/dL (32-36); Mean Corpuscular Hgb 27.4 pg (27.0-32.0); Mean Corpuscular Volume 85.9 fL (80-94); Mean Platelet Vol. 10.6 fl (6.2-12.0); Monocyte# 0.94 X10^3/uL; Monocyte% 9.4 % (0-10); NRBC Flagged by Analyzer 0 % (0-5); Neutrophil # 5.39 X10^3/uL (2.7-7.7); Neutrophil % 53.6 % (47-70); Platelet Count 292 K/mm3 (150-450); RBC Distribution Width CV 13.9 % (11.6-14.6); RBC Distribution Width SD 42.8 fl (35.1-43.9); Red Blood Count 5.04 M/mm3 (4.6-6.2); White Blood Count 10.1 K/mm3 (4.4-11.0)
[2020-01-14 18:53] LABS: AST(SGOT) 19 U/L (15-37); Alanine Aminotransfer ALT/SGPT 32 U/L (16-61); Alkaline Phosphatase 72 U/L (45-117); Anion Gap 10 (5-15); BUN 20 mg/dL (7-18); BUN/Creat Ratio 16.8 RATIO (10-20); Calcium,Total 8.9 mg/dL (8.5-10.1); Chloride 101 mmol/L (98-107); Creatinine, Serum 1.19 mg/dL (0.70-1.30); EST Glomerular Filtration Rate 66 mL/min (>60); Est Glom Filt Rate - Afr Amer 80 mL/min (>60); Globulin 4.2 g/dL (2.2-4.2); Glucose 87 mg/dL (74-106); Potassium 3.7 mmol/L (3.5-5.1); Protein, Total 8.2 g/dL (6.4-8.2); Sodium Level 137 mmol/L (136-145)
== END | disposition home or self-care (01) ==
LOC: MTLAB 16:47
PROVIDERS: PCP Family Medicine; Referring Provider Family Medicine; Visit Provider Family Medicine
DX: D75.1 Secondary polycythemia (principal); R60.9 Edema, unspecified
CPT/HCPCS: 80053; 85025

== ENCOUNTER → 2020-01-21 | Outpatient (CLI) | payer OTHER, SELFPAY ==
--- NOTE | 2020-01-21 11:09 | ECHOD_ITS ---
Reason For Study: CHF Procedure This was a 2D Doppler, Color Flow transthoracic echocardiogram. The study was technically difficult. Contrast injection was performed. Exam performed in department. Left Ventricle Normal LV size. The estimated ejection fraction is 55 %. No evidence for diastolic dysfunction. No regional wall motion abnormalities noted. Right Ventricle Normal RV size. Normal systolic function. Atria Normal left atrium. Normal right atrium. No doppler evidence for ASD. Mitral Valve There is no mitral valve stenosis. No mitral valve insufficiency. Tricuspid Valve There is no tricuspid stenosis. Unable to estimate RV systolic pressure due to inadequate jet, pulmonary artery pressure probably normal. No tricuspid valve insufficiency. Aortic Valve Trisinus/trileaflet aortic valve. There is no aortic stenosis. No aortic valve insufficiency. Pulmonic Valve There is no pulmonic valvular stenosis. No pulmonic valve insufficiency. Great Vessels Normal aortic root. Pericardium/Pleural No pericardial effusion. Medication 22 gauge I.V. with prn adaptor inserted into right arm. Diluted definity 2ml given slow IV push to enhance endocardial definition. MMode/2D Measurements & Calculations LVIDd: 3.6 cm IVSd: 1.3 cm Ao root diam: 3.4 cm LVIDs: 1.7 cm LVPWd: 1.4 cm LA dimension: 3.1 cm RVDd: 3.4 cm FS: 51.1 % LAV(MOD-bp): 46.1 ml LA A4 area: 17.9 cm2 RA A4 area: 12.9 cm2 LAV(MOD-bp) Indexed: 20.8 ml/m2 LAV(MOD-sp2): 41.8 ml LAV(MOD-sp4): 50.6 ml Time Measurements MV dec time: 0.22 sec Doppler Measurements & Calculations MV E max devan: 74.2 cm/sec Lat Peak E' Devan: 10.3 cm/sec Med Peak E' Devan: 7.2 cm/sec MV A max devan: 87.5 cm/sec E/E' lat: 7.2 E/E' med: 10.4 MV E/A: 0.85 MV V2 max: 108.0 cm/sec MV P1/2t max devan: 86.8 cm/sec Ao V2 max: 146.1 cm/sec MV max P.7 mmHg MV P1/2t: 94.0 msec Ao max P.5 mmHg MV V2 mean: 62.3 cm/sec MV dec slope: 270.6 cm/sec2 MV mean P.8 mmHg MV V2 VTI: 26.8 cm MVA(P1/2t): 2.3 cm2 LV V1 max: 108.3 cm/sec PA V2 max: 117.5 cm/sec LV V1 max P.7 mmHg Interpretation Summary The estimated ejection fraction is 55 %. No evidence for diastolic dysfunction. Ordering Physician: Bruce Armendariz Referring Physician: Bruce Armendariz Performed By: Markus Navarrete RCS
== END | disposition home or self-care (01) ==
LOC: CVS 11:07
PROVIDERS: PCP Family Medicine; Referring Provider Family Medicine; Visit Provider Family Medicine
DX: I50.30 Unspecified diastolic (congestive) heart failure (principal)
CPT/HCPCS: 93306; Q9957; A4216; C8929

== ENCOUNTER → 2020-01-28 | Outpatient (CLI) | payer OTHER, SELFPAY ==
[2020-01-28 17:43] LABS: Absolute Lymphocyte Count 2.62 X10^3/uL (0.83-4.51); Absolute Neutrophil Count 5.5 X10^3/uL (2.0-7.7); Basophil# 0.07 X10^3/uL; Basophil% 0.7 % (0-1); Eosinophil# 0.42 X10^3/uL; Eosinophils% 4.5 % (0-5); Hematocrit 39.8 % (40-54); Hemoglobin 12.5 g/dL (13.0-16.5); Lymphocyte # 2.62 X10^3/ul (4.0); Mean Corp Hgb Conc 31.4 g/dL (32-36); Mean Corpuscular Hgb 27.7 pg (27.0-32.0); Mean Corpuscular Volume 88.1 fL (80-94); Mean Platelet Vol. 10.8 fl (6.2-12.0); Monocyte# 0.73 X10^3/uL; Monocyte% 7.8 % (0-10); NRBC Flagged by Analyzer 0 % (0-5); Neutrophil # 5.49 X10^3/uL (2.7-7.7); Neutrophil % 58.6 % (47-70); Platelet Count 273 K/mm3 (150-450); RBC Distribution Width CV 13.8 % (11.6-14.6); RBC Distribution Width SD 44.3 fl (35.1-43.9); Red Blood Count 4.52 M/mm3 (4.6-6.2); White Blood Count 9.4 K/mm3 (4.4-11.0)
[2020-01-28 18:06] LABS: ALB/GLOB Ratio 0.9 RATIO (0.9-2.4); AST(SGOT) 15 U/L (15-37); Alanine Aminotransfer ALT/SGPT 31 U/L (16-61); Albumin, Serum 3.5 g/dL (3.2-5.0); Alkaline Phosphatase 66 U/L (45-117); Anion Gap 8 (5-15); BUN 20 mg/dL (7-18); CRP 4.25 mg/L (0.0-3.0); Calcium,Total 8.4 mg/dL (8.5-10.1); Chloride 105 mmol/L (98-107); Creatinine, Serum 1.33 mg/dL (0.70-1.30); EST Glomerular Filtration Rate 58 mL/min (>60); Est Glom Filt Rate - Afr Amer 71 mL/min (>60); Glucose 122 mg/dL (74-106); Lipase 206 U/L (73-393); Potassium 3.9 mmol/L (3.5-5.1); Protein, Total 7.5 g/dL (6.4-8.2); Sodium Level 140 mmol/L (136-145)
[2020-01-28 18:24] LABS: Microalbumin,Random Urine < 5.0 mg/L (NO RANGE EST.)
[2020-01-28 18:49] LABS: Erythrocyte Sedimentation Rate 23 mm/hr (0-20)
[2020-01-29 10:35] LABS: Hepatitis C Antibody Non-Reactive (Nonreactive)
== END | disposition home or self-care (01) ==
LOC: MTLAB 15:35
PROVIDERS: PCP Family Medicine; Referring Provider Family Medicine; Visit Provider Family Medicine
DX: R10.811 Right upper quadrant abdominal tenderness (principal)
CPT/HCPCS: 36415; 80053; 82043; 82570; 83690; 85025; 85652; 86140; 86803

== ENCOUNTER → 2020-01-29 | Outpatient (CLI) | payer OTHER, SELFPAY ==
--- NOTE | 2020-01-29 09:23 | CT_ITS ---
STUDY: CT ABDOMEN AND PELVIS WITH CONTRAST REASON FOR EXAM: Male, 59 years old. BLOATING, RT UPPER ABDOMINAL TENDERNESS RADIATION DOSAGE (If Supplied By Facility): CTDIvol = ( 18.46 ) mGy, DLP = ( 1189.69 ) mGycm TECHNIQUE: Transaxial images were obtained from the dome of the diaphragm to the symphysis pubis without oral contrast. IV 100mL Isovue-300 was administered. Sagittal and coronal images were reconstructed. Individualized dose optimization techniques were used for this CT. COMPARISON: 08/05/2019 FINDINGS: The visualized lung bases are unremarkable. The visualized portions of the heart are within normal limits. Normal liver. Normal gallbladder and extrahepatic biliary system. Normal spleen. Normal pancreas. Normal bilateral adrenal glands. Normal right kidney. Normal left kidney. Normal visualized stomach. Normal small intestine. Normal colon. The appendix is visualized and appears normal. Appendix best seen on coronal recon images 74 through 78 Normal abdominal aorta. Normal inferior vena cava. Normal retroperitoneum. Normal urinary bladder. Small bilateral fat-containing inguinal hernias. Stable induration of the soft tissues posterior to the lumbar spine from previous surgery There are diffuse degenerative changes of the visualized lumbar spine, and pelvis. CT/Abdomen/Pelvis WITH Contrast IMPRESSION: No suspicious solid organ abnormality No CT evidence of an acute inflammatory process, normal appendix visualized No free intraperitoneal fluid, air, or suspicious adenopathy Electronically Signed: Chirag Beck MD at 10:07 EDT , Service support ,
== END | disposition home or self-care (01) ==
PROVIDERS: PCP Family Medicine; Referring Provider Family Medicine; Visit Provider Family Medicine
DX: R10.811 Right upper quadrant abdominal tenderness (principal)
CPT/HCPCS: 74177; Q9967

== ENCOUNTER → 2020-02-09 | Outpatient (CLI) | payer OTHER, SELFPAY ==
--- NOTE | 2020-02-09 09:43 | US_ITS ---
STUDY: ABDOMINAL ULTRASOUND - RIGHT UPPER QUADRANT REASON FOR VISIT: Male, 59 years old ruq pain and bloating x 1 year TECHNIQUE: Ultrasound evaluation of the right upper quadrant was performed with real-time and static sanderson-scale imaging. TECHNICAL QUALITY: Limited. Examination limited by bowel gas. COMPARISON: Comparison is made with prior sonogram dated July 29, 2019. FINDINGS: Liver: The liver is slightly enlarged and measures 18.9 cm. There is increased echogenicity consistent with fatty infiltration. The bile ducts are within normal limits. There is hepatic color flow. The direction of portal flow is hepatopetal. There is a 9 mm x 7 mm x 7 mm cyst along the inferior margin of the right lobe of the liver. Gallbladder: Normal distended gallbladder. The gallbladder wall measures 2.8 mm. There is a negative sonographic Stroud''s sign. There is no pericholecystic fluid. There are no gallstones. Common Bile Duct (C.B.D.): The common bile duct measures 4.8 mm. Pancreas: There is nonvisualization of the pancreas due to overlying bowel gas. Right Kidney: Normal size of the right kidney. The right kidney measures 10.8 cm x 4.9 cm x 4.9 cm. Normal renal cortex. The right cortex measures 1.8 cm. There is no demonstrated renal mass or cyst. There is no right hydronephrosis. US/Abdomen Limited IMPRESSION: Mild hepatomegaly with fatty infiltration of the liver. Electronically Signed: Nic So, at 13:22 EDT , Service support ,
== END | disposition home or self-care (01) ==
LOC: US 09:41
PROVIDERS: PCP Family Medicine; Referring Provider Family Medicine; Visit Provider Family Medicine
DX: R10.11 Right upper quadrant pain (principal)
CPT/HCPCS: 76705

== ENCOUNTER → 2020-02-16 | Outpatient (CLI) | payer OTHER, SELFPAY ==
[2020-02-11 06:19] VITALS: BMI 36.1
--- NOTE | 2020-02-16 10:00 | NM_ITS ---
CLINICAL: 59-year-old male with reported history of postprandial abdominal pain and bloating. RADIONUCLIDE HEPATOBILIARY SCINTIGRAPHY COMPARISON: Abdominal ultrasound report 02/09/2020, CT of the abdomen-pelvis report 01/29/2020 FINDINGS: Following the intravenous administration of 5.8 mCi of 99m Tc Mebrofenin, hepatobiliary images reveal: 1. Relatively prompt and homogeneous radiopharmaceutical concentration is noted by a normal sized liver. No parenchymal defects are identified. 2. Gallbladder activity is identified at 10 minutes post radiopharmaceutical administration. 3. Small intestinal tract is observed at 30 minutes following tracer injection. 4. Washout of the radiopharmaceutical by the hepatic parenchyma appears qualitatively normal. Cholecystokinin (0.02 ug/kg) was administered intravenously over a 30-minute period. The post CCK gallbladder ejection fraction calculated at 21 minutes following Cholecystokinin administration was noted to be 51.0 % (normal greater than 35%). During 30 minutes of post CCK imaging, there is no scintigraphic evidence of reflux of the radiotracer into the common hepatic duct or refilling of the gallbladder. NM/Hepatobilliary Img w/Pharm Int IMPRESSION: 1. NORMAL 99m Tc Mebrofenin hepatobiliary imaging examination with Cholecystokinin. A. A gallbladder ejection fraction calculated to be greater than 35% following the administration of Cholecystokinin makes the probability of functional hepatobiliary disease (gallbladder and/or sphincter of Oddi dyskinesia) and/or organic hepatobiliary disease (chronic acalculous cholecystitis and/or cystic duct syndrome) to be low. (Rufino Miramontes et al, Journal of Nuclear Medicine 32:1695, 1990). Electronically Signed: Neil Haas DO at 22:26 EDT Tel , Service support ,
== END | disposition home or self-care (01) ==
LOC: NM 10:00
PROVIDERS: PCP Family Medicine; Referring Provider Surgery; Visit Provider Surgery
DX: R10.11 Right upper quadrant pain (principal); R14.0 Abdominal distension (gaseous)
CPT/HCPCS: 78227; A9537; J2805

== ENCOUNTER → 2020-03-15 11:12 | Outpatient (CLI) | payer OTHER, SELFPAY ==
[2020-03-15 11:12] VITALS: BMI 38.0
[2020-03-17 03:17] LABS: CCP IgG Antibodies 6 units (0-19)
== END ==
PROVIDERS: PCP Family Medicine; Referring Provider Family Medicine; Visit Provider Family Medicine
DX: M19.039 Primary osteoarthritis, unspecified wrist (principal)
CPT/HCPCS: 36415; 86200; 86431

== ENCOUNTER → 2020-05-06 | Outpatient (CLI) | payer OTHER, SELFPAY ==
[2020-05-04 15:59] VITALS: BMI 40.2
[2020-05-11 12:07] LABS: Testosterone, Free 4.93 ng/dL (5.00-21.00)
[2020-05-11 17:13] LABS: Testosterone, % Free 2.02 % (1.50-4.20); Testosterone, Total 244 ng/dL (264-916)
== END | disposition home or self-care (01) ==
LOC: MTLAB 13:41
PROVIDERS: PCP Internal Medicine; Referring Provider Internal Medicine; Visit Provider Internal Medicine
DX: R79.89 Other specified abnormal findings of blood chemistry (principal)
CPT/HCPCS: 36415; 84402; 84403

== ENCOUNTER → 2020-05-17 | Outpatient (CLI) | payer OTHER, SELFPAY ==
[2020-05-04 15:59] VITALS: BMI 40.2
--- NOTE | 2020-05-17 17:31 | STRESSREP_ITS ---
Stress Test Report Date: 05/17/2020 Procedure: Exercise tolerance test Indications: Dyspnea on exertion Consent: Per the patient Procedure: The patient exercised on a Amarjit protocol for 5 minutes achieving a peak heart rate of 151 bpm (94% predicted maximal heart rate) with a peak blood pressure 220/86 mmHg and a peak MET capacity of approximately 7 MET's. The baseline ECG demonstrated normal sinus rhythm. The peak exercise ECG demonstrated no significant ischemic ST-T changes. There were occasional PVCs with occasional 3 beat runs. The functional capacity was considered decreased for age. The patient had no complaint of chest discomfort during exercise or recovery. The examination was discontinued secondary to dyspnea. Impression: 1. Technically adequate (percent predicted maximal heart rate greater than 85%) exercise tolerance test 2. Stress test is negative for exercise-induced chest pain. 3. Stress test test is negative for exercise-induced EKG changes of ischemia. 4. Functional capacity is decreased for age This note was generated with [employer] software. It may contain incorrect words, spelling, and punctuation that were not noted in checking the note before signing.
== END | disposition home or self-care (01) ==
LOC: CVS 11:49
PROVIDERS: PCP Internal Medicine; Referring Provider Internal Medicine; Visit Provider Internal Medicine
DX: R06.00 Dyspnea, unspecified (principal)
CPT/HCPCS: 93017

== ENCOUNTER → 2020-06-04 | Outpatient (CLI) | payer OTHER, SELFPAY ==
[2020-06-04 12:38] VITALS: BMI 39.9
[2020-06-04 15:30] LABS: Hematocrit 43.1 % (40-54); Hemoglobin 13.8 g/dL (13.0-16.5)
[2020-06-04 16:23] LABS: Follicle Stimulating Hormone 3.5 mIU/mL; Luteinizing Hormone 1.6 mIU/mL
[2020-06-09 09:07] LABS: Testosterone, % Free 3.41 % (1.50-4.20)
[2020-06-09 09:24] LABS: Testosterone, Total 176 ng/dL (264-916)
[2020-06-09 09:25] LABS: PSA, Total 0.6 ng/mL (0.0-4.0)
== END | disposition home or self-care (01) ==
LOC: BIMLAB 13:39
PROVIDERS: PCP Internal Medicine; Referring Provider Internal Medicine; Visit Provider Internal Medicine
DX: E29.1 Testicular hypofunction (principal); R79.89 Other specified abnormal findings of blood chemistry
CPT/HCPCS: 36415; 83001; 83002; 84153; 84402; 84403; 85014; 85018

== ENCOUNTER → 2020-06-22 13:34 | Outpatient (CLI) | payer OTHER, SELFPAY ==
[2020-06-16 13:23] VITALS: BMI 41.0
--- NOTE | 2020-06-22 13:36 | RAD_ITS ---
STUDY: X-RAY CHEST REASON FOR EXAM: Male, 59 years old. Dyspnea on exertion -- edema TECHNIQUE: PA and lateral views of the chest. COMPARISON: 12/17/2018 FINDINGS: Stable flattening of the hemidiaphragms. There are areas of hyperinflation. There is no demonstrated pleural abnormality. Normal size heart. Normal mediastinum and rafa. Normal visualized pulmonary arteries. Normal visualized aortic arch and descending thoracic aorta. There are diffuse degenerative changes of the visualized thoracic spine. Stable loss of anterior vertebral body height of the mid thoracic spine. Normal visualized ribs, clavicles, and shoulders. There is no demonstrated abnormality of the visualized soft tissue structures of the upper abdomen. RAD/Chest PA and Lateral IMPRESSION: Component of COPD. No pulmonary edema, congestive heart failure or confluent pneumonia. Other nonacute findings as outlined above. Electronically Signed: Renetta Haskins MD at 3:56 EST , Service support ,
== END ==
PROVIDERS: PCP Internal Medicine; Referring Provider Specialist; Visit Provider Specialist
DX: R06.00 Dyspnea, unspecified (principal); R60.0 Localized edema
CPT/HCPCS: 71046

== ENCOUNTER → 2020-07-19 12:57 | Outpatient (CLI) | payer OTHER, SELFPAY ==
[2020-06-16 13:23] VITALS: BMI 41.0
[2020-07-23 12:07] LABS: Testosterone, Free 25.18 ng/dL (5.00-21.00)
[2020-07-23 12:55] LABS: Testosterone, % Free 3.06 % (1.50-4.20); Testosterone, Total 823 ng/dL (264-916)
== END ==
PROVIDERS: PCP Internal Medicine; Referring Provider Internal Medicine; Visit Provider Internal Medicine
DX: R79.89 Other specified abnormal findings of blood chemistry (principal)
CPT/HCPCS: 36415; 84402; 84403

== ENCOUNTER 2020-08-02 14:17 | Emergency (ER) | payer OTHER, SELFPAY ==
[2020-06-16 13:23] VITALS: BMI 41.0
[2020-08-02 14:18] VITALS: BP 153/106; PULSE 82; RESP 22; TEMP 35.8; O2SAT 94; BMI 41.5
--- NOTE | 2020-08-02 14:34 | RAD_ITS ---
STUDY: X-RAY CHEST REASON FOR EXAM: Male, 59 years old. INCREASING SOB ALONG WITH NAUSEA, HEADACHE, AND SWELLING IN LEGS TECHNIQUE: Single AP portable view of the chest. COMPARISON: None. FINDINGS: The lungs are clear and expanded. There is no demonstrated pleural abnormality. Normal size heart. Normal mediastinum and rafa. Normal visualized pulmonary arteries. Normal visualized aortic arch and descending thoracic aorta. Normal visualized thoracic spine. There is degenerative osteoarthritis of the bilateral shoulders. There is no demonstrated abnormality of the visualized soft tissue structures of the upper abdomen. RAD/Chest 1 View (Portable) IMPRESSION: Degenerative changes, as described above. No demonstrated acute cardiopulmonary process. Electronically Signed: Gennaro Bautista, at 15:37 EST Tel , Service support ,
--- NOTE | 2020-08-02 14:35 | EKG12_ITS ---
Test Reason : SOB Blood Pressure : / mmHG Vent. Rate : 074 BPM Atrial Rate : 074 BPM P-R Int : 192 ms QRS Dur : 090 ms QT Int : 376 ms P-R-T Axes : 033 016 014 degrees QTc Int : 417 ms Normal sinus rhythm Normal ECG Confirmed by ANDRÉS LEO, GENARO ([id number]), editorial cartoonist FATOUMATA PULLIAM ([id number]) on 08/09/2020 9:13:26 AM Referred By: JULIUS Confirmed By:KYUNG BOWEN MD
--- NOTE | 2020-08-02 14:37 | ED.VIS.GEN ---
History of Present Illness Chief Complaint: Shortness of Breath Detail of Chief Complaint: Shortness of breath and concern for Covid Informant: Patient Onset: Days - Upper respiratory symptoms past 3 days, Weeks - Swelling of the lower extremities with edema greater than 1 week Context: Sudden Onset Timing: Continuous - Edema, Intermittent - Respiratory symptoms Quality: Rhinorrhea, congestion, cough and edema lower extremities Location: Upper respiratory and lower extremities Current Severity: Mild Maximum Severity: Moderate Worsened by: Dyspnea on exertion, denies orthopnea and denies any activity Relieved by: Nothing Associated Symptoms: Hypotension due to blood pressure medications, which he discontinued. Narrative: Patient is a 59-year-old male who presents because of upper respiratory symptoms and concern for Covid. He reports cough that started approximately 3 days ago. Cough is nonproductive. He reports fever this morning. He also reports rhinorrhea, congestion that started past 24 hours. He reports muscle aches and joint aches that started 1 to 2 days ago. He denies rash or discoloration of his digits. He denies orthopnea or PND. He states he is wheezing. Patient was asked if he has sleep apnea. He informed he had a test and BiPAP was recommended. He has not complied in obtaining the machine. He states he was started on blood pressure medicine because his blood pressure was elevated. He discontinued the blood pressure medicine 1 week ago because of readings varying between 70-90 systolic. He was symptomatic when the pressure was low. He does report 18 pound intentional weight loss. He was informed by superintendent track he should lose weight. He went on a strict carb diet. He denies headache. He denies double vision, blurred vision loss of vision. Denies photophobia. He denies neck pain or neck stiffness. He denies chest pain or exertional chest pain. He denies nausea, vomiting or diarrhea. He states he has had loose and more frequent stools the past 3 to 5 days. He denies blood or mucus in his stool. He denies black or maroon-colored stool. He denies dysuria, frequency, urgency or hematuria. He does report swelling of his lower extremities that started 1 week ago. He denies history of VTE. He denies leg pain or discoloration. He denies pleuritic chest pain. Prior similar symptoms: Yes Recent Illness/Hospitalization: Yes - Past Medical History (1) Obstructive sleep apnea Status: Acute (2) Dyspnea on exertion Status: Acute (3) Acid reflux Status: Chronic (4) Arthritis Status: Chronic (5) BPH (benign prostatic hyperplasia) Status: Chronic (6) Bilateral lower extremity edema Status: Chronic (7) Chronic back pain Status: Chronic (8) RLS (restless legs syndrome) Status: Chronic (9) Tobacco use Status: Chronic Past Medical History - Allergies and Home Meds Allergies/Adverse Reactions: Allergies Sulfa (Sulfonamide Antibiotics) Allergy (Mild, Verified 08/02/20 14:18) RASH lisinopril Adverse Reaction (Verified 08/02/20 14:18) COUGH Primary Care Physician: Leandra Mejia MD [Primary Care Provider] - Prior records reviewed: Yes Surgical History: noncontributory, - - Recent lumbar back surgery as noted, bilateral carpal tunnel surgery, bilateral hand trigger finger intervention, rectal fissure intervention. Lives: Spouse/ Significant Other Smoking Status: Former smoker Alcohol: None Drugs: None - Family History Maternal Family History: Family History (Last Reviewed 06/16/20 @ 14:[address] Olga Lidia Kenyon MD) Mother Non-Hodgkin lymphoma Father Heart disease Family History: Reports: Cancer - Mother with history of non-Hodgkin's lymphoma. Paternal Family History: Family History (Last Reviewed 06/16/20 @ 14:[address] Olga Lidia Kenyon MD) Mother Non-Hodgkin lymphoma Father Heart disease Family History: Reports: Heart Disease Review of Systems General: Reports: Fever, Malaise, Weight loss - Weight loss is intentional.. Denies: Chills, Subjective, Sweats Eyes: Denies: Visual changes - bilaterally, Blurred Vision - bilaterally, Diplopia ENT: Reports: Rhinorrhea, Sore throat. Denies: Bilateral ear pain Cardiovascular: Reports: Chest pain. Denies: Palpitations, Heart racing Respiratory: Reports: Dyspnea, Cough, Dyspnea on exertion. Denies: Sputum, Orthopnea, Paroxysmal nocturnal dyspnea Gastrointestinal: Reports: Abdominal pain, Diarrhea. Denies: Nausea, Vomiting, Constipation, Melena, Hematochezia Genitourinary: Denies: Dysuria, Hematuria, Frequency Musculoskeletal: Reports: Myalgias, Arthralgias, Back pain - Back pain is chronic., Swelling. Denies: Neck pain, Extremity Pain Skin: Denies: Rash, Wounds Neurological: Reports: Weakness. Denies: Headache, Parasthesia Endocrine: Denies: Polyuria, Polydipsia Hematologic: Denies: Easy bruising Allergy: Denies: Uticaria, Swelling of the mouth, Swelling of the tongue Physical Exam Vital Signs/Narrative: Vital Signs Temp Pulse Resp BP Pulse Ox 08/02/20 14:18 96.5 F L 82 22 H 153/106 H 94 Inital Vital Signs reviewed: Yes General: Well nourished, Well developed, Obese, No Acute Distress Head: Normocephalic, Atraumatic Eyes: Perrl, EOMI. Negative for: Pale conjunctiva, Scleral icterus ENT: Moist mucous membranes. Negative for: No rhinorrhea Neck: Supple, Nontender, No lymphadenopathy, No JVD, - - Trachea is midline. He has expiratory stridor. There is no wheezing. Cardiovascular: Regular rate, Regular rhythm, No murmurs, Normal S1, Normal S2 Respiratory: No distress, CTA bilaterally, Chest nontender Abdomen: Soft, Nontender, Nondistended, Normal bowel sounds, No masses. Negative for: Hypoactive bowel sounds, Hepatomegaly, Pulsatile mass, Inguinal hernia Rectal: Deferred Back: Nontender Extremities: Nontender, Edema - Pitting 6 mm bilaterally. Negative for: No edema Skin: Normal color, No rash, No Trauma. Negative for: Cyanosis, Diaphoresis, Jaundice Neurological: Alert, Oriented x3, Cranial nerves II-XII grossly intact, Normal Strength, Normal Sensation Psychological: Normal affect Diagnostic/Tx/Re-eval Chest X-Ray - ED: 1 View, Read by ED Physician, Unchanged, Heart, Mediastinum, Bony Structures, No Acute Disease, Chronic Changes, - - Single view portable chest x-ray was interpreted by me at 1533. The chest x-ray is unchanged from June 22, 2020. There is slight difference in projection. 08/02/20 14:34 Chest 1 View (Portable) [RAD] Stat Laboratory Results 08/02/20 08/02/20 08/02/20 15:00 15:00 15:01 WBC 9.4 RBC 4.55 L Hgb 12.2 L Hct 38.9 L MCV 85.5 MCH 26.8 L MCHC 31.4 L RDW Std Deviation 43.8 RDW Coeff of Bere 14.0 Plt Count 253 MPV 10.3 Immature Gran % (Auto) 0.400 Neut % (Auto) 59.8 Lymph % (Auto) 27.0 [place] % (Auto) 8.4 Eos % (Auto) 3.5 Baso % (Auto) 0.9 Absolute Neuts (auto) 5.6 Absolute Lymphs (auto) 2.53 Nucleated RBC % 0 Sodium 142 Potassium 3.6 Chloride 108 H Carbon Dioxide 27.0 Anion Gap 7 BUN 11 Creatinine 1.20 Estim Creat Clear Calc 61.20 Est GFR (MDRD) Af Amer 79 Est GFR (MDRD) Non-Af 66 BUN/Creatinine Ratio 9.2 L Glucose 95 Calcium 7.5 L Total Bilirubin 0.20 AST 15 ALT 25 Alkaline Phosphatase 59 Troponin I < 0.015 Total Protein 7.0 Albumin 3.3 Globulin 3.7 Albumin/Globulin Ratio 0.9 POC Glucose 96 BNP was normal. Suspect patient's bilateral lymphedema is due to right heart failure from noncompliance with treatment for obstructive sleep apnea. Patient was informed his Covid test was negative. He does have mild anemia. His anemia would not explain his symptoms. - EKG Initial EKG Interpretation: Sinus Rhythm - Normal sinus rhythm with a ventricular rate of 74. [place] interval 192 ms. QRS duration 90 ms. QT duration 376 ms. Rhine is normal. EKG is normal. - Medical Decision Making Patient has upper respiratory symptoms. This may represent rhinovirus or enterovirus infection as well as Covid. Patient's bilateral pedal edema may be due to right-sided heart failure due to untreated obstructive sleep apnea. Chest x-ray is obtained to evaluate for infiltrate and other causes of dyspnea. EKG was obtained to rule out cardiac ischemia. ED Disposition - Plan for ED Patient: Disposition: Home or Assisted Living Diagnosis: Viral upper respiratory tract infection with cough, Bilateral lower extremity edema, Hypertension, Anemia, unspecified Instructions: ED Lymphedema, ED Hypertension, Established, ED URI, Viral, No Abx (Adult) Referrals: Leandra Mejia MD [Primary Care Provider] - 5-7 Days Additional Instructions: 1. It is important for you to get and use your BiPAP/CPAP machine 2. You have an upper respiratory infection due to a viral illness that is not Covid. 3. Your edema is related to your obstructive sleep apnea
--- NOTE | 2020-08-02 14:40 | NURSING ---
NO OLD EKGS
[2020-08-02 15:07] VITALS: O2SAT 97
[2020-08-02 15:10] LABS: Absolute Lymphocyte Count 2.53 X10^3/uL (0.83-4.51); Absolute Neutrophil Count 5.6 X10^3/uL (2.0-7.7); Basophil# 0.08 X10^3/uL; Basophil% 0.9 % (0-1); Eosinophil# 0.33 X10^3/uL; Eosinophils% 3.5 % (0-5); Hematocrit 38.9 % (40-54); Hemoglobin 12.2 g/dL (13.0-16.5); Lymphocyte # 2.53 X10^3/ul (4.0); Mean Corp Hgb Conc 31.4 g/dL (32-36); Mean Corpuscular Hgb 26.8 pg (27.0-32.0); Mean Corpuscular Volume 85.5 fL (80-94); Mean Platelet Vol. 10.3 fl (6.2-12.0); Monocyte# 0.79 X10^3/uL; Monocyte% 8.4 % (0-10); NRBC Flagged by Analyzer 0 % (0-5); Neutrophil % 59.8 % (47-70); Platelet Count 253 K/mm3 (150-450); RBC Distribution Width SD 43.8 fl (35.1-43.9); Red Blood Count 4.55 M/mm3 (4.6-6.2); White Blood Count 9.4 K/mm3 (4.4-11.0)
[2020-08-02 15:11] LABS: Bedside Glucose 96 mg/dL (70-110)
[2020-08-02 15:31] LABS: ALB/GLOB Ratio 0.9 RATIO (0.9-2.4); AST(SGOT) 15 U/L (15-37); Alanine Aminotransfer ALT/SGPT 25 U/L (16-61); Albumin, Serum 3.3 g/dL (3.2-5.0); Alkaline Phosphatase 59 U/L (45-117); Anion Gap 7 (5-15); BUN 11 mg/dL (7-18); BUN/Creat Ratio 9.2 RATIO (10-20); Calcium,Total 7.5 mg/dL (8.5-10.1); Chloride 108 mmol/L (98-107); EST Glomerular Filtration Rate 66 mL/min (>60); Est Glom Filt Rate - Afr Amer 79 mL/min (>60); Globulin 3.7 g/dL (2.2-4.2); Glucose 95 mg/dL (74-106); Potassium 3.6 mmol/L (3.5-5.1); Sodium Level 142 mmol/L (136-145)
[2020-08-02 16:04] LABS: BNP,B-Type NATRIURETIC PEPTIDE 66.7 pg/mL (0-100)
[2020-08-02 16:18] VITALS: BP 150/84; PULSE 69; RESP 17; O2SAT 96
== END 2020-08-02 17:01 | disposition home or self-care (01) ==
PROVIDERS: Emergency Provider Emergency Medicine; PCP Internal Medicine
DX: J06.9 Acute upper respiratory infection, unspecified (principal); D64.9 Anemia, unspecified; R60.0 Localized edema; I10 Essential (primary) hypertension; K21.9 Gastro-esophageal reflux disease without esophagitis; M19.90 Unspecified osteoarthritis, unspecified site; E66.9 Obesity, unspecified; Z87.891 Personal history of nicotine dependence
CPT/HCPCS: 71045; 80053; 82962; 83880; 84484; 85025; 87426; 93005; 99284; A4216

== ENCOUNTER → 2020-08-20 09:26 | Outpatient (CLI) | payer OTHER, SELFPAY ==
[2020-08-09 14:45] VITALS: BMI 39.9
--- NOTE | 2020-08-20 14:34 | PFT ---
INTRODUCTION: The patient is a 59-year-old male that presents for pulmonary function studies secondary to a diagnosis of dyspnea. Respiratory therapy reports good patient effort. Bronchodilators were used during testing. INTERPRETATION: Forced expiration spirometry demonstrates no evidence of a large airways obstructive ventilatory defect. There was no significant response to aerosolized bronchodilators, based upon strict ATS criteria. Spirograms are of good quality and plateau normally. Body plethysmography was performed and reveals lung volumes to be within normal limits. Diffusing capacity by single breath CO is also within normal limits. IMPRESSION: Grossly normal pulmonary function studies.
== END ==
PROVIDERS: PCP Internal Medicine; Referring Provider Internal Medicine; Visit Provider Internal Medicine
DX: R06.00 Dyspnea, unspecified (principal)
CPT/HCPCS: 94060; 94726; 94729

== ENCOUNTER 2020-10-01 08:59 | Day surgery (SDC) | payer OTHER, SELFPAY ==
[2020-09-28 14:00] VITALS: BMI 40.1
[2020-09-28 16:22] LABS: Absolute Lymphocyte Count 3.04 X10^3/uL (0.83-4.51); Absolute Neutrophil Count 6.5 X10^3/uL (2.0-7.7); Basophil# 0.07 X10^3/uL; Basophil% 0.6 % (0-1); Eosinophil# 0.13 X10^3/uL; Eosinophils% 1.2 % (0-5); Hematocrit 44.4 % (40-54); Hemoglobin 13.7 g/dL (13.0-16.5); Lymphocyte # 3.04 X10^3/ul (4.0); Lymphocyte % 28.2 % (19-41); Mean Corp Hgb Conc 30.9 g/dL (32-36); Mean Corpuscular Hgb 25.6 pg (27.0-32.0); Mean Platelet Vol. 10.8 fl (6.2-12.0); Monocyte# 1.02 X10^3/uL; Monocyte% 9.5 % (0-10); NRBC Flagged by Analyzer 0 % (0-5); Neutrophil # 6.48 X10^3/uL (2.7-7.7); Platelet Count 360 K/mm3 (150-450); RBC Distribution Width CV 14.6 % (11.6-14.6); RBC Distribution Width SD 43.9 fl (35.1-43.9); Red Blood Count 5.35 M/mm3 (4.6-6.2); White Blood Count 10.8 K/mm3 (4.4-11.0)
[2020-09-28 16:32] LABS: Partial Thromboplast Time 26.4 Seconds (24.1-36.2)
[2020-09-28 16:46] LABS: Anion Gap 8 (5-15); BUN 16 mg/dL (7-18); BUN/Creat Ratio 12.7 RATIO (10-20); Calcium,Total 9.1 mg/dL (8.5-10.1); Chloride 104 mmol/L (98-107); Creatinine, Serum 1.26 mg/dL (0.70-1.30); EST Glomerular Filtration Rate 62 mL/min (>60); Est Glom Filt Rate - Afr Amer 75 mL/min (>60); Glucose 95 mg/dL (74-106); Potassium 4.2 mmol/L (3.5-5.1); Sodium Level 138 mmol/L (136-145)
[2020-09-30 08:41] VITALS: BMI 40.1
--- NOTE | 2020-10-01 09:21 | HP_ITS ---
HPI HPI History of Present Illness Details: This is a 59-year-old gentleman that presents here today for a cardiovascular follow-up. He recently established with us for concerns over shortness of breath. He did have an echocardiogram and January 2016 which demonstrated ejection fraction of 55% with no evidence of diastolic dysfunction. He did have a stress test in May 2020 in which she was able to walk on a Amarjit protocol for 5 minutes. He did not have any chest pain. Stress test was negative for ischemia. It was felt that his functional capacity was decreased for his age. BNP was normal. He has been discussing this with his primary care doctor. He did undergo a pulmonary function test which was essentially normal. He was referred to pulmonary for further evaluation. With our office visit we had attempted to do a CT of the chest to further evaluate his shortness of breath however this was denied. Pt did have an episode of chest pain 2 weeks ago that was concerning for angina to him. A few weeks ago he felt that he was doing better but now he feels SOB. His energy level has been low. Over his BP have been okay, his diastolics have still been high. He has not had any lightheadedness/dizziness. He does not have any edema. Intake Vital Signs 09/28/20 Height 5 ft 7 in 09/28/20 Weight: 256 lb 09/28/20 BMI 40.1 09/28/20 BP 131/83 H 09/28/20 Blood Pressure Location Lt brachial 09/28/20 Position Sitting 09/28/20 Respiration 18 09/28/20 Pulse Source Monitor 09/28/20 Pulse Oximetry (%) 97 Intake Visit Reasons: 1 M [employer] Required: No Accompanied by: None Is patient in pain?: No Allergies Sulfa (Sulfonamide Antibiotics) Allergy (Mild, Verified 09/28/20 13:58) RASH lisinopril Adverse Reaction (Verified 09/28/20 13:58) COUGH Medications tadalafil 5 mg tablet 5 mg PO DAILY 05/03/18 [History Confirmed 09/28/20] Ropinirole HCl [Requip] 1 mg PO DAILY 08/05/19 [History Confirmed 09/28/20] esomeprazole magnesium 40 mg capsule,delayed release 20 mg PO DAILY cap 02/11/20 [History Confirmed 09/28/20] furosemide 40 mg tablet 40 mg PO DAILY 02/11/20 [History Confirmed 09/28/20] indapamide 1.25 mg tablet 1.25 mg PO QAM 02/11/20 [History Confirmed 09/28/20] docusate sodium 100 mg capsule 100 mg PO DAILY 05/04/20 [History Confirmed 09/28/20] glucosamine sulfate 500 mg tablet 500 mg PO BID 05/04/20 [History Confirmed 09/28/20] potassium citrate 5 mEq (540 mg) tablet,extended release 5 meq PO QPM tab 06/11/20 [History Confirmed 09/28/20] albuterol sulfate 90 mcg/actuation aerosol inhaler 1 inh INHALATION ONCE PRN 06/16/20 [History Confirmed 09/28/20] cholecalciferol (vitamin D3) 50 mcg (2,000 unit) tablet ea PO 06/16/20 [History Confirmed 09/28/20] cyclobenzaprine 10 mg tablet 10 mg PO HS PRN 06/16/20 [History Confirmed 09/28/20] magnesium oxide 400 mg (241.3 mg magnesium) tablet 400 mg PO DAILY 06/16/20 [History Confirmed 09/28/20] naproxen sodium 220 mg tablet 440 mg PO BID PRN tab 06/16/20 [History Confirmed 09/28/20] testosterone 1 packet TRANSDERMAL DAILY #225 g 07/29/20 [Rx Confirmed 09/28/20] irbesartan 300 mg tablet 300 mg PO DAILY #90 tab 09/20/20 [Rx Confirmed 09/28/20] [facility] Medical History HTN (hypertension) (Chronic) Bilateral lower extremity edema (Chronic) Dyspnea on exertion (Acute) Biliary dyskinesia (Chronic) Abdominal pain (Chronic) Ileus (Resolved) Constipation (Chronic) RLS (restless legs syndrome) (Chronic) Chronic back pain (Chronic) Tobacco use (Chronic) BPH (benign prostatic hyperplasia) (Chronic) Lipoma (Chronic) Lipoma of breast (Chronic) Hemorrhoids (Chronic) Acid reflux (Chronic) Arthritis (Chronic) Bronchitis (Resolved) Carpal tunnel syndrome of left wrist (Resolved) DVT (deep venous thrombosis) (Resolved) Laceration of right index finger (Resolved) Surgical History Trigger finger of left hand (Resolved) History of carpal tunnel surgery of right wrist (Resolved) History of incision and drainage (Resolved) Hx of arthroscopic knee surgery (Resolved) Previous back surgery (Resolved) S/P carpal tunnel release (Resolved) Family History Mother Non-Hodgkin lymphoma Father Heart disease Social History (Updated 09/29/20 @ 08:31 by Harmony MCNAMARA, PA) Smoking Status: Former smoker how long ago did patient quit smoking: August 01, 2019 alcohol intake: never substance use type: does not use caffeine: Yes what type of physical activity do you participate in: other details: Golfing frequency: 3-4 times per week seatbelt use: always ROS Const Const: Positive for fatigue; negative for weakness, fever(s) or headache(s) Eyes Eyes: Negative for blind spots, loss of peripheral vision or transient loss of vision ENT ENT: Negative for headache(s), dizziness, tinnitus or Nosebleed/epistaxis Cardio Chest Pain: Yes Palpitations: No Edema: Bilateral Muscle aches with walking: None Resp Respiratory: Positive for SOB with activity; negative for SOB at rest, SOB orthopnea\SOB lying down or Cough GI GI: Negative nausea, vomiting, heartburn or vomiting blood/hematemesis : Negative for hematuria Musc Musc: Negative for muscle aches/ myalgia Neuro Neuro: Negative for dizziness, lightheadedness, near syncope, syncope, orthostatic symptoms, headache(s) or weakness Daniel Hematologic/Lymphatic: Negative for easy bleeding Endo Endo: Positive for fatigue Cardiology Exam Const Appearance: cooperative, no acute distress and well developed Orientation: alert, awake and oriented x3 Head Head: normocephalic and atraumatic Mouth: moist mucous membranes Eyes General: appearance normal, both eyes and all related structures Conjunctivae: conjunctivae normal Pupils: PERRL EOM: EOM intact bilaterally Neck Neck: normal visual inspection, no lymphadenopathy and no JVD Carotids: Negative bruit Neck Mass: Negative Neck mass Chest Chest inspection: normal inspection of the chest and symmetric chest movement Auscultation: Bilateral: Clear to Auscultation Cardio Palpation: normal PMI Rate: regular rate Rhythm: regular rhythm Heart sounds: S1 normal and S2 normal; negative rub, gallop or murmur GI GI: normal to inspection, soft, no hepatosplenomegaly and bowel sounds present; negative tender Neuro General: alert, awake, oriented x3, CN's II-XI intact bilaterally and moves all extremities Extremities Pulses: Normal: Right Posterior Tibial Pulse, Left Posterior Tibial Pulse, Right Radial Pulse, Left Radial Pulse Lower Extremity Edema: None: Bilateral Psych Psychological: normal affect Assessment & Plan Problems 1. HTN (hypertension) I10 2. JEFFERSON (dyspnea on exertion) R06.00 3. Chest pain on exertion R07.9 Plan With patient's chest discomfort concerned that this could be angina related. He does have shortness of breath with exertion which has been newer for him. The chest discomfort was also a decrease in newer. Stress test was not negative but he did have functional capacity. Reviewed with Dr. Kenyon, would like to proceed with a diagnostic heart catheterization to further assess. 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, if you have a stent you will spend the night In of take with a small sip of water: nexium, indapamide, irbesartan, mag ox Start a baby ASA Orders Orders: 12 Lead EKG performed by BMS 09/28/20 R07.9 Left Heart Cath/COR/LV Percut 09/28/20 I10, R06.00, R07.9 Basic Metabolic Profile (BMP) 09/28/20 I10, R06.00, R07.9 Partial Thromboplast Time 09/28/20 I10, R06.00, R07.9 Prothrombin Time w/INR 09/28/20 I10, R06.00, R07.9 CBC W/Diff, Automated 09/28/20 I10, R06.00, R07.9 Coding Level of Care Code Off vis,est,level 4 Diagnoses HTN (hypertension) I10 JEFFERSON (dyspnea on exertion) R06.00 Chest pain on exertion R07.9 Coding Level of Care Code Off vis,est,level 4 Diagnoses HTN (hypertension) I10 JEFFERSON (dyspnea on exertion) R06.00 Chest pain on exertion R07.9 Supplemental Info Supplemental Information Stress Test Report Date: 05/17/2020 Procedure: Exercise tolerance test Indications: Dyspnea on exertion Consent: Per the patient Procedure: The patient exercised on a Amarjit protocol for 5 minutes achieving a peak heart rate of 151 bpm (94% predicted maximal heart rate) with a peak blood pressure 220/86 mmHg and a peak MET capacity of approximately 7 MET's. The baseline ECG demonstrated normal sinus rhythm. The peak exercise ECG demonstrated no significant ischemic ST-T changes. There were occasional PVCs with occasional 3 beat runs. The functional capacity was considered decreased for age. The patient had no complaint of chest discomfort during exercise or recovery. The examination was discontinued secondary to dyspnea. Impression: 1. Technically adequate (percent predicted maximal heart rate greater than 85%) exercise tolerance test 2. Stress test is negative for exercise-induced chest pain. 3. Stress test test is negative for exercise-induced EKG changes of ischemia. 4. Functional capacity is decreased for age Diagnostics Electrocardiogram 09/28/20 Chest X-Ray 08/02/20 Pulmonary Pulmonary Function Test 08/20/20
--- NOTE | 2020-10-01 15:25 | CL.D_ITS ---
Patient Name: CEE PORTILLO Study Date: 10/01/2020 Performing: Rick Kenyon MD Ht: 67 inches 170 cm : 1960 Wt: 256.1 lbs 116 kg Age: 59 Gender: male BSA: 2.24 PROCEDURE(S) PERFORMED AG36-ITT/COR/LV CLINICAL PROFILE AND INDICATIONS Indications: Worsening Angina Heart Failure: None CAD Presentations: Unstable angina. CONCLUSIONS No significant CAD. Preserved EF. No significant or MR RECOMMENDATIONS DESCRIPTION OF PROCEDURE The patient arrived to the procedure lab. The risks and benefits of the procedure as well as a full d escription of our services here and current unavailability of surgical backup were fully explained to the patient and/or their significant other prior to the catheterization. The Timeout was completed, verifying the correct patient and procedure. The patient's procedural site was prepped and draped in the usual fashion. Local anesthetic was given subcutaneously to right radial region with Lidocaine 2% . Using a modified Seldinger technique, arterial access was obtained via the right radial artery, a 6 Fr sheath was inserted. Left Coronary Artery selective angiography was performed in multiple views u sing a 5 Fr. JL3.5 catheter. Left Ventriculography was performed in BUNCH projection using a 5 Fr. JR 4 .0. LV to AO pullback pressures were then recorded. Right Coronary Artery selective angiography was t hen performed in multiple views using a 5 Fr. JR 4 catheter.The arterial sheath was pulled and a TR Band was applied for hemostasis 14cc air CORONARY ANGIOGRAPHY DOMINANCE: Right Dominant LEFT HEART ASSESSMENT Left Ventricular Ejection Fraction: by LV Gram 60 % LEFT MAIN: Mild luminal irregularities LEFT ANTERIOR DESCENDING ARTERY: Mild luminal irregularities CIRCUMFLEX ARTERY: Mild luminal irregularities RIGHT CORONARY ARTERY: Mild luminal irregularities VALVE FINDINGS: No Aortic Valve Stenosis No Mitral Insufficency COMPLICATIONS No Complications PROCEDURE MEDICATIONS Fentanyl 50 mcg IV Versed 1 mg IV Oxygen: 2 L/min via nasal cannula SUMMARY OF HEMODYNAMIC DATA Time AIR REST ECG 09:24:01 AO 130/80 (101) SA 10:44:40 LV 142/-6, 14 10:50:16 LV 148/-6, 16 10:50:22 LV 141/-7, 12 10:51:16 LV 144/-6, 14 10:51:22 LVp 133/-3, 17 10:51:40 AOp 128/72 (95) 10:51:46 Signed By Rick Kenyon MD On 10/01/2020 15:24:54 Rick Kenyon MD
== END 2020-10-01 13:00 | disposition home or self-care (01) ==
LOC: CLSP 09:01
PROVIDERS: Physician Assistant Medical; PCP Internal Medicine; Referring Provider Specialist; Visit Provider Specialist
DX: R06.09 Other forms of dyspnea (principal); R07.9 Chest pain, unspecified; I10 Essential (primary) hypertension; K21.9 Gastro-esophageal reflux disease without esophagitis; M19.90 Unspecified osteoarthritis, unspecified site; Z79.899 Other long term (current) drug therapy; Z87.891 Personal history of nicotine dependence
CPT/HCPCS: 36415; 80048; 85025; 85610; 85730; 93458; 99152; 99153; J7040; Q9967; C1769; C1894

== ENCOUNTER → 2020-10-19 12:30 | Outpatient (CLI) | payer OTHER, SELFPAY ==
[2020-09-30 08:41] VITALS: BMI 40.1
[2020-10-26 15:32] LABS: Testosterone, % Free 3.63 % (1.50-4.20); Testosterone, Total 358 ng/dL (264-916)
== END ==
PROVIDERS: PCP Internal Medicine; Referring Provider Internal Medicine; Visit Provider Internal Medicine
DX: R79.89 Other specified abnormal findings of blood chemistry (principal)
CPT/HCPCS: 36415; 84402; 84403

== ENCOUNTER 2020-10-22 14:20 | Outpatient (RCR) | payer OTHER, SELFPAY ==
[2020-09-30 08:41] VITALS: BMI 40.1
[2020-10-22] MEDS: COVID-19 VACC, MRNA(PFIZER)/PF 30 MCG/0.3 ML SYRINGE IM (13:11)
[2020-11-12] MEDS: COVID-19 VACC, MRNA(PFIZER)/PF 30 MCG/0.3 ML SYRINGE IM (13:01)
== END 2020-10-22 23:59 ==
LOC: IMMUN 14:20
PROVIDERS: PCP Internal Medicine; Visit Provider Family Medicine
DX: Z23 Encounter for immunization (principal)
CPT/HCPCS: 0001A; 0002A; 91300

== ENCOUNTER → 2021-03-09 15:33 | Outpatient (CLI) | payer OTHER, SELFPAY ==
[2020-09-30 08:41] VITALS: BMI 40.1
[2021-03-09 20:47] LABS: Amphetamine Urine VISTA NEGATIVE (<1000 ng/mL); Barbiturate Urine VISTA NEGATIVE (< 200 ng/mL); Benzodiazepine Urine VISTA NEGATIVE (< 200 ng/mL); Cocaine Urine VISTA NEGATIVE (< 300 ng/mL); Ecstacy Urine VISTA NEGATIVE (< 500 ng/mL); Methadone Urine VISTA NEGATIVE (< 300 ng/mL); PCP Urine VISTA NEGATIVE (< 25 ng/mL); THC Urine VISTA NEGATIVE (< 50 ng/mL); Vista UDS pH Range 5
== END ==
LOC: LABSPEC 15:34 → LAB 03-10 06:13
PROVIDERS: PCP Internal Medicine; Referring Provider Anesthesiology Pain Medicine; Visit Provider Anesthesiology Pain Medicine
DX: F11.20 Opioid dependence, uncomplicated (principal)
CPT/HCPCS: 80307

== ENCOUNTER → 2021-03-14 10:33 | Outpatient (CLI) | payer OTHER, SELFPAY ==
[2021-03-14 09:15] VITALS: BMI 40.1
[2021-03-14 12:05] LABS: Absolute Lymphocyte Count 1.96 X10^3/uL (0.83-4.51); Absolute Neutrophil Count 6.4 X10^3/uL (2.0-7.7); Basophil# 0.07 X10^3/uL; Basophil% 0.8 % (0-1); Eosinophil# 0.14 X10^3/uL; Eosinophils% 1.5 % (0-5); Hematocrit 44.7 % (40-54); Hemoglobin 13.3 g/dL (13.0-16.5); Lymphocyte # 1.96 X10^3/ul (0.83-4.51); Lymphocyte % 21.1 % (19-41); Mean Corp Hgb Conc 29.8 g/dL (32-36); Mean Corpuscular Hgb 23.5 pg (27.0-32.0); Mean Corpuscular Volume 79.1 fL (80-94); Mean Platelet Vol. 10.2 fl (6.2-12.0); Monocyte# 0.73 X10^3/uL; Monocyte% 7.9 % (0-10); NRBC Flagged by Analyzer 0 % (0-5); Neutrophil # 6.35 X10^3/uL (2.7-7.7); Neutrophil % 68.3 % (47-70); Platelet Count 342 K/mm3 (150-450); RBC Distribution Width CV 16.8 % (11.6-14.6); RBC Distribution Width SD 46.9 fl (35.1-43.9); Red Blood Count 5.65 M/mm3 (4.6-6.2); White Blood Count 9.3 K/mm3 (4.4-11.0)
[2021-03-14 12:26] LABS: ALB/GLOB Ratio 0.9 RATIO (0.9-2.4); AST(SGOT) 21 U/L (15-37); Alanine Aminotransfer ALT/SGPT 30 U/L (16-61); Albumin, Serum 3.9 g/dL (3.2-5.0); Alkaline Phosphatase 77 U/L (45-117); Anion Gap 6 (5-15); BUN 15 mg/dL (7-18); BUN/Creat Ratio 13.5 RATIO (10-20); Calcium,Total 8.8 mg/dL (8.5-10.1); Chloride 104 mmol/L (98-107); Cholesterol 197 mg/dL (200); Creatinine, Serum 1.11 mg/dL (0.70-1.30); EST Glomerular Filtration Rate 72 mL/min (>60); Est Glom Filt Rate - Afr Amer 87 mL/min (>60); Globulin 4.5 g/dL (2.2-4.2); Glucose 108 mg/dL (74-106); High Density Lipoprotein 32 mg/dL; Iron 56 ug/dL (65-175); Iron Binding Capacity,Total 430 ug/dL (250-450); Magnesium 2.2 mg/dL (1.6-2.6); PSA,Total - Annual Screen 1.25 ng/mL (0.00-4.00); Potassium 4.3 mmol/L (3.5-5.1); Protein, Total 8.4 g/dL (6.4-8.2); Sodium Level 136 mmol/L (136-145); Thyroid Stim Hormone (TSH) 1.87 uIU/mL (0.358-3.74); Triglycerides 238 mg/dL; Very Low Density Lipoprotein 48 mg/dL (5-40); Vitamin D,25 Hydroxy 51.6 ng/mL
[2021-03-14 12:34] LABS: Hemoglobin A1c 6.2 % (3.8-5.6)
[2021-03-17 12:08] LABS: Testosterone, Free 4.09 ng/dL (5.00-21.00)
[2021-03-17 13:20] LABS: Testosterone, % Free 3.53 % (1.50-4.20); Testosterone, Total 116 ng/dL (264-916)
== END ==
PROVIDERS: PCP Internal Medicine; Referring Provider Internal Medicine; Visit Provider Internal Medicine
DX: G25.81 Restless legs syndrome (principal); I10 Essential (primary) hypertension; M19.90 Unspecified osteoarthritis, unspecified site; N40.0 Benign prostatic hyperplasia without lower urinary tract symptoms; D64.9 Anemia, unspecified; R06.00 Dyspnea, unspecified
CPT/HCPCS: 36415; 80053; 80061; 82306; 83036; 83540; 83550; 83735; 84153; 84402; 84403; 84443; 85025; G0103

== ENCOUNTER → 2021-03-26 | Outpatient (CLI) | payer OTHER, SELFPAY | END | disposition home or self-care (01) | LOC: LABSPEC 04-14 13:38 | PROVIDERS: PCP Internal Medicine; Visit Provider Nurse Practitioner Family | DX: U07.1 COVID-19 (principal) | CPT/HCPCS: 87635; U0005; U0003 ==

== ENCOUNTER 2021-03-30 15:17 | Outpatient (CLI) | payer OTHER, SELFPAY ==
[2021-03-30] MEDS: 0.9% Saline Lock 10 ML Syringe IV (15:37)
[2021-03-30 15:49] VITALS: BP 155/93; PULSE 96; RESP 20; TEMP 36.9; O2SAT 95; BMI 40.7
[2021-03-30 16:18] VITALS: BP 121/79; PULSE 94; RESP 16; TEMP 36.8; O2SAT 98
[2021-03-30 17:18] VITALS: BP 118/84; PULSE 94; RESP 16; TEMP 37; O2SAT 96
== END 2021-03-30 17:30 | disposition home or self-care (01) ==
LOC: ICUOUT 15:17 → MS2 15:18
PROVIDERS: PCP Internal Medicine; Referring Provider Nurse Practitioner Acute Care; Visit Provider Nurse Practitioner Acute Care
DX: Z23 Encounter for immunization (principal); U07.1 COVID-19
CPT/HCPCS: J7050; M0243; A4216; Q0244

== ENCOUNTER → 2021-05-03 15:39 | Outpatient (CLI) | payer OTHER, SELFPAY ==
--- NOTE | 2021-05-03 15:40 | RAD_ITS ---
STUDY: X-RAY - RIGHT KNEE REASON FOR EXAM: Male, 60 years old. Right knee strain after falling 2 weeks ago TECHNIQUE: 5 view(s) of the knee. COMPARISON: None. FINDINGS: Normal visualized distal femur. Normal visualized proximal tibia and fibula. Normal proximal tibiofibular articulation. There is no demonstrated fracture. Mild narrowing of the medial femorotibial compartment. Normal lateral femorotibial compartment. There is mild degenerative arthrosis of the patellofemoral articulation. There is a soft tissue prominence in the suprapatellar region suggesting a small volume joint effusion. The soft tissue structures are unremarkable. RAD/Knee 4 or More Views IMPRESSION: Small joint effusion. Electronically Signed: Ad Cooper MD (Brooks) at 16:10 EDT , Service support ,
== END ==
PROVIDERS: PCP Internal Medicine; Referring Provider Physician Assistant Surgical; Visit Provider Physician Assistant Surgical
DX: S86.911A Strain of unspecified muscle(s) and tendon(s) at lower leg level, right leg, initial encounter (principal)
CPT/HCPCS: 73564

== ENCOUNTER → 2021-07-12 11:16 | Outpatient (CLI) | payer OTHER, SELFPAY ==
[2021-07-12 13:24] LABS: BNP,B-Type NATRIURETIC PEPTIDE 14.1 pg/mL (0-100)
== END ==
PROVIDERS: PCP Internal Medicine; Referring Provider Internal Medicine Pulmonary Disease; Visit Provider Internal Medicine Pulmonary Disease
DX: I50.30 Unspecified diastolic (congestive) heart failure (principal)
CPT/HCPCS: 36415; 83880

== ENCOUNTER → 2021-07-19 07:15 | Outpatient (CLI) | payer OTHER, SELFPAY ==
--- NOTE | 2021-07-19 07:17 | CT_ITS ---
EXAM: CT CHEST, LUNG CANCER SCREENING WITHOUT INTRAVENOUS CONTRAST : 1960 CLINICAL INDICATION: TOBACCO ABUSE TECHNIQUE: Helically acquired images were obtained of the chest without intravenous contrast using low dose (LDCT) lung cancer screening protocol. This CT exam was performed using one or more of the following dose reduction techniques: automated exposure control, adjustment of the mA and/or kV according to patient size, and/or use of iterative reconstruction technique. This report was created using [employer] report generation technology. COMPARISON: None. FINDINGS: LUNGS AND PLEURAL SPACES: Unremarkable. No mass. No consolidation or edema. No pleural effusion or thickening. No pneumothorax. HEART: Unremarkable. Heart size is normal. No pericardial effusion. MEDIASTINUM: Unremarkable. No mediastinal or hilar adenopathy. Esophagus is unremarkable. No hiatal hernia. THYROID: Unremarkable. No thyroid lesions. BONES/JOINTS: Unremarkable. No suspicious lytic or blastic abnormality. SOFT TISSUES: Small fat-containing right Bochdalek hernias noted. VASCULATURE: Unremarkable. Thoracic aorta is non-dilated. LYMPH NODES: Unremarkable. No enlarged lymph nodes. CT/Low Dose CT Lung Screening IMPRESSION: 1. No evidence of lung mass or pulmonary nodule. 2. ACR Lung CT Screening Reporting T Data System (Lung-RADS) score: 1 - Recommend continued annual screening with low-dose CT (LDCT) in 12 months. Individualized dose optimization techniques were used for this CT. at 0815 Reported and signed by: Juvencio Saeed MD Electronically Signed: Juvencio Saeed MD at 8:14 EST Tel , Service support ,
== END ==
PROVIDERS: PCP Internal Medicine; Referring Provider Internal Medicine Pulmonary Disease; Visit Provider Internal Medicine Pulmonary Disease
DX: Z12.2 Encounter for screening for malignant neoplasm of respiratory organs (principal); F17.210 Nicotine dependence, cigarettes, uncomplicated
CPT/HCPCS: 71271

== ENCOUNTER 2021-09-07 10:47 | Outpatient (CLI) | payer BC, SELFPAY ==
[2021-09-07 12:13] LABS: Absolute Lymphocyte Count 1.86 X10^3/uL (0.83-4.51); Basophil# 0.06 X10^3/uL; Basophil% 0.7 % (0-1); Eosinophil# 0.08 X10^3/uL; Eosinophils% 0.9 % (0-5); Lymphocyte # 1.86 X10^3/ul (0.83-4.51); Lymphocyte % 20.7 % (19-41); Mean Corp Hgb Conc 33.3 g/dL (32-36); Mean Corpuscular Hgb 28.8 pg (27.0-32.0); Mean Corpuscular Volume 86.5 fL (80-94); Mean Platelet Vol. 10.4 fl (6.2-12.0); Monocyte# 0.94 X10^3/uL; Monocyte% 10.5 % (0-10); NRBC Flagged by Analyzer 0 % (0-5); Neutrophil # 5.99 X10^3/uL (2.7-7.7); Neutrophil % 66.8 % (47-70); Platelet Count 311 K/mm3 (150-450); RBC Distribution Width CV 14.1 % (11.6-14.6); RBC Distribution Width SD 44.6 fl (35.1-43.9)
[2021-09-07 12:29] LABS: AST(SGOT) 15 U/L (15-37); Alanine Aminotransfer ALT/SGPT 30 U/L (16-61); Albumin, Serum 3.9 g/dL (3.2-5.0); Alkaline Phosphatase 64 U/L (45-117); Anion Gap 8 (5-15); BUN 23 mg/dL (7-18); BUN/Creat Ratio 18.7 RATIO (10-20); Calcium,Total 8.3 mg/dL (8.5-10.1); Chloride 100 mmol/L (98-107); Cholesterol 182 mg/dL (200); Creatinine, Serum 1.23 mg/dL (0.70-1.30); EST Glomerular Filtration Rate 63 mL/min (>60); Est Glom Filt Rate - Afr Amer 77 mL/min (>60); Globulin 3.9 g/dL (2.2-4.2); Glucose 105 mg/dL (74-106); High Density Lipoprotein 33 mg/dL; Potassium 3.9 mmol/L (3.5-5.1); Protein, Total 7.8 g/dL (6.4-8.2); Sodium Level 134 mmol/L (136-145); Triglycerides 183 mg/dL; Very Low Density Lipoprotein 37 mg/dL (5-40)
[2021-09-07 12:31] LABS: Vitamin D,25 Hydroxy 39.8 ng/mL
[2021-09-10 18:07] LABS: Testosterone, Free 5.54 ng/dL (5.00-21.00)
[2021-09-10 22:43] LABS: Testosterone, % Free 2.06 % (1.50-4.20); Testosterone, Total 269 ng/dL (264-916)
== END 2021-09-07 23:59 | disposition short-term general hospital (02) ==
LOC: BIMLAB 10:49
PROVIDERS: PCP Internal Medicine; Referring Provider Internal Medicine; Visit Provider Internal Medicine
DX: I10 Essential (primary) hypertension (principal); E29.1 Testicular hypofunction; N40.0 Benign prostatic hyperplasia without lower urinary tract symptoms; K21.9 Gastro-esophageal reflux disease without esophagitis
CPT/HCPCS: 36415; 80053; 80061; 82306; 84402; 84403; 85025

== ENCOUNTER → 2022-04-25 | Outpatient (CLI) | payer BC, SELFPAY ==
[2022-04-25 16:52] LABS: Amphetamine Urine VISTA NEGATIVE (<1000 ng/mL); Barbiturate Urine VISTA NEGATIVE (< 200 ng/mL); Benzodiazepine Urine VISTA NEGATIVE (< 200 ng/mL); Cocaine Urine VISTA NEGATIVE (< 300 ng/mL); Ecstacy Urine VISTA NEGATIVE (< 500 ng/mL); Methadone Urine VISTA NEGATIVE (< 300 ng/mL); PCP Urine VISTA NEGATIVE (< 25 ng/mL); THC Urine VISTA NEGATIVE (< 50 ng/mL); Vista UDS pH Range 4
== END | disposition home or self-care (01) ==
PROVIDERS: PCP Internal Medicine; Referring Provider Anesthesiology Pain Medicine; Visit Provider Anesthesiology Pain Medicine
DX: F11.20 Opioid dependence, uncomplicated (principal)
CPT/HCPCS: 80307

== ENCOUNTER 2022-05-04 10:53 | Emergency (ER) | payer OTHER, SELFPAY ==
[2022-05-04 10:53] VITALS: BP 155/101; PULSE 71; RESP 16; TEMP 36.6; O2SAT 100; BMI 36.8
[2022-05-04 10:58] VITALS: BMI 36.8
--- NOTE | 2022-05-04 11:12 | CT_ITS ---
STUDY: CT BRAIN WITHOUT CONTRAST REASON FOR EXAM: Male, 61 years old. Left facial droop RADIATION DOSAGE (If Supplied By Facility): CTDIvol = ( 44.99 ) mGy, DLP = ( 812.98 ) mGycm TECHNIQUE: Transaxial CT imaging of the brain was performed without administration of intravenous contrast material. Individualized dose optimization techniques were used for this CT. COMPARISON: No relevant priors. FINDINGS: Normal soft tissue structures. Normal calvarium. Normal size ventricles and extra-axial spaces for the patient''s age. Normal white matter tracts of the cerebral hemispheres. Normal basal ganglia and thalami. Normal brainstem. Normal cerebellum. There is no intracranial hemorrhage. There are no findings of an acute ischemic infarction. Mucosal thickening at the base of the right maxillary sinus. CT/Brain/Head without Contrast IMPRESSION: Normal unenhanced CT scan of the brain. Electronically Signed: Nic So MD at 11:39 EDT ,
--- NOTE | 2022-05-04 11:12 | CT_ITS ---
STUDY: CT CERVICAL SPINE WITHOUT CONTRAST REASON FOR EXAM: Male, 61 years old. Left neck pain RADIATION DOSAGE (If Supplied By Facility): CTDIvol = ( 29.69 ) mGy, DLP = ( 699.91 ) mGycm TECHNIQUE: High resolution transaxial imaging was performed without contrast material. Sagittal and coronal images were reconstructed. Individualized dose optimization techniques were used for this CT. COMPARISON: None FINDINGS: Normal craniovertebral junction. Normal anterior atlantoaxial articulation. Normal odontoid process. Normal cervical lordosis. Normal vertebral bodies and posterior osseous elements. C2-3: Normal endplates. Normal disc height and morphology. Normal central canal and intervertebral neuroforamina. C3-4: Facet joint osteoarthritis and hypertrophy more prominent on the left side. No significant stenosis seen. C4-5: Mild degree of disc space narrowing. Facet joint osteoarthritis and hypertrophy on the left side. No significant stenosis seen. C5-6: Marked degree of disc space narrowing with spondylosis. Uncovertebral arthrosis. Left-sided facet joint hypertrophy. Moderate degree of bilateral neural foraminal stenosis. C6-7: Marked degree of disc space narrowing and spondylosis. Uncovertebral arthrosis. Moderate degree of bilateral neural foraminal stenosis. C7-T1: Normal endplates. Normal disc height and morphology. Normal central canal and intervertebral neuroforamina. Normal visualized soft tissue structures. CT/Spine Cervical without Contras IMPRESSION: Multilevel degenerative changes, as described above. Electronically Signed: Nic So MD at 11:41 EDT ,
[2022-05-04] MEDS: predniSONE 20 MG Tablet 60 MG PO (11:17)
--- NOTE | 2022-05-04 12:37 | EX.ED.DYSGE1 ---
HPI History of Present Illness Chief Complaint: Neuro S/Sx Informant: patient and spouse/S.O. Narrative Narrative: Presents with increasing left-sided facial weakness since 5 PM yesterday. He reported left ear pain first yesterday. Denies recent illness. No fevers. No congestion. Been dealing with left-sided neck pain for last 3 weeks. No radicular symptoms. He sees pain management for his back. Denies any neck injuries. Denies paresthesias.Is borderline diabetic with well diet controlled. Prior similar symptoms: No PFSH PFSH Medical History Abdominal pain Acid reflux Arthritis Bilateral lower extremity edema Biliary dyskinesia Borderline diabetes BPH (benign prostatic hyperplasia) Bronchitis Carpal tunnel syndrome of left wrist Chronic back pain Constipation DVT (deep venous thrombosis) Dyspnea on exertion Essential hypertension Hemorrhoids Ileus Laceration of right index finger Left facial numbness Lipoma Lipoma of breast RLS (restless legs syndrome) Tobacco use Uncontrolled hypertension Weakness of left side of body Home Medications glucosamine sulfate 500 mg tablet (Glucosamine) 500 mg PO DAILY 05/04/20 [History Last Taken Unknown] albuterol sulfate 90 mcg/actuation aerosol inhaler (ProAir HFA) 1 inh inhalation ONCE PRN Sob &/Or Wheezing 06/16/20 [History Last Taken Unknown] cholecalciferol (vitamin D3) 50 mcg (2,000 unit) tablet 1 ea PO DAILY 06/16/20 [History Last Taken Unknown] naproxen sodium 220 mg tablet 440 mg PO BID PRN Pain 1-10 Or Fever 06/16/20 [History Last Taken Unknown] aspirin 81 mg chewable tablet 81 mg PO DAILY@0800 10/01/20 [History Last Taken 10/01/20] magnesium oxide 400 mg (241.3 mg magnesium) tablet 400 mg PO DAILY #90 tabs 03/14/21 [Rx Last Taken Unknown] budesonide 160 mcg-glycopyr 9 mcg-formot 4.8 mcg/actuation HFA inhaler (Breztri Aerosphere) 2 inh inhalation BID 09/19/21 [History Last Taken Unknown] fluticasone propionate 50 mcg/actuation nasal spray,suspension 1 spray intranasal DAILY 09/19/21 [History Last Taken Unknown] ipratropium bromide 42 mcg (0.06 %) nasal spray 2 spray intranasal BID 09/19/21 [History Last Taken Unknown] multivitamin 1 tab PO DAILY 09/19/21 [History Last Taken Unknown] furosemide 40 mg tablet 40 mg PO DAILY #90 tabs 09/21/21 [Rx Last Taken Unknown] indapamide 1.25 mg tablet 1.25 mg PO QAM #90 tabs 09/21/21 [Rx Last Taken Unknown] potassium citrate 5 mEq (540 mg) tablet,extended release 5 meq PO QPM #90 tabs 02/14/22 [Rx Last Taken Unknown] terazosin 5 mg capsule 5 mg PO DAILY #90 caps 02/15/22 [Rx Last Taken Unknown] testosterone 1 % (25 mg/2.5 gram) transdermal gel packet 1 packet transdermal DAILY #225 grams 02/15/22 [Rx Last Taken Unknown] omeprazole 40 mg capsule,delayed release 40 mg PO DAILY #90 caps 03/13/22 [Rx Last Taken Unknown] ferrous sulfate 325 mg (65 mg iron) tablet (Feosol) 325 mg PO DAILY 03/21/22 [History Last Taken Unknown] meloxicam 7.5 mg tablet 7.5 mg PO DAILY 03/21/22 [History Last Taken Unknown] tramadol 50 mg tablet 50 mg PO BID PRN 03/21/22 [History Last Taken Unknown] sildenafil 100 mg tablet 100 mg PO DAILY PRN sexual activity #90 tabs 04/18/22 [Rx Last Taken Unknown] prednisone 20 mg tablet 60 mg PO DAILY #18 tabs 05/04/22 [Rx Last Taken Unknown] valacyclovir 1 gram tablet 1,000 mg PO TID #21 tabs 05/04/22 [Rx Last Taken Unknown] Allergy/AdvReac Type Severity Reaction Status Date / Time Sulfa (Sulfonamide Allergy Mild RASH Verified 03/21/22 11:08 Antibiotics) adhesive tape Allergy Unknown unknown Verified 03/21/22 11:08 lisinopril AdvReac COUGH Verified 03/21/22 11:08 Family History Mother Non-Hodgkin lymphoma Father Heart disease Surgical History History of carpal tunnel surgery of right wrist History of incision and drainage History of left heart catheterization (~10/01/20) Hx of arthroscopic knee surgery Previous back surgery S/P carpal tunnel release Trigger finger of left hand Social History Smoking Status: Former smoker how long ago did patient quit smoking: August 01, 2019 alcohol intake: never substance use type: does not use caffeine: Yes what type of physical activity do you participate in: other details: Golfing frequency: 3-4 times per week seatbelt use: always ROS ROS ED Constitutional Constitutional ED: Denies chills, fever(s) or sweats Eyes Eyes: Denies change in vision ENT ENT ED: Denies dysphagia or sore throat Cardiovascular Cardiovascular: Denies chest pain, leg edema, palpitations or racing heartbeat Respiratory/Chest Respiratory/Chest: Denies cough, dyspnea or dyspnea on exertion Gastrointestinal Gastrointestinal: Denies abdominal pain, diarrhea, nausea or vomiting Genitourinary Genitourinary ED: Denies dysuria, hematuria or urinary frequency Musculoskeletal Musculoskeletal: Reports neck pain; Denies back pain or extremity pain Integumentary Denies rash or wounds Neurologic Neurologic: Reports weakness; Denies headache(s) or paresthesias EXAM Physical Exam Const Vital Signs: 05/04/22 10:53 05/04/22 12:46 Temperature 97.8 F Temperature Source Temporal Pulse Rate 71 88 Respiratory Rate 16 16 Blood Pressure 155/101 H 153/96 H Blood Pressure Mean 119 Pulse Ox 100 98 Oxygen Delivery Method Room Air Positive well nourished and well developed General Appearance ED: well developed and NAD HEENT Reports moist mucous membranes HEENT Narrative: Slight lip droop on the left there is weakness to closure of the left eye and there was mild weakness of the left forehead area. Sensation is all intact and symmetric bilaterally. TMs are clear no lesions in the external canal. No facial lesions. normocephalic and atraumatic Eyes PERRL, EOMs intact bilaterally and conjunctivae normal General Eye ED: Yes normal appearance of both eyes Neck no lymphadenopathy and supple Neck Narrative: Spurling's test negative bilaterally. General: Negative for tenderness Chest Wall Chest: Negative for tenderness Resp normal respiratory effort and normal air movement Effort and Inspection: symmetric chest movement; Negative for respiratory distress Cardio regular rate, regular rhythm and no murmurs Peripheral Pulses: pulses 2+ throughout GI normal to inspection, nondistended, normoactive bowel sounds and non-tender Palpation: Negative for guarding or rebound tenderness present Back/Spine no CVA tenderness and no thoracic nor lumbar tenderness Extremity normal to inspection General Extremety ED: Negative for edema or tenderness General Extremity: Negative for edema Neuro oriented x3 and no sensory deficits noted Sensorium / Orientation: awake and alert Skin no rashes or lesions noted and no wounds MDM MDM MDM Narrative Medical decision making narrative: Patient with clinical partial Desir's palsy left side. Sensations intact therefore not likely stroke. There is motor weakness. She reports mild headache, reports neck pain. CT head and neck obtain normal brain scan multilevel degenerative changes in cervical spine consistent with his left-sided neck pain in the left side. For his Desir's palsy is started on prednisone. Prescription for valacyclovir along with prednisone for 7 days with follow-up with his PCP. He sees pain management doctor Viridiana for his back. He is currently on steroids he will monitor symptoms and follow-up as an outpatient for further management. All questions were answered. Radiography Diagnostic Testing: Clinical Impression(s) from Imaging Studies Brain CT 05/04/22 11:12 IMPRESSION: Normal unenhanced CT scan of the brain. Electronically Signed: Nic So MD at 11:39 EDT , Cervical Spine CT 05/04/22 11:12 IMPRESSION: Multilevel degenerative changes, as described above. Electronically Signed: Nic So MD at 11:41 EDT , Discharge Plan Triage Chief Complaint: Neuro S/Sx ED Provider: Luis Eller Dx/Rx/DC Orders Clinical Impression: Left-sided Desir's palsy, Degenerative disc disease, cervical, Neck pain Instructions: Desir's Palsy, ED Osteoarthritis Prescriptions: New prednisone 20 mg tablet 60 mg PO DAILY Qty: 18 0RF Rx Instructions: Next dose 05/05/2022 valacyclovir 1 gram tablet 1,000 mg PO TID Qty: 21 0RF No Action albuterol sulfate [ProAir HFA] 90 mcg/actuation HFA aerosol inhaler 1 inh INHALATION ONCE PRN (Reason: Sob &/Or Wheezing) glucosamine sulfate [Glucosamine] 500 mg tablet 500 mg PO DAILY Rx Instructions: administer with meals naproxen sodium 220 mg tablet 440 mg PO BID PRN (Reason: Pain 1-10 Or Fever) cholecalciferol (vitamin D3) 50 mcg (2,000 unit) tablet 1 ea PO DAILY Label Comments: TAKE 1 TABLET BY MOUTH EVERY DAY magnesium oxide 400 mg (241.3 mg magnesium) tablet 400 mg PO DAILY Qty: 90 1RF ipratropium bromide 42 mcg (0.06 %) spray,non-aerosol 2 spray intranasal BID Rx Instructions: administer into each nostril fluticasone propionate 50 mcg/actuation spray,suspension 1 spray intranasal DAILY Rx Instructions: administer into each nostril Breztri Aerosphere 160-9-4.8 mcg/actuation HFA aerosol inhaler 2 inh inhalation BID multivitamin Tablet 1 tab PO DAILY tramadol 50 mg tablet 50 mg PO BID PRN meloxicam 7.5 mg tablet 7.5 mg PO DAILY ferrous sulfate [Feosol] 325 mg (65 mg iron) tablet 325 mg PO DAILY aspirin 81 MG tablet,chewable 81 mg PO DAILY@0800 furosemide 40 mg tablet 40 mg PO DAILY Qty: 90 1RF indapamide 1.25 mg tablet 1.25 mg PO QAM Qty: 90 1RF potassium citrate 5 mEq (540 mg) tablet extended release 5 meq PO QPM Qty: 90 1RF testosterone 1 % (25 mg/2.5gram) gel in packet 1 packet transdermal DAILY Qty: 225 1RF terazosin 5 mg capsule 5 mg PO DAILY Qty: 90 1RF omeprazole 40 mg capsule,delayed release(DR/EC) 40 mg PO DAILY Qty: 90 3RF sildenafil 100 mg tablet 100 mg PO DAILY PRN (Reason: sexual activity) Qty: 90 1RF Rx Instructions: administer 30 minutes to 4 hours before activity Primary Care Provider: Leandra Mejia Referrals: Kody Kemp MD [Med Staff - Active Staff] - 1 Week Leandra Mejia MD [Primary Care Provider] - 1 Week if not improving Activity Restrictions/Additional Instructions: CT brain negative. CT cervical spine extensive degenerative changes. 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 Follow-up with your pain doctor discussion of your neck pain. Disposition Disposition: Home, Self Care Discharge Date/Time: 05/04/22 12:49
[2022-05-04 12:46] VITALS: BP 153/96; PULSE 88; RESP 16; O2SAT 98
== END 2022-05-04 12:49 | disposition home or self-care (01) ==
PROVIDERS: Emergency Provider Emergency Medicine; PCP Internal Medicine; Visit Provider Emergency Medicine
DX: G51.0 Bell's palsy (principal); R73.03 Prediabetes; I10 Essential (primary) hypertension; Z87.891 Personal history of nicotine dependence; M50.30 Other cervical disc degeneration, unspecified cervical region; Z79.82 Long term (current) use of aspirin; Z79.52 Long term (current) use of systemic steroids
CPT/HCPCS: 70450; 72125; 99283

== ENCOUNTER → 2022-05-10 | Outpatient (CLI) | payer OTHER, SELFPAY ==
[2022-05-10 14:09] LABS: Bacteria 0 SEEN /hpf (None Seen); Mucous, Urine 0 SEEN /hpf (<or=2+); Red Blood Cells-Urine 0 SEEN /hpf (0-5); Squamous Epithelial Cells - UA 0 SEEN /hpf (0-5); White Blood Cells 0 SEEN /hpf (0-5)
[2022-05-10 14:54] LABS: Color, Urine Straw (Yellow); Glucose, Dipstick Normal (Normal); Ketone-Dipstick Negative (Negative); Leukocyte Esterase-Dipstick Negative /ul (Negative); Nitrite-Dipstick Negative (Negative); Occult Blood-Urine Negative /ul (Negative); Protein-Dipstick Negative (Negative); Urine Bilirubin Dipstick Negative (Negative); Urine Clarity Clear (Clear); Urine Urobilinogen Normal (Normal); Urine pH 6.5 (5.0 - 8.0)
== END | disposition home or self-care (01) ==
LOC: LAB 14:07
PROVIDERS: PCP Internal Medicine; Referring Provider Internal Medicine; Visit Provider Internal Medicine
DX: R10.9 Unspecified abdominal pain (principal)
CPT/HCPCS: 81001

== ENCOUNTER → 2022-08-01 | Outpatient (CLI) | payer OTHER, SELFPAY ==
--- NOTE | 2022-08-01 14:56 | CT_ITS ---
STUDY: LOW DOSE CT LUNG CANCER SCREENING REASON FOR EXAM: Male, 61 years old. SCREENING RADIATION DOSAGE (If Supplied By Facility): CTDIvol = ( 4.02 ) mGy, DLP = ( 136.92 ) mGycm TECHNIQUE: No contrast was administered. Low dose technique was utilized (average mAS-38 and kVp 120). 1.25 mm axial source images with a slice interval of 1.25-mm were reconstructed in lung windows. 2.5 mm axial source images with a slice interval of 2.5-mm were reconstructed in lung windows. 5.0 mm axial source images with a slice interval of 5.0-mm were reconstructed in soft tissue windows. COMPARISON: 07/19/2021 FINDINGS: Lung windows show the lungs to be normally expanded. No suspicious noncalcified mass or nodule. No organized infiltrate or effusion. Soft tissue windows show normal-appearing thyroid gland. No suspicious adenopathy. There are calcified coronary vessels. No pericardial effusion. Bony structures show degenerative change. Limited cuts through the upper abdomen do not show a suspicious abnormality CT/Low Dose CT Lung Screening IMPRESSION: Lung-RADS category 2 - Continue annual screening with LDCT in 12 months. IMPORTANT NOTES FOR USE: ACR Lung-RADS Version 1.1 Assessment Categories Release Date: 2018 Category: Coded 0-4 bases on nodule(s) with highest degree of suspicion. Negative screen is defined as categories 1 and 2; a positive screen is defined as categories 3 and 4. Category 3 and 4A nodules that are unchanged on interval CT should be coded as category 2, and individuals returned to screening in 12 months. Category 4X: Category 3 or 4 nodules with additional imaging findings that increase the suspicion of lung cancer, such as spiculation, GGN that doubles in size in 1 year, enlarged lymph notes, etc. Category Modifiers: S (significant finding unrelated to lung cancer) Electronically Signed: Chirag Beck MD at 11:19 EST ,
== END | disposition home or self-care (01) ==
LOC: CT 14:55
PROVIDERS: PCP Internal Medicine; Referring Provider Internal Medicine Pulmonary Disease; Visit Provider Internal Medicine Pulmonary Disease
DX: Z12.2 Encounter for screening for malignant neoplasm of respiratory organs (principal); Z87.891 Personal history of nicotine dependence
CPT/HCPCS: 71271

== ENCOUNTER → 2022-09-29 | Outpatient (CLI) | payer OTHER, SELFPAY ==
[2022-09-29 12:42] LABS: Absolute Lymphocyte Count 2.67 X10^3/uL (0.83-4.51); Absolute Neutrophil Count 3.5 X10^3/uL (2.0-7.7); Basophil# 0.07 X10^3/uL; Eosinophil# 0.24 X10^3/uL; Eosinophils% 3.3 % (0-5); Hematocrit 49.6 % (40-54); Hemoglobin 16.1 g/dL (13.0-16.5); Hemoglobin A1c 5.8 % (3.8-5.6); Lymphocyte # 2.67 X10^3/ul (0.83-4.51); Mean Corp Hgb Conc 32.5 g/dL (32-36); Mean Corpuscular Hgb 28.7 pg (27.0-32.0); Mean Corpuscular Volume 88.4 fL (80-94); Mean Platelet Vol. 10.8 fl (6.2-12.0); Monocyte# 0.71 X10^3/uL; Monocyte% 9.8 % (0-10); NRBC Flagged by Analyzer 0 % (0-5); Neutrophil # 3.51 X10^3/uL (2.7-7.7); Neutrophil % 48.6 % (47-70); Platelet Count 227 K/mm3 (150-450); RBC Distribution Width CV 12.5 % (11.6-14.6); Red Blood Count 5.61 M/mm3 (4.6-6.2); White Blood Count 7.2 K/mm3 (4.4-11.0)
[2022-09-29 12:58] LABS: Insulin 15.3 mU/L (2.6-37.6); Vitamin D,25 Hydroxy 54.5 ng/mL
[2022-09-29 13:50] LABS: ALB/GLOB Ratio 0.9 RATIO (0.9-2.4); AST(SGOT) 17 U/L (15-37); Alanine Aminotransfer ALT/SGPT 31 U/L (16-61); Albumin, Serum 3.5 g/dL (3.2-5.0); Alkaline Phosphatase 52 U/L (45-117); Anion Gap 7 (5-15); BUN 17 mg/dL (7-18); BUN/Creat Ratio 13.4 RATIO (10-20); Calcium,Total 8.7 mg/dL (8.5-10.1); Chloride 103 mmol/L (98-107); Cholesterol 159 mg/dL (200); Creatinine, Serum 1.27 mg/dL (0.70-1.30); EST Glomerular Filtration Rate 61 mL/min (>60); Est Glom Filt Rate - Afr Amer 74 mL/min (>60); Globulin 3.7 g/dL (2.2-4.2); Glucose 107 mg/dL (74-106); High Density Lipoprotein 31 mg/dL; PSA,Total - Annual Screen 0.73 ng/mL (0.00-4.00); Potassium 3.9 mmol/L (3.5-5.1); Protein, Total 7.2 g/dL (6.4-8.2); Sodium Level 140 mmol/L (136-145); Thyroid Stim Hormone (TSH) 2.69 uIU/mL (0.358-3.74); Triglycerides 296 mg/dL; Very Low Density Lipoprotein 59 mg/dL (5-40)
== END | disposition home or self-care (01) ==
LOC: BIMLAB 09:30
PROVIDERS: PCP Internal Medicine; Referring Provider Internal Medicine; Visit Provider Internal Medicine
DX: R73.03 Prediabetes (principal); E66.9 Obesity, unspecified; M17.11 Unilateral primary osteoarthritis, right knee; I10 Essential (primary) hypertension; M65.30 Trigger finger, unspecified finger; E55.9 Vitamin D deficiency, unspecified; Z12.5 Encounter for screening for malignant neoplasm of prostate
CPT/HCPCS: 36415; 80053; 80061; 82306; 83036; 83525; 84153; 84443; 85025; G0103

== ENCOUNTER → 2022-10-16 | Outpatient (CLI) | payer OTHER, SELFPAY ==
--- NOTE | 2022-10-16 08:26 | EKG12_ITS ---
Test Reason : PRE OP Blood Pressure : / mmHG Vent. Rate : 059 BPM Atrial Rate : 059 BPM P-R Int : 226 ms QRS Dur : 070 ms QT Int : 372 ms P-R-T Axes : 046 031 025 degrees QTc Int : 368 ms Sinus bradycardia with 1st degree A-V block Otherwise normal ECG Confirmed by JACKIE LEO, CJ ([id number]), digital editor FATOUMATA PULLIAM ([id number]) on 10/16/2022 1:54:53 PM Referred By: VEENS Confirmed By:CJ MEJIA MD
== END | disposition home or self-care (01) ==
LOC: PSN 08:25
PROVIDERS: PCP Internal Medicine; Visit Provider Orthopaedic Surgery
DX: Z01.818 Encounter for other preprocedural examination (principal); Z01.810 Encounter for preprocedural cardiovascular examination
CPT/HCPCS: 93005

== ENCOUNTER → 2023-01-31 | Outpatient (CLI) | payer OTHER, SELFPAY ==
[2023-01-31 13:46] LABS: Amphetamine Urine VISTA NEGATIVE (<1000 ng/mL); Barbiturate Urine VISTA NEGATIVE (< 200 ng/mL); Benzodiazepine Urine VISTA NEGATIVE (< 200 ng/mL); Cocaine Urine VISTA NEGATIVE (< 300 ng/mL); Ecstacy Urine VISTA NEGATIVE (< 500 ng/mL); Methadone Urine VISTA NEGATIVE (< 300 ng/mL); PCP Urine VISTA NEGATIVE (< 25 ng/mL); THC Urine VISTA NEGATIVE (< 50 ng/mL); Vista UDS pH Range 5
== END | disposition home or self-care (01) ==
PROVIDERS: PCP Internal Medicine; Referring Provider Anesthesiology Pain Medicine; Visit Provider Anesthesiology Pain Medicine
DX: F11.20 Opioid dependence, uncomplicated (principal)
CPT/HCPCS: 80307

== ENCOUNTER → 2023-03-29 | Outpatient (CLI) | payer OTHER, SELFPAY ==
[2023-03-29 13:17] LABS: Absolute Lymphocyte Count 1.58 X10^3/uL (0.83-4.51); Absolute Neutrophil Count 4.1 X10^3/uL (2.0-7.7); Basophil# 0.06 X10^3/uL; Basophil% 0.9 % (0-1); Eosinophil# 0.12 X10^3/uL; Eosinophils% 1.9 % (0-5); Hematocrit 50.5 % (40-54); Hemoglobin 16.8 g/dL (13.0-16.5); Lymphocyte # 1.58 X10^3/ul (0.83-4.51); Lymphocyte % 24.5 % (19-41); Mean Corp Hgb Conc 33.3 g/dL (32-36); Mean Corpuscular Hgb 29.3 pg (27.0-32.0); Mean Corpuscular Volume 88.1 fL (80-94); Mean Platelet Vol. 10.3 fl (6.2-12.0); Monocyte# 0.57 X10^3/uL; Monocyte% 8.8 % (0-10); NRBC Flagged by Analyzer 0 % (0-5); Neutrophil % 63.6 % (47-70); Platelet Count 230 K/mm3 (150-450); RBC Distribution Width CV 13.5 % (11.6-14.6); RBC Distribution Width SD 43.6 fl (35.1-43.9); Red Blood Count 5.73 M/mm3 (4.6-6.2); White Blood Count 6.5 K/mm3 (4.4-11.0)
--- NOTE | 2023-03-29 13:20 | RAD_ITS ---
STUDY: X-RAY - LEFT KNEE REASON FOR EXAM: Male, 62 years old. Left knee pain. TECHNIQUE: 4 view(s) of the knee. COMPARISON: None. FINDINGS: Stable osteopenia. Moderate medial compartment arthrosis with osteophyte formation, unchanged. Mild arthrosis of the lateral femorotibial compartment with minimal osteophyte formation. Mild arthrosis of the patellofemoral compartment. Small joint effusion with irregular 8 mm in diameter ossific fragment projected posteriorly on the lateral view representing a small intra-articular osteochondral body. Normal soft tissues. RAD/Knee 4 or More Views IMPRESSION: Osteopenia with tricompartmental arthrosis relatively unchanged. New intra-articular osteochondral body. Electronically Signed: Jerod Mendenhall MD at 9:43 EDT ,
--- NOTE | 2023-03-29 13:30 | RAD_ITS ---
STUDY: X-RAY - RIGHT KNEE REASON FOR EXAM: Male, 62 years old. Bilateral knee pain. TECHNIQUE: 4 view(s) of the knee. COMPARISON: Knee x-rays dated April 2021. FINDINGS: Stable osteopenia. Moderate medial compartment arthrosis with osteophyte formation, unchanged. Mild arthrosis of the lateral femorotibial compartment with minimal osteophyte formation. Mild arthrosis of the patellofemoral compartment. Small joint effusion Normal soft tissues. RAD/Knee 4 or More Views IMPRESSION: Osteopenia with tricompartmental arthrosis relatively unchanged. No acute abnormality or erosive changes Electronically Signed: Jerod Mendenhall MD at 9:42 EDT ,
[2023-03-29 13:50] LABS: ALB/GLOB Ratio 1.1 RATIO (0.9-2.4); AST(SGOT) 18 U/L (15-37); Alanine Aminotransfer ALT/SGPT 27 U/L (16-61); Alkaline Phosphatase 54 U/L (45-117); Anion Gap 9 (5-15); BUN 16 mg/dL (7-18); BUN/Creat Ratio 13.8 RATIO (10-20); Calcium,Total 8.5 mg/dL (8.5-10.1); Chloride 105 mmol/L (98-107); Cholesterol 183 mg/dL (200); Creatinine, Serum 1.16 mg/dL (0.70-1.30); EST Glomerular Filtration Rate 68 mL/min (>60); Est Glom Filt Rate - Afr Amer 82 mL/min (>60); Globulin 3.6 g/dL (2.2-4.2); Glucose 101 mg/dL (74-106); High Density Lipoprotein 34 mg/dL; Protein, Total 7.6 g/dL (6.4-8.2); Sodium Level 140 mmol/L (136-145); Thyroid Stim Hormone (TSH) 2.21 uIU/mL (0.358-3.74); Triglycerides 163 mg/dL; Very Low Density Lipoprotein 33 mg/dL (5-40)
[2023-03-29 14:35] LABS: Hemoglobin A1c 5.6 % (3.8-5.6)
== END | disposition home or self-care (01) ==
PROVIDERS: PCP Internal Medicine; Referring Provider Internal Medicine; Visit Provider Internal Medicine
DX: I10 Essential (primary) hypertension (principal); R73.03 Prediabetes; N40.0 Benign prostatic hyperplasia without lower urinary tract symptoms; G47.33 Obstructive sleep apnea (adult) (pediatric); Z13.220 Encounter for screening for lipoid disorders; Z72.0 Tobacco use; M25.562 Pain in left knee; M25.561 Pain in right knee; M19.90 Unspecified osteoarthritis, unspecified site
CPT/HCPCS: 36415; 73564; 80053; 80061; 83036; 84443; 85025

== ENCOUNTER → 2023-12-24 | Outpatient (CLI) | payer OTHER, SELFPAY ==
--- NOTE | 2023-12-24 13:00 | RAD_ITS ---
STUDY: X-RAY - LUMBAR SPINE REASON FOR EXAM: Male, 63 years old. Lumbosacral pain. TECHNIQUE: 3 view(s) of the lumbar spine were obtained. COMPARISON: None FINDINGS: Osteopenia. Normal lumbar lordosis. No substantial scoliosis. Diffuse moderate to marked lower thoracic and lumbosacral facet sclerosis. Normal vertebral morphology. Moderate to marked diffuse intervertebral disc space narrowing with osteophyte formation. Normal soft tissues. RAD/Lumbar Spine 2 or 3 Views IMPRESSION: Osteopenia with diffuse moderate lower thoracic and lumbosacral spondylosis. Electronically Signed: Jerod Mendenhall MD at 13:35 EDT ,
== END | disposition home or self-care (01) ==
LOC: RAD 12:58
PROVIDERS: PCP Internal Medicine; Referring Provider Anesthesiology Pain Medicine; Visit Provider Anesthesiology Pain Medicine
DX: M47.816 Spondylosis without myelopathy or radiculopathy, lumbar region (principal); M47.817 Spondylosis without myelopathy or radiculopathy, lumbosacral region
CPT/HCPCS: 72100

== ENCOUNTER → 2024-03-31 | Outpatient (CLI) | payer OTHER, SELFPAY ==
[2024-03-31 12:15] LABS: Absolute Lymphocyte Count 2.33 X10^3/uL (0.83-4.51); Absolute Neutrophil Count 3.7 X10^3/uL (2.0-7.7); Basophil# 0.08 X10^3/uL; Basophil% 1.1 % (0-1); Eosinophil# 0.24 X10^3/uL; Eosinophils% 3.4 % (0-5); Hematocrit 49.1 % (40-54); Lymphocyte # 2.33 X10^3/ul (0.83-4.51); Lymphocyte % 32.9 % (19-41); Mean Corp Hgb Conc 32.6 g/dL (32-36); Mean Corpuscular Hgb 28.7 pg (27.0-32.0); Mean Platelet Vol. 10.5 fl (6.2-12.0); Monocyte# 0.67 X10^3/uL; Monocyte% 9.5 % (0-10); NRBC Flagged by Analyzer 0 % (0-5); Neutrophil # 3.74 X10^3/uL (2.7-7.7); Neutrophil % 52.8 % (47-70); Platelet Count 229 K/mm3 (150-450); RBC Distribution Width CV 13.1 % (11.6-14.6); RBC Distribution Width SD 42.1 fl (35.1-43.9); Red Blood Count 5.58 M/mm3 (4.6-6.2); White Blood Count 7.1 K/mm3 (4.4-11.0)
[2024-03-31 12:38] LABS: Hemoglobin A1c 5.4 % (3.8-5.6)
[2024-03-31 12:58] LABS: ALB/GLOB Ratio 0.9 RATIO (0.9-2.4); AST(SGOT) 19 U/L (15-37); Alanine Aminotransfer ALT/SGPT 26 U/L (16-61); Albumin, Serum 3.6 g/dL (3.2-5.0); Alkaline Phosphatase 55 U/L (45-117); Anion Gap 7 (5-15); BUN 15 mg/dL (7-18); Chloride 105 mmol/L (98-107); Cholesterol 170 mg/dL (200); Creatinine, Serum 1.07 mg/dL (0.70-1.30); EST Glomerular Filtration Rate 74 mL/min (>60); Est Glom Filt Rate - Afr Amer 89 mL/min (>60); Globulin 3.8 g/dL (2.2-4.2); Glucose 104 mg/dL (74-106); High Density Lipoprotein 39 mg/dL; Magnesium 2.3 mg/dL (1.6-2.6); PSA,Total - Annual Screen 0.94 ng/mL (0.00-4.00); Protein, Total 7.4 g/dL (6.4-8.2); Sodium Level 138 mmol/L (136-145); Triglycerides 150 mg/dL; Very Low Density Lipoprotein 30 mg/dL (5-40)
== END | disposition home or self-care (01) ==
LOC: BIMLAB 08:00
PROVIDERS: PCP Internal Medicine; Referring Provider Internal Medicine; Visit Provider Internal Medicine
DX: Z12.5 Encounter for screening for malignant neoplasm of prostate (principal); I10 Essential (primary) hypertension; N40.0 Benign prostatic hyperplasia without lower urinary tract symptoms; G25.81 Restless legs syndrome; G47.33 Obstructive sleep apnea (adult) (pediatric); E55.9 Vitamin D deficiency, unspecified; R73.9 Hyperglycemia, unspecified; E88.810 Metabolic syndrome; Z13.220 Encounter for screening for lipoid disorders
CPT/HCPCS: 36415; 80053; 80061; 82306; 83036; 83735; 84153; 84443; 85025; G0103

== ENCOUNTER → 2024-05-06 | Outpatient (CLI) | payer OTHER, SELFPAY ==
--- NOTE | 2024-05-06 14:55 | RAD_ITS ---
INDICATION: DDD EXAMINATION/TECHNIQUE: X-RAY - XR Spine Cervical 2 or 3 Views COMPARISON: Prior study dated: CT performed 05/04/2022 FINDINGS: VERTEBRAE: Preserved vertebral body height. No fracture. No spondylolisthesis. Preservation of the normal cervical lordosis. Mild facet arthropathy. DISCS: Mild disc space narrowing at C5-C6 and C6-C7 with endplate osteophytes noted. NECK SOFT TISSUES: No prevertebral soft tissue widening. LUNG APICES: Clear. RAD/Cerv Spine 2 or 3 Views IMPRESSION: No evidence of acute fracture or spondylolisthesis. Mild degenerative change at the lower cervical spine again noted. Electronically Signed: Glynn Fuentes MD at 2:10 EDT ,
== END | disposition home or self-care (01) ==
LOC: RAD 14:48
PROVIDERS: PCP Internal Medicine; Referring Provider Anesthesiology Pain Medicine; Visit Provider Anesthesiology Pain Medicine
DX: M50.30 Other cervical disc degeneration, unspecified cervical region (principal)
CPT/HCPCS: 72040

== ENCOUNTER → 2024-07-02 | Outpatient (CLI) | payer OTHER, SELFPAY ==
[2024-07-02 12:49] LABS: Amphetamine Urine VISTA NEGATIVE (<1000 ng/mL); Barbiturate Urine VISTA NEGATIVE (< 200 ng/mL); Benzodiazepine Urine VISTA NEGATIVE (< 200 ng/mL); Cocaine Urine VISTA NEGATIVE (< 300 ng/mL); Ecstacy Urine VISTA NEGATIVE (< 500 ng/mL); Methadone Urine VISTA NEGATIVE (< 300 ng/mL); PCP Urine VISTA NEGATIVE (< 25 ng/mL); THC Urine VISTA NEGATIVE (< 50 ng/mL); Vista UDS pH Range 6
== END | disposition home or self-care (01) ==
PROVIDERS: PCP Internal Medicine; Referring Provider Anesthesiology Pain Medicine; Visit Provider Anesthesiology Pain Medicine
DX: F11.20 Opioid dependence, uncomplicated (principal)
CPT/HCPCS: 80307

== ENCOUNTER → 2024-12-10 | Outpatient (CLI) | payer MEDICARE, OTHER, SELFPAY ==
[2024-12-10 12:40] LABS: Lyme Scn Total Ab w/Rflx REF LAB
[2024-12-10 13:22] LABS: Hemoglobin A1c 5.8 % (<=5.6)
[2024-12-10 13:43] LABS: Erythrocyte Sedimentation Rate 7 mm/hr (0-20)
[2024-12-10 13:47] LABS: Absolute Lymphocyte Count 1.69 X10^3/uL (0.83-4.51); Absolute Neutrophil Count 4.3 X10^3/uL (2.0-7.7); Basophil# 0.05 X10^3/uL; Basophil% 0.7 % (0-1); Eosinophil# 0.16 X10^3/uL; Eosinophils% 2.4 % (0-5); Hematocrit 45.7 % (40-54); Hemoglobin 15.6 g/dL (13.0-16.5); Lymphocyte # 1.69 X10^3/ul (0.83-4.51); Lymphocyte % 25.1 % (19-41); Mean Corp Hgb Conc 34.1 g/dL (32-36); Mean Corpuscular Hgb 29.3 pg (27.0-32.0); Mean Corpuscular Volume 85.7 fL (80-94); Mean Platelet Vol. 10.6 fl (6.2-12.0); Monocyte# 0.55 X10^3/uL; Monocyte% 8.2 % (0-10); NRBC Flagged by Analyzer 0 % (0-5); Neutrophil # 4.27 X10^3/uL (2.7-7.7); Neutrophil % 63.3 % (47-70); Platelet Count 256 K/mm3 (150-450); RBC Distribution Width CV 12.3 % (11.6-14.6); RBC Distribution Width SD 38.3 fl (35.1-43.9); Red Blood Count 5.33 M/mm3 (4.6-6.2); White Blood Count 6.7 K/mm3 (4.4-11.0)
[2024-12-10 13:53] LABS: ALB/GLOB Ratio 1.4 RATIO (0.9-2.4); AST(SGOT) 26 U/L (<=37); Alanine Aminotransfer ALT/SGPT 33 U/L (<=46); Albumin, Serum 4.2 g/dL (3.4-4.8); Alkaline Phosphatase 62 U/L (40-129); Anion Gap 13 (5-15); BUN 15 mg/dL (4-19); BUN/Creat Ratio 13.9 RATIO (10-20); Calcium,Total 9.2 mg/dL (7.6-11.0); Carbon Dioxide 22.8 mmol/L (21.0-32.0); Chloride 104 mmol/L (98-108); Cholesterol 164 mg/dL (<=200); EST Glomerular Filtration Rate 74 (>60); Globulin 3.1 g/dL (2.2-4.2); Glucose 112 mg/dL (70-99); High Density Lipoprotein 34 mg/dL; Low Density Lipoprotein Calc. 89 mg/dL; Potassium 4.3 mmol/L (3.3-5.1); Protein, Total 7.3 g/dL (5.9-8.4); Sodium Level 140 mmol/L (133-145); Total Bilirubin 0.28 mg/dL (0.00-1.30); Triglycerides 206 mg/dL; Very Low Density Lipoprotein 41 mg/dL (5-40); cholesterol:hdl ratio screen 4.81
[2024-12-10 14:00] LABS: CRP < 3.00 mg/L (0.0-3.0); Rheumatoid Factor < 10.0 IU/mL (<15); Vitamin B12 703 pg/mL (180-914); Vitamin D,25 Hydroxy 70.5 ng/mL (30-100)
[2024-12-12 14:08] LABS: ANTINUCLEAR ANTIBODIES DIRECT Negative (Negative)
== END | disposition home or self-care (01) ==
LOC: LAB 12:07
PROVIDERS: PCP Internal Medicine; Referring Provider Internal Medicine; Visit Provider Internal Medicine
DX: Z13.220 Encounter for screening for lipoid disorders (principal); E66.9 Obesity, unspecified; M17.11 Unilateral primary osteoarthritis, right knee; I10 Essential (primary) hypertension; G47.33 Obstructive sleep apnea (adult) (pediatric); E78.5 Hyperlipidemia, unspecified; E53.8 Deficiency of other specified B group vitamins; M25.50 Pain in unspecified joint; E55.9 Vitamin D deficiency, unspecified; F41.9 Anxiety disorder, unspecified; R73.03 Prediabetes
CPT/HCPCS: 36415; 80053; 80061; 82306; 82607; 83036; 84402; 84403; 84443; 85025; 85652; 86038; 86140; 86225; 86431; 86618

== ENCOUNTER 2025-01-13 12:30 | Outpatient (RCR) | payer MEDICARE, OTHER, SELFPAY ==
--- NOTE | 2024-12-30 13:41 | HP.PTEVAL ---
Patient's Visit Information Visit Information Visit Information: CEE PORTILLO is a 64 year old M referred to Physical Therapy by Dr. Kody Kemp MD with a diagnosis of BACK PAIN. Date of Evaluation: 12/30/24 Physical Therapist: Chaitanya Spaulding, PT, Cert MDT, OCS Visit Plan Frequency: 2x /Week Duration: 4 Weeks Plan: PT INTERVENTIONS LUMBAR FLEXION ,LE FLEXABILITY ,POSTURAL EX'S ,DLS ,ACTIVITY MODIFICATION AND MODALTIES PRN Subjective Subjective: This 64 y/o male presents to physical therapy with back pain. Patient has had back pain 2016 . Patient had 2019 lumbar decompression /laminectomy . Patient had x-rays showed multilevel spondylosis/discogenic change with [id number] multilevel disc space narrowing and appearance of multilevel foraminal narrowing and facet degenerative. Patient seen Dr Owens reviewed MRI . Could do surgery as need when pain is severe. Also seen [facility]. Sees Dr Cedeno with injections epidural in Jul. Recommended PT. Patient medication tramadol. Location symmetrical to lateral hips and occasional hamstrings to calf. Aggravating factors walking ,standing extended ,bending and lifting. Alleviating factors sitting rest,tramadol ,heat. Occasional paresthesia/tingling left leg. Coughing/Sneezing-. Bowel/bladder-. Pain affects sleeping. Prior PT . Patient has neck pain ,shoulder pain right RTC tear. Patient condition affects QOL and function. SOCIAL: VOCATION: retired Pain Bilateral: Pain Intensity (Out of 10): 3 Pain Intensity Range: 10 Left: Pain Intensity (Out of 10): 2 Pain Intensity Range: 10 Left Lower Extremity: Pain Intensity (Out of 10): 2 Pain Intensity Range: 10 Objective Objective: POSTURE: mild forward posture GAIT: reciprocal pattern PALAPTION: tender LS FLEXABILITY: hamstrings mod tight MMT: quads/hams 4/5 ,hip flexion 4-/5 ,ankle 4/5 LUMBAR ROM: flexion min loss ,extension mod loss side glides mod loss Special Tests L/S Slump test left side: Negative L/S Slump test right side: Negative L/S Left Straight Leg Raise: Negative L/S Right Straight Leg Raise: Negative Balance/Special Test Scores Oswestry Low Back Score: 26 Goals Goal 1:: Patient will be I with HEP for back Goal Time Frame: 4-6 Weeks Goal 2:: Patient to demonstrate 50 % improvement with less pain and improved function with walking Goal Time Frame: 4-6 Weeks Goal 3:: Patient to improve lumbar ROM for function of recovery for ADLs Goal Time Frame: 4-6 Weeks Goal 4:: Patient to improve back oswestry score by 5 points to improve QOL and function Goal Time Frame: 4-6 Weeks Rehabilitation Potential Physical Therapy Diagnosis: This patient has lumbar pain with radicular symptoms in legs with stenosis with pain worse with positioning and motion testing ,walking/standing better with sitting thus benefit from skilled PT to address above impairments Rehabilitation Potential: Good Anticipated Interventions Patient/Client Instruction: Educate patient on: Condition and Plan of Care For the Purpose of:: To decrease pain, To increase ROM, To improve muscle performance and motor function, To improve ability to perform ADL's, To increase tolerance to activity/condition/position, To improve ability of physical actions for home/community/work/leisure, To improve health of tissue, To decrease soft tissue restriction, To increase flexibility/ROM and To improve tolerance to ADL's Therapeutic Exercise to Include: Strength training, Postural training, Flexibilty training and Dynamic Lumbar Stabilization Comment: QUADS/HAMS/HIP For the Purpose of:: To decrease pain, To increase ROM, To improve nutrient delivery to tissue, To increase oxygenation perfusion, To increase tolerance to activity/condition/position, To improve ability of physical actions for home/community/work/leisure, To improve health of tissue, To decrease soft tissue restriction, To increase flexibility/ROM, To improve endurance, To prevent re-injury and To improve tolerance to ADL's TENS: Yes IF ES: Yes Cryotherapy (ice pack, ice massage): Yes Thermo therapy (hot pack): Yes Ultrasound (thermal/non thermal): Yes For the Purpose of:: To decrease pain, To increase ROM, To improve nutrient delivery to tissue, To increase oxygenation perfusion, To decrease soft tissue restriction, To increase flexibility/ROM and To improve tolerance to ADL's Text: Thank you for the opportunity to evaluate your patient. For Medicare and Medicare HMO plans, please review the plan of care and approve it. It will need to be FAXED BACK to us at [phone] for Medicare purposes. For Medicare only, by signing this I certify the plan of care. Please let me know if there are questions or concerns regarding this plan of care. Physician Signature: Date:
--- NOTE | 2025-03-18 08:50 | HP.PT.NRP ---
Patient Information Patient Information: CEE PORTILLO was seen in my office for initial evaluation on 12/30/24. The following Plan of Care was established for this patient: POC Established Initial Frequency: 2x /Week Initial Duration: 4 Weeks Anticipated Interventions Patient/Client Instruction: Educate patient on: Condition and Plan of Care For the Purpose of:: To decrease pain, To increase ROM, To improve muscle performance and motor function, To improve ability to perform ADL's, To increase tolerance to activity/condition/position, To improve ability of physical actions for home/community/work/leisure, To improve health of tissue, To decrease soft tissue restriction, To increase flexibility/ROM and To improve tolerance to ADL's Therapeutic Exercise to Include: Strength training, Postural training, Flexibilty training and Dynamic Lumbar Stabilization For the Purpose of:: To decrease pain, To increase ROM, To improve nutrient delivery to tissue, To increase oxygenation perfusion, To increase tolerance to activity/condition/position, To improve ability of physical actions for home/community/work/leisure, To improve health of tissue, To decrease soft tissue restriction, To increase flexibility/ROM, To improve endurance, To prevent re-injury and To improve tolerance to ADL's TENS: Yes IF ES: Yes Cryotherapy (ice pack, ice massage): Yes Thermo therapy (hot pack): Yes Ultrasound (thermal/non thermal): Yes For the Purpose of:: To decrease pain, To increase ROM, To improve nutrient delivery to tissue, To increase oxygenation perfusion, To decrease soft tissue restriction, To increase flexibility/ROM and To improve tolerance to ADL's Last Seen Last Seen: This patient was last seen in our office . Pertinent comments regarding their Physical therapy will appear below: Patient was seen for PT for lumbar radiculopathy focusing lumbar flexion and DLS thus is d/c to HEP At this point I will be discontinuing this patient from physical therapy. I would be happy to see this patient again in the future if found appropriate by the physician. Thank you! Chaitanya Spaulding, PT, Cert MDT, OCS Balance/Gait/Functional tests Balance/Special Test Scores Oswestry Low Back Score: 26
== END 2025-01-13 19:00 | disposition home or self-care (01) ==
LOC: PT 12:30
PROVIDERS: PCP Internal Medicine; Referring Provider Anesthesiology Pain Medicine; Visit Provider Anesthesiology Pain Medicine
DX: M54.9 Dorsalgia, unspecified (principal)
CPT/HCPCS: 97110; 97162

== ENCOUNTER → 2025-03-04 | Outpatient (CLI) | payer MEDICARE, OTHER, SELFPAY ==
--- NOTE | 2025-03-04 10:19 | MRI_ITS ---
PROCEDURE: SPINE CERVICAL (ROUTINE) 03/04/2025 REASON FOR EXAM: RADICULOPATHY, CERVICAL REGION TECHNIQUE: SPINE CERVICAL (ROUTINE) Multiplanar and multisequence images were obtained without IV contrast administration. COMPARISON: CT cervical spine, 05/04/2022. FINDINGS: Vertebrae: Cervical vertebral body heights are preserved. Bone marrow signal is unremarkable. Alignment: Normal. No spondylolisthesis. Spinal Cord: Cervical spinal cord is of normal size and signal intensities. Structures at the foramen magnum are unremarkable. C2-3: There is a broad-based central disc protrusion. There is compression of the thecal sac without central canal stenosis. There is no facet arthropathy. There is no lateral recess stenosis or foraminal narrowing. C3-4: There is a broad-based central disc protrusion. There is central canal stenosis, with the AP dimension of the spinal canal measuring 9 mm. There is mild compression of the spinal cord. There is bilateral facet arthropathy. There is mild lateral recess stenosis and foraminal narrowing, on the left. C4-5: There is a broad-based central disc protrusion. There is moderate compression of the thecal sac without central canal stenosis. There is mild compression of the spinal cord. There is left facet arthropathy. There is mild lateral recess stenosis bilaterally. C5-6: There is a broad-based central disc protrusion. There is central canal stenosis with the AP dimension of the spinal canal measuring 9 mm. There is mild compression of the spinal cord. There is bilateral facet arthropathy. There is mild lateral recess stenosis bilaterally. C6-7: There is a broad-based central disc protrusion. There is central canal stenosis with the AP dimension of the spinal canal measuring 8 mm. There is moderate compression of the spinal cord. There is bilateral facet arthropathy and bilateral uncinate joint arthropathy. There is moderate lateral recess stenosis and foraminal narrowing on the right. C7-T1: Unremarkable The paravertebral soft tissues are unremarkable. MRI/Spine Cervical (Routine) IMPRESSION: There is degenerative disc disease, C2-3 through C6-7 with central canal stenos is, C3-4 C5-6 and C6-7. There is diffuse compression of the spinal cord. There is lateral recess stenosis at multiple l evels and foraminal narrowing on the right at C6-7. Reading Location: [id number]
--- OUTSIDE RECORDS SUMMARY | 2025-03-04 18:48 | XMS RPT_ITS | CCD ---
Author Organization [facility] Care Team Providers Care Development Vice President Name Role Phone Dr. Leandra Mejia Primary Care Provider Dr. Leandra Meija Referring Provider [phone] Darshan JARVIS, WATER POLLUTION CONTROL INSPECTOR-C Dashawn Attending Provider [phone] ANDERS Garcia Attending Provider Dr. Leandra Mejia Primary Care Provider Dr. Leandra Mejia Referring Provider [phone] ANDERS Garcia Attending Provider Dr. Leandra Mejia Attending Provider [phone] Darshan JARVIS NP-C Dashawn Attending Provider [phone] Adolph Ralph Attending Provider Unavailable Dr. Leandra Mejia Primary Care Provider Adolph Ralph Attending Provider Unavailable Dr. Leandra Mejia Attending Provider Dr. Robert Denney Attending Provider Dr. Marcial Sena Referring Provider [phone] Dr. Leandra Mejia Primary Care Provider Dr. Leandra Mejia Attending Provider Dr. Leandra Mejia MD Primary Care Provider [phone] Dr. Leandra Mejia MD Attending Provider Dr. Leandra Mejia MD Referring Provider Dr. Mumtaz Owens MD Attending Provider Dr. Robert Denney MD Attending Provider [phone] Ayman Attending Provider Dr. Kody Kemp MD Referring Provider Jackie, Leandra Primary Care Unavailable Mumtaz Owens Attending Unavailable Jackie, Leandra Referring Unavailable Jackie, Leandra Primary Care Unavailable Jackie, Leandra Attending Unavailable Basali, Ayman Referring Unavailable Jackie, Leandra Primary Care Unavailable Basali, Ayman Attending Unavailable Basali, Ayman Referring Unavailable Jackie, Leandra Primary Care Unavailable Basali, Ayman Attending Unavailable Jackie, Leandra Primary Care Unavailable Basali, Ayman Referring Unavailable Basali, Ayman Attending Unavailable Jackie, Leandra Primary Care Unavailable Basali, Ayman Attending Unavailable Basali, Ayman Referring Unavailable Jackie, Leandra Primary Care Unavailable Jackie, Leandra Attending Unavailable Jackie, Leandra Referring Unavailable Jackie, Leandra Primary Care Unavailable Jackie, Leandra Attending Unavailable Jackie, Leandra Referring Unavailable ОлегNoel demarcoril Attending Unavailable Jackie, Leandra Primary Care Unavailable Jackie, Leandra Primary Care Unavailable Jackie, Leandra Attending Unavailable Jackie, Leandra Primary Care Unavailable Jackie, Leandra Attending Unavailable Allergies Allergy Classification Reported Allergen(s) Allergy Type Date of Onset Reaction(s) Facility (8 sources) Adhesive Tape; Translations: [adhesive tape] Allergy to substance 2 unknown [facility] (7 sources) Lisinopril Drug Allergy 2 COUGH [facility] (7 sources) Sulfonamides (Antibiotic) Allergy to substance 2 RASH [facility] (1 source) Lisinopril Drug Allergy 5 [facility] (1 source) Sulfonamides (Antibiotic) Drug allergy (disorder) 5 [facility] Medications Current Medications Medication Drug Class(es) Dates Sig (Normalized) Sig (Original) acetaminophen 500 mg / diphenhydrAMINE hydrochloride 25 mg oral tablet (2 sources) Histamine-1 Receptor Antagonist Start: 03-26-2024 Diphenhydramine-Acet aminophen (Acetaminophen Pm) 25-500 mg tablet Active 1 {tbl} PO AT BEDTIME as needed March 26, 2024 12:00am aspirin 81 mg chewable tablet (7 sources) Platelet Aggregation Inhibitor, Nonsteroidal Anti-inflammatory Drug Start: 10-01-2020 take 1 tablet by mouth once daily Aspirin 81 MG tablet,chewable Active 81 mg PO DAILY@0800 October 01, 2020 1:00am cholecalciferol 0.05 mg oral tablet (20 sources) Vitamin D Start: 06-16-2020 Cholecalciferol (Vitamin D3) 50 mcg (2,000 unit) tablet Active 1 NMA PO DAILY June 16, 2020 1:00am Start: 05-04-2020 End: 06-16-2020 take 1 capsule by mouth once daily Cholecalciferol (Vitamin D3) 100 mcg (4,000 unit) capsule Discontinued 100 ug PO DAILY May 04, 2020 12:00am June 16, 2020 2:29pm Start: 05-04-2020 End: 06-16-2020 take 1 capsule by mouth once daily cholecalciferol (vitamin D3) 100 mcg (4,000 unit) capsule Discontinued 100 MCG PO DAILY May 04, 2020 12:00am June 16, 2020 2:29pm Start: 05-04-2020 End: 06-16-2020 take 1 capsule by mouth once daily cholecalciferol (vitamin D3) 100 mcg (4,000 unit) capsule Discontinued 100 MCG PO DAILY May 03, 2020 11:00pm June 16, 2020 1:29pm Start: 02-11-2020 End: 02-11-2020 take 1 capsule by mouth once daily Cholecalciferol (Vitamin D3) 50 mcg (2,000 unit) capsule Discontinued 50 ug PO DAILY February 11, 2020 12:00am February 11, 2020 1:27pm glucosamine sulfate 500 mg oral tablet (7 sources) Start: 05-04-2020 take 1 tablet by mouth once daily at mealtime Glucosamine Sulfate (Glucosamine) 500 mg tablet Active 500 mg PO DAILY May 04, 2020 12:00am administer with meals irbesartan 150 mg oral tablet (20 sources) Angiotensin 2 Receptor Ambreen Start: 12-10-2024 End: 12-10-2024 take 1 tablet by mouth once daily Irbesartan 150 mg tablet Active 150 mg PO daily December 10, 2024 12:24pm Start: 08-25-2020 End: 03-21-2022 take 1 tablet by mouth once daily Irbesartan 300 mg tablet Discontinued 300 mg PO DAILY 3 June 06, 2021 8:13am March 21, 2022 11:08am Start: 02-11-2020 End: 08-25-2020 take 1 tablet by mouth once daily Irbesartan 150 mg tablet Discontinued 150 mg PO DAILY February 11, 2020 12:00am August 25, 2020 4:14pm meloxicam 7.5 mg oral tablet (7 sources) Nonsteroidal Anti-inflammatory Drug Start: 03-21-2022 take 1 tablet by mouth once daily Meloxicam 7.5 mg tablet Active 7.5 mg PO DAILY March 21, 2022 12:00am Multivitamin preparation (10 sources) Start: 09-19-2021 take 1 tablet by mouth once daily Multivitamin Active 1 TABLET PO DAILY September 19, 2021 12:00am Start: 09-19-2021 take 1 tablet by jovany th once daily Multivitamin Active 1 TABLET PO DAILY September 19, 2021 1:00am Start: 02-11-2020 End: 02-11-2020 take 1 tablet by mouth once daily Multivitamin Discontinued 1 TABLET PO DAILY February 10, 2020 11:00pm February 11, 2020 12:27pm Start: 02-11-2020 End: 02-11-2020 take 1 tablet by mouth once daily Multivitamin Discontinued 1 TABLET PO DAILY February 11, 2020 12:00am February 11, 2020 1:27pm Multivitamin tablet (4 sources) Start: 09-19-2021 Multivitamin t ablet Active 1 {tbl} PO DAILY September 19, 2021 1:00am Start: 02-11-2020 End: 02-11-2020 Multivitamin tablet Disconti nued 1 {tbl} PO DAILY February 11, 2020 12:00am February 11, 2020 1:27pm naproxen sodium 220 mg oral tablet (7 sources) Nonsteroidal Anti-inflammatory Drug Start: 06-16-2020 take 1-10 tablets by mouth twice daily as needed for pain Naproxen Sodium 220 mg tablet Active 440 mg PO TWICE A DAY as needed for Pain 1-10 Or Fever June 16, 2020 1:00am Start: 06-16-2020 take 440 mg by mouth twice layne ly Naproxen Sodium Active 440 MG PO TWICE A DAY June 16, 2020 1:00am tiZANidine 4 mg oral tablet (2 sources) Central alpha-2 Adrenergic Agonist Start: 03-26-2024 take 1 tablet by mouth once daily Tizanidine 4 mg tablet Active 4 mg PO DAILY March 26, 2024 12:00am Leg cramps traMADol hydrochloride 50 mg oral tablet (9 sources) Opioid Agonist Start: 03-26-2024 take 1 tablet by mouth three times daily as needed Tramadol 50 mg tablet Active 50 mg PO THREE TIMES A DAY as needed March 26, 2024 10:38am Start: 03-21-2022 End: 03-26-2024 take 1 tablet by mouth twice daily as needed Tramadol 50 mg tablet Discontinued 50 mg PO TWICE A DAY as needed March 21, 2022 12:00am March 26, 2024 10:42am Completed/Discontinued Medications Medication Drug Class(es) Dates Sig (Normalized) Sig (Original) acetaminophen 325 mg / HYDROcodone bitartrate 5 mg oral tablet (7 sources) Opioid Agonist Start: 09-17-2018 End: 09-20-2018 Hydrocodone-Acetamino phen 1 TABLET tablet Discontinued 1 {tbl} PO EVERY 4 HOURS NEEDED as needed for Pain 8 3 0 September 17, 2018 1:00am September 19, 2018 1:00am September 20, 2018 1:08am Postoperative pain Other acute postprocedural pain Start: 09-17-2018 End: 09-20-2018 take 1 tablet by mouth every four hours as needed Hydrocodone-Acetaminophen Discontinued 1 TABLET PO EVERY 4 HOURS NEEDED 8 3 September 17, 2018 1:00am September 20, 2018 1:08am acetaminophen 325 mg / oxyCODONE hydrochloride 10 mg oral tablet (7 sources) Opioid Agonist Start: 08-05-2019 End: 02-11-2020 Oxycodone-Acetaminophen 1 EA CH tablet Discontinued 0.5 {tbl} PO EVERY 6 HOURS NEEDED as needed for Pain August 05, 2019 1:00am February 11, 2020 1:12pm Start: 08-05-2019 End: 02-11-2020 take 0.5 tablet by mouth every six hours as needed Oxycodone-Acetaminophen Discontinued 0.5 TABLET PO EVERY 6 HOURS NEEDED August 05, 2019 1:00am February 11, 2020 1:12pm [id number] 200 actuat albuterol 0.09 mg/actuat metered dose inhaler (14 sources) beta2-Adrenergic Agonist Start: 02-11-2020 End: 03-26-2024 Albuterol Sulfate (Proair Hfa) 90 mcg/actuation HFA aerosol inhaler Discontinued 1 NMA INHALATION ONCE as needed for Sob &/Or Wheezing June 16, 2020 2:31pm March 26, 2024 10:40am Start: 02-11-2020 End: 06-16-2020 Albuterol Sulfate (Proair Hf a) 90 mcg/actuation HFA aerosol inhaler Active 1 INH INHALATION ONCE June 16, 2020 2:31pm amoxicillin 875 mg / clavulanate 125 mg oral tablet (7 sources) Penicillin-class Antibacterial Start: 07-06-2023 End: 07-16-2023 Amoxicillin-Pot Clavulanate 875-125 mg tablet Discontinued 1 {tbl} PO Q12H 20 10 0 July 06, 2023 1:00am July 15, 2023 1:00am July 16, 2023 1:04am Acute sinusitis, unspecified Start: 05-14-2022 End: 09-20-2022 Amoxicillin-Pot Clavulanate 875-125 mg tablet Discontinued 1 {tbl} PO TWICE A DAY May 14, 2022 12:00am September 20, 2022 11:54am Start: 05-14-2022 End: 09-20-2022 take 1 tablet by mouth twice daily Amoxicillin-Pot Clavulanate Discontinued 1 TABLET PO TWICE A DAY May 14, 2022 12:00am September 20, 2022 11:54am Ljpquezlfd-Vrejarrq-Fbhtwlwk ol (7 sources) Corticosteroid, beta2-Adrenergic Agonist Start: 09-19-2021 End: 03-21-2023 Yxdfpscvmx-Ewbbbhoz-Lunfcilu ol (Breztri Aerosphere) 160-9-4.8 mcg/actuation HFA aerosol inhaler Discontinued 2 NMA INHALATION TWICE A DAY September 19, 2021 1:00am March 21, 2023 11:21am Start: 09-19-2021 End: 03-21-2023 Bgtcchwlna-Wobhenbt-Hzarqeqz ol (Breztri Aerosphere) 160-9-4.8 mcg/actuation HFA aerosol inhaler Discontinued 2 INH INHALATION TWICE A DAY September 19, 2021 1:00am March 21, 2023 11:21am Start: 09-19-2021 Budesonide-Gly copyr-Formoterol (Breztri Aerosphere) 160-9-4.8 mcg/actuation HFA aerosol inhaler Active 2 INH INHALATION TWICE A DAY September 19, 2021 12:00am Start: 09-19-2021 Budesonide-Gly copyr-Formoterol (Breztri Aerosphere) 160-9-4.8 mcg/actuation HFA aerosol inhaler Active 2 INH INHALATION TWICE A DAY September 19, 2021 1:00am calcium carbonate 1250 mg oral tablet (7 sources) Start: 08-05-2019 End: 02-11-2020 take 3 tablets by mouth once daily Calcium Carbonate 500 MG tablet Discontinued 1500 mg PO DAILY August 05, 2019 1:00am February 11, 2020 1:27pm supplement Start: 08-05-2019 End: 02-11-2020 take 1500 mg by mouth once daily Calcium Carbonate Discontinued 1500 MG PO DAILY August 05, 2019 1:00am February 11, 2020 1:27pm calcium citrate 1040 mg oral tablet (7 sources) Start: 02-11-2020 End: 02-11-2020 take 1 tablet by mouth twice daily Calcium Citrate 250 mg calcium tablet Discontinued 250 mg PO TWICE A DAY February 11, 2020 12:00am February 11, 2020 1:27pm cyclobenzaprine hydrochloride 10 mg oral tablet (20 sources) Muscle Relaxant Start: 05-04-2020 End: 09-19-2021 take 1 tablet by mouth at bedtime as needed for muscle spasms Cyclobenzaprine 10 mg tablet Discontinued 10 mg PO BEDTIME as needed for Muscle Spasm June 16, 2020 2:30pm September 19, 2021 12:09pm Start: 08-05-2019 End: 02-11-2020 take 1 tablet by mouth once daily Cyclobenzaprine 10 MG tablet Discontinued 10 mg PO DAILY August 05, 2019 1:00am February 11, 2020 1:11pm muscle spasms docusate sodium 100 mg oral capsule (7 sources) Start: 08-05-2019 End: 02-11-2020 take 1 capsule by mouth twice daily Docusate Sodium 100 MG capsule Discontinued 100 mg PO TWICE A DAY August 05, 2019 1:00am February 11, 2020 1:11pm bowels escitalopram 5 mg oral tablet (1 source) Serotonin Reuptake Inhibitor Start: 12-31-2024 End: 02-16-2025 take 1 tablet by mouth once daily Escitalopram Oxalate (Lexapro) 5 mg tablet Discontinued 5 mg PO daily 60 0 December 31, 2024 12:00am February 16, 2025 1:09pm esomeprazole 40 mg delayed release oral capsule (14 sources) Proton Pump Inhibitor Start: 02-11-2020 End: 03-14-2021 Esomeprazole Magnesium 40 mg capsule,delayed release(DR/EC) Discontinued 20 mg PO DAILY February 11, 2020 1:11pm March 14, 2021 9:06am reflux Start: 02-11-2020 End: 03-14-2021 take 20 mg by mouth once daily Esomeprazole Magnesium Discontinued 20 MG PO DAILY February 11, 2020 1:11pm March 14, 2021 9:06am Start: 08-05-2019 End: 02-11-2020 take 1 capsule by mouth once daily Esomeprazole Magnesium 40 MG capsule Discontinued 40 mg PO DAILY August 05, 2019 1:00am February 11, 2020 1:16pm reflux ferrous sulfate 325 mg oral tablet (14 sources) Start: 03-21-2022 End: 03-26-2024 take 1 tablet by mouth once daily Ferrous Sulfate (Feosol) 325 mg (65 mg iron) tablet Discontinued 325 mg PO DAILY March 21, 2022 12:00am March 26, 2024 10:40am Start: 02-11-2020 End: 06-16-2020 take 1 tablet by mouth three times daily Ferrous Sulfate (Ferosul) 325 mg (65 mg iron) tablet Discontinued 325 mg PO THREE TIMES A DAY February 11, 2020 12:00am June 16, 2020 2:30pm fluticasone propionate 0.05 mg/actuat metered dose nasal spray (10 sources) Corticosteroid Start: 09-19-2021 End: 03-26-2024 Fluticasone Propionate 50 mcg/actuation spray,suspension Discontinued 1 NMA INTRANASAL DAILY as needed March 21, 2023 11:22am March 26, 2024 10:40am administer into each nostril Start: 09-19-2021 End: 03-21-2023 take 1 spray(s) nasal route once daily Fluticasone Propionate Active 1 SPRAY INTRANASAL DAILY March 21, 2023 11:22am administer into each nostril furosemide 40 mg oral tablet (20 sources) Loop Diuretic Start: 02-11-2020 End: 03-26-2024 take 1 tablet by mouth once daily Furosemide 40 mg tablet Discontinued 40 mg PO DAILY 90 March 21, 2023 12:42pm March 26, 2024 10:41am Ginkgo Biloba (7 sources) Start: 02-11-2020 End: 02-11-2020 take 1 tablet by mouth three times daily Ginkgo Biloba 40 mg tablet Discontinued 40 mg PO THREE TIMES A DAY February 11, 2020 12:00am February 11, 2020 1:27pm give with meal/snack Start: 02-11-2020 End: 02-11-2020 take 40 mg by mouth three times daily Ginkgo Biloba Discontinued 40 MG PO THREE TIMES A DAY February 10, 2020 11:00pm February 11, 2020 12:27pm give with meal/snack Start: 02-11-2020 End: 02-11-2020 take 40 mg by mouth three times daily Ginkgo Biloba Discontinued 40 MG PO THREE TIMES A DAY February 11, 2020 12:00am February 11, 2020 1:27pm give with meal/snack indapamide 1.25 mg oral tablet (20 sources) Thiazide-like Diuretic Start: 02-11-2020 End: 12-10-2024 take 1 tablet by mouth once daily in the morning Indapamide 1.25 mg tablet Discontinued 1.25 mg PO EVERY MORNING March 21, 2023 12:43pm March 26, 2024 11:11am ipratropium bromide 0.042 mg/actuat metered dose nasal spray (7 sources) Anticholinergic Start: 09-19-2021 End: 03-26-2024 Ipratropium [place] 42 mcg (0.06 %) spray,non-aerosol Discontinued 2 NMA INTRANASAL TWICE A DAY September 19, 2021 1:00am March 26, 2024 10:40am administer into each nostril Start: 09-19-2021 take 1 spray(s) nasa l route twice daily Ipratropium [place] Active 2 SPRAY INTRANASAL TWICE A DAY September 19, 2021 1:00am administer into each nostril magnesium oxide 400 mg oral tablet (20 sources) Start: 06-16-2020 End: 03-26-2024 take 1 tablet by mouth once daily Magnesium Oxide 400 mg (241.3 mg magnesium) tablet Discontinued 400 mg PO DAILY 90 March 14, 2021 10:11am March 26, 2024 10:40am Start: 02-11-2020 End: 02-11-2020 take 1 capsule by mouth twice daily Magnesium Oxide 400 mg magnesium capsule Discontinued 400 mg PO TWICE A DAY February 11, 2020 12:00am February 11, 2020 1:28pm methylPREDNISolone 4 mg oral tablet (7 sources) Corticosteroid Start: 05-03-2021 End: 05-08-2021 take 1 tablet by mouth once Methylprednisolone (Medrol (Rufus)) 4 mg tablets,dose pack Discontinued 4 mg PO per package directions 21 5 May 03, 2021 12:00am May 07, 2021 12:00am May 08, 2021 12:01am mupirocin 0.02 mg/mg topical ointment (2 sources) RNA Synthetase Inhibitor Antibacterial Start: 05-22-2023 End: 03-26-2024 Mupirocin 2 % ointment Discontinued 1 NMA TOPICAL TWICE A DAY May 22, 2023 12:00am March 26, 2024 10:41am to affected area for 10 days omeprazole 40 mg delayed release oral capsule (20 sources) Proton Pump Inhibitor Start: 03-14-2021 End: 12-10-2024 take 1 capsule by mouth once daily Omeprazole 40 mg capsule,delayed release(DR/EC) Discontinued 40 mg PO DAILY October 26, 2023 1:10pm December 10, 2024 12:24pm Start: 02-03-2018 End: 05-03-2018 take 40 mg by mouth once daily Omeprazole Magnesium (P rilosec) 2.5 mg susp,delayed release for recon Discontinued 40 mg PO daily February 03, 2018 12:00am May 03, 2018 12:58pm potassium citrate 5 meq extended release oral tablet (20 sources) Start: 06-11-2020 End: 03-26-2024 take 1 tablet by mouth once daily in the evening Potassium Citrate 5 mEq (540 mg) tablet extended release Discontinued 5 meq PO EVERY EVENING February 14, 2022 9:00am March 26, 2024 10:40am Start: 05-04-2020 End: 06-11-2020 potassium citrate tablet Discontinued PO DAILY May 04, 2020 12:00am June 11, 2020 12:28pm Start: 05-04-2020 End: 06-11-2020 potassium citrate tablet Discontinued PO DAILY May 04, 2020 12:00am June 11, 2020 12:28pm Start: 05-04-2020 End: 06-11-2020 potassium citrate Discontinu ed PO DAILY May 03, 2020 11:00pm June 11, 2020 11:28am Start: 05-04-2020 End: 06-11-2020 potassium citrate Discontinu ed PO DAILY May 04, 2020 12:00am June 11, 2020 12:28pm Start: 02-11-2020 End: 02-11-2020 take 1 tablet by mouth once daily Potassium Citrate 5 mEq (540 mg) tablet extended release Discontinued 5 meq PO DAILY February 11, 2020 12:00am February 11, 2020 1:27pm predniSONE 20 mg oral tablet (6 sources) Start: 05-04-2022 End: 05-10-2022 take 3 tablets by mouth once daily Prednisone 20 mg tablet Discontinued 60 mg PO DAILY May 04, 2022 12:00am May 10, 2022 1:06pm Next dose 05/05/2022 Start: 05-04-2022 End: 05-10-2022 take 60 mg by mouth once daily Prednisone Discontinued 60 MG PO DAILY May 04, 2022 12:00am May 10, 2022 1:06pm Next dose 05/05/2022 pyridoxine hydrochloride 25 mg oral tablet (7 sources) Start: 02-11-2020 End: 02-11-2020 take 1 tablet by mouth once daily Pyridoxine (Vitamin B6) 25 mg tablet Discontinued 25 mg PO DAILY February 11, 2020 12:00am February 11, 2020 1:27pm rOPINIRole 1 mg oral tablet (20 sources) Nonergot Dopamine Agonist Start: 08-05-2019 End: 03-21-2022 take 1 tablet by mouth at bedtime Ropinirole 1 mg tablet Discontinued 1 mg PO AT BEDTIME March 30, 2021 3:48pm March 21, 2022 11:10am restless legs sildenafil 100 mg oral tablet (12 sources) Phosphodiesterase 5 Inhibitor Start: 04-18-2022 End: 06-02-2024 Sildenafil 100 mg tablet Discontinued 100 mg PO DAILY as needed for sexual activity 90 1 March 30, 2023 1:43pm June 02, 2024 7:54am administer 30 minutes to 4 hours before activity tadalafil 10 mg oral tablet (20 sources) Phosphodiesterase 5 Inhibitor Start: 03-26-2024 End: 12-10-2024 take 1 tablet by mouth every twenty-four hours Tadalafil 10 mg tablet Discontinued 10 mg PO DAILY as needed for sexual activity September 22, 2024 3:17pm December 10, 2024 12:25pm administer approximately 30min before sexual activity; do not use more than 1 dose per 24hrs Start: 05-03-2018 End: 11-04-2021 take 1 tablet by mouth once daily Tadalafil (Cialis) 5 mg tablet Discontinued 5 mg PO DAILY 90 October 28, 2021 3:12pm November 04, 2021 5:14pm Benign prostatic hyperplasia Benign prostatic hyperplasia without lower urinary tract symptoms bph terazosin 5 mg oral capsule (20 sources) alpha-Adrenergic Ambreen Start: 01-12-2022 End: 12-10-2024 take 1 capsule by mouth once daily Terazosin 5 mg capsule Discontinued 5 mg PO DAILY 90 March 21, 2023 12:43pm March 26, 2024 11:11am Start: 12-07-2021 End: 01-12-2022 take 1 capsule by mouth at bedtime Terazosin 2 mg capsule Discontinued 2 mg PO AT BEDTIME 30 December 07, 2021 12:04pm January 12, 2022 11:10am Start: 11-04-2021 End: 12-07-2021 take 1 capsule by mouth at bedtime Terazosin 1 mg capsule Discontinued 1 mg PO AT BEDTIME 60 November 04, 2021 12:00am December 07, 2021 12:04pm 2500 mg testosterone 0.01 mg/mg topical gel (20 sources) Androgen Start: 07-06-2021 End: 07-06-2021 Testosterone 1 % (50 mg/5 gram) gel in packet Discontinued 1 NMA TD DAILY 450 July 06, 2021 1:00am July 06, 2021 4:21pm Start: 07-06-2021 End: 07-06-2021 Testosterone Discontinued 1 PACKET TD DAILY 450 July 06, 2021 1:00am July 06, 2021 4:21pm Start: 06-11-2020 End: 12-10-2024 Testosterone 1 % (25 mg/2.5g valarie) gel in packet Discontinued 1 NMA TD DAILY 225 February 20, 2024 9:18am December 10, 2024 12:23pm Start: 06-11-2020 End: 03-21-2023 Testosterone Active 1 PACKET TD DAILY 225 March 21, 2023 12:43pm Start: 06-03-2020 End: 06-11-2020 Testosterone 12.5 mg/ 1.25 g valarie (1 %) gel in metered-dose pump Discontinued 4 NMA TD DAILY 30 June 03, 2020 12:00am June 11, 2020 12:29pm Start: 06-03-2020 End: 06-11-2020 Testosterone Discontinued 4 PUMP TD DAILY June 03, 2020 12:00am June 11, 2020 12:29pm Start: 05-24-2020 End: 06-03-2020 Testosterone 1 % (25 mg/2.5g valarie) gel in packet Discontinued 1 NMA TD DAILY 75 May 24, 2020 12:00am May 24, 2020 1:52pm Start: 05-24-2020 End: 06-03-2020 Testosterone Discontinued 1 PACKET TD DAILY May 24, 2020 12:00am May 24, 2020 1:52pm tobramycin 3 mg/ml ophthalmic solution (2 sources) Aminoglycoside Antibacterial Start: 05-22-2023 End: 03-26-2024 take 0.3 drop(s) into the eye(s) every two hours Tobramycin 0.3 % drops Discontinued 1 NMA OPHTHALMIC Q2H 5 0 May 22, 2023 12:00am March 26, 2024 10:41am to affected eye(s) while awake for 3 days valACYclovir 1000 mg oral tablet (6 sources) Herpesvirus Nucleoside Analog DNA Polymerase Inhibitor, Herpes Simplex Virus Nucleoside Analog DNA Polymerase Inhibitor, Herpes Zoster Virus Nucleoside Analog DNA Polymerase Inhibitor Start: 05-04-2022 End: 09-20-2022 Valacyclovir 1 gram tablet Discontinued 1000 mg PO THREE TIMES A DAY May 04, 2022 12:00am September 20, 2022 11:55am Start: 05-04-2022 End: 09-20-2022 take 1000 mg by mouth three times daily Valacyclovir Discontinued 1000 MG PO THREE TIMES A DAY May 04, 2022 12:00am September 20, 2022 11:55am varenicline 1 mg oral tablet (7 sources) Partial Cholinergic Nicotinic Agonist Start: 08-05-2019 End: 02-11-2020 take 1 tablet by mouth twice daily Varenicline Tartrate 1 MG tablet Discontinued 1 mg PO TWICE A DAY August 05, 2019 1:00am February 11, 2020 1:12pm smoking Vitamin B Complex (B Complex-Vitamin B12) tablet (7 sources) Start: 02-11-2020 End: 02-11-2020 Vitamin B Complex (B Complex-Vitamin B12) tablet Discontinued 1 {tbl} PO DAILY February 11, 2020 12:00am February 11, 2020 1:27pm Start: 02-11-2020 End: 02-11-2020 take 1 tablet by mouth once daily Vitamin B Complex (B Complex-Vitamin B12) tablet Discontinued 1 TABLET PO DAILY February 10, 2020 11:00pm February 11, 2020 12:27pm Start: 02-11-2020 End: 02-11-2020 take 1 tablet by mouth once daily Vitamin B Complex (B Complex-Vitamin B12) tablet Discontinued 1 TABLET PO DAILY February 11, 2020 12:00am February 11, 2020 1:27pm Problems Active Problems Problem Classification Problem Date Documented Da te Episodic/Chronic Abdominal pain (13 sources) Abdominal pain; Translations: [Unspecified abdominal pain] Episodic Anxiety disorders (5 sources) Anxiety; Translations: [Anxiety disorder, unspecified] Onset: 5 12-10-2024 Chronic Biliary tract disease (7 sources) Biliary dyskinesia; Translations: [Other specified diseases of gallbladder] 06-16-2020 Episodic Chronic obstructive pulmonary disease and bronchiectasis (7 sources) Bronchitis; Translations: [Bronchitis, not specified as acute or chronic] 06-11-2020 Episodic Deficiency and other anemia (7 sources) Anemia; Translations: [Anemia, unspecified] 08-03-2020 Episodic Deficiency and other anemia (7 sources) Hemoglobin low; Translations: [Anemia, unspecified] 03-14-2021 Episodic Diabetes mellitus without complication (13 sources) Prediabetes; Translations: [Prediabetes] Onset: 5 Episodic Disorders of lipid metabolism (1 source) Hyperlipidemia, unspecified; Translations: [Hyperlipidemia, unspecified] Onset: 5 Chronic Disorders of teeth and jaw (1 source) Other specified disorders of teeth and supporting structures; Translations: [Unspecified disorder of the teeth and supporting structures] Episodic Esophageal disorders (7 sources) Gastroesophageal reflux disease; Translations: [Gastro-esophageal reflux disease without esophagitis] 08-05-2019 Chronic Essential hypertension (20 sources) Essential hypertension; Translations: [Essential (primary) hypertension] Onset: 5 Chronic Hemorrhoids (7 sources) Hemorrhoids; Translations: [Unspecified hemorrhoids] 06-11-2020 Episodic Hyperplasia of prostate (11 sources) Benign prostatic hyperplasia; Translations: [Benign prostatic hyperplasia without lower urinary tract symptoms] Onset: 4 Chronic Immunizations and screening for infectious disease (9 sources) Contact with or exposure to other viral diseases; Translations: [Exposure to COVID-19 virus] 03-26-2021 Episodic Inflammation; infection of eye (except that caused by tuberculosis or sexually transmitteddisease) (4 sources) Cellulitis of eyelid; Translations: [Abscess of eyelid unspecified eye, unspecified eyelid] 05-22-2023 Episodic Intestinal obstruction without hernia (7 sources) Intestinal obstruction co-occurrent and due to decreased peristalsis; Translations: [Ileus, unspecified] 06-11-2020 Episodic Malaise and fatigue (8 sources) Left hemiparesis; Translations: [Weakness] Episodic Nutritional deficiencies (1 source) Vitamin D deficiency, unspecified; Translations: [Vitamin D deficiency, unspecified] Onset: 5 Chronic Open wounds of extremities (7 sources) Laceration of right index finger; Translations: [Laceration without foreign body of right index finger without damage to nail, initial encounter] 06-11-2020 Episodic Osteoarthritis (18 sources) Osteoarthritis of right knee joint; Translations: [Unilateral primary osteoarthritis, right knee] Onset: 5 05-03-2021 Chronic Other acquired deformities (4 sources) Lumbar spondylolisthesis; Translations: [Spondylolisthesis, lumbar region] 12-12-2024 Episodic Other and unspecified benign neoplasm (7 sources) Lipoma (clinical); Translations: [Benign lipomatous neoplasm, unspecified] 06-16-2020 Episodic Other and unspecified benign neoplasm (7 sources) Lipoma of breast; Translations: [Benign lipomatous neoplasm of skin and subcutaneous tissue of trunk] 06-16-2020 Episodic Other connective tissue disease (7 sources) Triggering of digit; Translations: [Trigger finger, unspecified finger] 06-16-2020 Episodic Other connective tissue disease (1 source) Trigger finger, unspecified finger; Translations: [Trigger finger (acquired)] 09-20-2022 Episodic Other endocrine disorders (7 sources) Male hypogonadism; Translations: [Testicular hypofunction] 03-21-2022 Chronic Other endocrine disorders (3 sources) Testicular hypofunction; Translations: [Other testicular hypofunction] Onset: 5 Chronic Other gastrointestinal disorders (7 sources) Constipation; Translations: [Constipation, unspecified] 08-02-2020 Episodic Other hereditary and degenerative nervous system conditions (7 sources) Restless legs; Translations: [Restless legs syndrome] 02-11-2020 Chronic Other hereditary and degenerative nervous system conditions (2 sources) Restless legs syndrome; Translations: [Restless legs syndrome (RLS)] Onset: 4 03-21-2023 Chronic Other lower respiratory disease (7 sources) Dyspnea on exertion; Translations: [Other forms of dyspnea] 06-11-2020 Episodic Other nervous system disorders (5 sources) Carpal tunnel syndrome; Translations: [Carpal tunnel syndrome, left upper limb] 06-11-2020 Chronic Other nervous system disorders (2 sources) Carpal tunnel syndrome of left wrist; Translations: [Carpal tunnel syndrome, left upper limb] 06-11-2020 Chronic Other nervous system disorders (6 sources) Desir's palsy; 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] 05-12-2022 Episodic Other nervous system disorders (6 sources) Numbness of face; Translations: [Anesthesia of skin] 05-04-2022 Episodic Other nervous system disorders (3 sources) Anesthesia of skin; Translations: [Disturbance of skin sensation] Episodic Other non-traumatic joint disorders (4 sources) Pain in left knee; Translations: [Left knee pain] 03-21-2023 Episodic Other non-traumatic joint disorders (4 sources) Joint pain; Translations: [Pain in unspecified joint] 12-10-2024 Episodic Other non-traumatic joint disorders (1 source) Pain in unspecified joint; Translations: [Pain in unspecified joint] Onset: 5 Episodic Other nutritional; endocrine; and metabolic disorders (7 sources) Body mass index 30+ - obesity; Translations: [Obesity, unspecified] 09-19-2021 Chronic Other nutritional; endocrine; and metabolic disorders (5 sources) Obesity, unspecified; Translations: [Obesity, unspecified] Onset: 5 Chronic Other nutritional; endocrine; and metabolic disorders (6 sources) Insulin resistance; Translations: [Metabolic syndrome] 09-20-2022 Chronic Other nutritional; endocrine; and metabolic disorders (2 sources) Metabolic syndrome; Translations: [Dysmetabolic syndrome X] Onset: 5 03-21-2023 Chronic Other upper respiratory disease (7 sources) Respiratory tract congestion; Translations: [Nasal congestion] 03-26-2021 Episodic Other upper respiratory infections (9 sources) Viral upper respiratory tract infection; Translations: [Acute upper respiratory infection, unspecified] 08-03-2020 Episodic Residual codes; unclassified (9 sources) Obstructive sleep apnea syndrome; Translations: [Obstructive sleep apnea (adult) (pediatric)] 08-02-2020 Chronic Residual codes; unclassified (2 sources) Obstructive sleep apnea (adult) (pediatric); Translations: [Obstructive sleep apnea (adult)(pediatric)] Onset: 5 03-21-2023 Chronic Residual codes; unclassified (7 sources) Bilateral lower limb edema; Translations: [Localized edema] 08-02-2020 Episodic Residual codes; unclassified (7 sources) Tobacco use and exposure - finding; Translations: [Tobacco use] 02-11-2020 Episodic Residual codes; unclassified (4 sources) Other specified postprocedural states; Translations: [History of laminectomy] 12-12-2024 Episodic Spondylosis; intervertebral disc disorders; other back problems (11 sources) Degeneration of cervical intervertebral disc; Translations: [Other cervical disc degeneration, unspecified cervical region] Onset: 4 05-12-2022 Chronic Spondylosis; intervertebral disc disorders; other back problems (20 sources) Chronic back pain ; Translations: [Dorsalgia, unspecified] Onset: 5 02-11-2020 Episodic Sprains and strains (7 sources) Strain of knee; Translations: [Strain of unspecified muscle(s) and tendon(s) at lower leg level, right leg, initial encounter] 05-03-2021 Episodic Substance-related disorders (1 source) Opioid dependence, uncomplicated; Translations: [Opioid dependence, uncomplicated] Onset: 5 Chronic Unclassified (1 source) Low back pain, unspecified; Translations: [Low back pain, unspecified] Onset: Urinary tract infections (7 sources) Urinary tract infectious disease; Translations: [Urinary tract infection, site not specified] 03-14-2021 Episodic Viral infection (7 sources) Disease caused by 2019-nCoV; Translations: [COVID-19] 03-29-2021 Episodic Past or Other Problems Problem Classification Problem Date Documented Date Episodic/Chronic Other screening for suspected conditions (not mental disorders or infectious disease) (1 source) Encounter for screening for malignant neoplasm of prostate; Translations: [Encounter for screening for malignant neoplasm of prostate] Onset: 04-10-2024 Episodic Residual codes; unclassified (7 sources) History of cardiac catheterization; Translations: [Other specified postprocedural states] Onset: 09-06-2020 10-04-2020 Episodic Comment on above: No significant CAD. Preserved EF. No significant or MR Results Test Name Value Interpretation Reference Range Facility MR/BMS.Bon 02-16-2025 MR/BMS.[facility] [address] [place] [address] OFFICE VISIT Date of Service: 02/16/25 MR#: [id number] Acct: [id number] Name: LINDSEYMATHEW Rep #: [id number] : 1960 Provider: Dr. Leandra king MD Age/Sex: 64/M Location: [facility] Status: Signed Intake Vital Signs 12/11/24 10:33 02/13/25 11:32 02/16/25 13:13 02/16/25 13:15 02/16/25 13:17 02/16/25 13:19 Height 5 ft 7 in 5 ft 7 in 5 ft 7 in Weight: 239 lb 4 oz 222 lb 2 oz BMI 37.4 34.7 BP 134/80 H 146/87 H 145/83 H 138/82 H Blood Pressure Location Lt brachial Lt brachial Lt brachial Lt brachial Position Sitting Supine Sitting Standing Respiration 16 Pulse 76 70 75 76 Pulse Source Monitor Monitor Monitor Monitor Temp 98.4 F Temp Source Temporal Pulse Oximetry (%) 96 Oxygen Delivery Method room air Intake Visit Reasons: MED F/U, DIZZINESS Chief Complaint: Dizziness Device Repair Technician Required: No Accompanied by: Self Is patient in pain?: Yes (Lower back pain) Pain scale (1-10): 3 Allergies Sulfa (Sulfonamide Antibiotics) Allergy (Mild, Verified 02/16/25 13:03) RASH adhesive tape Allergy (Unknown, Verified 02/16/25 13:03) unknown lisinopril Adverse Reaction (Verified 02/16/25 13:03) COUGH Medications ???Medication ???Instructions ???Recorded ???Confirmed ???Type glucosamine sulfate 500 mg tablet 500 mg PO DAILY 05/04/20 02/16/25 History (Glucosamine) cholecalciferol (vitamin D3) 50 1 ea PO DAILY 06/16/20 02/16/25 Hi story mcg (2,000 unit) tablet naproxen sodium 220 mg tablet 440 mg PO BID PRN Pain 1-10 Or 06/2502/16/25 History Fever aspirin 81 mg chewable tablet 81 mg PO DAILY@0800 10/01/2002/16 History multivitamin 1 tab PO DAILY 09/19/21 02/16/25 H istory meloxicam 7.5 mg tablet 7.5 mg PO DAILY 03/21/22 02/16/25 History diphenhydramine 25 1 tab PO QHS PRN 03/26/24 02/16/25 History mg-acetaminophen 500 mg tablet (Acetaminophen PM) tizanidine 4 mg tablet 4 mg PO DAILY Leg cramps 03/26/24 02/16/25 History tramadol 50 mg tablet 50 mg PO TID PRN 03/26/24 02/16/25 History sildenafil 100 mg tablet 100 mg PO DAILY PRN sexual 4 02/16/25 Rx activity #90 tabs indapamide 1.25 mg tablet 1.25 mg PO QAM #90 tabs 12/10/24 0 02/16/25 Rx irbesartan 150 mg tablet 150 mg PO QDAY #90 tabs 12/10/24 0 02/16/25 Rx omeprazole 40 mg capsule,delayed 40 mg PO DAILY #90 caps 12/10/24 0 02/16/25 Rx release tadalafil 10 mg tablet 10 mg PO DAILY PRN sexual activity 12/10/24 02/16/25 Rx #20 tabs terazosin 5 mg capsule 5 mg PO DAILY #90 caps 12/10/24 Rx testosterone 1 % (25 mg/2.5 gram) 1 packet transdermal DAILY #225 0 12/10/24 02/16/25 Rx transdermal gel packet grams Have you fallen in the past year?: No PFSH Medical History (Updated 02/16/25 @ 15:[address] Leandra Mejia MD) Orthostasis Anxiety Joint pain Conjunctivitis, left eye Cellulitis of eyelid Uncontrolled hypertension Left facial numbness Weakness of left side of body Borderline diabetes Essential hypertension Bilateral lower extremity edema Dyspnea on exertion Biliary dyskinesia Abdominal pain DVT (deep venous thrombosis) BPH (benign prostatic hyperplasia) Tobacco use Chronic back pain RLS (restless legs syndrome) Constipation Ileus Bronchitis Laceration of right index finger Carpal tunnel syndrome of left wrist Lipoma Lipoma of breast Hemorrhoids Acid reflux Arthritis Surgical History History of left heart catheterization ( 10/01/20) Previous back surgery S/P carpal tunnel release Trigger finger of left hand History of incision and drainage Hx of arthroscopic knee surgery History of carpal tunnel surgery of right wrist Family History Mother Non-Hodgkin lymphoma Father Heart disease Social History Smoking Status: Former smoker how long ago did patient quit smoking: August 01, 2019 alcohol intake: never substance use type: does not use caffeine: Yes what type of physical activity do you participate in: other details: Golfing frequency: 3-4 times per week seatbelt use: always HPI HPI Chief Complaint: Dizziness Details: MATHEW PORTILLO, is a 64 M who presents to the office today for an acute care follow-up visit. Patient has dizziness, lightheadedness. At her last visit, he was also expressing symptoms of agitation, snapping easily, anger. We discussed starting medication and I left up to him to let us know. Ultimately he stated he would like to try Lexapro as we discussed. He states within a couple of days he actually did feel significantly better in the regards of the agitation, sna (more content not included)... Normal [facility] Inital Evaluation (1) - PTon 12-30-2024 Inital Evaluation (1) - PT [facility] [address] [place] [address] / REHABILITATION SERVICES INITIAL EVALUATION MR#: [id number] Acct: [id number] Name: MATHEW PORTILLO Rep #: [id number] : 1960 64 From: Chaitanya Spaulding PT, Cert. MD [place], OCS Referring Dr.: Dr. Kody Kemp MD Status: REG RCR Insurance: MEDICARE PART A B C[email or web address] Patient's Visit Information Visit Information Visit Information: MATHEW PORTILLO is a 64 year old M referred to Physical Therapy by Dr. Kody Kemp MD with a diagnosis of BACK PAIN. Date of Evaluation: 12/30/24 Physical Therapist: Chaitanya Spaulding PT, Cert T, OCS Visit Plan Frequency: 2x /Week Duration: 4 Weeks Plan: PT INTERVENTIONS LUMBAR FLEXION ,LE FLEXABILITY ,POSTURAL EX'S ,DLS ,ACTIVITY MODIFICATION AND MODALTIES PRN Subjective Subjective: This 64 y/o male presents to physical therapy with back pain. Patient has had back pain 2016 . Patient had 2019 lumbar decompression /laminectomy . Patient had x-rays showed multilevel spondylosis/discogenic change with yaaejmqf-lr-zjiyzs multilevel disc space narrowing and appearance of multilevel foraminal narrowing and facet degenerative. Patient seen Dr Owens reviewed MRI . Could do surgery as need when pain is severe. Also seen [facility]. Sees Dr Cedeno with injections epidural in Jul. Recommended PT. Patient medication tramadol. Location symmetrical to lateral hips and occasional hamstrings to calf. Aggravating factors walking ,standing extended ,bending and lifting. Alleviating factors sitting rest,tramadol ,heat. Occasional paresthesia/tingling left leg. Coughing/Sneezing-. Bowel/bladder-. Pain affects sleeping. Prior PT . Patient has neck pain ,shoulder pain right RTC tear. Patient condition affects QOL and function. SOCIAL: VOCATION: retired Pain Bilateral: Pain Intensity (Out of 10): 3 Pain Intensity Range: 10 Left: Pain Intensity (Out of 10): 2 Pain Intensity Range: 10 Left Lower Extremity: Pain Intensity (Out of 10): 2 Pain Intensity Range: 10 Objective Objective: POSTURE: mild forward posture GAIT: reciprocal pattern PALAPTION: tender LS FLEXABILITY: hamstrings mod tight MMT: quads/hams 4/5 ,hip flexion 4-/5 ,ankle 4/5 LUMBAR ROM: flexion min loss ,extension mod loss side glides mod loss Special Tests L/S Slump test left side: Negative L/S Slump test right side: Negative L/S Left Straight Leg Raise: Negative L/S Right Straight Leg Raise: Negative Balance/Special Test Scores Oswestry Low Back Score: 26 Goals Goal 1:: Patient will be I with HEP for back Goal Time Frame: 4-6 Weeks Goal 2:: Patient to demonstrate 50 % improvement with less pain and improved function with walking Goal Time Frame: 4-6 Weeks Goal 3:: Patient to improve lumbar ROM for function of recovery for ADLs Goal Time Frame: 4-6 Weeks Goal 4:: Patient to improve back oswestry score by 5 points to improve QOL and function Goal Time Frame: 4-6 Weeks Rehabilitation Potential Physical Therapy Diagnosis: This patient has lumbar pain with radicular symptoms in legs with stenosis with pain worse with positioning and motion testing ,walking/standing better with sitting thus benefit from skilled PT to address above impairments Rehabilitation Potential: Good Anticipated Interventions Patient/Client Instruction: Educate patient on: Condition and Plan of Care For the Purpose of:: To decrease pain, To increase ROM, To improve muscle performance and motor function, To improve ability to perform ADL's, To increase tolerance to activity/condition/posit ion, To improve ability of physical actions for home/community/work/leis ure, To improve health of tissue, To decrease soft tissue restriction, To increase flexibility/ROM and To improve tolerance to ADL's Therapeutic Exercise to Include: Strength training, Postural training, Flexibilty training and Dynamic Lumbar Stabilization Comment: QUADS/HAMS/HIP For the Purpose of:: To decrease pain, To increase ROM, To improve nutrient delivery to tissue, To increase oxygenation perfusion, To increase tolerance to activity/condition/posit ion, To improve ability of physical actions for home/community/work/leis ure, To improve health of tissue, To decrease soft tissue restriction, To increase flexibility/ROM, To improve endurance, To prevent re- injury and To improve tolerance to ADL's TENS: Yes IF ES: Yes Cryotherapy (ice pack, ice massage): Yes Thermo therapy (hot pack): Yes Ultrasound (thermal/non thermal): Yes For the Purpose of:: To decrease pain, To increase ROM, To improve nutrient delivery to tissue, To increase oxygenation perfusion, To decrease soft tissue restriction, To increase flexibility/ROM and To improve tolerance to ADL's Text: Thank you for the opportunity to evaluate your patient. For (more content not included)... Normal [facility] Lyme Screen W/Reflex WBon LYME SCREEN Ab Negative Normal Negative [facility] Comment on above: Result Comment: Lyme antibodies not detected. Reflex testing is not indicated. No laboratory evidence of infection with B. burgdorferi (Lyme disease). Negative results may occur in patients recently infected (less than or equal to 14 days) with B. burgdorferi. If recent infection is suspected, repeat testing on a new sample collected in 7 to 14 days is recommended. Performed at: [address] [id number] Casework Manager: Nicolas Andrews PhD, Phone: [phone] Performed at: [address] [id number] Casework Manager: Solomon Hassan MD, Phone: [phone] Performed By: #### L 505.7010, L3100.5450, L501.9985, L500.4050, L501.6710, L506.1001, L101.9900, L7000.5300, L3100.5310, L100.0100, L503.0106, L500.4100 ####[facility] [id number] [place], [place], [id number] Testosterone, Total / Freeon 12-25-2024 TESTOSTER,FREE 21.87 ng/dL Abnormal 5.00-21.00 [facility] Comment on above: Order Comment: N Performed By: #### L 505.7010, L3100.5450, L501.9985, L500.4050, L501.6710, L506.1001, L101.9900, L7000.5300, L3100.5310, L100.0100, L503.0106, L500.4100 ####[facility] [id number] [place], [place], [id number] TESTOSTER,TOTAL 749 ng/dL Normal 264-916 [facility] Comment on above: Order Comment: N Result Comment: Adul t male reference interval is based on a population of healthy nonobese males (BMI <30) between 19 and 39 years old. maddy Clayton.al. JCEM 2017,102;9079-1045. PMID: [id number]. Performed By: #### L 505.7010, L3100.5450, L501.9985, L500.4050, L501.6710, L506.1001, L101.9900, L7000.5300, L3100.5310, L100.0100, L503.0106, L500.4100 ####[facility] [address] [place], [place], [address](075) TESTOSTERONE,%F 2.92 Normal 1.50-4.20 [facility] Comment on above: Order Comment: N Performed By: #### L 505.7010, L3100.5450, L501.9985, L500.4050, L501.6710, L506.1001, L101.9900, L7000.5300, L3100.5310, L100.0100, L503.0106, L500.4100 ####[facility] [address] [place], [place], [address] ROLANDA w/ Reflex Mult Confirmon 12-12-2024 ANTI-DNA (DS)AB TNP Normal [facility] Comment on above: Performed By: #### L 505.7010, L3100.5450, L501.9985, L500.4050, L501.6710, L506.1001, L101.9900, L7000.5300, L3100.5310, L100.0100, L503.0106, L500.4100 #### [facility] [address] [place], [place], [address] L/S Spine Min 4 Viewson 05- L/S Spine Min 4 Views [facility] Services [address] [place], [place] [address] L/S Spine Min 4 Views MR#: [id number] Acct: [id number] Name: MATHEW PORTILLO Rep #: [id number] : 1960 M 64 From: Edgar Scott MD PCP: Dr. Leandra Mejia MD Status: DEP AMB Study: L/S Spine Min 4 Views Date of Exam: 12/11/24 Exam# [id number] Ordering Dr: Antonette Fraser PROCEDURE: L/S SPINE MIN 4 VIEWS 12/11/2024 REASON FOR EXAM: PAIN TECHNIQUE: Four views; AP, lateral and flexion-extension COMPARISON: 12/24/2023 FINDINGS: 5 fly-vkh-dwxkris lumbar vertebral body types again identified. No fracture or malalignment. Multilevel spondylosis/discogenic change with uglisuhf-[id number] multilevel disc space narrowing and appearance of multilevel foraminal narrowing and facet degenerative changes is not significantly changed in appearance. No evidence of instability. Partial L2 and L3 through L5 wide laminectomies again noted. RAD/L/S Spine Min 4 Views IMPRESSION: No significant interval change in appearance of multilevel spondylosis/discogenic change. No evidence of instability. Reading Location: [facility] CC: ANDERS Hutson; Dr. 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 Mumtaz Owens MD Age/Sex: 64/M [place] [facility] [place] Status: Signed Intake Vital Signs 03/26/24 10:47 12/10/24 11:01 12/11/24 10:33 Height 5 ft 7 in 5 ft 7 in 5 ft 7 in Weight: 239 lb 4 oz BMI 37.4 Intake Visit Reasons: LUMBAR SPINE Chief Complaint: Lumbar Spine Pain Accompanied by: Self Is patient in pain?: Yes Pain scale (1-10): 3 Allergies Sulfa (Sulfonamide Antibiotics) Allergy (Mild, Verified 12/11/24 10:34) RASH adhesive tape Allergy (Unknown, Verified 12/11/24 10:34) unknown lisinopril Adverse Reaction (Verified 12/11/24 10:34) COUGH Medications ???Medication ???Instructions ???Recorded ???Confirmed ???Type glucosamine sulfate 500 mg tablet 500 mg PO DAILY 05/04/20 12/11/24 History (Glucosamine) cholecalciferol (vitamin D3) 50 1 ea PO DAILY 06/16/20 12/11/24 Hi story mcg (2,000 unit) tablet naproxen sodium 220 mg tablet 440 mg PO BID PRN Pain 1-10 Or 06/2512/11/24 History Fever aspirin 81 mg chewable tablet 81 mg PO DAILY@0800 10/01/2012/11 History multivitamin 1 tab PO DAILY 09/19/21 12/11/24 H istory meloxicam 7.5 mg tablet 7.5 mg PO DAILY 03/21/22 12/11/24 History diphenhydramine 25 1 tab PO QHS PRN 03/26/24 12/11/24 History mg-acetaminophen 500 mg tablet (Acetaminophen PM) tizanidine 4 mg tablet 4 mg PO DAILY Leg cramps 03/26/24 12/11/24 History tramadol 50 mg tablet 50 mg PO TID PRN 03/26/24 12/11/24 History sildenafil 100 mg tablet 100 mg PO DAILY PRN sexual 4 12/11/24 Rx activity #90 tabs indapamide 1.25 mg tablet 1.25 mg PO QAM #90 tabs 12/10/24 0 12/11/24 Rx irbesartan 150 mg tablet 150 mg PO QDAY #90 tabs 12/10/24 0 12/11/24 Rx omeprazole 40 mg capsule,delayed 40 mg PO DAILY #90 caps 12/10/24 0 12/11/24 Rx release tadalafil 10 mg tablet 10 mg PO DAILY PRN sexual activity 12/10/24 12/11/24 Rx #20 tabs terazosin 5 mg capsule 5 mg PO DAILY #90 caps 12/10/24 Rx testosterone 1 % (25 mg/2.5 gram) 1 packet transdermal DAILY #225 0 12/10/24 12/11/24 Rx transdermal gel packet grams Have you fallen in the past year?: No PFSH Medical History Anxiety Joint pain Conjunctivitis, left eye Cellulitis of eyelid Uncontrolled hypertension Left facial numbness Weakness of left side of body Borderline diabetes Essential hypertension Bilateral lower extremity edema Dyspnea on exertion Biliary dyskinesia Abdominal pain DVT (deep venous thrombosis) BPH (benign prostatic hyperplasia) Tobacco use Chronic back pain RLS (restless legs syndrome) Constipation Ileus Bronchitis Laceration of right index finger Carpal tunnel syndrome of left wrist Lipoma Lipoma of breast Hemorrhoids Acid reflux Arthritis Surgical History History of left heart catheterization ( 10/01/20) Previous back surgery S/P carpal tunnel release Trigger finger of left hand History of incision and drainage Hx of arthroscopic knee surgery History of carpal tunnel surgery of right wrist Family History Mother Non-Hodgkin lymphoma Father Heart disease Social History Smoking Status: Former smoker how long ago did patient quit smoking: August 01, 2019 alcohol intake: never substance use type: does not use caffeine: Yes what type of physical activity do you participate in: other details: Golfing frequency: 3-4 times per week seatbelt use: always HPI LUMBAR SPINE Details: This documentation accurately reflects the service provided and the decisions made by me, Dr. Mumtaz Owens MD 12/11/24 1030. Part of today???s visit was documented by Eva Zapata ATC, acting as scribe. MATHEW PORTILLO is a 64 year old M here today for lumbar spine pain. Patient states he had lower lumbar surgery (bilateral posterior microdecompression L2-3, L3-4 and L4-5) in July [address] Raymond Fountain at the [facility] and the back was bothering him 3 years prior to the surgery. He states he couldn't get an MRI approved until he fell down the steps due to his legs being completely numb. He has been seeing Dr. Kemp since about 2020 for injections and he states he gets some relief from them. He states the last injection he had was July 2024 and he was going to get another in October but his insurance denied him. He states he gets caudal injections and these seem to help him a little bit more. He states the injection (more content not included)... Normal [facility] Absolute lymphocyte countOrd ered By: Leandra Mejia on 12-10-2024 Lymphocytes Auto (Unsp spec) [#/Vol] 1.69 10*3/uL 0.83-4.51 [facility] Absolute neutrophil countOrd ered By: Leandra Mejia on 12-10-2024 Neutrophils (Bld) [#/Vol] 4.3 10*3/uL 2.0-7.7 [facility] Anion gap in Serum or Plasma Ordered By: Leandra Mejia on 12-10-2024 Anion gap [Moles/Vol] 13 mmol/L 5-15 [facility] Automated lymphocyte count a s percentage of total leukocytesOrdered By: Leandra Mejia on 12-10-2024 Lymphocytes/100 WBC Auto (Unsp spec) 25.1 % 19-41 [facility] BUN/creatinine ratioOrdered By: Leandra Mejia on 12-10-2024 Urea nitrogen/Creatinine [Mass ratio] 13.9 mg/mg 10-20 [facility] Basophil percentageOrdered B y: Leandra Mejia on 12-10-2024 Basophils/100 WBC (Bld) 0.7 % 0-1 [facility] Bilirubin, totalOrdered By: Leandra Mejia on 12-10-2024 Bilirubin [Mass/Vol] 0.28 mg/dL 0.00-1.30 [facility] CBC W/Diff, Automatedon Absolute Lymph 1.69 X10 3/uL Normal 0.83-4.51 [facility] Comment on above: Performed By: #### L 505.7010, L3100.5450, L501.9985, L500.4050, L501.6710, L506.1001, L101.9900, L7000.5300, L3100.5310, L100.0100, L503.0106, L500.4100 ####[facility] [address] [place], [address] Absolute Neut 4.3 X10 3/uL Normal 2.0-7.7 [facility] Comment on above: Performed By: #### L 505.7010, L3100.5450, L501.9985, L500.4050, L501.6710, L506.1001, L101.9900, L7000.5300, L3100.5310, L100.0100, L503.0106, L500.4100 ####[facility] [address] [place], [address] Basophils/100 WBC (Bld) 0.7 % Normal 0-1 [facility] Comment on above: Performed By: #### L 505.7010, L3100.5450, L501.9985, L500.4050, L501.6710, L506.1001, L101.9900, L7000.5300, L3100.5310, L100.0100, L503.0106, L500.4100 ####[facility] [address] [place] [place], [address] Eosinophils/100 WBC (Bld) 2.4 % Normal 0-5 [facility] Comment on above: Performed By: #### L 505.7010, L3100.5450, L501.9985, L500.4050, L501.6710, L506.1001, L101.9900, L7000.5300, L3100.5310, L100.0100, L503.0106, L500.4100 ####[facility] [address] [place], [address] Erythrocyte distribution width (RBC) [Ratio] 12.3 % Normal 11.6-14.6 [facility] Comment on above: Performed By: #### L 505.7010, L3100.5450, L501.9985, L500.4050, L501.6710, L506.1001, L101.9900, L7000.5300, L3100.5310, L100.0100, L503.0106, L500.4100 ####[facility] [address] [place], [place], [phone] Hematocrit (Bld) [Volume fraction] 45.7 % Normal 40-54 [facility] Comment on above: Performed By: #### L 505.7010, L3100.5450, L501.9985, L500.4050, L501.6710, L506.1001, L101.9900, L7000.5300, L3100.5310, L100.0100, L503.0106, L500.4100 ####[facility] [address] [place], [place], [phone] Hemoglobin (Bld) [Mass/Vol] 15.6 g/dL Normal 13.0-16.5 [facility] Comment on above: Performed By: #### L 505.7010, L3100.5450, L501.9985, L500.4050, L501.6710, L506.1001, L101.9900, L7000.5300, L3100.5310, L100.0100, L503.0106, L500.4100 ####[facility] [address] [place], [place], [phone] IG% 0.300 Normal 0.0-0.9 [facility] Comment on above: Result Comment: IG% - Immature Granulocytes (promyelocytes, myelocytes and metamyelocytes) > 1% indicates that a LEFT SHIFT is Present. Performed By: #### L 505.7010, L3100.5450, L501.9985, L500.4050, L501.6710, L506.1001, L101.9900, L7000.5300, L3100.5310, L100.0100, L503.0106, L500.4100 ####[facility] [address] [place], [address] Lymphocytes/100 WBC (Bld) 25.1 % Normal 19-41 [facility] Comment on above: Performed By: #### L 505.7010, L3100.5450, L501.9985, L500.4050, L501.6710, L506.1001, L101.9900, L7000.5300, L3100.5310, L100.0100, L503.0106, L500.4100 ####[facility] [address] [place], [address] MCH (RBC) [Entitic mass] 29.3 pg Normal 27.0-32.0 [facility] Comment on above: Performed By: #### L 505.7010, L3100.5450, L501.9985, L500.4050, L501.6710, L506.1001, L101.9900, L7000.5300, L3100.5310, L100.0100, L503.0106, L500.4100 ####[facility] [address] [place], [address] MCHC (RBC) [Mass/Vol] 34.1 g/dL Normal 32-36 [facility] Comment on above: Performed By: #### L 505.7010, L3100.5450, L501.9985, L500.4050, L501.6710, L506.1001, L101.9900, L7000.5300, L3100.5310, L100.0100, L503.0106, L500.4100 ####[facility] [address] [place], [address] MCV (RBC) [Entitic vol] 85.7 fL Normal 80-94 [facility] Comment on above: Performed By: #### L 505.7010, L3100.5450, L501.9985, L500.4050, L501.6710, L506.1001, L101.9900, L7000.5300, L3100.5310, L100.0100, L503.0106, L500.4100 ####[facility] [address] [place], [place], [phone] Monocytes/100 WBC (Bld) 8.2 % Normal 0-10 [facility] Comment on above: Performed By: #### L 505.7010, L3100.5450, L501.9985, L500.4050, L501.6710, L506.1001, L101.9900, L7000.5300, L3100.5310, L100.0100, L503.0106, L500.4100 ####[facility] [address] [place], [phone] Neutrophils/100 WBC (Bld) 63.3 % Normal 47-70 [facility] Comment on above: Performed By: #### L 505.7010, L3100.5450, L501.9985, L500.4050, L501.6710, L506.1001, L101.9900, L7000.5300, L3100.5310, L100.0100, L503.0106, L500.4100 ####[facility] [address] [place], [address](615) Nucleated RBC (Bld) [#/Vol] 0 10*3/uL Normal 0-5 [facility] Comment on above: Performed By: #### L 505.7010, L3100.5450, L501.9985, L500.4050, L501.6710, L506.1001, L101.9900, L7000.5300, L3100.5310, L100.0100, L503.0106, L500.4100 ####[facility] [address] [place], [address] Platelet mean volume (Bld) [Entitic vol] 10.6 fL Normal 6.2-12.0 [facility] Comment on above: Performed By: #### L 505.7010, L3100.5450, L501.9985, L500.4050, L501.6710, L506.1001, L101.9900, L7000.5300, L3100.5310, L100.0100, L503.0106, L500.4100 ####[facility] [address] [place], [place], [phone](695) Platelets (Bld) [#/Vol] 256 10*3/uL Normal 150-450 [facility] Comment on above: Performed By: #### L 505.7010, L3100.5450, L501.9985, L500.4050, L501.6710, L506.1001, L101.9900, L7000.5300, L3100.5310, L100.0100, L503.0106, L500.4100 ####[facility] [address] [place], [place], [phone](941) RBC (Bld) [#/Vol] 5.33 10*6/uL Normal 4.6-6.2 [facility] Comment on above: Performed By: #### L 505.7010, L3100.5450, L501.9985, L500.4050, L501.6710, L506.1001, L101.9900, L7000.5300, L3100.5310, L100.0100, L503.0106, L500.4100 ####[facility] [address] [place], [place], [phone](561) RDW SD 38.3 fl Normal 35.1-43.9 [facility] Comment on above: Performed By: #### L 505.7010, L3100.5450, L501.9985, L500.4050, L501.6710, L506.1001, L101.9900, L7000.5300, L3100.5310, L100.0100, L503.0106, L500.4100 ####[facility] [address] [place], [place], [phone] WBC (Bld) [#/Vol] 6.7 10*3/uL Normal 4.4-11.0 [facility] Comment on above: Performed By: #### L 505.7010, L3100.5450, L501.9985, L500.4050, L501.6710, L506.1001, L101.9900, L7000.5300, L3100.5310, L100.0100, L503.0106, L500.4100 ####[facility] [address] [place], [place], [phone] CRPon 12-10-2024 C-REACTIVE PROT < 3.00 Normal 0.0-3.0 [facility] Comment on above: Performed By: #### L 505.7010, L3100.5450, L501.9985, L500.4050, L501.6710, L506.1001, L101.9900, L7000.5300, L3100.5310, L100.0100, L503.0106, L500.4100 ####[facility] [address] [place], [place], [phone] Calculated very low density lipoprotein (VLDL) cholesterol measurementOrdered By: Leandra Mejia on 12-10-2024 Calculated very low density lipoprotein (VLDL) cholesterol measurement 41 mg/dL High 5-40 [facility] Carbon dioxide, total [Moles /volume] in Central venous bloodOrdered By: Leandra Mejia on 12-10-2024 CO2 [Moles/Vol] 22.8 mmol/L 21.0-32.0 [facility] Chloride assayOrdered By: Darcy Mejia on 12-10-2024 Chloride [Moles/Vol] 104 mmol/L 98-108 [facility] Comprehensive Metabolic Prof ilon 12-10-2024 Albumin [Mass/Vol] 4.2 g/dL Normal 3.4-4.8 [facility] Comment on above: Performed By: #### L 505.7010, L3100.5450, L501.9985, L500.4050, L501.6710, L506.1001, L101.9900, L7000.5300, L3100.5310, L100.0100, L503.0106, L500.4100 ####[facility] [address] [place], [place], [phone](937) Albumin/Globulin [Mass ratio] 1.4 {ratio} Normal 0.9-2.4 [facility] Comment on above: Performed By: #### L 505.7010, L3100.5450, L501.9985, L500.4050, L501.6710, L506.1001, L101.9900, L7000.5300, L3100.5310, L100.0100, L503.0106, L500.4100 ####[facility] [address] [place], [place], [phone] ALK PHOS 62 U/L Normal 40-129 [facility] Comment on above: Performed By: #### L 505.7010, L3100.5450, L501.9985, L500.4050, L501.6710, L506.1001, L101.9900, L7000.5300, L3100.5310, L100.0100, L503.0106, L500.4100 ####[facility] [address] [place], [place], [phone] ALT [Catalytic activity/Vol] 33 U/L Normal <=46 [facility] Comment on above: Performed By: #### L 505.7010, L3100.5450, L501.9985, L500.4050, L501.6710, L506.1001, L101.9900, L7000.5300, L3100.5310, L100.0100, L503.0106, L500.4100 ####[facility] [address] [place], [place], [phone] AST [Catalytic activity/Vol] 26 U/L Normal <=37 [facility] Comment on above: Performed By: #### L 505.7010, L3100.5450, L501.9985, L500.4050, L501.6710, L506.1001, L101.9900, L7000.5300, L3100.5310, L100.0100, L503.0106, L500.4100 ####[facility] [address] [place], [place], [phone](391) Bilirubin [Mass/Vol] 0.28 mg/dL Normal 0.00-1.30 [facility] Comment on above: Performed By: #### L 505.7010, L3100.5450, L501.9985, L500.4050, L501.6710, L506.1001, L101.9900, L7000.5300, L3100.5310, L100.0100, L503.0106, L500.4100 ####[facility] [address] [place], [place], [phone] BUN/CRE 13.9 RATIO Normal 10-20 [facility] Comment on above: Performed By: #### L 505.7010, L3100.5450, L501.9985, L500.4050, L501.6710, L506.1001, L101.9900, L7000.5300, L3100.5310, L100.0100, L503.0106, L500.4100 ####[facility] [address] [place], [place], [phone](265) Calcium [Mass/Vol] 9.2 mg/dL Normal 7.6-11.0 [facility] Comment on above: Performed By: #### L 505.7010, L3100.5450, L501.9985, L500.4050, L501.6710, L506.1001, L101.9900, L7000.5300, L3100.5310, L100.0100, L503.0106, L500.4100 ####[facility] [address] [place], [place], [phone](710) Chloride [Moles/Vol] 104 mmol/L Normal 98-108 [facility] Comment on above: Performed By: #### L 505.7010, L3100.5450, L501.9985, L500.4050, L501.6710, L506.1001, L101.9900, L7000.5300, L3100.5310, L100.0100, L503.0106, L500.4100 ####[facility] [address] [place], [place], [phone](391) CO2 [Moles/Vol] 22.8 mmol/L Normal 21.0-32.0 [facility] Comment on above: Performed By: #### L 505.7010, L3100.5450, L501.9985, L500.4050, L501.6710, L506.1001, L101.9900, L7000.5300, L3100.5310, L100.0100, L503.0106, L500.4100 ####[facility] [address] [place], [place], [phone](045) Creatinine [Mass/Vol] 1.10 mg/dL Normal 0.70-1.20 [facility] Comment on above: Performed By: #### L 505.7010, L3100.5450, L501.9985, L500.4050, L501.6710, L506.1001, L101.9900, L7000.5300, L3100.5310, L100.0100, L503.0106, L500.4100 ####[facility] [address] [place], [place], [phone](001) GAP 13 Normal 5-15 [facility] Comment on above: Performed By: #### L 505.7010, L3100.5450, L501.9985, L500.4050, L501.6710, L506.1001, L101.9900, L7000.5300, L3100.5310, L100.0100, L503.0106, L500.4100 ####[facility] [address] [place], [place], [phone](228) GFR/1.73 sq M.predicted among non-blacks MDRD (S/P/Bld) [Vol rate/Area] 74 mL/min/{1.73_m2} Normal >60 [facility] Comment on above: Result Comment: mL/m in/1.73m2 CKD-EPI Creatinine Equation (2020) Performed By: #### L 505.7010, L3100.5450, L501.9985, L500.4050, L501.6710, L506.1001, L101.9900, L7000.5300, L3100.5310, L100.0100, L503.0106, L500.4100 ####[facility] [address] [place], [place], [phone](523) Globulin (S) [Mass/Vol] 3.1 g/dL Normal 2.2-4.2 [facility] Comment on above: Performed By: #### L 505.7010, L3100.5450, L501.9985, L500.4050, L501.6710, L506.1001, L101.9900, L7000.5300, L3100.5310, L100.0100, L503.0106, L500.4100 ####[facility] [address] [place], [place], [phone](455) Glucose [Mass/Vol] 112 mg/dL High 70-99 [facility] Comment on above: Performed By: #### L 505.7010, L3100.5450, L501.9985, L500.4050, L501.6710, L506.1001, L101.9900, L7000.5300, L3100.5310, L100.0100, L503.0106, L500.4100 ####[facility] [address] [place], [address] Potassium [Moles/Vol] 4.3 mmol/L Normal 3.3-5.1 [facility] Comment on above: Performed By: #### L 505.7010, L3100.5450, L501.9985, L500.4050, L501.6710, L506.1001, L101.9900, L7000.5300, L3100.5310, L100.0100, L503.0106, L500.4100 ####[facility] [address] [place], [address] Sodium [Moles/Vol] 140 mmol/L Normal 133-145 [facility] Comment on above: Performed By: #### L 505.7010, L3100.5450, L501.9985, L500.4050, L501.6710, L506.1001, L101.9900, L7000.5300, L3100.5310, L100.0100, L503.0106, L500.4100 ####[facility] [address] [place], [address] T PROT 7.3 g/dL Normal 5.9-8.4 [facility] Comment on above: Performed By: #### L 505.7010, L3100.5450, L501.9985, L500.4050, L501.6710, L506.1001, L101.9900, L7000.5300, L3100.5310, L100.0100, L503.0106, L500.4100 ####[facility] [address] [place], [address] Urea nitrogen [Mass/Vol] 15 mg/dL Normal 4-19 [facility] Comment on above: Performed By: #### L 505.7010, L3100.5450, L501.9985, L500.4050, L501.6710, L506.1001, L101.9900, L7000.5300, L3100.5310, L100.0100, L503.0106, L500.4100 ####[facility] [address] [place], [place], [phone] Eosinophil percentageOrdered By: Leandra Mejia on 12-10-2024 Eosinophils/100 WBC (Bld) 2.4 % 0-5 [facility] Erythrocyte Sed Rateon 12-10 SED RATE 7 mm/hr Normal 0-20 [facility] Comment on above: Performed By: #### L 505.7010, L3100.5450, L501.9985, L500.4050, L501.6710, L506.1001, L101.9900, L7000.5300, L3100.5310, L100.0100, L503.0106, L500.4100 ####[facility] [address] [place], [place], [phone] Erythrocyte distribution wid th ratioOrdered By: Leandra Mejia on 12-10-2024 Erythrocyte distribution width (RBC) [Ratio] 12.3 % 11.6-14.6 [facility] Erythrocyte distribution wid th standard deviationOrdered By: Leandra Mejia on 12-10-2024 Erythrocyte distribution width (RBC) [Ratio] 38.3 fl 35.1-43.9 [facility] Erythrocyte sedimentation ra teOrdered By: Leandra Mejia on 12-10-2024 ESR (Bld) [Velocity] 7 mm/h 0-20 [facility] Free testosterone percentage Ordered By: Leandra Mejia on 12-10-2024 Testosterone Free/Testosterone.total [Mass fraction] 2.92 % 1.50-4.20 [facility] Glomerular filtration rate ( GFR) estimation/1.73 sq m using serum, plasma, or whole bOrdered By: Leandra Mejia on 12-10-2024 GFR/1.73 sq M.predicted among non-blacks MDRD (S/P/Bld) [Vol rate/Area] 74 mL/min/{1.73_m2} >60 [facility] Comment on above: mL/min/1.73m2 CKD-EP I Creatinine Equation (2020) Hematocrit Auto (Bld) [Volum e fraction]Ordered By: Leandra Mejia on 12-10-2024 Hematocrit (Bld) [Volume fraction] 45.7 % 40-54 [facility] Hemoglobin A1con 12-10-2024 HbA1c (Bld) [Mass fraction] 5.8 % High <=5.6 [facility] Comment on above: Result Comment: Norm al < 5.7 % Prediabetic 5.7 - 6.4 % Diabetic >or= 6.5 % Please note range changes. Performed By: #### L 505.7010, L3100.5450, L501.9985, L500.4050, L501.6710, L506.1001, L101.9900, L7000.5300, L3100.5310, L100.0100, L503.0106, L500.4100 ####[facility] [address] [place], [place], [phone] Hemoglobin A1c percentageOrd ered By: Leandra Mejia on 12-10-2024 HbA1c (Bld) [Mass fraction] 5.8 % High <5.7 [facility] Comment on above: Normal < 5.7 % Predi abetic 5.7 - 6.4 % Diabetic >or= 6.5 % Please note range changes. Hemoglobin measurementOrdere d By: Leandra Mejia on 12-10-2024 Hemoglobin (Bld) [Mass/Vol] 15.6 g/dL 13.0-16.5 [facility] Immature granulocytes/100 WB C Auto (Bld)Ordered By: Leandra Mejia on 12-10-2024 Immature granulocytes/100 WBC (Bld) 0.300 % 0.0-0.9 [facility] Comment on above: IG% - Immature Granu locytes (promyelocytes, myelocytes and metamyelocytes) > 1% indicates that a LEFT SHIFT is Present. LDL calc ser/plasOrdered By: Leandra Mejia on 12-10-2024 Cholesterol in LDL [Mass/Vol] 89 mg/dL [facility] Comment on above: Vlvibpboet=314-792 m g/dL & Higher Pylx=717 mg/dL or greater Laboratory - Chemistry and C hemistry - challengeOrdered By: Leandra Mejia on 12-10-2024 AST [Catalytic activity/Vol] 26 U/L <38 [facility] Lipid Profileon 12-10-2024 CHOL:HDL 4.81 Normal [facility] Comment on above: Performed By: #### L 505.7010, L3100.5450, L501.9985, L500.4050, L501.6710, L506.1001, L101.9900, L7000.5300, L3100.5310, L100.0100, L503.0106, L500.4100 ####[facility] [address] [place], [address] Cholesterol [Mass/Vol] 164 mg/dL Normal <=200 [facility] Comment on above: Result Comment: Chol esterol level, Desirable <200 mg/dL Borderline high cholesterol 200-239 mg/dL High cholesterol >=240 mg/dL Recommendations of the NCEP Adult Treatment Panel for the following risk-cutoff thresholds for the [place] population. Performed By: #### L 505.7010, L3100.5450, L501.9985, L500.4050, L501.6710, L506.1001, L101.9900, L7000.5300, L3100.5310, L100.0100, L503.0106, L500.4100 ####[facility] [address] [place], [place], [phone] Cholesterol in HDL [Mass/Vol] 34 mg/dL Low [facility] Comment on above: Result Comment: Rosalba onal Cholesterol Education Program (NCEP) guidelines: <40 mg/dL: Low HDL-cholesterol (major risk factor for CHD) >= 60 mg/dL: High HDL-cholesterol (negative risk factor for CHD) HDL-cholesterol is affected by a number of factors, e.g. smoking, exercise, hormones, sex and age. Performed By: #### L 505.7010, L3100.5450, L501.9985, L500.4050, L501.6710, L506.1001, L101.9900, L7000.5300, L3100.5310, L100.0100, L503.0106, L500.4100 ####[facility] [address] [place], [place], [phone](517) Cholesterol in LDL [Mass/Vol] 89 mg/dL Normal [facility] Comment on above: Result Comment: Bord bifdvg=159-023 mg/dL Higher Bbhj=177 mg/dL or greater Performed By: #### L 505.7010, L3100.5450, L501.9985, L500.4050, L501.6710, L506.1001, L101.9900, L7000.5300, L3100.5310, L100.0100, L503.0106, L500.4100 ####[facility] [address] [place], [place], [phone](235) Cholesterol in VLDL [Mass/Vol] 41 mg/dL High 5-40 [facility] Comment on above: Performed By: #### L 505.7010, L3100.5450, L501.9985, L500.4050, L501.6710, L506.1001, L101.9900, L7000.5300, L3100.5310, L100.0100, L503.0106, L500.4100 ####[facility] [address] [place], [place], [phone]) Triglyceride [Mass/Vol] 206 mg/dL High [facility] Comment on above: Result Comment: The drugs N-Acetylcysteine and Metamizole may falsely depress this assay. Normal range: <150 mg/dL Borderline High: 150-199 mg/dL High: 200-499 mg/dL Very High: >500 mg/dL Performed By: #### L 505.7010, L3100.5450, L501.9985, L500.4050, L501.6710, L506.1001, L101.9900, L7000.5300, L3100.5310, L100.0100, L503.0106, L500.4100 ####[facility] [address] [place], [address] MCV (mean corpuscular volume ) determinationOrdered By: Leandra Mejia on 12-10-2024 MCV (RBC) [Entitic vol] 85.7 fL 80-94 [facility] MR/BMS.IMBon 12-10-2024 MR/BMS.IMB [facility] [address] [place] [address] OFFICE VISIT Date of Service: 12/10/24 MR#: [id number] Acct: [id number] Name: MATHEW PORTILLO Rep #: [id number] : 1960 Provider: Dr. 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 Required: No Accompanied by: Self Is patient in pain?: Yes (Bilateral wrists) Pain scale (1-10): 4 Allergies Sulfa (Sulfonamide Antibiotics) Allergy (Mild, Verified 12/10/24 10:52) RASH adhesive tape Allergy (Unknown, Verified 12/10/24 10:52) unknown lisinopril Adverse Reaction (Verified 12/10/24 10:52) COUGH Medications ???Medication ???Instructions ???Recorded ???Confirmed ???Type glucosamine sulfate 500 mg tablet 500 mg PO DAILY 05/04/20 12/10/24 History (Glucosamine) cholecalciferol (vitamin D3) 50 1 ea PO DAILY 06/16/20 12/10/24 Hi story mcg (2,000 unit) tablet naproxen sodium 220 mg tablet 440 mg PO BID PRN Pain 1-10 Or 06/2512/10/24 History Fever aspirin 81 mg chewable tablet 81 mg PO DAILY@0800 10/01/2012/10 History multivitamin 1 tab PO DAILY 09/19/21 12/10/24 H istory meloxicam 7.5 mg tablet 7.5 mg PO DAILY 03/21/22 12/10/24 History diphenhydramine 25 1 tab PO QHS PRN 03/26/24 12/10/24 History mg-acetaminophen 500 mg tablet (Acetaminophen PM) tizanidine 4 mg tablet 4 mg PO DAILY Leg cramps 03/26/24 12/10/24 History tramadol 50 mg tablet 50 mg PO TID PRN 03/26/24 12/10/24 History sildenafil 100 mg tablet 100 mg PO DAILY PRN sexual 4 12/10/24 Rx activity #90 tabs indapamide 1.25 mg tablet 1.25 mg PO QAM #90 tabs 12/10/24 Rx irbesartan 150 mg tablet 150 mg PO QDAY #90 tabs 12/10/24 Rx omeprazole 40 mg capsule,delayed 40 mg PO DAILY #90 caps 12/10/24 Rx release tadalafil 10 mg tablet 10 mg PO DAILY PRN sexual activity 12/10/24 Rx #20 tabs terazosin 5 mg capsule 5 mg PO DAILY #90 caps 12/10/24 R x testosterone 1 % (25 mg/2.5 gram) 1 packet transdermal DAILY #225 0 12/10/24 Rx transdermal gel packet grams Have you fallen in the past year?: No PFSH Medical History (Updated 12/10/24 @ 13:[address] Leandra Mejia MD) Anxiety Joint pain Conjunctivitis, left eye Cellulitis of eyelid Uncontrolled hypertension Left facial numbness Weakness of left side of body Borderline diabetes Essential hypertension Bilateral lower extremity edema Dyspnea on exertion Biliary dyskinesia Abdominal pain DVT (deep venous thrombosis) BPH (benign prostatic hyperplasia) Tobacco use Chronic back pain RLS (restless legs syndrome) Constipation Ileus Bronchitis Laceration of right index finger Carpal tunnel syndrome of left wrist Lipoma Lipoma of breast Hemorrhoids Acid reflux Arthritis Surgical History History of left heart catheterization ( 10/01/20) Previous back surgery S/P carpal tunnel release Trigger finger of left hand History of incision and drainage Hx of arthroscopic knee surgery History of carpal tunnel surgery of right wrist Family History Mother Non-Hodgkin lymphoma Father Heart disease Social History Smoking Status: Former smoker how long ago did patient quit smoking: August 01, 2019 alcohol intake: never substance use type: does not use caffeine: Yes what type of physical activity do you participate in: other details: Golfing frequency: 3-4 times per week seatbelt use: always HPI HPI Chief Complaint: Joint Pain Details: MATHEW PORTILLO, is a 64 M who presents to the office today for follow-up. Patient is a 64-year-old gentleman who has a history of hypertension, on indapamide, irbesartan and terazosin. He does have erectile dysfunction, uses tadalafil as needed. He is also on terazosin. Takes baby aspirin for primary prevention. Vitamin D, and he is on long-term testosterone for hypogonadism. He has not had testosterone levels updated for a while and that needs checked. He is on topical gel that he had been on since I have been seeing him. The main concern today however is twofold, firstly diffuse joint pains. He has chronic long-term osteoarthritic pains in the knees in particular but also has long-term back pain following with pain management. Was recently r (more content not included)... Normal [facility] Mean corpuscular hemoglobin (MCH) determinationOrdered By: Leandra Mejia on 12-10-2024 MCH (RBC) [Entitic mass] 29.3 pg 27.0-32.0 [facility] Mean corpuscular hemoglobin concentration (MCHC) determinationOrdered By: Leandra Mejia on 12-10-2024 MCHC (RBC) [Mass/Vol] 34.1 g/dL 32-36 [facility] Mean platelet volume determi nationOrdered By: Leandra Mejia on 12-10-2024 Platelet mean volume (Bld) [Entitic vol] 10.6 fL 6.2-12.0 [facility] Monocyte percentageOrdered B y: Leandra Mejia on 12-10-2024 Monocytes/100 WBC (Bld) 8.2 % 0-10 [facility] Neutrophil percentageOrdered By: Leandra Mejia on 12-10-2024 Neutrophils/100 WBC (Bld) 63.3 % 47-70 [facility] Nucleated red blood cell per centageOrdered By: Leandra Mejia on 12-10-2024 Nucleated RBC/100 WBC (Bld) [Ratio] 0 % 0-5 [facility] Platelet countOrdered By: Darcy Mejia on 12-10-2024 Platelets (Bld) [#/Vol] 256 10*3/uL 150-450 [facility] Potassium measurement (mass/ volume)Ordered By: Leandra Mejia on 12-10-2024 Potassium (Unsp spec) [Mass/Vol] 4.3 mmol/L 3.3-5.1 [facility] RBC Auto (Bld) [#/Vol]Ordere d By: Leandra Mejia on 12-10-2024 RBC (Bld) [#/Vol] 5.33 10*6/uL 4.6-6.2 [facility] Rheumatoid Factoron 12-11-19 25 RHEUMATOID FAC < 10.0 Normal <15 [facility] Comment on above: Performed By: #### L 505.7010, L3100.5450, L501.9985, L500.4050, L501.6710, L506.1001, L101.9900, L7000.5300, L3100.5310, L100.0100, L503.0106, L500.4100 ####[facility] [address] [place], [place], [id number] Screening total cholesterol/ high density lipoprotein (HDL) cholesterol ratioOrdered By: Leandra Mejia on 12-10-2024 Cholesterol.total/Enma sterol in HDL [Mass ratio] 4.81 {ratio} [facility] Serum DNA double strand anti body assay (units/volume)Ordered By: Leandra Mejia on 12-10-2024 DNA double strand Ab Qn (S) [facility]: Test not performed Serum Scl-70 antibody assay (units/volume)Ordered By: Leandra Mejia on 12-10-2024 SCL-70 extractable nuclear Ab Qn (S) [facility] Comment on above: Test not performed Serum creatinine measurement (mass/volume)Ordered By: Leandra Mejia on 12-10-2024 Creatinine [Mass/Vol] 1.10 mg/dL 0.70-1.20 [facility] Serum globulin measurementOr dered By: Leandra Mejia on 12-10-2024 Globulin (S) [Mass/Vol] 3.1 g/dL 2.2-4.2 [facility] Serum glucose measurement (m ass/volume)Ordered By: Leandra Mejia on 12-10-2024 Glucose [Mass/Vol] 112 mg/dL High 70-99 [facility] Serum or plasma C reactive p rotein measurement (mass/volume)Ordered By: Leandra Mejia on 12-10-2024 CRP [Mass/Vol] mg/L 0.0-3.0 [facility] Serum or plasma alanine mcdermott otransferase (ALT) measurementOrdered By: Leandra Mejia on 12-10-2024 ALT [Catalytic activity/Vol] 33 U/L <47 [facility] Serum or plasma albumin micah urement (mass/volume)Ordered By: Leandra Mejia on 12-10-2024 Albumin [Mass/Vol] 4.2 g/dL 3.4-4.8 [facility] Serum or plasma albumin/glob ulin mass ratioOrdered By: Leandra Mejia on 12-10-2024 Albumin/Globulin [Mass ratio] 1.4 {ratio} 0.9-2.4 [facility] Serum or plasma alkaline maritza sphatase measurementOrdered By: Leandra Mejia on 12-10-2024 ALP [Catalytic activity/Vol] 62 U/L 40-129 [facility] Serum or plasma calcium micah urement (mass/volume)Ordered By: Leandra Mejia on 12-10-2024 Calcium [Mass/Vol] 9.2 mg/dL 7.6-11.0 [facility] Serum or plasma cholesterol in HDL measurement (mass/volume)Ordered By: Leandra Mejia on 12-10-2024 Cholesterol in HDL [Mass/Vol] 34 mg/dL Low >40 [facility] Comment on above: National Cholesterol Education Program (NCEP) guidelines:<40 mg/dL: Low HDL-cholesterol (major risk factor for CHD)>= 60 mg/dL: High HDL-cholesterol (negative risk factor for CHD)HDL-cholesterol is affected by a number of factors, e.g. smoking, exercise, hormones, sex and age. Serum or plasma cholesterol measurement (mass/volume)Ordered By: Leandra Mejia on 12-10-2024 Cholesterol [Mass/Vol] 164 mg/dL <201 [facility] Comment on above: Cholesterol level, D esirable <200 mg/dLBorderline high cholesterol 200-239 mg/dLHigh cholesterol >=240 mg/dLRecommendations of the NCEP Adult Treatment Panel for the following risk-cutoff thresholds for the [place] population. Serum or plasma free testost erone measurement (mass/volume)Ordered By: Leandra Mejia on 12-10-2024 Testosterone Free [Mass/Vol] 21.87 ng/dL High 5.00-21.00 [facility] Serum or plasma urea nitroge n measurement (mass/volume)Ordered By: Leandra Mejia on 12-10-2024 Urea nitrogen [Mass/Vol] 15 mg/dL 4-19 [facility] Serum rheumatoid factor dete ctionOrdered By: Leandra Mejia on 12-10-2024 Rheumatoid factor Ql (S) < 10.0 IU/mL <15 [facility] Sodium levelOrdered By: Chelsi Mejia on 12-10-2024 Sodium [Moles/Vol] 140 mmol/L 133-145 [facility] TSH DL <= 0.005 mIU/L QnOrde red By: Leandra Mejia on 12-10-2024 TSH Qn 1.710 uIU/mL 0.300-4.200 [facility] Testosterone, totalOrdered B y: Leandra Mejia on 12-10-2024 Testosterone [Mass/Vol] 749 ng/dL 264-916 [facility] Comment on above: Adult male reference interval is based on a population ofhealthy nonobese males (BMI <30) between 19 and 39 yearsold. maddy Clayton.al. JCEM 2017,102;5486-2672. PMID:06528200. Thyroid Stim Hormone (TSH)on 12-10-2024 TSH 1.710 uIU/mL Normal 0.300-4.200 [facility] Comment on above: Performed By: #### L 501.9520 #### [facility] [address] [place], [place], [id number] Total proteinOrdered By: Beverly Mejia on 12-10-2024 Protein [Mass/Vol] 7.3 g/dL 5.9-8.4 [facility] Triglycerides measurementOrd ered By: Leandra Mejia on 12-10-2024 Triglyceride [Mass/Vol] 206 mg/dL High <199 [facility] Comment on above: The drugs N-Acetylcy steine and Metamizole may falsely depress this assay. Normal range: <150 mg/dLBorderline High: 150-199 mg/dLHigh: 200-499 mg/dLVery High: >500 mg/dL Vitamin B12 ser/plasOrdered By: Leandra Mejia on 12-10-2024 Cobalamin (Vitamin B12) [Mass/Vol] 703 pg/mL Normal 180-914 [facility] Comment on above: Performed By: #### L 505.7010, L3100.5450, L501.9985, L500.4050, L501.6710, L506.1001, L101.9900, L7000.5300, L3100.5310, L100.0100, L503.0106, L500.4100 ####[facility] [address] [place], [place], [id number] Vitamin D,25 Hydroxyon 12-10 Vitamin D 25-OH 70.5 ng/mL Normal 30-100 [facility] Comment on above: Result Comment: Priscila min D Status Deficiency: <20 ng/mL (50nmol/L) Insufficiency: 20-30 ng/mL (50-75 nmol/L) Sufficiency: 30-100 ng/mL (75-250 nmol/L) Toxicity: >100 ng/mL (>250 nmol/L) Performed By: #### L 505.7010, L3100.5450, L501.9985, L500.4050, L501.6710, L506.1001, L101.9900, L7000.5300, L3100.5310, L100.0100, L503.0106, L500.4100 ####[facility] [address] [place], [address] White blood cell (WBC) count Ordered By: Leandra Mejia on 12-10-2024 WBC (Bld) [#/Vol] 6.7 10*3/uL 4.4-11.0 [facility] Miscellaneous Lab Procedureo n 07-08-2024 [facility] LAB TEST Normal [facility] Comment on above: Order Comment: [facility] [id number] Result Comment: [phone] 6+OXYCODONE-BUND (ng/mL) DRUG RESULT SCREEN CUTOFF ____ Amphetamines,Urine Negative ng/mL 1000 Amphetamine test includes Amphetamine and Methamphetamine. Barbiturates Negative ng/mL 200 Benzodiazepines Negative ng/mL 200 Cannabinoid Negative ng/mL 20 Cocaine (Metab) Negative ng/mL 300 Opiates Negative ng/mL 300 Opiates test includes Codeine, Morphine, Hydromorphone, Hydrocodone. Oxycodone/Oxymorphone,Urine Negative ng/mL 300 Test includes Oxycodone and Oxymorphone. [facility] ORIGINAL REPORT ON FILE IN LAB CONTAINS ADDITIONAL TEST SITE INFORMATION. Performed By: #### L 801.1541, L801.1543, L505.5000 #### [facility] [address] [place], [id number] Miscellaneous Lab Procedure 2on 07-08-2024 [facility] LAB TEST 2 Normal [facility] Comment on above: Order Comment: TRAMA DOL URINE [id number] Result Comment: TEST RESULTS LIMITS Tramadol, Urine Tramadol Positive Otdwah=752 Tramadol Conf, [place], [place] 3[address] ng/mL Uhypge=090 Tramadol detected; this finding can be consistent with use of medications that include Ultram, Topalgic, Tradol, Zydol, or generic formulations. Drugs listed are floor representative of common sources of the compound detected and are not intended to include all possible sources. Please Note: Drug test results should be interpreted in the context of clinical information. Patient metabolic variables, specific drug chemistry, and specimen characteristics can affect test outcome. Technical consultation is available if a test result is inconsistent with an expected outcome. Email: [email or web address] TESTING PERFORMED AT [facility]. ORIGINAL REPORT ON FILE IN LAB CONTAINS ADDITIONAL TEST SITE INFORMATION. Performed By: #### L 801.1541, L801.1543, L505.5000 #### [facility] [address] [place], [address] Urine Drug Screen (VISTA)on 07-02-2024 AMPHETAMINES Negative Normal <1000 ng/mL [facility] Comment on above: Order Comment: UNKNO WN Performed By: #### L 801.1541, L801.1543, L505.5000 #### [facility] [address] [place], [address] BARBITIURATES Negative Normal < 200 ng/mL [facility] Comment on above: Order Comment: UNKNO WN Performed By: #### L 801.1541, L801.1543, L505.5000 #### [facility] [address] [place], [address] BENZODIAZIPINE Negative Normal < 200 ng/mL [facility] Comment on above: Order Comment: UNKNO WN Performed By: #### L 801.1541, L801.1543, L505.5000 #### [facility] [address] [place], [address] COCAINE Negative Normal < 300 ng/mL [facility] Comment on above: Order Comment: UNKNO WN Performed By: #### L 801.1541, L801.1543, L505.5000 #### [facility] [address] [place], [address] ECSTACY Negative Normal < 500 ng/mL [facility] Comment on above: Order Comment: UNKNO WN Performed By: #### L 801.1541, L801.1543, L505.5000 #### [facility] [address] [place], [address] METHADONE Negative Normal < 300 ng/mL [facility] Comment on above: Order Comment: UNKNO WN Performed By: #### L 801.1541, L801.1543, L505.5000 #### [facility] [address] [place], [address] OPIATES Negative Normal < 300 ng/mL [facility] Comment on above: Order Comment: UNKNO WN Performed By: #### L 801.1541, L801.1543, L505.5000 #### [facility] [address] [place], [address] PCP Negative Normal < 25 ng/mL [facility] Comment on above: Order Comment: UNKNO WN Performed By: #### L 801.1541, L801.1543, L505.5000 #### [facility] [address] [place], [address] THC Negative Normal < 50 ng/mL [facility] Comment on above: Order Comment: UNKNO WN Performed By: #### L 801.1541, L801.1543, L505.5000 #### [facility] [address] [place], [address] VISTA UDS PH 6 Normal [facility] Comment on above: Order Comment: UNKNO WN Performed By: #### L 801.1541, L801.1543, L505.5000 #### [facility] [address] [place], [address] Cerv Spine 2 or 3 Viewson Cerv Spine 2 or 3 Views [facility] [address] [place] [address] Cerv Spine 2 or 3 Views MR#: [id number] Acct: [id number] Name: MATHEW PORTILLO Rep #: [id number] : 1960 M 63 From: Glynn whitley MD PCP: Dr. Leandra Mejia MD Status: REG CLI Study: Cerv Spine 2 or 3 Views Date of Exam: 05/06/24 Exam# [id number] Ordering Dr: Kody Kemp MD [id number] INDICATION: DDD EXAMINATION/TECHNIQUE: X-RAY - XR Spine Cervical 2 or 3 Views COMPARISON: Prior study dated: CT performed 05/04/2022 FINDINGS: VERTEBRAE: Preserved vertebral body height. No fracture. No spondylolisthesis. Preservation of the normal cervical lordosis. Mild facet arthropathy. DISCS: Mild disc space narrowing at C5-C6 and C6-C7 with endplate osteophytes noted. NECK SOFT TISSUES: No prevertebral soft tissue widening. LUNG APICES: Clear. RAD/Cerv Spine 2 or 3 Views IMPRESSION: No evidence of acute fracture or spondylolisthesis. Mild degenerative change at the lower cervical spine again noted. Electronically Signed: Glynn Fuentes MD at 2:10 EDT , CC: Dr. Kody Kemp MD; Dr. Leandra Mejia MD [employer] Manager: Signed Normal [facility] CBC W/Diff, Automatedon 08-2 Absolute Lymph 2.33 X10 3/uL Normal 0.83-4.51 [facility] Comment on above: Performed By: #### L 500.4050, L501.9910, L100.0100, L500.4100, L501.5200, L501.9985, L506.1000, L501.9520 ####[facility] [address] [place], [place], [id number] Absolute Neut 3.7 X10 3/uL Normal 2.0-7.7 [facility] Comment on above: Performed By: #### L 500.4050, L501.9910, L100.0100, L500.4100, L501.5200, L501.9985, L506.1000, L501.9520 ####[facility] [address] [place], [place], [phone] Basophils/100 WBC (Bld) 1.1 % High 0-1 [facility] Comment on above: Performed By: #### L 500.4050, L501.9910, L100.0100, L500.4100, L501.5200, L501.9985, L506.1000, L501.9520 ####[facility] [address] [place], [address] Eosinophils/100 WBC (Bld) 3.4 % Normal 0-5 [facility] Comment on above: Performed By: #### L 500.4050, L501.9910, L100.0100, L500.4100, L501.5200, L501.9985, L506.1000, L501.9520 ####[facility] [address] [place], [address] Erythrocyte distribution width (RBC) [Ratio] 13.1 % Normal 11.6-14.6 [facility] Comment on above: Performed By: #### L 500.4050, L501.9910, L100.0100, L500.4100, L501.5200, L501.9985, L506.1000, L501.9520 ####[facility] [address] [place], [address] Hematocrit (Bld) [Volume fraction] 49.1 % Normal 40-54 [facility] Comment on above: Performed By: #### L 500.4050, L501.9910, L100.0100, L500.4100, L501.5200, L501.9985, L506.1000, L501.9520 ####[facility] [address] [place], [address] Hemoglobin (Bld) [Mass/Vol] 16.0 g/dL Normal 13.0-16.5 [facility] Comment on above: Performed By: #### L 500.4050, L501.9910, L100.0100, L500.4100, L501.5200, L501.9985, L506.1000, L501.9520 ####[facility] [address] [place], [address] IG% 0.300 Normal 0.0-0.9 [facility] Comment on above: Result Comment: IG% - Immature Granulocytes (promyelocytes, myelocytes and metamyelocytes) > 1% indicates that a LEFT SHIFT is Present. Performed By: #### L 500.4050, L501.9910, L100.0100, L500.4100, L501.5200, L501.9985, L506.1000, L501.9520 ####[facility] [address] [place], [address] Lymphocytes/100 WBC (Bld) 32.9 % Normal 19-41 [facility] Comment on above: Performed By: #### L 500.4050, L501.9910, L100.0100, L500.4100, L501.5200, L501.9985, L506.1000, L501.9520 ####[facility] [address] [place], [address] MCH (RBC) [Entitic mass] 28.7 pg Normal 27.0-32.0 [facility] Comment on above: Performed By: #### L 500.4050, L501.9910, L100.0100, L500.4100, L501.5200, L501.9985, L506.1000, L501.9520 ####[facility] [address] [place], [address] MCHC (RBC) [Mass/Vol] 32.6 g/dL Normal 32-36 [facility] Comment on above: Performed By: #### L 500.4050, L501.9910, L100.0100, L500.4100, L501.5200, L501.9985, L506.1000, L501.9520 ####[facility] [address] [place], [address] MCV (RBC) [Entitic vol] 88.0 fL Normal 80-94 [facility] Comment on above: Performed By: #### L 500.4050, L501.9910, L100.0100, L500.4100, L501.5200, L501.9985, L506.1000, L501.9520 ####[facility] [address] [place], [address] Monocytes/100 WBC (Bld) 9.5 % Normal 0-10 [facility] Comment on above: Performed By: #### L 500.4050, L501.9910, L100.0100, L500.4100, L501.5200, L501.9985, L506.1000, L501.9520 ####[facility] [address] [place], [address] Neutrophils/100 WBC (Bld) 52.8 % Normal 47-70 [facility] Comment on above: Performed By: #### L 500.4050, L501.9910, L100.0100, L500.4100, L501.5200, L501.9985, L506.1000, L501.9520 ####[facility] [address] [place], [address] Nucleated RBC (Bld) [#/Vol] 0 10*3/uL Normal 0-5 [facility] Comment on above: Performed By: #### L 500.4050, L501.9910, L100.0100, L500.4100, L501.5200, L501.9985, L506.1000, L501.9520 ####[facility] [address] [place], [address] Platelet mean volume (Bld) [Entitic vol] 10.5 fL Normal 6.2-12.0 [facility] Comment on above: Performed By: #### L 500.4050, L501.9910, L100.0100, L500.4100, L501.5200, L501.9985, L506.1000, L501.9520 ####[facility] [address] [place], [address] Platelets (Bld) [#/Vol] 229 10*3/uL Normal 150-450 [facility] Comment on above: Performed By: #### L 500.4050, L501.9910, L100.0100, L500.4100, L501.5200, L501.9985, L506.1000, L501.9520 ####[facility] [address] [place], [place], [phone]) RBC (Bld) [#/Vol] 5.58 10*6/uL Normal 4.6-6.2 [facility] Comment on above: Performed By: #### L 500.4050, L501.9910, L100.0100, L500.4100, L501.5200, L501.9985, L506.1000, L501.9520 ####[facility] [address] [place], [place], [phone](855) RDW SD 42.1 fl Normal 35.1-43.9 [facility] Comment on above: Performed By: #### L 500.4050, L501.9910, L100.0100, L500.4100, L501.5200, L501.9985, L506.1000, L501.9520 ####[facility] [address] [place], [place], [phone](585) WBC (Bld) [#/Vol] 7.1 10*3/uL Normal 4.4-11.0 [facility] Comment on above: Performed By: #### L 500.4050, L501.9910, L100.0100, L500.4100, L501.5200, L501.9985, L506.1000, L501.9520 ####[facility] [address] [place], [place], [phone] Comprehensive Metabolic Prof ilon 03-31-2024 Albumin [Mass/Vol] 3.6 g/dL Normal 3.2-5.0 [facility] Comment on above: Performed By: #### L 500.4050, L501.9910, L100.0100, L500.4100, L501.5200, L501.9985, L506.1000, L501.9520 ####[facility] [address] [place], [address] Albumin/Globulin [Mass ratio] 0.9 {ratio} Normal 0.9-2.4 [facility] Comment on above: Performed By: #### L 500.4050, L501.9910, L100.0100, L500.4100, L501.5200, L501.9985, L506.1000, L501.9520 ####[facility] [address] [place], [address] ALK P 55 U/L Normal 45-117 [facility] Comment on above: Performed By: #### L 500.4050, L501.9910, L100.0100, L500.4100, L501.5200, L501.9985, L506.1000, L501.9520 ####[facility] [address] [place], [address] ALT [Catalytic activity/Vol] 26 U/L Normal 16-61 [facility] Comment on above: Performed By: #### L 500.4050, L501.9910, L100.0100, L500.4100, L501.5200, L501.9985, L506.1000, L501.9520 ####[facility] [address] [place], [address] AST [Catalytic activity/Vol] 19 U/L Normal 15-37 [facility] Comment on above: Performed By: #### L 500.4050, L501.9910, L100.0100, L500.4100, L501.5200, L501.9985, L506.1000, L501.9520 ####[facility] [address] [place], [address] Bilirubin [Mass/Vol] 0.80 mg/dL Normal 0.20-1.00 [facility] Comment on above: Result Comment: For patients on eltrombopag therapy, use of Dimension Reeves TBIL is not recommended. Performed By: #### L 500.4050, L501.9910, L100.0100, L500.4100, L501.5200, L501.9985, L506.1000, L501.9520 ####[facility] [address] [place], [address] BUN/CRE 14.0 RATIO Normal 10-20 [facility] Comment on above: Performed By: #### L 500.4050, L501.9910, L100.0100, L500.4100, L501.5200, L501.9985, L506.1000, L501.9520 ####[facility] [address] [place], [address] CA,Total 9.0 mg/dL Normal 8.5-10.1 [facility] Comment on above: Performed By: #### L 500.4050, L501.9910, L100.0100, L500.4100, L501.5200, L501.9985, L506.1000, L501.9520 ####[facility] [address] [place], [address] Chloride [Moles/Vol] 105 mmol/L Normal 98-107 [facility] Comment on above: Performed By: #### L 500.4050, L501.9910, L100.0100, L500.4100, L501.5200, L501.9985, L506.1000, L501.9520 ####[facility] [address] [place], [address] CO2 [Moles/Vol] 26.0 mmol/L Normal 21.0-32.0 [facility] Comment on above: Performed By: #### L 500.4050, L501.9910, L100.0100, L500.4100, L501.5200, L501.9985, L506.1000, L501.9520 ####[facility] [address] [place], [address] Creatinine [Mass/Vol] 1.07 mg/dL Normal 0.70-1.30 [facility] Comment on above: Result Comment: The validity of the calculated GFR GFRAA in patients over 70 years has not been determined. Clinical correlation is essential. Performed By: #### L 500.4050, L501.9910, L100.0100, L500.4100, L501.5200, L501.9985, L506.1000, L501.9520 ####[facility] [address] [place], [address] EST GFR - AA 89 mL/min Normal >60 [facility] Comment on above: Result Comment: Afri can [place] GFR Calc Performed By: #### L 500.4050, L501.9910, L100.0100, L500.4100, L501.5200, L501.9985, L506.1000, L501.9520 ####[facility] [address] [place], [address] GAP 7 Normal 5-15 [facility] Comment on above: Performed By: #### L 500.4050, L501.9910, L100.0100, L500.4100, L501.5200, L501.9985, L506.1000, L501.9520 ####[facility] [id number] [place], [address] GFR/1.73 sq M.predicted among non-blacks MDRD (S/P/Bld) [Vol rate/Area] 74 mL/min/{1.73_m2} Normal >60 [facility] Comment on above: Result Comment: Non- GFR Calc Performed By: #### L 500.4050, L501.9910, L100.0100, L500.4100, L501.5200, L501.9985, L506.1000, L501.9520 ####[facility] [id number] [place], [address] Globulin (S) [Mass/Vol] 3.8 g/dL Normal 2.2-4.2 [facility] Comment on above: Performed By: #### L 500.4050, L501.9910, L100.0100, L500.4100, L501.5200, L501.9985, L506.1000, L501.9520 ####[facility] [address] [place], [address] Glucose [Mass/Vol] 104 mg/dL Normal 74-106 [facility] Comment on above: Result Comment: Fast ing Glucose result from 100 to 125 mg/dL suggests IMPAIRED HOMEOSTASIS per A.D.A. criteria. Performed By: #### L 500.4050, L501.9910, L100.0100, L500.4100, L501.5200, L501.9985, L506.1000, L501.9520 ####[facility] [address] [place], [address] Potassium [Moles/Vol] 4.0 mmol/L Normal 3.5-5.1 [facility] Comment on above: Performed By: #### L 500.4050, L501.9910, L100.0100, L500.4100, L501.5200, L501.9985, L506.1000, L501.9520 ####[facility] [address] [place], [address] Sodium [Moles/Vol] 138 mmol/L Normal 136-145 [facility] Comment on above: Performed By: #### L 500.4050, L501.9910, L100.0100, L500.4100, L501.5200, L501.9985, L506.1000, L501.9520 ####[facility] [address] [place], [address] T PROT 7.4 g/dL Normal 6.4-8.2 [facility] Comment on above: Performed By: #### L 500.4050, L501.9910, L100.0100, L500.4100, L501.5200, L501.9985, L506.1000, L501.9520 ####[facility] [address] [place], [address] Urea nitrogen [Mass/Vol] 15 mg/dL Normal 7-18 [facility] Comment on above: Performed By: #### L 500.4050, L501.9910, L100.0100, L500.4100, L501.5200, L501.9985, L506.1000, L501.9520 ####[facility] [address] [place], [address] Hemoglobin A1con 03-31-2024 HbA1c (Bld) [Mass fraction] 5.4 % Normal 3.8-5.6 [facility] Comment on above: Result Comment: Norm al < 5.7 % Prediabetic 5.7 - 6.4 % Diabetic >or= 6.5 % Please note range changes. Performed By: #### L 500.4050, L501.9910, L100.0100, L500.4100, L501.5200, L501.9985, L506.1000, L501.9520 ####[facility] [address] [place], [address] Lipid Profileon 03-31-2024 Cholesterol [Mass/Vol] 170 mg/dL Normal 200 [facility] Comment on above: Result Comment: <200 mg/dL Desirable 200-240 mg/dL Borderline >240 mg/dL High Risk Performed By: #### L 500.4050, L501.9910, L100.0100, L500.4100, L501.5200, L501.9985, L506.1000, L501.9520 ####[facility] [address] [place], [address] Cholesterol in HDL [Mass/Vol] 39 mg/dL Low [facility] Comment on above: Result Comment: The drugs N-Acetylcysteine and Metamizole may falsely depress this assay. Reference Range HDL <40 mg/dL Low HDL Cholesterol HDL >or= 60 mg/dL High HDL Cholesterol Performed By: #### L 500.4050, L501.9910, L100.0100, L500.4100, L501.5200, L501.9985, L506.1000, L501.9520 ####[facility] [address] [place], [address] Cholesterol in LDL [Mass/Vol] 101 mg/dL Normal 0-130 [facility] Comment on above: Performed By: #### L 500.4050, L501.9910, L100.0100, L500.4100, L501.5200, L501.9985, L506.1000, L501.9520 ####[facility] [address] [place], [address] Cholesterol in VLDL [Mass/Vol] 30 mg/dL Normal 5-40 [facility] Comment on above: Performed By: #### L 500.4050, L501.9910, L100.0100, L500.4100, L501.5200, L501.9985, L506.1000, L501.9520 ####[facility] [address] [place], [address] Triglyceride [Mass/Vol] 150 mg/dL Normal [facility] Comment on above: Result Comment: The drugs N-Acetylcysteine and Metamizole may falsely depress this assay. Serum Triglycerides Reference Interval Normal <150 mg/dL Borderline high 150 - 199 mg/dL High 200 - 499 mg/dL Very High > or = 500 mg/dL Performed By: #### L 500.4050, L501.9910, L100.0100, L500.4100, L501.5200, L501.9985, L506.1000, L501.9520 ####[facility] [address] [place], [place], [id number] Magnesiumon 03-31-2024 Magnesium [Mass/Vol] 2.3 mg/dL Normal 1.6-2.6 [facility] Comment on above: Performed By: #### L 500.4050, L501.9910, L100.0100, L500.4100, L501.5200, L501.9985, L506.1000, L501.9520 ####[facility] [address] [place], [place], [id number] PSA,Total - Annual Screenon 03-31-2024 PSA,TOT SCREEN 0.94 ng/mL Normal 0.00-4.00 [facility] Comment on above: Result Comment: This test was performed using the TPSA assay method for the [facility] chemistry system. Values obtained with different assay methods cannot be used interchangably. When changing PSA assays in the course of monitoring a patient, additional sequential testing should be carried out to confirm baseline values. Performed By: #### L 500.4050, L501.9910, L100.0100, L500.4100, L501.5200, L501.9985, L506.1000, L501.9520 ####[facility] [address] [place], [place], [id number] Thyroid Stim Hormone (TSH)on 03-31-2024 TSH 2.790 uIU/mL Normal 0.358-3.740 [facility] Comment on above: Performed By: #### L 500.4050, L501.9910, L100.0100, L500.4100, L501.5200, L501.9985, L506.1000, L501.9520 ####[facility] [address] [place], [place], [address] Vitamin D,25 Hydroxyon 03-31 Vitamin D 25-OH 76.0 ng/mL Normal [facility] Comment on above: Result Comment: Priscila min D 25(OH) Status Range Deficiency <20 ng/mL (50nmol/L) Insufficiency 20 - 30 ng/mL (50 - 75 nmol/L) Sufficiency 30 - 100 ng/mL (75 - 250 nmol/L) Toxicity >100 ng/mL (>250 nmol/L) Performed By: #### L 500.4050, L501.9910, L100.0100, L500.4100, L501.5200, L501.9985, L506.1000, L501.9520 ####[facility] [address] [place], [place], [id number] MR/BMS.Bon 03-26-2024 MR/BMS.B [facility] [address] [place] [address] OFFICE VISIT Date of Service: 03/26/24 MR#: [id number] Acct: [id number] Name: MATHEW PORTILLO Rep #: [id number] : 1960 Provider: Dr. Leandra king MD Age/Sex: 63/M Location: [facility] Status: Signed Intake Vital Signs 03/21/23 11:19 03/26/24 10:47 Height 5 ft 7 in 5 ft 7 in Weight: 219 lb BMI 34.2 BP 172/91 H Blood Pressure Location Lt brachial Position Sitting Respiration 18 Pulse 67 Pulse Source Monitor Temp 98.6 F Temp Source Temporal Pulse Oximetry (%) 94 Oxygen Delivery Method room air Intake Visit Reasons: Annual/Physical Chief Complaint: Wellness Visit Accompanied by: Self Is patient in pain?: Yes (Low back) Pain scale (1-10): 4 Allergies Sulfa (Sulfonamide Antibiotics) Allergy (Mild, Verified 03/26/24 10:37) RASH adhesive tape Allergy (Unknown, Verified 03/26/24 10:37) unknown lisinopril Adverse Reaction (Verified 03/26/24 10:37) COUGH Medications ???Medication ???Instructions ???Recorded ???Confirmed ???Type glucosamine sulfate 500 mg tablet 500 mg PO DAILY 05/04/20 03/26/24 History (Glucosamine) cholecalciferol (vitamin D3) 50 1 ea PO DAILY 06/16/20 03/26/24 History mcg (2,000 unit) tablet naproxen sodium 220 mg tablet 440 mg PO BID PRN Pain 1-10 Or 06/16/20 03/26/24 History Fever aspirin 81 mg chewable tablet 81 mg PO DAILY@0800 10/01/20 03/26/24 History multivitamin 1 tab PO DAILY 09/19/21 03/26/24 History meloxicam 7.5 mg tablet 7.5 mg PO DAILY 03/21/22 03/26/24 History sildenafil 100 mg tablet 100 mg PO DAILY PRN sexual 03/30/23 03/26/24 Rx activity #90 tabs omeprazole 40 mg capsule,delayed 40 mg PO DAILY #90 caps 10/26/23 03/26/24 Rx release testosterone 1 % (25 mg/2.5 gram) 1 packet transdermal DAILY #225 02/20/24 03/26/24 Rx transdermal gel packet grams diphenhydramine 25 1 tab PO QHS PRN 03/26/24 03/26/24 History mg-acetaminophen 500 mg tablet (Acetaminophen PM) indapamide 1.25 mg tablet 1.25 mg PO QAM #90 tabs 03/26/24 03/26/24 Rx tadalafil 10 mg tablet 10 mg PO DAILY PRN sexual activity 03/26/24 03/26/24 Rx #20 tabs terazosin 5 mg capsule 5 mg PO DAILY #90 caps 03/26/24 03/26/24 Rx tizanidine 4 mg tablet 4 mg PO DAILY Leg cramps 03/26/24 03/26/24 History tramadol 50 mg tablet 50 mg PO TID PRN 03/26/24 03/26/24 History PFSH Medical History Conjunctivitis, left eye Cellulitis of eyelid Uncontrolled hypertension Left facial numbness Weakness of left side of body Borderline diabetes Essential hypertension Bilateral lower extremity edema Dyspnea on exertion Biliary dyskinesia Abdominal pain DVT (deep venous thrombosis) BPH (benign prostatic hyperplasia) Tobacco use Chronic back pain RLS (restless legs syndrome) Constipation Ileus Bronchitis Laceration of right index finger Carpal tunnel syndrome of left wrist Lipoma Lipoma of breast Hemorrhoids Acid reflux Arthritis Surgical History History of left heart catheterization ( 10/01/20) Previous back surgery S/P carpal tunnel release Trigger finger of left hand History of incision and drainage Hx of arthroscopic knee surgery History of carpal tunnel surgery of right wrist Family History Mother Non-Hodgkin lymphoma Father Heart disease Social History Smoking Status: Former smoker how long ago did patient quit smoking: August 01, 2019 alcohol intake: never substance use type: does not use caffeine: Yes what type of physical activity do you participate in: other details: Golfing frequency: 3-4 times per week seatbelt use: always HPI HPI Chief Complaint: Wellness Visit Details: MATHEW PORTILLO, is a 63 Male. Patient presented today in annual follow-up. Overall is doing pretty well. He has no new specific concerns or issues per se. He has chronic low back pain. He has been having some different type of back pain that is radiating into the right posterior buttock area. He has been following with pain management and receiving injections. That lately they have not been helping. He has now been referred back to orthopedic spine surgeon. That will be in [place]. Ongoing knee pain. Following with local orthopedics. He has had knee injections with steroids recently but they have been discussing the gel. He is waiting to hear back on that. He is requesting an additional prescription for tadalafil. He is on sildenafil using it for BPH issues and he has been on that for a while. It does not seem to help much with ED. He would like to go and try tadalafil which she has used in the past and (more content not included)... Normal [facility] Absolute lymphocyte countOrd ered By: Leandra Mejia on 03-29-2023 Lymphocytes Auto (Unsp spec) [#/Vol] 1.58 10*3/uL 0.83-4.51 [facility] Basophil percentageOrdered B y: Leandra Mejia on 03-29-2023 Basophils/100 WBC (Bld) 0.9 % 0-1 [facility] Bilirubin [Mass/Vol] 0.30 mg/dL 0.20-1.00 [facility] Comment on above: For patients on eltr ombopag therapy, use of Dimension Reeves TBIL is not recommended. Chloride [Moles/Vol] 105 mmol/L 98-107 [facility] Cholesterol [Mass/Vol] 183 mg/dL <200 [facility] Comment on above: <200 mg/dL Desirable 200-240 mg/dL Borderline >240 mg/dL High Risk Eosinophils/100 WBC (Bld) 1.9 % 0-5 [facility] Glucose [Mass/Vol] 101 mg/dL 74-106 [facility] Comment on above: Fasting Glucose resu lt from 100 to 125 mg/dL suggests IMPAIRED HOMEOSTASIS per A.D.A. criteria. Neutrophils (Bld) [#/Vol] 4.1 10*3/uL 2.0-7.7 [facility] Neutrophils/100 WBC (Bld) 63.6 % 47-70 [facility] Potassium [Moles/Vol] 4.0 mmol/L 3.5-5.1 [facility] Protein [Mass/Vol] 7.6 g/dL 6.4-8.2 [facility] Sodium [Moles/Vol] 140 mmol/L 136-145 [facility] Triglyceride [Mass/Vol] 163 mg/dL <199 [facility] Comment on above: The drugs N-Acetylcy steine and Metamizole may falsely depress this assay.Serum Triglycerides Reference Interval Normal <150 mg/dL Borderline high 150 - 199 mg/dL High 200 - 499 mg/dL Very High > or = 500 mg/dL WBC (Bld) [#/Vol] 6.5 10*3/uL 4.4-11.0 [facility] Blood erythrocytes count (nu mber/volume)Ordered By: Leandra Mejia on 03-29-2023 RBC (Bld) [#/Vol] 5.73 10*6/uL 4.6-6.2 [facility] Blood hemoglobin measurement (mass/volume)Ordered By: Leandra Mejia on 03-29-2023 Hemoglobin (Bld) [Mass/Vol] 16.8 g/dL 13.0-16.5 [facility] Blood lymphocytes/100 leukoc ytesOrdered By: Leandra Mejia on 03-29-2023 Lymphocytes/100 WBC (Bld) 24.5 % 19-41 [facility] Blood monocytes/100 leukocyt esOrdered By: Leandra Mejia on 03-29-2023 Monocytes/100 WBC (Bld) 8.8 % 0-10 [facility] Blood platelet mean volumeOr dered By: Leandra Mejia on 03-29-2023 Platelet mean volume (Bld) [Entitic vol] 10.3 fL 6.2-12.0 [facility] Determination of erythrocyte mean corpuscular volume (MCV)Ordered By: Leandra Mejia on 03-29-2023 MCV (RBC) [Entitic vol] 88.1 fL 80-94 [facility] Hematocrit Auto (Bld) [Volum e fraction]Ordered By: Leandra Mejia on 03-29-2023 Hematocrit (Bld) [Volume fraction] 50.5 % 40-54 [facility] Laboratory - Chemistry and C hemistry - challengeOrdered By: Leandra Mejia on 03-29-2023 ALP [Catalytic activity/Vol] 54 U/L 45-117 [facility] ALT [Catalytic activity/Vol] 27 U/L 16-61 [facility] CO2 [Moles/Vol] 26.0 mmol/L 21.0-32.0 [facility] Globulin (S) [Mass/Vol] 3.6 g/dL 2.2-4.2 [facility] Urea nitrogen/Creatinine [Mass ratio] 13.8 mg/mg 10-20 [facility] - Hematology and Cell countsOrdered By: Leandra Mejia on 03-29-2023 Erythrocyte distribution width (RBC) [Entitic vol] 43.6 fL 35.1-43.9 [facility] Erythrocyte distribution width (RBC) [Ratio] 13.5 % 11.6-14.6 [facility] Immature granulocytes/100 WBC (Bld) 0.300 % 0.0-0.9 [facility] Comment on above: IG% - Immature Granu locytes (promyelocytes, myelocytes and metamyelocytes) > 1% indicates that a LEFT SHIFT is Present. MCH (RBC) [Entitic mass] 29.3 pg 27.0-32.0 [facility] Nucleated RBC/100 WBC (Bld) [Ratio] 0 % 0-5 [facility] MCHC Auto (RBC) [Mass/Vol]Or dered By: Leandra Mejia on 03-29-2023 MCHC (RBC) [Mass/Vol] 33.3 g/dL 32-36 [facility] No Panel InformationOrdered By: Leandra Mejia on 03-29-2023 Estimated GFR (MDRD) Amer 82 mL/min >60 [facility] Comment on above: GFR Calc Estimated GFR (MDRD) Non-Af Amer 68 mL/min >60 [facility] Comment on above: Non- GFR Calc Thyroid Stimulating Hormone (TSH) 2.21 uIU/mL 0.358-3.74 [facility] Platelets bldOrdered By: Beverly Mejia on 03-29-2023 Platelets (Bld) [#/Vol] 230 10*3/uL 150-450 [facility] Serum or plasma albumin micah urement (mass/volume)Ordered By: Leandra Mejia on 03-29-2023 Albumin [Mass/Vol] 4.0 g/dL 3.2-5.0 [facility] Serum or plasma albumin/glob ulin mass ratioOrdered By: Leandra Mejia on 03-29-2023 Albumin/Globulin [Mass ratio] 1.1 {ratio} 0.9-2.4 [facility] Serum or plasma calcium micah urement (mass/volume)Ordered By: Leandra Mejia on 03-29-2023 Calcium [Mass/Vol] 8.5 mg/dL 8.5-10.1 [facility] Serum or plasma cholesterol in HDL measurement (mass/volume)Ordered By: Leandra Mejia on 03-29-2023 Cholesterol in HDL [Mass/Vol] 34 mg/dL >40 [facility] Comment on above: The drugs N-Acetylcy steine and Metamizole may falsely depress this assay. Reference Range HDL <40 mg/dL Low HDL Cholesterol HDL >or= 60 mg/dL High HDL Cholesterol Serum or plasma cholesterol in VLDL measurement (mass/volume)Ordered By: Leandra Mejia on 03-29-2023 Cholesterol in VLDL [Mass/Vol] 33 mg/dL 5-40 [facility] Serum or plasma creatinine m easurement (mass/volume)Ordered By: Leandra Mejia on 03-29-2023 Creatinine [Mass/Vol] 1.16 mg/dL 0.70-1.30 [facility] Comment on above: The validity of the calculated GFR & GFRAA in patients over 70 years has not been determined. Clinical correlation is essential. Serum or plasma low density lipoprotein (LDL) cholesterol measurement (mass/volume)Ordered By: Leandra Mejia on 03-29-2023 Cholesterol in LDL [Mass/Vol] 116 mg/dL 0-130 [facility] Serum or plasma urea nitroge n measurement (mass/volume)Ordered By: Leandra Mejia on 03-29-2023 Urea nitrogen [Mass/Vol] 16 mg/dL 7-18 [facility] Thin prep Papanicolaou smear with manual screeningOrdered By: Leandra Mejia on 03-29-2023 Thin prep Papanicolaou smear with manual screening 18 U/L 15-37 [facility] Thin prep Papanicolaou smear with manual screening 9 5-15 [facility] Whole blood hemoglobin A1c/t otal hemoglobin ratio (mass fraction)Ordered By: Leandra Mejia on 03-29-2023 HbA1c (Bld) [Mass fraction] 5.6 % 3.8-5.6 [facility] Comment on above: Normal < 5.7 % Predi abetic 5.7 - 6.4 % Diabetic >or= 6.5 % Please note range changes. Laboratory - Drug toxicology Ordered By: Kody Kemp on 01-31-2023 Amphetamines Ql (U) Negative <1000 ng/mL [facility] Benzodiazepines Ql (U) Negative < 200 ng/mL [facility] Cannabinoids Screen Ql (U) Negative < 50 ng/mL [facility] Cocaine Ql (U) Negative < 300 ng/mL [facility] Opiates Ql (U) Negative < 300 ng/mL [facility] No Panel InformationOrdered By: Kody Kemp on 01-31-2023 MDMA (Ecstasy) Screen Negative < 500 ng/mL [facility] Miscellaneous Test See comment [facility] Comment on above: [id number] 6+OXYCODONE-B UND (ng/mL) DRUG RESULT SCREEN CUTOFF____ Amphetamines,Urine Negative ng/mL 1000 Amphetamine test includes Amphetamine and Methamphetamine.Barbiturates Negative ng/mL 200Benzodiazepines Negative ng/mL 200Cannabinoid Negative ng/mL 20Cocaine (Metab) Negative ng/mL 300Opiates Negative ng/mL 300 Opiates test includes Codeine, Morphine, Hydromorphone, Hydrocodone. Oxycodone/Oxymorphone,Urine Negative ng/mL 300 Test includes Oxydodone and Oxymorphone. TESTING PERFORMED AT [facility]. ORIGINAL REPORT ON FILE IN LAB CONTAINS ADDITIONAL TEST SITE INFORMATION. Urine Barbiturates Screen Negative < 200 ng/mL [facility] Urine Drug Screen Comment [facility] Comment on above: CONFIRMATORY TESTING FOR ALL POSITIVE URINE DRUG SCREENRESULTS WILL ONLY BE SENT OUT UPON PHYSICIAN ORDER. VISTA Urine Drug Screen methods provide only preliminaryanalytical test results. A more specific alternate chemicalmethod must be used in order to obtain a confirmedanalytical result. Gas chromatography/mass spectrometery(GC/MS) is the preferred confirmatory method. Clinicalconsideration and professional judgement should be appliedto any drug of abuse test result, particularly whenpreliminary positive results are used. URINE TCA TESTING MUST BE ORDERED SEPARATELY. USE TESTMNEMONIC: [facility] Urine Methadone Screen Negative < 300 ng/mL [facility] Urine phencyclidine (PCP) de tectionOrdered By: Kody Kemp on 01-31-2023 Phencyclidine Ql (U) Negative < 25 ng/mL [facility] Absolute lymphocyte countOrd ered By: Dr. Mejia on 09-29-2022 Lymphocytes Auto (Unsp spec) [#/Vol] 2.67 10*3/uL 0.83-4.51 [facility] Basophil percentageOrdered B y: Dr. Mejia on 09-29-2022 Basophils/100 WBC (Bld) 1.0 % 0-1 [facility] Bilirubin [Mass/Vol] 0.30 mg/dL 0.20-1.00 [facility] Comment on above: For patients on eltr ombopag therapy, use of Dimension Reeves TBIL is not recommended. Chloride [Moles/Vol] 103 mmol/L 98-107 [facility] Cholesterol [Mass/Vol] 159 mg/dL <200 [facility] Comment on above: <200 mg/dL Desirable 200-240 mg/dL Borderline >240 mg/dL High Risk Eosinophils/100 WBC (Bld) 3.3 % 0-5 [facility] Glucose [Mass/Vol] 107 mg/dL 74-106 [facility] Comment on above: Fasting Glucose resu lt from 100 to 125 mg/dL suggests IMPAIRED HOMEOSTASIS per A.D.A. criteria. Neutrophils (Bld) [#/Vol] 3.5 10*3/uL 2.0-7.7 [facility] Neutrophils/100 WBC (Bld) 48.6 % 47-70 [facility] Potassium [Moles/Vol] 3.9 mmol/L 3.5-5.1 [facility] Protein [Mass/Vol] 7.2 g/dL 6.4-8.2 [facility] Sodium [Moles/Vol] 140 mmol/L 136-145 [facility] Triglyceride [Mass/Vol] 296 mg/dL <199 [facility] Comment on above: The drugs N-Acetylcy steine and Metamizole may falsely depress this assay.Serum Triglycerides Reference Interval Normal <150 mg/dL Borderline high 150 - 199 mg/dL High 200 - 499 mg/dL Very High > or = 500 mg/dL WBC (Bld) [#/Vol] 7.2 10*3/uL 4.4-11.0 [facility] Blood erythrocytes count (nu mber/volume)Ordered By: Dr. Mejia on 09-29-2022 RBC (Bld) [#/Vol] 5.61 10*6/uL 4.6-6.2 [facility] Blood hemoglobin measurement (mass/volume)Ordered By: Dr. Mejia on 09-29-2022 Hemoglobin (Bld) [Mass/Vol] 16.1 g/dL 13.0-16.5 [facility] Blood lymphocytes/100 leukoc ytesOrdered By: Dr. Mejia on 09-29-2022 Lymphocytes/100 WBC (Bld) 37.0 % 19-41 [facility] Blood monocytes/100 leukocyt esOrdered By: Dr. Mejia on 09-29-2022 Monocytes/100 WBC (Bld) 9.8 % 0-10 [facility] Blood platelet mean volumeOr dered By: Dr. Mejia on 09-29-2022 Platelet mean volume (Bld) [Entitic vol] 10.8 fL 6.2-12.0 [facility] Determination of erythrocyte mean corpuscular volume (MCV)Ordered By: Dr. Mejia on 09-29-2022 MCV (RBC) [Entitic vol] 88.4 fL 80-94 [facility] Hematocrit Auto (Bld) [Volum e fraction]Ordered By: Dr. Mejia on 09-29-2022 Hematocrit (Bld) [Volume fraction] 49.6 % 40-54 [facility] Laboratory - Chemistry and C hemistry - challengeOrdered By: Dr. Mejia on 09-29-2022 ALP [Catalytic activity/Vol] 52 U/L 45-117 [facility] ALT [Catalytic activity/Vol] 31 U/L 16-61 [facility] CO2 [Moles/Vol] 30.0 mmol/L 21.0-32.0 [facility] Globulin (S) [Mass/Vol] 3.7 g/dL 2.2-4.2 [facility] Urea nitrogen/Creatinine [Mass ratio] 13.4 mg/mg 10-20 [facility] - Hematology and Cell countsOrdered By: Dr. Mejia on 09-29-2022 Erythrocyte distribution width (RBC) [Entitic vol] 41.0 fL 35.1-43.9 [facility] Erythrocyte distribution width (RBC) [Ratio] 12.5 % 11.6-14.6 [facility] Immature granulocytes/100 WBC (Bld) 0.300 % 0.0-0.9 [facility] Comment on above: IG% - Immature Granu locytes (promyelocytes, myelocytes and metamyelocytes) > 1% indicates that a LEFT SHIFT is Present. MCH (RBC) [Entitic mass] 28.7 pg 27.0-32.0 [facility] Nucleated RBC/100 WBC (Bld) [Ratio] 0 % 0-5 [facility] MCHC Auto (RBC) [Mass/Vol]Or dered By: Dr. Mejia on 09-29-2022 MCHC (RBC) [Mass/Vol] 32.5 g/dL 32-36 [facility] No Panel InformationOrdered By: Dr. Mejia on 09-29-2022 Estimated GFR (MDRD) Amer 74 mL/min >60 [facility] Comment on above: GFR Calc Estimated GFR (MDRD) Non-Af Amer 61 mL/min >60 [facility] Comment on above: Non- GFR Calc Insulin Level 15.3 mU/L 2.6-37.6 [facility] Prostate Specific Antigen Screen 0.73 ng/mL 0.00-4.00 [facility] Comment on above: This test was perfor med using the TPSA assay method [facility]. Values obtained with differentassay methods cannot be used interchangably.When changing PSA assays in the course of monitoring apatient, additional sequential testing should be carriedout to confirm baseline values. Thyroid Stimulating Hormone (TSH) 2.69 uIU/mL 0.358-3.74 [facility] Vitamin D 25-Hydroxy 54.5 ng/mL [facility] Comment on above: Vitamin D 25(OH) Sta tus Range Deficiency <20 ng/mL (50nmol/L) Insufficiency 20 - 30 ng/mL (50 - 75 nmol/L) Sufficiency 30 - 100 ng/mL (75 - 250 nmol/L) Toxicity >100 ng/mL (>250 nmol/L) Platelets bldOrdered By: Dr. Mejia on 09-29-2022 Platelets (Bld) [#/Vol] 227 10*3/uL 150-450 [facility] Serum or plasma albumin micah urement (mass/volume)Ordered By: Dr. Mejia on 09-29-2022 Albumin [Mass/Vol] 3.5 g/dL 3.2-5.0 [facility] Serum or plasma albumin/glob ulin mass ratioOrdered By: Dr. Mejia on 09-29-2022 Albumin/Globulin [Mass ratio] 0.9 {ratio} 0.9-2.4 [facility] Serum or plasma calcium micah urement (mass/volume)Ordered By: Dr. Mejia on 09-29-2022 Calcium [Mass/Vol] 8.7 mg/dL 8.5-10.1 [facility] Serum or plasma cholesterol in HDL measurement (mass/volume)Ordered By: Dr. Mejia on 09-29-2022 Cholesterol in HDL [Mass/Vol] 31 mg/dL >40 [facility] Comment on above: The drugs N-Acetylcy steine and Metamizole may falsely depress this assay. Reference Range HDL <40 mg/dL Low HDL Cholesterol HDL >or= 60 mg/dL High HDL Cholesterol Serum or plasma cholesterol in VLDL measurement (mass/volume)Ordered By: Dr. Mejia on 09-29-2022 Cholesterol in VLDL [Mass/Vol] 59 mg/dL 5-40 [facility] Serum or plasma creatinine m easurement (mass/volume)Ordered By: Dr. Mejia on 09-29-2022 Creatinine [Mass/Vol] 1.27 mg/dL 0.70-1.30 [facility] Comment on above: The validity of the calculated GFR & GFRAA in patients over 70 years has not been determined. Clinical correlation is essential. Serum or plasma low density lipoprotein (LDL) cholesterol measurement (mass/volume)Ordered By: Dr. Mejia on 09-29-2022 Cholesterol in LDL [Mass/Vol] 69 mg/dL 0-130 [facility] Serum or plasma urea nitroge n measurement (mass/volume)Ordered By: Dr. Mejia on 09-29-2022 Urea nitrogen [Mass/Vol] 17 mg/dL 7-18 [facility] Thin prep Papanicolaou smear with manual screeningOrdered By: Dr. Mejia on 09-29-2022 Thin prep Papanicolaou smear with manual screening 17 U/L 15-37 [facility] Thin prep Papanicolaou smear with manual screening 7 5-15 [facility] Whole blood hemoglobin A1c/t otal hemoglobin ratio (mass fraction)Ordered By: Dr. Mejia on 09-29-2022 HbA1c (Bld) [Mass fraction] 5.8 % 3.8-5.6 [facility] Comment on above: Normal < 5.7 % Predi abetic 5.7 - 6.4 % Diabetic >or= 6.5 % Please note range changes. Basophil percentageon 2021 Basophil percentage 0 SEEN /hpf 0-5 [facility] Work Phone: Bilirubin Test strip Ql (U)o n 05-10-2022 Bilirubin Ql (U) Negative Negative [facility] Work Phone: Ketones Test strip Ql (U)on 05-10-2022 Ketones Ql (U) Negative Negative [facility] Work Phone: Mucus LM Ql (Urine sed)on Mucus Ql (Urine sed) 0 SEEN /hpf [facility] Work Phone: Nitrite Test strip Ql (U)on 05-10-2022 Nitrite Ql (U) Negative Negative [facility] Work Phone: Protein Test strip Ql (U)on 05-10-2022 Protein Ql (U) Negative Negative [facility] Work Phone: Squamous epithelial cells de tection in urine sediment by light microscopyon 05-10-2022 Epithelial cells.squamous LM Ql (Urine sed) 0 SEEN /hpf 0-5 [facility] Work Phone: Urine blood detectionon RBC Ql (U) Negative Negative [facility] Work Phone: RBC Ql (U) 0 SEEN /hpf 0- [facility] Work Phone: Urine clarityon 05-10-2022 Clarity (U) Clear Clear [facility] Work Phone: Urine color determinationon 05-10-2022 Color (U) Straw Yellow [facility] Work Phone: Urine glucose detectionon Glucose Ql (U) Normal mg/dl Normal [facility] Work Phone: Urine leukocyte esterase det ection by dipstickon 05-10-2022 Leukocyte esterase Test strip Ql (U) Negative Negative [facility] Work Phone: Urine pHon 05-10-2022 pH (U) 6.5 [pH] 5.0 - 8.0 [facility] Work Phone: Urine sediment bacteria coun t by microscopy (number/high power field)on 05-10-2022 Bacteria LM.HPF (Urine sed) [#/Area] 0 /[HPF] None Seen [facility] Work Phone: Urine specific gravity measu rementon 05-10-2022 Specific gravity (U) [Rel density] 1.010 1.002-1.030 [facility] Work Phone: Urobilinogen Auto test strip Ql (U)on 05-10-2022 Urobilinogen Ql (U) Normal mg/dl Normal [facility] Work Phone: Laboratory - Drug toxicology on 04-25-2022 Amphetamines Ql (U) Negative <1000 ng/mL [facility] Work Phone: Benzodiazepines Ql (U) Negative < 200 ng/mL [facility] Work Phone: Cannabinoids Screen Ql (U) Negative < 50 ng/mL [facility] Work Phone: Cocaine Ql (U) Negative < 300 ng/mL [facility] Work Phone: Opiates Ql (U) Negative < 300 ng/mL [facility] Work Phone: No Panel Informationon 04-25 MDMA (Ecstasy) Screen Negative < 500 ng/mL [facility] Work Phone: Miscellaneous Test See comment [facility] Work Phone: Comment on above: TEST RESULT LIMITSTr amadol Positive Mjzmpu=346 Tramadol Conf, [place], [place] 5195 ng/mL Xhesoy=100 TESTING PERFORMED AT [facility]. ORIGINAL REPORT ON FILE IN LAB CONTAINS ADDITIONAL TEST SITE INFORMATION. Urine Barbiturates Screen Negative < 200 ng/mL [facility] Work Phone: Urine Drug Screen Comment [facility] Work Phone: Comment on above: CONFIRMATORY TESTING FOR ALL POSITIVE URINE DRUG SCREENRESULTS WILL ONLY BE SENT OUT UPON PHYSICIAN ORDER. VISTA Urine Drug Screen methods provide only preliminaryanalytical test results. A more specific alternate chemicalmethod must be used in order to obtain a confirmedanalytical result. Gas chromatography/mass spectrometery(GC/MS) is the preferred confirmatory method. Clinicalconsideration and professional judgement should be appliedto any drug of abuse test result, particularly whenpreliminary positive results are used. URINE TCA TESTING MUST BE ORDERED SEPARATELY. USE TESTMNEMONIC: [facility] Urine Methadone Screen Negative < 300 ng/mL [facility] Work Phone: Urine phencyclidine (PCP) de tectionon 04-25-2022 Phencyclidine Ql (U) Negative < 25 ng/mL [facility] Work Phone: Laboratory - Hematology and Cell countson 03-21-2022 HbA1c (Bld) [Mass fraction] 5.2 % 4.2-6.3 [facility] Work Phone: CNNURSEon 03-17-2020 CNNURSE Nurse Visit (GASTMN) -------- MATHEW PORTILLO ([id number]) 1960 M Date Time Provider Department 03/17/20 7:30 AM NURSE GI LAB 2 GASTMN During your visit today, we recorded the following information about you: Salma Garcia LPN, LPN 03/17/2020 11:51 AM Signed Name: Mathew Portillo [facility]#: [id number] Date: 03/17/2020 LACTOSE - BREATH HYDROGEN AND METHANE TEST Indication: Bloating, Abdominal Pain, Diarrhea and Milk Intolerence Pain Assessment: No pain is present. Test Preparation: NPO for since last evening. No antibiotics or Pepto Bismol have been taken during the last 4 weeks. No colonscopy within the last 3-4 weeks A 25g Lactose solution was given. Breath samples were taken every 20 minutes for 100 minutes. The LACTOSE breath hydrogen/methane test was completed. .Salma Garcia LPN Referring Provider: DARON MIR [[id number]] Allergies As of Date: 03/17/2020 Noted Allergy Reaction LISINOPRIL 07/24/2011 3 - Cough SULFA (SULFONAMIDE ANTIBIOTICS) 04/11/2011 2 - Rash Date Reviewed: 02/18/2020 Reviewed by: Kala (Rn) LIZ Watts - Fully Assessed Reason for Visit: Procedure [88] Cmt: Breath Test - Lactose Visit Diagnosis:Gas pain [R14.1] Order(s):BREATH TEST LACTOSE [[id number]] Order #: [id number] Prescriptions as of 03/17/2020 Sig: ELIQUIS 5 MG TABLET TAKE 1 (ONE) TABLET TWICE LAYNE* ESOMEPRAZOLE MAGNESIUM 40 MG * Esomeprazole Esomeprazole Mag* CHANTIX ORAL Take 1 mg by mouth twice aletha* CALCIUM 300 ORAL Take 1,500 mg by mouth once d* DOCUSATE SODIUM 100 MG CAPSULE Take 1 capsule by mouth twice* GINKOBA ORAL Take 120 mg by mouth once layne* CYANOCOBALAMIN (VIT B-12) 500* Take 1,000 mcg by mouth once * CELECOXIB 200 MG CAPSULE Take 200 mg by mouth twice da* CYCLOBENZAPRINE 10 MG TABLET Take 10 mg by mouth as needed* NITROGLYCERIN 0.2% OINTMENT (* Apply 1 application to affect* Patient not taking: Reported on 11/04/2018 LIDOCAINE HCL 2 % MUCOSAL JEL* Apply as directed. Patient not taking: Reported on 09/02/2018 MULTIVITAMIN CAPSULE Take 1 capsule by mouth once * TADALAFIL 10 MG TABLET Take 10 mg by mouth once aletha* OMEPRAZOLE MAGNESIUM 20 MG TA* Take 1 tablet by mouth once d* Patient not taking: Reported on 10/06/2019 ADVIL 200 MG TABLET Take 200-400 mg by mouth ever* SILDENAFIL 100 MG TABLET Take 1 tablet by mouth as nee* Problem List As Of Date 03/17/2020 Noted Resolved Low libido [R68.82] 03/16/2015 Impotence of organic origin [N52.9] 03/16/2015 Anal pain [K62.89] 08/08/2018 More... Anal fissure [K60.2] 09/02/2018 More... Gas pain [R14.1] 10/06/2019 Bloating [R14.0] 10/06/2019 Gastroesophageal reflux disease without esophag*10/06/2019 Constipation [K59.00] 10/06/2019 Encounter Status:Closed by SALMA GARCIA LPN on 03/17/20 [facility] PROGRESSon 03-17-2020 PROGRESS HNO ID: [id number] Author: Salma Keys) DAYSI Garcia Service: ? Author Type: LICENSED NURSE Type: Progress Notes Filed: 03/17/2020 11:51 AM Note Text: Name: Mathew Portillo [facility]#: [id number] Date: 03/17/2020 LACTOSE - BREATH HYDROGEN AND METHANE TEST Indication: Bloating, Abdominal Pain, Diarrhea and Milk Intolerence Pain Assessment: No pain is present. Test Preparation: NPO for since last evening. No antibiotics or Pepto Bismol have been taken during the last 4 weeks. No colonscopy within the last 3-4 weeks A 25g Lactose solution was given. Breath samples were taken every 20 minutes for 100 minutes. The LACTOSE breath hydrogen/methane test was completed. .Salma Garcia LPN [facility] NM GASTRIC EMPTYING SOLIDon 03-16-2020 NM GASTRIC EMPTYING SOLID * * *Final Report* * * DATE OF EXAM: Mar 16 2020 12:21PM [facility] 0017 - NM GASTRIC EMPTYING SOLID / PROCEDURE REASON: multiple diagnoses * * * * Physician Interpretation * * * * SOLID MEAL GASTRIC EMPTYING STUDY: CLINICAL HISTORY: Assess for abnormal gastric emptying of a solid meal. TECHNIQUE: 1.02 mCi Tc-99m sulfur colloid was given orally in a meal consisting of 4 oz Egg Beaters, 2 slice(s) of toast, 30g jelly, and 8 oz water, consumed over 5 to 10 minutes. RESULT: Solid study demonstrates: - 55% gastric retention at 1hr (normal range, 37-90%), - 10% retention at 2hr (normal range, 30-60%), and - 0% retention at 4hr (normal range, 0-10%). 55% retention at 1hr (rapid emptying is <30% retention at 1hr) suggests no evidence of accelerated emptying of gastric contents. IMPRESSION: NORMAL RATE OF GASTRIC EMPTYING OF SOLID MEAL. [employer] Production Manager: ZIYAD Transcribe Date/Time: Mar 16 2020 1:11P Dictated by : KIM MEZA MD This examination was interpreted and the report reviewed and electronically signed by: JEIMY PRINGLE MD on Mar 16 2020 1:38PM EST [id number] Normal [facility] PROGRESSon 03-16-2020 PROGRESS HNO ID: [id number] Author: Dejon Shah (Rt) Service: Nuclear Medicine Author Type: Automatic Packer Operator Type: Progress Notes Filed: 03/16/2020 10:23 AM Note Text: RADIOLOGY SERVICE PROGRESS NOTE SERVICE DATE: 03/16/2020 SERVICE TIME: 10:23 AM PATIENT IDENTITY VERIFICATION COMPLETED USING TWO (2) STANDARD IDENTIFIERS: Name and Date of confirmed by patient verbally FALL SCREENING: Has the patient had 2 falls in the last year or 1 fall with injury or currently using an Ambulatory Assistive Device (Walker, Cane, Wheelchair, Crutches, etc.)? No PATIENT GENDER DATA: .male ALLERGIES: Reviewed and unchanged MEDICATIONS REVIEWED: Yes PATIENT RELEVANT IMPLANT DATA REVIEWED: Not Applicable CREATININE: Creatinine Date Value Ref Range Status 10/06/2019 1.10 0.73 - 1.22 mg/dL Final 09/02/2018 1.01 0.73 - 1.22 mg/dL Final eGFR-All Other Races Date Value Ref Range Status 10/06/2019 >60 . Final Comment: eGFR (Estimated GFR) Units of measure: mL/min/1.73 meters squared eGFR is derived from the reexpressed MDRD Study equation using the following parameters: serum creatinine, age, gender and race. The creatinine assay has been calibrated to be traceable to IDMS. An eGFR <60 mL/min/1.73m2 for >3 months is consistent with chronic kidney disease. Refer to KDOQI guidelines for clinical interpretation. In patients with unstable renal function, e.g. those with acute kidney injury, the eGFR may not accurately reflect actual GFR. eGFR- Date Value Ref Range Status 10/06/2019 >60 Final P.O.C.T. RESULTS: N/A March 16, [address] PERFORMED: No IV SITE: SD only - not applicable, oral or physician administered agents given to patient POST EXAM PIV STATUS: Not applicable PROCEDURE TYPE: NM GET: 1.02 mCi Tc99m SULFUR COLLOID was administered orally via 4 ounces of Egg Beaters,2 pieces of toast, 1 ounce of jelly with 8 ounces of water orally ADMINISTRATION TIME: 08 PATIENT DISCHARGED TO: Ambulatory patient, left SD department area. A Diagnostic radioactive procedure has taken place, with no further precautions necessary other than routine body substance precautions. More information regarding radiation safety can be found using this link: [email or web address] SIGNATURE: RT Alyssa PATIENT NAME: Mathew Portillo DATE: March 16, 2020 TIME: 10:23 AM PAGER/CONTACT #: Víctor [facility] Estefany 02-26-2020 KAREN Telephone (GHAZALA) -------- MATHEW PORTILLO ([id number]) 1960 M Date Time Provider Department 02/26/20 DARON MIR During your visit today, we recorded the following information about you: Kathryn Houser 02/26/2020 3:54 PM Signed PT called regarding EGD that was done on 02/17. You mentioned possibly doing another kind of test or procedure on the pt and there is nothing written the plan of care after EGD. Please reach out to pt or and let them know what procedure you were recommending and when they can schedule it. Debbie Valle RN 02/26/2020 4:42 PM Signed Called and spoke with pt's and read her the letter from Dr. Mir sent through [facility]. Informed pt's there is a medication sent to [facility] in [place] and pt's stated they had called pt from [facility] but he did not know about the medication. (xifaxin). Phone number for [facility] given for pt's to call and get medication delivered to them so pt can start and take for the 14 days. Also provided numbers for Breath Test, Upper GI XR series and for Gastric Emptying tests that were ordered by Dr. Mir so pt will get scheduled for these tests. Pt's very grateful for the help received and nurse line given for any further questions/concerns. Allergies As of Date: 02/26/2020 Noted Allergy Reaction LISINOPRIL 07/24/2011 3 - Cough SULFA (SULFONAMIDE ANTIBIOTICS) 04/11/2011 2 - Rash Date Reviewed: 02/18/2020 Reviewed by: Kala (Rn) LIZ Watts - Fully Assessed Reason for Visit: Orders [681] Prescriptions as of 02/26/2020 Sig: RIFAXIMIN 550 MG TABLET Take 1 tablet by mouth three * ELIQUIS 5 MG TABLET TAKE 1 (ONE) TABLET TWICE LAYNE* ESOMEPRAZOLE MAGNESIUM 40 MG * Esomeprazole Esomeprazole Mag* CHANTIX ORAL Take 1 mg by mouth twice aletha* CALCIUM 300 ORAL Take 1,500 mg by mouth once d* DOCUSATE SODIUM 100 MG CAPSULE Take 1 capsule by mouth twice* GINKOBA ORAL Take 120 mg by mouth once layne* CYANOCOBALAMIN (VIT B-12) 500* Take 1,000 mcg by mouth once * CELECOXIB 200 MG CAPSULE Take 200 mg by mouth twice da* CYCLOBENZAPRINE 10 MG TABLET Take 10 mg by mouth as needed* NITROGLYCERIN 0.2% OINTMENT (* Apply 1 application to affect* Patient not taking: Reported on 11/04/2018 LIDOCAINE HCL 2 % MUCOSAL JEL* Apply as directed. Patient not taking: Reported on 09/02/2018 MULTIVITAMIN CAPSULE Take 1 capsule by mouth once * TADALAFIL 10 MG TABLET Take 10 mg by mouth once aletha* OMEPRAZOLE MAGNESIUM 20 MG TA* Take 1 tablet by mouth once d* Patient not taking: Reported on 10/06/2019 ADVIL 200 MG TABLET Take 200-400 mg by mouth ever* SILDENAFIL 100 MG TABLET Take 1 tablet by mouth as nee* Problem List As Of Date 02/26/2020 Noted Resolved Low libido [R68.82] 03/16/2015 Impotence of organic origin [N52.9] 03/16/2015 Anal pain [K62.89] 08/08/2018 More... Anal fissure [K60.2] 09/02/2018 More... Gas pain [R14.1] 10/06/2019 Bloating [R14.0] 10/06/2019 Gastroesophageal reflux disease without esophag*10/06/2019 Constipation [K59.00] 10/06/2019 Encounter Status:Closed by DEBBIE VALLE RN on 02/26/20 Normal [facility] PROGRESSon 02-19-2020 PROGRESS HNO ID: [id number] Author: Daron Mir Service: ? Author Type: Physician Type: Progress Notes Filed: 02/19/2020 8:56 AM Note Text: [facility] Mathew Cho Lindsey Presented with abdominal pain - progressive weight gain since surgery for back which was c/b ileus. GB US and CT unremarkable. TTE normal 01/21/20 Colonoscopy 08/2019 Hemorrhoids Stool in colon preventing visualization (inadequate prep) Performed for decompression US 18.9cm liver Fatty liver [id number] cystCBD 4.8mm CT IV Normal including liver without cyst Suspect- motility issue Normal [facility] CNCNPATEDon 02-18-2020 CNCNPATED Education (ASCIND) -------- MATHEW PORTILLO ([id number]) 1960 M Date Time Provider Department 02/18/20 DARON MIR Reason for Visit: Procedure [88] Cmt: EGD Patient Update [1234] Visit Notes: >> Kala Watts RN SunFeb 18, 2020 12:58 PM Status: Signed PRE OP LEARNING ASSESSMENT PROCEDURE/SURGERY: GI PROCEDURES: EGD READINESS TO LEARN COGNITIVE ABILITY: Alert and oriented MOTIVATION TO LEARN: Interested FAMILY SUPPORT: Unable to assess - Family not present PATIENT LEARNS BEST BY: Individual Instruction Written Instruction - Hand-outs Verbal Instruction FACTORS AFFECTING LEARNING: None PHYSICAL LIMITATIONS AFFECTING LEARNING: None Electronically Signed By: Kala Watts RN In Department: AMBULATORY SURGERY >> Lien Vela SunFeb 18, 2020 2:08 PM Status: Signed POST OP LEARNING RESPONSE INSTRUCTION PROVIDED TO: Spouse METHOD OF INSTRUCTION: Written instruction - handouts Verbal instruction PATIENT / FAMILY RESPONSE: Verbalizes understanding of: WORSENING CONDITION-Signs and symptoms of a worsening condition that warrant a call to the physician FOLLOW-UP PLAN: Complete - No need for follow-up SUPPLEMENTAL MATERIAL: Post op discharge instructions Post sedation instructions given REFERRAL (RECOMMENDATION): None Electronically Signed By: Lien Vela RN In Department: AMBULATORY SURGERY During your visit today, we recorded the following information about you: Allergies As of Date: 02/18/2020 Noted Allergy Reaction LISINOPRIL 07/24/2011 3 - Cough SULFA (SULFONAMIDE ANTIBIOTICS) 04/11/2011 2 - Rash Date Reviewed: 02/18/2020 Reviewed by: Kala Watts RN - Fully Assessed Prescriptions as of 02/18/2020 Sig: ELIQUIS 5 MG TABLET TAKE 1 (ONE) TABLET TWICE LAYNE* ESOMEPRAZOLE MAGNESIUM 40 MG * Esomeprazole Esomeprazole Mag* CHANTIX ORAL Take 1 mg by mouth twice aletha* CALCIUM 300 ORAL Take 1,500 mg by mouth once d* DOCUSATE SODIUM 100 MG CAPSULE Take 1 capsule by mouth twice* GINKOBA ORAL Take 120 mg by mouth once layne* CYANOCOBALAMIN (VIT B-12) 500* Take 1,000 mcg by mouth once * CELECOXIB 200 MG CAPSULE Take 200 mg by mouth twice da* CYCLOBENZAPRINE 10 MG TABLET Take 10 mg by mouth as needed* NITROGLYCERIN 0.2% OINTMENT (* Apply 1 application to affect* Patient not taking: Reported on 11/04/2018 LIDOCAINE HCL 2 % MUCOSAL JEL* Apply as directed. Patient not taking: Reported on 09/02/2018 MULTIVITAMIN CAPSULE Take 1 capsule by mouth once * TADALAFIL 10 MG TABLET Take 10 mg by mouth once aletha* OMEPRAZOLE MAGNESIUM 20 MG TA* Take 1 tablet by mouth once d* Patient not taking: Reported on 10/06/2019 ADVIL 200 MG TABLET Take 200-400 mg by mouth ever* SILDENAFIL 100 MG TABLET Take 1 tablet by mouth as nee* Encounter Status:Closed by LIEN VELA RN on 02/18/20 [facility] Estefany [facility] MATHEW PORTILLO ([id number]) 1960 M Date Time Provider Department 02/18/20 DARNO MIR During your visit today, we recorded the following information about you: Zulma Ge RN 02/19/2020 8:04 AM Signed Attempted to reach patient for follow-up post procedure via phone. Provided phone number for questions . Allergies As of Date: 02/18/2020 Noted Allergy Reaction LISINOPRIL 07/24/2011 3 - Cough SULFA (SULFONAMIDE ANTIBIOTICS) 04/11/2011 2 - Rash Date Reviewed: 02/18/2020 Reviewed by: Kala (Rn) LIZ Watts - Fully Assessed Reason for Visit: [facility] Follow Up [1253] Cmt: EGD Reason For Visit History Recorded Prescriptions as of 02/18/2020 Sig: ELIQUIS 5 MG TABLET TAKE 1 (ONE) TABLET TWICE LAYNE* ESOMEPRAZOLE MAGNESIUM 40 MG * Esomeprazole Esomeprazole Mag* CHANTIX ORAL Take 1 mg by mouth twice aletha* CALCIUM 300 ORAL Take 1,500 mg by mouth once d* DOCUSATE SODIUM 100 MG CAPSULE Take 1 capsule by mouth twice* GINKOBA ORAL Take 120 mg by mouth once layne* CYANOCOBALAMIN (VIT B-12) 500* Take 1,000 mcg by mouth once * CELECOXIB 200 MG CAPSULE Take 200 mg by mouth twice da* CYCLOBENZAPRINE 10 MG TABLET Take 10 mg by mouth as needed* NITROGLYCERIN 0.2% OINTMENT (* Apply 1 application to affect* Patient not taking: Reported on 11/04/2018 LIDOCAINE HCL 2 % MUCOSAL JEL* Apply as directed. Patient not taking: Reported on 09/02/2018 MULTIVITAMIN CAPSULE Take 1 capsule by mouth once * TADALAFIL 10 MG TABLET Take 10 mg by mouth once aletha* OMEPRAZOLE MAGNESIUM 20 MG TA* Take 1 tablet by mouth once d* Patient not taking: Reported on 10/06/2019 ADVIL 200 MG TABLET Take 200-400 mg by mouth ever* SILDENAFIL 100 MG TABLET Take 1 tablet by mouth as nee* Problem List As Of Date 02/18/2020 Noted Resolved Low libido [R68.82] 03/16/2015 Impotence of organic origin [N52.9] 03/16/2015 Anal pain [K62.89] 08/08/2018 More... Anal fissure [K60.2] 09/02/2018 More... Gas pain [R14.1] 10/06/2019 Bloating [R14.0] 10/06/2019 Gastroesophageal reflux disease without esophag*10/06/2019 Constipation [K59.00] 10/06/2019 Encounter Status:Closed by ZULMA GE RN on 02/19/20 [facility] OBSOLETEon 02-18-2020 OBSOLETE Procedure (ASCIND) -------- MATHEW PORTILLO ([id number]) 1960 M Date Time Provider Department 02/18/20 DARON MIR During your visit today, we recorded the following information about you: Allergies As of Date: 02/18/2020 Noted Allergy Reaction LISINOPRIL 07/24/2011 3 - Cough SULFA (SULFONAMIDE ANTIBIOTICS) 04/11/2011 2 - Rash Date Reviewed: 02/18/2020 Reviewed by: Kala (Rn) LIZ Watts - Fully Assessed Reason for Visit: Procedure [88] Cmt: EGD Primary Visit Diagnosis:Abdominal bloating [R14.0] Order(s):SURGICAL PATHOLOGY [[id number]] Order #: [id number] Prescriptions as of 02/18/2020 Sig: ELIQUIS 5 MG TABLET TAKE 1 (ONE) TABLET TWICE LAYNE* ESOMEPRAZOLE MAGNESIUM 40 MG * Esomeprazole Esomeprazole Mag* CHANTIX ORAL Take 1 mg by mouth twice aletha* CALCIUM 300 ORAL Take 1,500 mg by mouth once d* DOCUSATE SODIUM 100 MG CAPSULE Take 1 capsule by mouth twice* GINKOBA ORAL Take 120 mg by mouth once layne* CYANOCOBALAMIN (VIT B-12) 500* Take 1,000 mcg by mouth once * CELECOXIB 200 MG CAPSULE Take 200 mg by mouth twice da* CYCLOBENZAPRINE 10 MG TABLET Take 10 mg by mouth as needed* NITROGLYCERIN 0.2% OINTMENT (* Apply 1 application to affect* Patient not taking: Reported on 11/04/2018 LIDOCAINE HCL 2 % MUCOSAL JEL* Apply as directed. Patient not taking: Reported on 09/02/2018 MULTIVITAMIN CAPSULE Take 1 capsule by mouth once * TADALAFIL 10 MG TABLET Take 10 mg by mouth once aletha* OMEPRAZOLE MAGNESIUM 20 MG TA* Take 1 tablet by mouth once d* Patient not taking: Reported on 10/06/2019 ADVIL 200 MG TABLET Take 200-400 mg by mouth ever* SILDENAFIL 100 MG TABLET Take 1 tablet by mouth as nee* Problem List As Of Date 02/18/2020 Noted Resolved Low libido [R68.82] 03/16/2015 Impotence of organic origin [N52.9] 03/16/2015 Anal pain [K62.89] 08/08/2018 More... Anal fissure [K60.2] 09/02/2018 More... Gas pain [R14.1] 10/06/2019 Bloating [R14.0] 10/06/2019 Gastroesophageal reflux disease without esophag*10/06/2019 Constipation [K59.00] 10/06/2019 Encounter Status:Closed by ZULMA GE RN on 02/18/20 Normal [facility] PROGRESSon 02-18-2020 PROGRESS HNO ID: [id number] Author: Daron Mir Service: ? Author Type: Physician Type: Progress Notes Filed: 02/18/2020 1:36 PM Note Text: He c/o of right upper quadrant sharp pain. States fatty meals may make it worse. Not always related to meals Unrelated to movement. Lasts for ~ 1 hour Intermittent for last several months Workup by family doctor: -CT scan -HIDA scan -blood work -surgeon - not GB related Which he states is unremarkable Normal [facility] SURGICAL PATHOLOGYon 020 SURGICAL PATHOLOGY Specimen originated from [facility] Specimen #: [id number] Submitting Physician: DARON MIR MD __ FINAL DIAGNOSIS 1. Duodenum, biopsy (A) - Small intestinal mucosa with no diagnostic alteration. - No morphologic evidence of celiac disease. 2. Gastric body, incisura, antrum, biopsy (B) - Antral and oxyntic mucosa with no diagnostic alteration. - No morphologic evidence of Helicobacter pylori. SR/rw 02/20/2020 Raymond Khan MD, Ph.D. (Electronic Signature) SPECIMEN SUBMITTED A: DUODENUM, BIOPSY B: GASTRIC BODY, AT THE INCISURA, GASTRIC ANTRUM, BIOPSY CLINICAL DATA ABDOMINAL BLOATING A: EVALUATION OF CELIAC DISEASE B: EVALUATION OF H. PYLORI GROSS DESCRIPTION A. Received in formalin are two pieces of vazquez, soft tissue aggregating to 0.8 x 0.3 x 0.2 cm. Totally submitted in one cassette. B. Received in formalin are multiple pieces of vazquez, soft tissue aggregating to 1.6 x 0.2 x 0.2 cm. Totally submitted in one cassette. Gross examination performed at [facility], [address] [place] [address] FF 02/19/2020 2:04:35 AM Date of Report: 02/20/2020 Date of Procedure: 02/18/2020 Date of Receipt: 02/18/2020 Submitted by: DARON MIR MD Location: IN/OUT Diagnostic interpretation performed at [place] [address]. CLIA Number: [id number] Normal [facility] 02-10-2020 CNPN Telephone (GASTIN) -------- MATHEW PORTILLO ([id number]) 1960 M Date Time Provider Department 02/10/20 DARON MIR During your visit today, we recorded the following information about you: Henny Rogers, RN, RN 02/10/2020 5:46 PM Signed Spoke with patient to confirm EGD on 02/18/2020. Instructions given to arrive 45 minutes prior to procedure time and the need for rear load truck driver to stay with patient until discharge. Reviewed prep instructions, dietary and medication restrictions. Allergies As of Date: 02/10/2020 Noted Allergy Reaction LISINOPRIL 07/24/2011 3 - Cough SULFA (SULFONAMIDE ANTIBIOTICS) 04/11/2011 2 - Rash Date Reviewed: 10/06/2019 Reviewed by: Violeta Fung MA - Fully Assessed Reason for Visit: Preparations For Procedures [899] Cmt: EGD Prescriptions as of 02/10/2020 Sig: ELIQUIS 5 MG TABLET TAKE 1 (ONE) TABLET TWICE LAYNE* ESOMEPRAZOLE MAGNESIUM 40 MG * Esomeprazole Esomeprazole Mag* CHANTIX ORAL Take 1 mg by mouth twice aletha* CALCIUM 300 ORAL Take 1,500 mg by mouth once d* DOCUSATE SODIUM 100 MG CAPSULE Take 1 capsule by mouth twice* GINKOBA ORAL Take 120 mg by mouth once layne* CYANOCOBALAMIN (VIT B-12) 500* Take 1,000 mcg by mouth once * CELECOXIB 200 MG CAPSULE Take 200 mg by mouth twice da* CYCLOBENZAPRINE 10 MG TABLET Take 10 mg by mouth as needed* NITROGLYCERIN 0.2% OINTMENT (* Apply 1 application to affect* Patient not taking: Reported on 11/04/2018 LIDOCAINE HCL 2 % MUCOSAL JEL* Apply as directed. Patient not taking: Reported on 09/02/2018 MULTIVITAMIN CAPSULE Take 1 capsule by mouth once * TADALAFIL 10 MG TABLET Take 10 mg by mouth once aletha* OMEPRAZOLE MAGNESIUM 20 MG TA* Take 1 tablet by mouth once d* Patient not taking: Reported on 10/06/2019 ADVIL 200 MG TABLET Take 200-400 mg by mouth ever* SILDENAFIL 100 MG TABLET Take 1 tablet by mouth as nee* Problem List As Of Date 02/10/2020 Noted Resolved Low libido [R68.82] 03/16/2015 Impotence of organic origin [N52.9] 03/16/2015 Anal pain [K62.89] 08/08/2018 More... Anal fissure [K60.2] 09/02/2018 More... Gas pain [R14.1] 10/06/2019 Bloating [R14.0] 10/06/2019 Gastroesophageal reflux disease without esophag*10/06/2019 Constipation [K59.00] 10/06/2019 Encounter Status:Closed by HENNY ROGERS RN on 02/10/20 [facility] Estef[facility] 10-10-2019 KAREN Telephone (DDQ) -------- MATHEW PORTILLO ([id number]) 1960 M Date Time Provider Department 10/10/19 DARON MIR During your visit today, we recorded the following information about you: Violeta Romano [facility] [place], [place] 10/10/2019 3:35 PM Signed Patient called in - would like to discuss lab results that he received on [employer] please call him Pt Sharon Heredia LPN, DAYSI 10/13/2019 9:14 AM Addendum Please Advise? Concerning the Celiac results? Sharon Heredia LPN Called pt Daron Mir MD Allergies As of Date: 10/10/2019 Noted Allergy Reaction LISINOPRIL 07/24/2011 3 - Cough SULFA (SULFONAMIDE ANTIBIOTICS) 04/11/2011 2 - Rash Date Reviewed: 10/06/2019 Reviewed by: Violeta Fung MA - Fully Assessed Reason for Visit: Results [95] Prescriptions as of 10/10/2019 Sig: ELIQUIS 5 MG TABLET TAKE 1 (ONE) TABLET TWICE LAYNE* ESOMEPRAZOLE MAGNESIUM 40 MG * Esomeprazole Esomeprazole Mag* CHANTIX ORAL Take 1 mg by mouth twice aletha* CALCIUM 300 ORAL Take 1,500 mg by mouth once d* DOCUSATE SODIUM 100 MG CAPSULE Take 1 capsule by mouth twice* GINKOBA ORAL Take 120 mg by mouth once layne* CYANOCOBALAMIN (VIT B-12) 500* Take 1,000 mcg by mouth once * CELECOXIB 200 MG CAPSULE Take 200 mg by mouth twice da* CYCLOBENZAPRINE 10 MG TABLET Take 10 mg by mouth as needed* NITROGLYCERIN 0.2% OINTMENT (* Apply 1 application to affect* Patient not taking: Reported on 11/04/2018 LIDOCAINE HCL 2 % MUCOSAL JEL* Apply as directed. Patient not taking: Reported on 09/02/2018 MULTIVITAMIN CAPSULE Take 1 capsule by mouth once * TADALAFIL 10 MG TABLET Take 10 mg by mouth once aletha* OMEPRAZOLE MAGNESIUM 20 MG TA* Take 1 tablet by mouth once d* Patient not taking: Reported on 10/06/2019 ADVIL 200 MG TABLET Take 200-400 mg by mouth ever* SILDENAFIL 100 MG TABLET Take 1 tablet by mouth as nee* Problem List As Of Date 10/10/2019 Noted Resolved Low libido [R68.82] 03/16/2015 Impotence of organic origin [N52.9] 03/16/2015 Anal pain [K62.89] 08/08/2018 More... Anal fissure [K60.2] 09/02/2018 More... Gas pain [R14.1] 10/06/2019 Bloating [R14.0] 10/06/2019 Gastroesophageal reflux disease without esophag*10/06/2019 Constipation [K59.00] 10/06/2019 Encounter Status:Closed by DARON MIR MD on 10/13/19 Normal [facility] CBCon 10-06-2019 Absolute nRBC <0.01 Normal <0.01 [facility] Comment on above: Performed By: #### C MP, TSH, CBC, CELSCR ####[place] [phone] Erythrocyte distribution width (RBC) [Ratio] 13.8 % Normal 11.5-15.0 [facility] Comment on above: Performed By: #### C MP, TSH, CBC, CELSCR ####[place] [phone] Hematocrit (Bld) [Volume fraction] 44.8 % Normal 39.0-51.0 [facility] Comment on above: Performed By: #### C MP, TSH, CBC, CELSCR ####[place] [phone] Hemoglobin (Bld) [Mass/Vol] 14.3 g/dL Normal 13.0-17.0 [facility] Comment on above: Performed By: #### C MP, TSH, CBC, CELSCR ####[place] [phone] MCH (RBC) [Entitic mass] 28.6 pG Normal 26.0-34.0 [facility] Comment on above: Performed By: #### C MP, TSH, CBC, CELSCR ####[facility] [place], [place] [phone] MCHC (RBC) [Mass/Vol] 31.9 g/dL Normal 30.5-36.0 [facility] Comment on above: Performed By: #### C MP, TSH, CBC, CELSCR ####[place] [address] [address] [place], [place] [phone] MCV (RBC) [Entitic vol] 89.6 fL Normal 80.0-100.0 [facility] Comment on above: Performed By: #### C MP, TSH, CBC, CELSCR ####[place] [address] [address] [place], [place] [phone] Platelet mean volume (Bld) [Entitic vol] 10.5 fL Normal 9.0-12.7 [facility] Comment on above: Performed By: #### C MP, TSH, CBC, CELSCR ####[place] [address] [address] [place], [place] [phone] Platelets (Bld) [#/Vol] 311 10*3/uL Normal 150-400 [facility] Comment on above: Performed By: #### C MP, TSH, CBC, CELSCR ####[place] [address] [address] [place], [place] [phone] RBC (Bld) [#/Vol] 5.00 10*6/uL Normal 4.20-6.00 [facility] Comment on above: Performed By: #### C MP, TSH, CBC, CELSCR ####[place] [address] [address] [place], [place] [phone] WBC (Bld) [#/Vol] 9.51 10*3/uL Normal 3.70-11.00 [facility] Comment on above: Performed By: #### C MP, TSH, CBC, CELSCR ####[place] [address] [address] [place], [place] [phone] CNOVon 10-06-2019 CNOV Office Visit (GASTIN ) -------- LINDSEYMATHEW ([id number]) 1960 M Date Time Provider Department 10/06/19 9:30 AM JAH DARONALIA VIVAR During your visit today, we recorded the following information about you: Pulse Blood pressure Weight Height 94/minute 118/73 102.1 kg 1.702 m Violeta Fung MA 10/06/2019 9:24 AM Signed [facility] LAB AND RADIOLOGY FACTS LAB HOURS: Lab is open 7:30am to 6pm , and open 8am -12pm on Saturdays RADIOLOGY HOURS: Sunday- 7:00 am-6:00 pm, Sunday 7:30 am- 5 pm. Lab Orders 365 days after they are entered. If your lab orders , you may be required to wait in the lab while they are reinstated STANDING ORDERS are recurring orders with an expiration date. The interval will indicate how often the test should be completed. FASTING LAB means nothing to eat or drink (except water) 10-12 hours before your blood is drawn. CT/MRI/IVP If you have one of these radiology exams ordered along with blood work, please complete the blood work at least one day prior to the scheduled exam. EXPRESS CARE HOU[facility] [place] [facility]: Sunday through Sunday 6:00am to 9:00pm. Sunday and Sunday 8:00am to 4:00pm. The walk in clinic is for patients 2 years and older. [place] [facility]: Sunday through Sunday 8:00am to 8:00pm. Sunday and Sunday 8:00am to 4:00pm. The walk in clinic is for patients 2 years and older. [place] [facility]: Sunday through Sunday 8:00am to 8:00pm. Sunday and Sunday 8:00am to 4:00pm. The walk in clinic is for patients 2 years and older. [facility] WALK IN MAMMOGRAM HOURS Sunday-Sunday 3:00pm- 7:00 pm Sunday 8:00 am- 12:00 pm For Express Care LOCATIONS, HOURS OF OPERATION and CURRENT WAIT TIMES, visit the following link [email or web address] for details. My Chart Schedule My Appointment enables you to view your established primary care provider's open schedule and book an appointment online in real-time. This feature is available in internal medicine, family medicine, or pediatrics at any of our [facility] locations and main campus. Daron Mir MD 10/06/2019 10:17 AM Signed Department of Gastroenterology Digestive Disease [place] October 06, 2019 Patient: Mathew Portillo Reason for Consultation: Opinion/Advice regarding slow motility at the request of Self. My recommendations will be communicated by way of the shared medical record. History of Present Illness: Mathew Portillo is a 58 year old male with a history of lower back pain, for which he had surgery 07/2019, GERD, previous smoker on chantix, eliquis for post surgical DVT, presents for slow digestion following surgery. He has had bowel issues prior to surgery Did well with BMs regularly in AM, soft, complete evacuation In 2018 had one bad BM which resulted in an anal fissure, for which he had sphincterotomy and fissurectomy. Sicne this, has 2-3 BMs with incomplete evacuation. Also has burping and bloating associated. Had ileus for a week associated with back surgery 07/2019 requiring NG decompression, which resolved after a week Now back to baseline No blood in stool. He takes colace twice daily. Does not drink water, but drinks tea. Weight is increasing (195-230) Pertinent Workup: 09/2016 - colonoscopy - 2 polyps - TA 5-7mm Pertinent Review of Systems: General Review of Systems Colon polyps:Yes Colon cancer: No Other cancer: No Radiation / Chemotherapy: No Crohn's disease / Ulcerative colitis: No High cholesterol or triglycerides: No Ulcers:No Gallstones:No Hepatitis / jaundice:No Heart Disease: No Lung Disease: No Liver problems: No Thyroid disease:No Kidney stones: No Pancreatitis:No Diabetes:No Arthritis:No Rheumatic fever: No Gastrointestinal bleeding:No Depression or other mental illness: No Other personal illness:No GI Specific Review of Systems: Difficulty swallowing / foods sticking in throat: No Heartburn:Yes Hoarseness: No Chronic cough:No Regurgitation:No Chest pain:No Filling up quickly at meals: No Loss of appetite:No Nausea:No Vomiting:No Abdominal pain:No Recent change in bowel movements:No Bloody or black, bowel movements:No Constipation: No Diarrhea:No Loss of control of bowel movements:No Night sweats, fever, chills: No Thought or memory problems:No Fluid in abdomen (ascites):No Prominent leg swelling:No Vomiting blood: No Recent change in weight:Yes PAST MEDICAL HISTORY Diagnosis Date - Anal [...] - EGD 2008 normal - KNEE SCOPE,DIAGNOSTIC 1988 FAMILY HISTORY Problem Relation Age of Onset - Cancer Mother - other (nonhodgkins) Mother - None Father - None Sister - None Sister - Cancer Brother - None Maternal Grandmother - None Maternal Grandfather - Diabetes Daughter - Hypertension Son FAMILY HISTORY (grandparents, parents, brothers, sisters, aunts, or uncles) Liver Problems: No Ulcerative Colitis: No Crohn's Disease: No Colon Cancer: No Colon Polyps: No IBS: No Celiac disease: No Bleeding Disorders: No Social History Tobacco Use - Smoking status: Former Smoker Types: Cigarettes, Cigars Last attempt to quit: 07/06/2019 Years since quittin.2 - Smokeless tobacco: Never Used - Tobacco comment: Smokes Cigars - 5 day Substance Use Topics - Alcohol use: Yes Comment: rarely - Drug use: No Tobacco: Yes, How Many? 1.5ppd x 40 years, quit 08/01/2020. Alcohol: Yes, How Many? Socially, twice a year ALLERGIES Allergen Reactions - Lisinopril Cough - Sulfa (Sulfonamide * Rash Current Outpatient Medications Medication Sig Dispense Refill - ELIQUIS 5 mg tab(s) TAKE 1 (ONE) TABLET TWICE DAILY - esomeprazole (NEXIUM) 40 mg capsule Esomeprazole Esomeprazole Mag Trihydrate Active 40 MG DAILY August 05, 2019 3:25pm 08-05-2019 [facility] ([id number]) - varenicline tartrate (CHANTIX ORAL) Take 1 mg by mouth twice daily. - calcium carbonate (CALCIUM 300 ORAL) Take 1,500 mg by mouth once daily. - docusate sodium (COLACE) 100 mg capsule Take 1 capsule by mouth twice daily. 30 capsule 0 - ginkgo biloba (GINKOBA ORAL) Take 120 mg by mouth once daily. - cyanocobalamin (B-12 DOTS) 500 mcg tab tab(s) Take 1,000 mcg by mouth once daily. - cyclobenzaprine (FLEXERIL) 10 mg tablet Take 10 mg by mouth as needed. - sildenafil (VIAGRA) 100 mg ORAL tablet Take 1 tablet by mouth as needed. 30-60 minutes before sexual intercourse. 1/2 tablet 0 - celecoxib (CELEBREX) 200 mg capsule Take 200 mg by mouth twice daily. - nitroglycerin 0.2% oint Apply 1 application to affected area twice daily. (Patient not taking: Reported on 11/04/2018 ) 30 g 1 - lidocaine (XYLOCAINE) 2 % jelly Apply as directed. (Patient not taking: Reported on 09/02/2018 ) 1 Tube 1 - Multivitamin capsule Take 1 capsule by mouth once daily. - Tadalafil (CIALIS) 10 mg tablet Take 10 mg by mouth once daily. - Omeprazole Magnesium (PRILOSEC OTC) 20 mg ORAL tablet Take 1 tablet by mouth once daily. ON AN EMPTY STOMACH (Patient not taking: Reported on 10/06/2019 ) 90 tablet 3 - ibuprofen (ADVIL) 200 mg tablet Take 200-400 mg by mouth every 2 hours as needed. for pain. 0 No current facility-administered medications for this visit. PHYSICAL EXAMINATION BP 118/73 Pulse 94 Ht 5' 7 (1.70m) Wt 225 lb (102.1kg) BMI 35.23 kg/(m2). General Appearance: Well appearing, alert, in no acute distress, well-hydrated, well nourished. Eyes: PERRLA, conjunctiva and sclera normal Oropharynx: Lips, tongue, and oral mucosa normal. There is no thrush or oral ulcers. Lungs:breath sounds clear to auscultation bilaterally, no crackles, rhonchi, or wheezes Heart: regular rate and rhythm, no murmurs or gallops. Abdomen: not distended, normal bowel sounds, soft and depressible, no guarding or rebound, no palpable mass, no organomegaly Rectal exam: Deferred. Extremities: no cyanosis or edema Skin: no jaundice, no spider angiomas, no palmar erythema Neuro:alert, oriented x 3, pleasant and in no acute distress RECENT LABS CBC: WBC (k/uL) Date Value 09/02/2018 10.78 Hematocrit (%) Date Value 09/02/2018 47.9 MCV (fL) Date Value 09/02/2018 89.0 Platelet Count (k/uL) Date Value 09/02/2018 248 Comprehensive Metabolic Panel: Glucose (mg/dL) Date Value 09/02/2018 97 BUN (mg/dL) Date Value 09/02/2018 16 Creatinine (mg/dL) Date Value 09/02/2018 1.01 Sodium (mmol/L) Date Value 09/02/2018 141 Potassium (mmol/L) Date Value 09/02/2018 4.8 Chloride (mmol/L) Date Value 09/02/2018 103 CO2 (mmol/L) Date Value 09/02/2018 25 Calcium (mg/dL) Date Value 09/02/2018 8.9 Assessment IMPRESSION Mathew Portillo is a 58 year old male with a history of lower back pain, for which he had surgery 07/2019, GERD, previous smoker on chantix, eliquis for post surgical DVT, presents for slow digestion following surgery. 1. Decreased motility 2. GERD - he recently changed to nexium. Does not always dose before breakfast. 3. Gas, burping Endoscopic workup unremarkable and no red flag symptoms. Recommend dietary changes and motility agents first. PLAN Start miralax daily Increase water intake (tea has caffeine, which is primarily what he drinks) Labs Change in nexium to AM before eating or drinking anything Lactose breath test (he would like this) EGD RTC in 4-6 months Daron Mir MD October 06, 2019 9:52 AM I have interviewed the patient and updated/attest to the PFS history, and ROS taken by my ancillary staff/RN/medical student/resident/fellow. Referring Provider: SELF [200] Allergies As of Date: 10/06/2019 Noted Allergy Reaction LISINOPRIL 07/24/2011 3 - Cough SULFA (SULFONAMIDE ANTIBIOTICS) 04/11/2011 2 - Rash Date Reviewed: 10/06/2019 Reviewed by: Violeta Fung MA - Fully Assessed Reason for Visit: New Patient [172] Primary Visit Diagnosis:Gas pain [R14.1] Other Visit Diagnoses:Bloating [R14.0] Gastroesophageal reflux disease without esophagitis [K21.9] Constipation, unspecified constipation type [K59.00] Order(s):BREATH TEST LACTOSE [7935940] Order #: [id number] FUTURE EGD [[id number]] Order #: [id number] FUTURE TSH BLD [SQTSH] Order #: [id number] FUTURE COMP METABOLIC PANEL [SQCMP] Order #: [id number] FUTURE CBC [SQCBC] Order #: [id number] FUTURE CELIAC SCREEN WITH REFLEX [SQCELSCR] Order #: [id number] FUTURE Prescriptions as of 10/06/2019 Sig: ELIQUIS 5 MG TABLET TAKE 1 (ONE) TABLET TWICE LAYNE* ESOMEPRAZOLE MAGNESIUM 40 MG * Esomeprazole Esomeprazole Mag* CHANTIX ORAL Take 1 mg by mouth twice aletha* CALCIUM 300 ORAL Take 1,500 mg by mouth once d* DOCUSATE SODIUM 100 MG CAPSULE Take 1 capsule by mouth twice* GINKOBA ORAL Take 120 mg by mouth once layne* CYANOCOBALAMIN (VIT B-12) 500* Take 1,000 mcg by mouth once * CYCLOBENZAPRINE 10 MG TABLET Take 10 mg by mouth as needed* SILDENAFIL 100 MG TABLET Take 1 tablet by mouth as nee* CELECOXIB 200 MG CAPSULE Take 200 mg by mouth twice da* NITROGLYCERIN 0.2% OINTMENT (* Apply 1 application to affect* Patient not taking: Reported on 11/04/2018 LIDOCAINE HCL 2 % MUCOSAL JEL* Apply as directed. Patient not taking: Reported on 09/02/2018 MULTIVITAMIN CAPSULE Take 1 capsule by mouth once * TADALAFIL 10 MG TABLET Take 10 mg by mouth once aletha* OMEPRAZOLE MAGNESIUM 20 MG TA* Take 1 tablet by mouth once d* Patient not taking: Reported on 10/06/2019 ADVIL 200 MG TABLET Take 200-400 mg by mouth ever* Problem List As Of Date 10/06/2019 Noted Resolved Low libido [R68.82] 03/16/2015 Impotence of organic origin [N52.9] 03/16/2015 Anal pain [K62.89] 08/08/2018 More... Anal fissure [K60.2] 09/02/2018 More... Gas pain [R14.1] 10/06/2019 Bloating [R14.0] 10/06/2019 Gastroesophageal reflux disease without esophag*10/06/2019 Constipation [K59.00] 10/06/2019 Other instructions from your clinician: [facility] LAB AND RADIOLOGY FACTS LAB HOURS: Lab is open 7:30am to 6pm -, and open 8am -12pm on Saturdays RADIOLOGY HOURS: Sunday- 7:00 am-6:00 pm, Sunday 7:30 am- 5 pm. Lab Orders 365 days after they are entered. If your lab orders , you may be required to wait in the lab while they are reinstated STANDING ORDERS are recurring orders with an expiration date. The interval will indicate how often the test should be completed. FASTING LAB means nothing to eat or drink (except water) 10-12 hours before your blood is drawn. CT/MRI/IVP If you have one of these radiology exams ordered along with blood work, please complete the blood work at least one day prior to the scheduled exam. EXPRESS CARE HOURS [place] EXPRESS CARE: Sunday through Sunday 6:00am to 9:00pm. Sunday and Sunday 8:00am to 4:00pm. The walk in clinic is for patients 2 years and older. [place] [facility]: Sunday through Sunday 8:00am to 8:00pm. Sunday and Sunday 8:00am to 4:00pm. The walk in clinic is for patients 2 years and older. [place] [facility]: Sunday through Sunday 8:00am to 8:00pm. Sunday and Sunday 8:00am to 4:00pm. The walk in clinic is for patients 2 years and older. [facility] WALK IN MAMMOGRAM HOURS Sunday-Sunday 3:00pm- 7:00 pm Sunday 8:00 am- 12:00 pm For Express Care LOCATIONS, HOURS OF OPERATION and CURRENT WAIT TIMES, visit the following link [email or web address] for details. My Chart Schedule My Appointment enables you to view your established primary care provider's open schedule and book an appointment online in real-time. This feature is available in internal medicine, family medicine, or pediatrics at any of our [facility] locations and main campus. Encounter Status:Closed by DARON MIR MD on 10/06/19 Normal [facility] Celiac Scr w Reflexon 2019 IgA [Mass/Vol] 687 mg/dL High 78-391 [facility] Comment on above: Performed By: #### C MP, TSH, CBC, CELSCR ####[address] [phone] Interpretation No serologic evidenc e of celiac disease. Normal No serologic evidence of celiac disease. [facility] Comment on above: Performed By: #### C MP, TSH, CBC, CELSCR ####[address] [phone] Transglutaminase IgA 10 Units Normal <20 [facility] Comment on above: Result Comment: Nega tive : < 20 Units Weak Positive : 20 - 30 Units Moderate Pos to Strong Pos: >30 Units The following results were obtained with the [employer] QUANTA Lite h-tTG IgA ALFREDO. h-tTG IgA values obtained with different manufacturers' assay methods may not be used interchangeably. The magnitude of the reported IgA levels cannot be correlated to an endpoint titer. Performed By: #### C MP, TSH, CBC, CELSCR ####[address] [phone] Comp Metabolic Panelon 10-05 Albumin [Mass/Vol] 4.3 g/dL Normal 3.9-4.9 [facility] Comment on above: Performed By: #### C MP, TSH, CBC, CELSCR ####[facility] [address], [place] [phone] ALP [Catalytic activity/Vol] 72 U/L Normal 38-113 [facility] Comment on above: Performed By: #### C MP, TSH, CBC, CELSCR ####[facility]C[place], [place] [phone] ALT [Catalytic activity/Vol] 21 U/L Normal 10-54 [facility] Comment on above: Performed By: #### C MP, TSH, CBC, CELSCR ####[facility]C[place], [place] [phone] Anion gap [Moles/Vol] 13 mmol/L Normal 9-18 [facility] Comment on above: Performed By: #### C MP, TSH, CBC, CELSCR ####[facility], [place] [phone] AST [Catalytic activity/Vol] 28 U/L Normal 14-40 [facility] Comment on above: Performed By: #### C MP, TSH, CBC, CELSCR ####[facility], [place] [phone] Bilirubin [Mass/Vol] 0.2 mg/dL Normal 0.2-1.3 [facility] Comment on above: Performed By: #### C MP, TSH, CBC, CELSCR ####[facility], [place] [phone] Calcium [Mass/Vol] 10.1 mg/dL Normal 8.5-10.2 [facility] Comment on above: Performed By: #### C MP, TSH, CBC, CELSCR ####[facility], [place] [phone] Chloride [Moles/Vol] 98 mmol/L Normal 97-105 [facility] Comment on above: Performed By: #### C MP, TSH, CBC, CELSCR ####[facility] [address], [place] [phone] CO2 [Moles/Vol] 26 mmol/L Normal 22-30 [facility] Comment on above: Performed By: #### C MP, TSH, CBC, CELSCR ####[facility], [place] [phone] Creatinine [Mass/Vol] 1.10 mg/dL Normal 0.73-1.22 [facility] Comment on above: Performed By: #### C MP, TSH, CBC, CELSCR ####[facility], [place] [phone] eGFR- Amer. >60 Normal [facility] Comment on above: Performed By: #### C MP, TSH, CBC, CELSCR ####[facility] [id number] [place] [address], [place] [phone] GFR/1.73 sq M predicted among non-blacks MDRD (S/P/Bld) [Vol rate/Area] mL/min/{1.73_m2} Normal [facility] Comment on above: Result Comment: eGFR (Estimated GFR) Units of measure: mL/min/1.73 meters squared eGFR is derived from the reexpressed MDRD Study equation using the following parameters: serum creatinine, age, gender and race. The creatinine assay has been calibrated to be traceable to IDMS. An eGFR <60 mL/min/1.73m2 for >3 months is consistent with chronic kidney disease. Refer to KDOQI guidelines for clinical interpretation. In patients with unstable renal function, e.g. those with acute kidney injury, the eGFR may not accurately reflect actual GFR. Performed By: #### C MP, TSH, CBC, CELSCR ####[facility] [id number]C[place], [place] [phone] Glucose [Mass/Vol] 108 mg/dL High 74-99 [facility] Comment on above: Result Comment: The [place] [employer] Association (ADA) provides guidance for cutoff values for fasting glucose and random glucose. The ADA defines fasting as no caloric intake for at least 8 hours. Fasting plasma glucose results between 100 to 125 mg/dL indicate increased risk for diabetes (prediabetes). Fasting plasma glucose results greater than or equal to 126 mg/dL meet the criteria for diagnosis of diabetes. In the absence of unequivocal hyperglycemia, results should be confirmed by repeat testing. In a patient with classic symptoms of hyperglycemia or hyperglycemic crisis, random plasma glucose results greater than or equal to 200 mg/dL meet the criteria for diagnosis of diabetes. Reference: Standards of Medical Care in Diabetes 2016, [place] [employer] Association. Diabetes Care. 2016.39(Suppl 1). Performed By: #### C MP, TSH, CBC, CELSCR ####[facility], [place] [phone] Potassium [Moles/Vol] 5.1 mmol/L Normal 3.7-5.1 [facility] Comment on above: Performed By: #### C MP, TSH, CBC, CELSCR ####[facility] [place], [place] [phone] Protein [Mass/Vol] 8.0 g/dL Normal 6.3-8.0 [facility] Comment on above: Performed By: #### C MP, TSH, CBC, CELSCR ####[facility] [place], [place] [phone] Sodium [Moles/Vol] 137 mmol/L Normal 136-144 [facility] Comment on above: Performed By: #### C MP, TSH, CBC, CELSCR ####[facility] [place], [place] [phone] Urea nitrogen [Mass/Vol] 13 mg/dL Normal 9-24 [facility] Comment on above: Performed By: #### C MP, TSH, CBC, CELSCR ####[place] [id number] [place], [place] [phone] PROGRESSon 10-06-2019 PROGRESS HNO ID: [id number] Author: Daron Mir Service: ? Author Type: Physician Type: Progress Notes Filed: 10/06/2019 10:17 AM Note Text: Department of Gastroenterology Digestive Disease [place] October 06, 2019 Patient: Mathew Portillo Reason for Consultation: Opinion/Advice regarding slow motility at the request of Self. My recommendations will be communicated by way of the shared medical record. History of Present Illness: Mathew Portillo is a 58 year old male with a history of lower back pain, for which he had surgery 07/2019, GERD, previous smoker on chantix, eliquis for post surgical DVT, presents for slow digestion following surgery. He has had bowel issues prior to surgery Did well with BMs regularly in AM, soft, complete evacuation In 2018 had one bad BM which resulted in an anal fissure, for which he had sphincterotomy and fissurectomy. Sicne this, has 2-3 BMs with incomplete evacuation. Also has burping and bloating associated. Had ileus for a week associated with back surgery 07/2019 requiring NG decompression, which resolved after a week Now back to baseline No blood in stool. He takes colace twice daily. Does not drink water, but drinks tea. Weight is increasing (195-230) Pertinent Workup: 09/2016 - colonoscopy - 2 polyps - TA 5-7mm Pertinent Review of Systems: General Review of Systems Colon polyps:Yes Colon cancer: No Other cancer: No Radiation / Chemotherapy: No Crohn's disease / Ulcerative colitis: No High cholesterol or triglycerides: No Ulcers:No Gallstones:No Hepatitis / jaundice:No Heart Disease: No Lung Disease: No Liver problems: No Thyroid disease:No Kidney stones: No Pancreatitis:No Diabetes:No Arthritis:No Rheumatic fever: No Gastrointestinal bleeding:No Depression or other mental illness: No Other personal illness:No GI Specific Review of Systems: Difficulty swallowing / foods sticking in throat: No Heartburn:Yes Hoarseness: No Chronic cough:No Regurgitation:No Chest pain:No Filling up quickly at meals: No Loss of appetite:No Nausea:No Vomiting:No Abdominal pain:No Recent change in bowel movements:No Bloody or black, bowel movements:No Constipation: No Diarrhea:No Loss of control of bowel movements:No Night sweats, fever, chills: No Thought or memory problems:No Fluid in abdomen (ascites):No Prominent leg swelling:No Vomiting blood: No Recent change in weight:Yes PAST MEDICAL HISTORY Diagnosis Date - Anal [...] Grandfather - Diabetes Daughter - Hypertension Son FAMILY HISTORY (grandparents, parents, brothers, sisters, aunts, or uncles) Liver Problems: No Ulcerative Colitis: No Crohn's Disease: No Colon Cancer: No Colon Polyps: No IBS: No Celiac disease: No Bleeding Disorders: No Social History Tobacco Use - Smoking status: Former Smoker Types: Cigarettes, Cigars Last attempt to quit: 07/06/2019 Years since quittin.2 - Smokeless tobacco: Never Used - Tobacco comment: Smokes Cigars - 5 day Substance Use Topics - Alcohol use: Yes Comment: rarely - Drug use: No Tobacco: Yes, How Many? 1.5ppd x 40 years, quit 08/01/2020. Alcohol: Yes, How Many? Socially, twice a year ALLERGIES Allergen Reactions - Lisinopril Cough - Sulfa (Sulfonamide * Rash Current Outpatient Medications Medication Sig Dispense Refill - ELIQUIS 5 mg tab(s) TAKE 1 (ONE) TABLET TWICE DAILY - esomeprazole (NEXIUM) 40 mg capsule Esomeprazole Esomeprazole Mag Trihydrate Active 40 MG DAILY August 05, 2019 3:25pm 08-05-2019 [facility] ([id number]) - varenicline tartrate (CHANTIX ORAL) Take 1 mg by mouth twice daily. - calcium carbonate (CALCIUM 300 ORAL) Take 1,500 mg by mouth once daily. - docusate sodium (COLACE) 100 mg capsule Take 1 capsule by mouth twice daily. 30 capsule 0 - ginkgo biloba (GINKOBA ORAL) Take 120 mg by mouth once daily. - cyanocobalamin (B-12 DOTS) 500 mcg tab tab(s) Take 1,000 mcg by mouth once daily. - cyclobenzaprine (FLEXERIL) 10 mg tablet Take 10 mg by mouth as needed. - sildenafil (VIAGRA) 100 mg ORAL tablet Take 1 tablet by mouth as needed. 30-60 minutes before sexual intercourse. 1/2 tablet 0 - celecoxib (CELEBREX) 200 mg capsule Take 200 mg by mouth twice daily. - nitroglycerin 0.2% oint Apply 1 application to affected area twice daily. (Patient not taking: Reported on 11/04/2018 ) 30 g 1 - lidocaine (XYLOCAINE) 2 % jelly Apply as directed. (Patient not taking: Reported on 09/02/2018 ) 1 Tube 1 - Multivitamin capsule Take 1 capsule by mouth once daily. - Tadalafil (CIALIS) 10 mg tablet Take 10 mg by mouth once daily. - Omeprazole Magnesium (PRILOSEC OTC) 20 mg ORAL tablet Take 1 tablet by mouth once daily. ON AN EMPTY STOMACH (Patient not taking: Reported on 10/06/2019 ) 90 tablet 3 - ibuprofen (ADVIL) 200 mg tablet Take 200-400 mg by mouth every 2 hours as needed. for pain. 0 No current facility-administered medications for this visit. PHYSICAL EXAMINATION BP 118/73 Pulse 94 Ht 5' 7 (1.70m) Wt 225 lb (102.1kg) BMI 35.23 kg/(m2). General Appearance: Well appearing, alert, in no acute distress, well-hydrated, well nourished. Eyes: PERRLA, conjunctiva and sclera normal Oropharynx: Lips, tongue, and oral mucosa normal. There is no thrush or oral ulcers. Lungs:breath sounds clear to auscultation bilaterally, no crackles, rhonchi, or wheezes Heart: regular rate and rhythm, no murmurs or gallops. Abdomen: not distended, normal bowel sounds, soft and depressible, no guarding or rebound, no palpable mass, no organomegaly Rectal exam: Deferred. Extremities: no cyanosis or edema Skin: no jaundice, no spider angiomas, no palmar erythema Neuro:alert, oriented x 3, pleasant and in no acute distress RECENT LABS CBC: WBC (k/uL) Date Value 09/02/2018 10.78 Hematocrit (%) Date Value 09/02/2018 47.9 MCV (fL) Date Value 09/02/2018 89.0 Platelet Count (k/uL) Date Value 09/02/2018 248 Comprehensive Metabolic Panel: Glucose (mg/dL) Date Value 09/02/2018 97 BUN (mg/dL) Date Value 09/02/2018 16 Creatinine (mg/dL) Date Value 09/02/2018 1.01 Sodium (mmol/L) Date Value 09/02/2018 141 Potassium (mmol/L) Date Value 09/02/2018 4.8 Chloride (mmol/L) Date Value 09/02/2018 103 CO2 (mmol/L) Date Value 09/02/2018 25 Calcium (mg/dL) Date Value 09/02/2018 8.9 Assessment IMPRESSION Mathew Portillo is a 58 year old male with a history of lower back pain, for which he had surgery 07/2019, GERD, previous smoker on chantix, eliquis for post surgical DVT, presents for slow digestion following surgery. 1. Decreased motility 2. GERD - he recently changed to nexium. Does not always dose before breakfast. 3. Gas, burping Endoscopic workup unremarkable and no red flag symptoms. Recommend dietary changes and motility agents first. PLAN Start miralax daily Increase water intake (tea has caffeine, which is primarily what he drinks) Labs Change in nexium to AM before eating or drinking anything Lactose breath test (he would like this) EGD RTC in 4-6 months Daron Mir MD October 06, 2019 9:52 AM I have interviewed the patient and updated/attest to the PFS history, and ROS taken by my ancillary staff/RN/medical student/resident/fellow. Normal [facility] TSHon 10-06-2019 TSH Qn 2.650 uU/mL Normal 0.270-4.200 [facility] Comment on above: Performed By: #### C MP, TSH, CBC, CELSCR ####[facility] [place], [place] [phone] Vital Signs Date Time Vital Sign Value Performing Clinician Lesi mario alberto 02-16-2025 13:19-0400 Diastolic blood pressure 82 mm[Hg] Dr. Leandra Mejia MD Work Phone: [facility] 02-16-2025 13:19-0400 Heart rate 76 /min Dr. Leandra Mejia MD Work Phone: [facility] 02-16-2025 13:19-0400 Systolic blood pressure 138 mm[Hg] Dr. Leandra Mejia MD Work Phone: [facility] 02-16-2025 13:13-0400 Body height 170.[address] Leandra Mejia MD Work Phone: [facility] 02-16-2025 13:13-0400 Body mass index (BMI) [Ratio] 34.7 kg/m2 Dr. Leandra Mejia MD Work Phone: [facility] 02-16-2025 13:13-0400 Body temperature 98.4 [degF] Dr. Leandra Mejia MD Work Phone: [facility] 02-16-2025 13:13-0400 Body weight 100.[address] Leandra Mejia MD Work Phone: [facility] 02-16-2025 13:13-0400 Respiratory rate 16 /min Dr. Leandra Mejia MD Work Phone: [facility] 02-16-2025 13:13-0400 SaO2% (BldA) [Mass fraction] 96 % Dr. Leandra Mejia MD Work Phone: [facility] 12-11-2024 10:33-0400 Body height 170.[address] Leandra Mejia MD Work Phone: [facility] 12-11-2024 10:33-0400 Body mass index (BMI) [Ratio] 37.4 kg/m2 Dr. Leandra Mejia MD Work Phone: [facility] 12-11-2024 10:33-0400 Body weight 108.[address] eLandra Mejia MD Work Phone: [facility] 12-10-2024 11:01-0400 Body mass index (BMI) [Ratio] 37.4 kg/m2 Dr. Leandra Mejia MD Work Phone: [facility] 12-10-2024 11:01-0400 Body temperature 99.1 [degF] Dr. Leandra Mejia MD Work Phone: [facility] 12-10-2024 11:01-0400 Body weight 108.[address] Leandra Mejia MD Work Phone: [facility] 12-10-2024 11:01-0400 Diastolic blood pressure 90 mm[Hg] Dr. Leandra Mejia MD Work Phone: [facility] 12-10-2024 11:01-0400 Heart rate 74 /min Dr. Leandra Mejia MD Work Phone: [facility] 12-10-2024 11:01-0400 Respiratory rate 16 /min Dr. Leandra Mejia MD Work Phone: [facility] 12-10-2024 11:01-0400 SaO2% (BldA) [Mass fraction] 94 % Dr. Leandra Mejia MD Work Phone: [facility] 12-10-2024 11:01-0400 Systolic blood pressure 157 mm[Hg] Dr. Leandra Mejia MD Work Phone: [facility] 03-21-2023 11:19-0400 Body height 170.[address] Leandra Mejia Work Phone: [facility] 03-21-2023 11:19-0400 Body mass index (BMI) [Ratio] 36.2 kg/m2 Dr. Leandra Mejia Work Phone: [facility] 03-21-2023 11:19-0400 Body temperature 98.7 [degF] Dr. Leandra Mejia Work Phone: [facility] 03-21-2023 11:19-0400 Body weight 104.[address] Leandra Mejia Work Phone: [facility] 03-21-2023 11:19-0400 Diastolic blood pressure 89 mm[Hg] Dr. Leandra Mejia Work Phone: [facility] 03-21-2023 11:19-0400 Heart rate 81 /min Dr. Leandra Mejia Work Phone: [facility] 03-21-2023 11:19-0400 Respiratory rate 16 /min Dr. Leandra Mejia Work Phone: [facility] 03-21-2023 11:19-0400 SaO2% (BldA) [Mass fraction] 91 % Dr. Leandra Mejia Work Phone: [facility] 03-21-2023 11:19-0400 Systolic blood pressure 150 mm[Hg] Dr. Leandra Mejia Work Phone: [facility] 09-20-2022 10:52-0500 Body temperature 97.2 [degF] Dr. Leandra Mejia Work Phone: [facility] 09-20-2022 10:52-0500 Body weight 114.[address] Leandra Mejia Work Phone: [facility] 09-20-2022 10:52-0500 Diastolic blood pressure 88 mm[Hg] Dr. Leandra Mejia Work Phone: [facility] 09-20-2022 10:52-0500 Heart rate 96 /min Dr. Leandra Mejia Work Phone: [facility] 09-20-2022 10:52-0500 Respiratory rate 16 /min Dr. Leandra Mejia Work Phone: [facility] 09-20-2022 10:52-0500 SaO2% (BldA) [Mass fraction] 94 % Dr. Leandra Mejia Work Phone: [facility] 09-20-2022 10:52-0500 Systolic blood pressure 160 mm[Hg] Dr. Leandra Mejia Work Phone: [facility] 05-14-2022 10:27-0400 Body temperature 98.6 [degF] Dr. Leandra Mejia Work Phone: [facility] Work Phone: 05-14-2022 10:27-0400 Diastolic blood pressure 90 mm[Hg] Dr. Leandra Mejia Work Phone: [facility] Work Phone: 05-14-2022 10:27-0400 Heart rate 105 /min Dr. Leandra Mejia Work Phone: [facility] Work Phone: 05-14-2022 10:27-0400 Respiratory rate 15 /min Dr. Leandra Mejia Work Phone: [facility] Work Phone: 05-14-2022 10:27-0400 SaO2% (BldA) [Mass fraction] 98 % Dr. Leandra Mejia Work Phone: [facility] Work Phone: 05-14-2022 10:27-0400 Systolic blood pressure 160 mm[Hg] Dr. Leandra Mejia Work Phone: [facility] Work Phone: 05-10-2022 13:03-0400 Body temperature 97.3 [degF] Dr. Leandra Mejia Work Phone: [facility] Work Phone: 05-10-2022 13:03-0400 Body weight 106.[address] Leandra Mejia Work Phone: [facility] Work Phone: 05-10-2022 13:03-0400 Diastolic blood pressure 93 mm[Hg] Dr. Leandra Mejia Work Phone: [facility] Work Phone: 05-10-2022 13:03-0400 Heart rate 77 /min Dr. Leandra Mejia Work Phone: [facility] Work Phone: 05-10-2022 13:03-0400 Respiratory rate 16 /min Dr. Leandra Mejia Work Phone: [facility] Work Phone: 05-10-2022 13:03-0400 SaO2% (BldA) [Mass fraction] 95 % Dr. Leandra Mejia Work Phone: [facility] Work Phone: 05-10-2022 13:03-0400 Systolic blood pressure 158 mm[Hg] Dr. Leandra Mejia Work Phone: [facility] Work Phone: 05-05-2022 08:08-0400 Body height 170.[address] Leandra Mejia Work Phone: [facility] Work Phone: 05-04-2022 12:46-0400 Diastolic blood pressure 96 mm[Hg] Dr. Leandra Mejia Work Phone: [facility] Work Phone: 05-04-2022 12:46-0400 Heart rate 88 /min Dr. Leandra Mejia Work Phone: [facility] Work Phone: 05-04-2022 12:46-0400 Respiratory rate 16 /min Dr. Leandra Mejia Work Phone: [facility] Work Phone: 05-04-2022 12:46-0400 SaO2% (BldA) [Mass fraction] 98 % Dr. Leandra Mejia Work Phone: [facility] Work Phone: 05-04-2022 12:46-0400 Systolic blood pressure 153 mm[Hg] Dr. Leandra Mejia Work Phone: [facility] Work Phone: 05-04-2022 10:58-0400 Body height 170.[address] Leandra Mejia Work Phone: [facility] Work Phone: 05-04-2022 10:58-0400 Body mass index (BMI) [Ratio] 36.8 kg/m2 Dr. Leandra Mejia Work Phone: [facility] Work Phone: 05-04-2022 10:58-0400 Body weight 106.[address] Leandra Mejia Work Phone: [facility] Work Phone: 05-04-2022 10:53-0400 Body temperature 97.8 [degF] Dr. Leandra Mejia Work Phone: [facility] Work Phone: 05-04-2022 09:52-0400 Body temperature 98.4 [degF] Dr. Leandra Mejia Work Phone: [facility] Work Phone: 05-04-2022 09:52-0400 Diastolic blood pressure 90 mm[Hg] Dr. Leandra Mejia Work Phone: [facility] Work Phone: 05-04-2022 09:52-0400 Heart rate 65 /min Dr. Leandra Mejia Work Phone: [facility] Work Phone: 05-04-2022 09:52-0400 Respiratory rate 14 /min Dr. Leandra Mejia Work Phone: [facility] Work Phone: 05-04-2022 09:52-0400 SaO2% (BldA) [Mass fraction] 97 % Dr. Leandra Mejia Work Phone: [facility] Work Phone: 05-04-2022 09:52-0400 Systolic blood pressure 166 mm[Hg] Dr. Leandra Mejia Work Phone: [facility] Work Phone: 03-21-2022 11:19-0400 Body height 170.[address] Leandra Mejia Work Phone: [facility] Work Phone: 03-21-2022 11:19-0400 Body mass index (BMI) [Ratio] 37 kg/m2 Dr. Leandra Mejia Work Phone: [facility] Work Phone: 03-21-2022 11:19-0400 Body temperature 98.9 [degF] Dr. Leandra Mejia Work Phone: [facility] Work Phone: 03-21-2022 11:19-0400 Body weight 107.[address] Leandra Mejia Work Phone: [facility] Work Phone: 03-21-2022 11:19-0400 Diastolic blood pressure 86 mm[Hg] Dr. Leandra Mejia Work Phone: [facility] Work Phone: 03-21-2022 11:19-0400 Heart rate 78 /min Dr. Leandra Mejia Work Phone: [facility] Work Phone: 03-21-2022 11:19-0400 Respiratory rate 14 /min Dr. Leandra Mejia Work Phone: [facility] Work Phone: 03-21-2022 11:19-0400 SaO2% (BldA) [Mass fraction] 99 % Dr. Leandra Mejia Work Phone: [facility] Work Phone: 03-21-2022 11:19-0400 Systolic blood pressure 144 mm[Hg] Dr. Leandra Mejia Work Phone: [facility] Work Phone: Encounters Encounter Date Encounter Type Care Provider Facility Start: 03-04-2025 ambulatory Located Within [facility] Facility :[facility] Start: 02-16-2025 End: 02-16-[address] Leandra Mejia MD -[facility] Work Phone: Start: 02-16-2025 End: 02-16-[address] Leandra Mejia MD Work Phone: -[facility] Start: 01-13-2025 ambulatory Located Within [facility] Facility :[facility] Start: 01-13-[address] Kody Mobley i, MD -Physical Therapy Work Phone: Start: 12-11-2024 End: 12-11-[address] Mumtaz Owens MD -[facility] Work Phone: Start: 12-11-2024 End: 12-11-2024 ambulatory Located Within [facility] Facility:[facility] Start: 12-10-2024 End: 12-10-[address] Leandra Mejia MD Work Phone: [facility] Work Phone: Start: 12-10-2024 End: 12-10-[address] Lenadra Mejia MD -Laboratory Work Phone: Start: 12-10-2024 End: 12-10-[address] Leandra Mejia MD -[facility] Work Phone: Start: 12-10-2024 End: 12-10-2024 [facility] Start: 12-10-2024 End: 12-10-2024 ambulatory Located Within [facility] Facility:[facility] Start: 07-02-2024 End: 07-02-2024 ambulatory [facility] Facility:[facility] Start: 05-06-2024 End: 05-06-2024 ambulatory [facility] Facility:[facility] Start: 03-31-2024 End: 03-31-2024 ambulatory Leandra Jackie Facility:[facility] Start: 03-26-2024 End: 03-26-2024 ambulatory Leandra Mejia [facility] Start: 03-29-2023 End: 03-29-[address] Leandra Mejia Work Phone: [facility] Work Phone: Start: 03-29-2023 End: 03-29-[address] Leandra Mejia Work Phone: [facility]-Laboratory Work Phone: Start: 03-21-2023 End: 03-21-[address] Leandra Mejia Work Phone: [facility] Work Phone: Start: 01-31-2023 End: 01-31-[address] Leandra Mejia Work Phone: [facility]-Laboratory Work Phone: Start: 10-16-2022 End: 10-16-2022 Non-patient / Non-visit Dr. Leandra Mejia Work Phone: [facility] Start: 10-16-2022 End: 10-16-[address] Leandra Mejia Work Phone: [facility] Work Phone: Start: 10-16-2022 End: 10-16-[address] Leandra Mejia Work Phone: [facility]-Pulmonary Services/Neurology Start: 09-29-2022 End: 09-29-[address] [facility] Start: 09-20-2022 End: 09-20-[address] Leandra Mejia Work Phone: [facility] Start: 08-01-2022 End: 08-01-[address] Leandra Mejia Work Phone: [facility] Work Phone: Start: 08-01-2022 End: 08-01-[address] Leandra Mejia Work Phone: [facility] Start: 07-10-2022 Non-patient / Non-visit Dr. Darcy Mejia Work Phone: [facility] Start: 05-14-2022 End: 05-14-[address] Leandra Mejia Work Phone: [facility] Start: 05-10-2022 End: 05-10-[address] [facility] Start: 05-10-2022 End: 05-10-[address] Leandra Mejia Work Phone: [facility] Start: 05-04-2022 End: 05-04-2022 Emergency department patient visit Dr. Leandra Mejia Work Phone: [facility]-Emergency Department Start: 05-04-2022 End: 05-04-[address] Leandra Mejia Work Phone: [facility] Start: 04-25-2022 End: 04-25-[address] Leandra Mejia Work Phone: [facility] Work Phone: Start: 04-25-2022 End: 04-25-[address] Leandra Mejia Work Phone: [facility]-Laboratory Start: 03-21-2022 End: 03-21-[address] Leandra Mejia Work Phone: [facility] Procedures Date Procedure Procedure Detail Performing Clinician Start: 12-11-2024 X-ray of lumbosacral spine Dr. Leandra Mejia MD Work Phone: Start: 12-10-[address] Beverly Mejia MD Work Phone: Comment on above: Performed at: [address] Director: Nicolas Andrews PhD, Phone: [phone] Start: 12-10-2024 Antibody to centrome re measurement Dr. Leandra Mejia MD Work Phone: Comment on above: Test not performed Start: 12-10-2024 Antibody to extracta ble nuclear antigen measurement Dr. Leandra Mejia MD Work Phone: Comment on above: Test not performed Start: 12-10-2024 Antibody to LENNOX-[address] Leandra Mejia MD Work Phone: Comment on above: Test not performed Start: 12-10-2024 Antibody to lupus La protein measurement Dr. Leandra Mejia MD Work Phone: Comment on above: Test not performed Start: 12-10-2024 Antibody to SS-A measurement Dr. Leandra Mejia MD Work Phone: Comment on above: Test not performed Start: 12-10-[address] Leandra Mejia MD Work Phone: Comment on above: Test not performed Start: 12-10-2024 Measurement of Borre henrietta burgdorferi antibody Dr. Leandra Mejia MD Work Phone: Comment on above: Lyme antibodies not detected. Reflex testing is notindicated.No laboratory evidence of infection with B. burgdorferi(Lyme disease). Negative results may occur in patientsrecently infected (less than or equal to 14 days) with B.burgdorferi. If recent infection is suspected, repeattesting on a new sample collected in 7 to 14 days isrecommended.Performed at: [facility] LabTaylor [facility] [id number] [place], [place] [id number] Director: Nicolas Andrews PhD, Phone: [phone] at: [facility] [address]co[address] [id number] Director: Solomon Hassan MD, Phone: [id number] Start: 12-10-2024 RECORDS MANAGEMENT DIRECTOR antibody measurement Dr. Leandra Mejia MD Work Phone: Comment on above: Test not performed Start: 12-10-2024 Vitamin D, 25-hydrox y measurement Dr. Leandra Mejia MD Work Phone: Comment on above: Vitamin D StatusDefi ciency: <20 ng/mL (50nmol/L)Insufficiency: 20-30 ng/mL (50-75 nmol/L)Sufficiency: 30-100 ng/mL (75-250 nmol/L)Toxicity: >100 ng/mL (>250 nmol/L) Start: 03-29-2023 End: 03-29-2023 [address] examination [address] knee Dr[address] Leandra Mejia Work Phone: Start: 08-01-[address] Leandra Mejia Work Phone: Start: 05-04-2022 CT cervical spine wi thout contrast Dr. Leandra Mejia Work Phone: Start: 05-04-2022 CT of head without contrast Dr. Leandra Mejia Work Phone: Plan of Treatment Date Care Activity Detail Author Start: 12-10-2024 Measurement of Borrelia burgdorferi antibody [facility] Start: 12-10-[address] [facility] Start: 03-21-2023 Patient referral [facility] Work Phone: Start: 04-25-2022 Procedure [facility] Work Phone: Patient Education Desir's Palsy E D Osteoarthritis [facility] Work Phone: Patient referral [facility] Work Phone: Procedure [facility] Work Phone: Serum testosterone measurement [facility] Testosterone Free [Mass/volume] in Serum or Plasma [facility] Urinalysis complete panel - Urine [facility] Work Phone: US Carotid arteries [facility] Work Phone: Immunizations Immunization Date Immunization Notes Care Provider Fa cility 11-12-2020 Covid (Pfizer) Dr. Leandra kahn Work Phone: [facility] 10-22-2020 Covid (Pfizer) Dr. Leandra kahn Work Phone: [facility] Payers Date Payer Category Payer Medicare [id number] 2024 Medicare [id number] 2024 Private Health Insurance [id number] 2024 Self-pay [id number] 2024 Unknown [id number] Unknown [id number] Unknown [facility] [id number] Unknown [id number] Unknown [id number] Unknown [id number] Unknown [id number] Unknown [id number] Unknown [id number] Unknown [id number] Unknown [id number] Unknown [id number] Unknown [id number] Unknown [id number] Social History Date Type Detail Facility Start: 03-21-2022 End: 03-21-2023 Tobacco smoking status MAIS Unknown if ever smoked [facility] Start: 08-02-2020 None [facility] Start: 08-02-2020 Spouse/ Signif icant Other [facility] Start: 08-06-2019 Cigars [facility] Start: 1960 Sex Assigned At Male [facility] Start: 07-06-2023 End: 02-13-2025 Tobacco smoking status NHIS Ex-smoker (finding) [facility] Mental Status Date Assessment Result Facility 05-04-2022 Cognitive function Awake;Alert;Appropriat e [facility] Work Phone: Evaluation note 12-10-2024 Note Date & Type Note Facility 12-10-2024 Evaluation note Diagnosis Onset Date Resolution Anxiety acute December 10, 2024 10:53am Insulin resistance acute December 72024 10:53am Joint pain acute December 10, 2024 10:53am Low back pain potentially associated with radiculopathy acute December 10, 2024 10:53am Obstructive sleep apnea acute M ay 2024 10:53am Essential hypertension chronic Ma y 2024 10:53am H/O laminectomy acute December 11, 2024 10:25am Other intervertebral disc degeneration, lumbar region with discogenic back acute December 11, 2024 10:25am Spondylolisthesis, lumbar region acute December 11, 2024 10:25am [facility] Work Phone: Evaluation note Note Date & Type Note Facility Evaluation note Diagnosis Onset Date Borderline diabetes acute Obesity (BMI 35.0-39.9 without comorbidity) acute BPH (benign prostatic hyperplasia) chronic Essential hypertension chron ic Hypogonadism in male chronic [facility] Work Phone: Evaluation note Note Date & Type Note Facility Evaluation note Diagnosis Onset Date Borderline diabetes acute Obesity (BMI 35.0-39.9 without comorbidity) acute BPH (benign prostatic hyperplasia) chronic Essential hypertension chron ic Hypogonadism in male chronic Left facial numbness acute Uncontrolled hypertension ac [place] Weakness of left side of body acute [facility] Work Phone: Evaluation note Note Date & Type Note Facility Evaluation note Diagnosis Onset Date Left facial numbness acute Uncontrolled hypertension ac [place] Weakness of left side of body acute Borderline diabetes acute Left facial numbness acute Left flank pain acute Obesity (BMI 35.0-39.9 without comorbidity) acute Uncontrolled hypertension [place] Essential hypertension chron ic Pain, dental noneactive [facility] Work Phone: Evaluation note Note Date & Type Note Facility Evaluation note Diagnosis Onset Date Borderline diabetes acute Obesity (BMI 35.0-39.9 without comorbidity) acute Primary osteoarthritis of right knee acute Arthritis chronic Essential hypertension chron ic Trigger finger of left hand resolved [facility] Work Phone: Evaluation note Note Date & Type Note Facility Evaluation note Diagnosis Onset Date Insulin resistance acute Left knee pain acute Low back pain potentially as sociated with radiculopathy acute Obstructive sleep apnea acut e Arthritis chronic BPH (benign prostatic hyperplasia) chronic Chronic back pain chronic Essential hypertension chron ic RLS (restless legs syndrome) chronic [facility] Work Phone: Hospital Discharge instructions Note Date & Type Note Facility Hospital Discharge instructions Additional Instructions CT brain negative. CT cervical spine extensive degenerative changes. 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 Follow-up with your pain doctor discussion of your neck pain. [facility] Work Phone: Reason for referral (narrative) Note Date & Type Note Facility Reason for referral (narrative) No reason for referral information available [facility] Work Phone: Summary Purpose Family History No Family History Records Found Relationship Condition Age at Onset Recorded Date/T tonny mother Non-Hodgkin's lymphoma Unknown father Cardiac disease Unknown Advance Directives No Advanced Directives Records Found Advance Directive Response Recorded Date/ Time Advance Directives Yes September 10:21am Living Will Yes October 01 10:21am Power of Public Works Technician Yes October 01, 2020 10:21am Advance Directive Response Recorded Date/ Time Advance Directives Yes September 10:21am Living Will No May 04, 2022 11:00am Power of Public Works Technician No April 11:00am Advance Directive Response Recorded Date/ Time Advance Directives Yes April 7:08am Living Will No May 05, 2022 7:08am Power of Public Works Technician No April 7:08am Advance Directive Response Recorded Date/ Time Advance Directives Yes April 8:08am Living Will No May 05, 2022 8:08am Power of Public Works Technician No April 8:08am Advance Directive Response Recorded Date/ Time Advance Directives Yes April 8:08am Advance Directive Response Recorded Date/ Time Advance Directives Yes February 13 11:32am Chief Complaint and Reason for Visit Chief Complaint 6 M FU Reason for Visit Borderline diabetes Obesity (BMI 35.0-39.9 without comorbidity) BPH (benign prostatic hyperplasia) Essential hypertension Hypogonadism in male Chief Complaint 6 M FU LEFT SIDE EAR ACHE/NUMBNESS facial droop Reason for Visit Borderline diabetes Obesity (BMI 35.0-39.9 without comorbidity) BPH (benign prostatic hyperplasia) Essential hypertension Hypogonadism in male Left facial numbness Uncontrolled hypertension Weakness of left side of body Chief Complaint LEFT SIDE EAR ACHE/N UMBNESS facial droop [facility] ER FU E-ORDER RT SIDE OF FACE SWOLLEN Amb Documentation SCREENING Reason for Visit Left facial numbness Uncontrolled hypertension Weakness of left side of body Borderline diabetes Left facial numbness Left flank pain Obesity (BMI 35.0-39.9 without comorbidity) Uncontrolled hypertension Essential hypertension Pain, dental Chief Complaint Amb Documentation SCREENING 6 M FU PREOP PREOP Reason for Visit Borderline diabetes Obesity (BMI 35.0-39.9 without comorbidity) Primary osteoarthritis of right knee Arthritis Essential hypertension Trigger finger of left hand Chief Complaint 6 M FU E ORDERS Reason for Visit Insulin resistance Left knee pain Low back pain potentially associated with radiculopathy Obstructive sleep apnea Arthritis BPH (benign prostatic hyperplasia) Chronic back pain Essential hypertension RLS (restless legs syndrome) Chief Complaint Admit Date Joint Pain December 10, 2024 10:53a m INT LAB ORDERS December 10, 2024 12:06p m LUMBAR SPINE December 11, 2024 10:25a m Room 1 December 11, 2024 10:47a m Reason for Visit Admit Date Anxiety December 10, 2024 10:53a m Insulin resistance December 10, 2024 10:53a m Joint pain December 10, 2024 10:53a m Low back pain potentially associated wit h radiculopathy December 10, 2024 10:53am Obstructive sleep apnea December 10, 2024 10 :53am Essential hypertension December 10, 2024 10: 53am H/O laminectomy December 11, 2024 10:25a m Other intervertebral disc de generation, lumbar region with discogenic back December 11, 2024 10:25am Spondylolisthesis, lumbar region December 10:25am Chief Complaint Admit Date Joint Pain December 10, 2024 10:53a m INT LAB ORDERS December 10, 2024 12:06p m LUMBAR SPINE December 11, 2024 10:25a m Room 1 December 11, 2024 10:47a m BACK PAIN. RX HERE January 13, 2025 12:3 0pm MED F/U, DIZZINESS February 16, 2025 1:02 pm Additional Source Comments (unrecognized sect ion and content) No Status Records FoundNo Status Records Found INFORMATION SOURCE (unrecogn ized section and content) DATE CREATED AUTHOR 08/28/2020 [facility] DATE CREATED AUTHOR AUTHOR'S ORGANIZ ATION 03/04/2025 [facility] Goals (unrecognized section and content) Goals may be documented in a n alternate sectionGoals may be documented in an alternate sectionGoals may be documented in an alternate sectionGoals may be documented in an alternate sectionGoals may be documented in an alternate sectionGoals may be documented in an alternate sectionGoals may be documented in an alternate section Care Teams (unrecognized sec tion and content) Team Status: Active Member Role Status Dates Dr. Bruce Armendariz MD Family Provider Active Dr. Leandra Mejia MD Primary Care Provider Active Team Status: Inactive Member Role Status Dates Dr. Leandra Mejia MD Primary Care Provider, Attendi ng Provider Active Team Status: Active Member Role Status Dates Dr. Leandra Mejia MD Primary Care Provider Active Adolph Ralph Attending Provider Active Team Status: Active Member Role Status Dates Dr. Leandra Mejia MD Primary Care Provider Active Dr. Robert Denney MD Attending Provider Active Dr. Marcial Sena DO Referring Provider Active Team Status: Inactive Member Role Status Dates Dr. Leandra Mejia MD Primary Care Provider Active Dr. Edgar Ayala MD Attending Provider, Referrin g Provider Active Team Status: Inactive Member Role Status Dates Dr. Leandra Mejia MD Primary Care Pro vider, Attending Provider, Referring Provider Active Team Status: Inactive Member Role Status Dates Dr. Leandra Mejia MD Primary Care Provider Active Dr. Marcial Sena DO Attending Provider Active Team Status: Inactive Member Role Status Dates Dr. Leandra Mejia MD Primary Care Provider Active Dr. Kody Kemp MD Attending Provider, Referring Pr ovider Active Team Status: Active Member Role Status Dates Dr. Leandra Mejia MD Primary Care Provider Active Team Status: Inactive Member Role Status Dates Dr. Leandra Mejia MD Primary Care Provider Active Start: December 10, 2024 End: December 10, 2024 Dr. Leandra Mejia MD Attending Provider Active Start: December 10, 2024 End: December 10, 2024 Team Status: Inactive Member Role Status Dates Dr. Leandra Mejia MD Primary Care Provider Active Start: December 10, 2024 End: December 10, 2024 Dr. Leandra Mejia MD Attending Provider Active Start: December 10, 2024 End: December 10, 2024 Dr. Leandra Mejia MD Referring Provider Active Start: December 10, 2024 End: December 10, 2024 Team Status: Inactive Member Role Status Dates Dr. Leandra Mejia MD Primary Care Provider Active Start: December 11, 2024 End: December 11, 2024 Dr. Leandra Mejia MD Referring Provider Active Start: December 11, 2024 End: December 11, 2024 Dr. Mumtaz Owens MD Attending Provider Active Start: December 11, 2024 End: December 11, 2024 Team Status: Inactive Member Role Status Dates Dr. Leandra Mejia MD Primary Care Provider Active Start: December 11, 2024 End: December 11, 2024 Dr. Robert Denney MD Attending Provider Active S tart: December 11, 2024 End: December 11, 2024 Team Status: Active Member Role/Relationship Status Dates Dr. Leandra Mejia MD Primary Care Provider Active Team Status: Inactive Member Role/Relationship Status Dates Dr. Leandra Mejia MD Primary Care Provider Active Start: December 10, 2024 End: December 10, 2024 Dr. Leandra Mejia MD Attending Provider Active Start: December 10, 2024 End: December 10, 2024 Team Status: Inactive Member Role/Relationship Status Dates Dr. Leandra Mejia MD Primary Care Provider Active Start: December 10, 2024 End: December 10, 2024 Dr. Leandra Mejia MD Attending Provider Active Start: December 10, 2024 End: December 10, 2024 Dr. Leandra Mjeia MD Referring Provider Active Start: December 10, 2024 End: December 10, 2024 Team Status: Inactive Member Role/Relationship Status Dates Dr. Leandra Mejia MD Primary Care Provider Active Start: December 11, 2024 End: December 11, 2024 Dr. Leandra Mejia MD Referring Provider Active Start: December 11, 2024 End: December 11, 2024 Dr. Mumtaz Owens MD Attending Provider Active Start: December 11, 2024 End: December 11, 2024 Team Status: Inactive Member Role/Relationship Status Dates Dr. Leandra Mejia MD Primary Care Provider Active Start: December 11, 2024 End: December 11, 2024 Dr. Robert Denney MD Attending Provider Active S tart: December 11, 2024 End: December 11, 2024 Team Status: Active Member Role/Relationship Status Dates Dr. Leandra Mejia MD Primary Care Provider Active Start: January 13, 2025 Dr. Kody Kemp MD Attending Provider Active Start: January 13, 2025 Dr. Kody Kemp MD Referring Provider Active Start: January 13, 2025 Team Status: Inactive Member Role/Relationship Status Dates Dr. Leandra Mejia MD Primary Care Provider Active Start: February 16, 2025 End: February 16, 2025 Dr. Leandra Mejia MD Attending Provider Active Start: February 16, 2025 End: February 16, 2025 FOR RECORDS PERTAINING TO PATIENTS WHO ARE OR HAVE BEEN ENROLLED IN A CHEMICAL DEPENDENCY/SUBSTANCEABUSE PROGRAM, SOME INFORMATION MAY BE OMITTED. This clinical summary was aggregated from multiple sources. Caution should be exercised in using it in the provision of clinical care. This summary normalizes information from multiple sources, and as a consequence, information in this document may materially change the coding, format and clinical context of patient data. In addition, data may be omitted in some cases. CLINICAL DECISIONS SHOULD BE BASED ON THE PRIMARY CLINICAL RECORDS. [facility], [facility]. provides no warranty or guarantee of the accuracy or completeness of information in this document.
== END | disposition home or self-care (01) ==
LOC: OPMRI 10:13
PROVIDERS: PCP Internal Medicine; Referring Provider Anesthesiology Pain Medicine; Visit Provider Anesthesiology Pain Medicine
DX: M54.12 Radiculopathy, cervical region (principal)
CPT/HCPCS: 72141